=== PATIENT | male | born 1965 | race Caucasian/White ===

== ENCOUNTER → 2017-07-15 06:24 | Outpatient (CLI) | payer BC, SELFPAY ==
[2017-07-15 06:54] LABS: Absolute Neutrophil Count 2.6 X10^3/uL (2.0-7.7); Basophil# 0.06 X10^3/uL; Basophil% 1.2 % (0-1); Eosinophil# 0.58 X10^3/uL; Eosinophils% 11.2 % (0-5); Hematocrit 44.6 % (40-54); Hemoglobin 15.1 g/dl (13.0-16.5); Mean Corp Hgb Conc 33.9 g/gl (32-36); Mean Corpuscular Hgb 27.1 pg (27.0-32.0); Mean Corpuscular Volume 79.9 fL (80-94); Mean Platelet Vol. 9.6 fl (6.2-12.0); Monocyte# 0.53 X10^3/uL; Monocyte% 10.2 % (0-10); Neutrophil # 2.62 X10^3/uL (2.7-7.7); Neutrophil % 50.4 % (47-70); Platelet Count 194 K/mm3 (150-450); RBC Distribution Width CV 13.8 % (11.6-14.6); RBC Distribution Width SD 39.8 fl (35.1-43.9); Red Blood Count 5.58 M/mm3 (4.6-6.2); White Blood Count 5.2 K/mm3 (4.4-11.0)
[2017-07-15 06:55] LABS: POSITIVE COUNT NO; POSITIVE DIFFERENTIAL NO; POSITIVE MORPHOLOGY NO
[2017-07-15 07:54] LABS: ALB/GLOB Ratio 1.2 RATIO (0.9-2.4); AST(SGOT) 24 U/L (15-37); Alanine Aminotransfer ALT/SGPT 38 U/L (16-61); Albumin, Serum 3.9 g/dL (3.2-5.0); Alkaline Phosphatase 97 U/L (45-117); Anion Gap 7 (5-15); BUN 10 mg/dL (7-18); BUN/Creat Ratio 8.8 RATIO (10-20); Calcium,Total 8.3 mg/dL (8.5-10.1); Chloride 108 mmol/L (98-107); Creatinine, Serum 1.14 mg/dL (0.70-1.30); EST Glomerular Filtration Rate 71 mL/min (>60); Est Glom Filt Rate - Afr Amer 86 mL/min (>60); Ferritin 43 ng/mL (26-388); Free T3 2.7 pg/mL (2.18-3.98); Globulin 3.2 g/dL (2.2-4.2); Glucose 106 mg/dL (74-106); Magnesium 2.2 mg/dL (1.6-2.6); Potassium 3.9 mmol/L (3.5-5.1); Prolactin 11.6 ng/mL; Protein, Total 7.1 g/dL (6.4-8.2); Sodium Level 142 mmol/L (136-145); Thyroid Stim Hormone (TSH) 1.74 uIU/mL (0.358-3.74)
[2017-07-15 09:34] LABS: Vitamin B12 372 pg/mL (211-911); Vitamin D,25 Hydroxy 56.9 ng/mL (29.95-100.01)
== END ==
PROVIDERS: Family Provider Family Medicine; PCP Family Medicine
DX: E03.8 Other specified hypothyroidism (principal); D35.2 Benign neoplasm of pituitary gland; E55.9 Vitamin D deficiency, unspecified; E53.9 Vitamin B deficiency, unspecified; R53.83 Other fatigue; E83.42 Hypomagnesemia
CPT/HCPCS: 36415; 80053; 82306; 82607; 82728; 83735; 84146; 84436; 84443; 84481; 85025

== ENCOUNTER → 2017-08-12 06:28 | Outpatient (CLI) | payer BC, SELFPAY ==
[2017-08-12 08:40] LABS: Free T3 2.7 pg/mL (2.18-3.98); T4 Total, Thyroxin 10.5 ug/dL (4.5-12.1); Thyroid Stim Hormone (TSH) 2.33 uIU/mL (0.358-3.74)
== END ==
PROVIDERS: Family Provider Family Medicine; PCP Family Medicine
DX: E03.8 Other specified hypothyroidism (principal)
CPT/HCPCS: 36415; 84436; 84443; 84481

== ENCOUNTER → 2017-08-28 07:00 | Outpatient (CLI) | payer BC, SELFPAY ==
[2017-08-28 08:41] LABS: Estradiol 38.6 pg/mL
[2017-09-01 14:08] LABS: Testosterone, Free 7.08 ng/dL (5.00-21.00)
[2017-09-02 11:12] LABS: Testosterone, % Free 1.46 % (1.50-4.20); Testosterone, Total 485 ng/dL (264-916)
--- OUTSIDE RECORDS SUMMARY | 2017-10-02 16:29 | XMS RPT_ITS ---
:1965 Author Organization [place] Support Name Relationship Address Phone JANETTE GRAY Unavailable [address] + [place] [address] JMSM Unavailable [address] + [place] [address] JANETTE GRAY Unavailable [address] + [place] [address] JMSM Unavailable [address] + [place] [address] JANETTE GRAY Unavailable [address] + [place] [address] JMSM Unavailable [address] + [place] [address] DERRICK GRAYDY Unavailable [address] + [place] [address] JMSM Unavailable [address] + [place] [address] DERRICK GRAYDY Unavailable [address] + [place] [address] JMSM Unavailable [address] + [place] [address] DERRICK GRAYDY Unavailable [address] + [place] [address] JMSM Unavailable [address] + [place] [address] DERRICK GRAYDY Unavailable [address] + [place] [address] JMSM Unavailable [address] + [place] [address] DERRICK GRAYDY Unavailable [address] + [place] [address] JMSM Unavailable [address] + [place] [address] ISAAC, JANETTE Unavailable [address] + [place] [address] JMSM Unavailable [address] + [place] [address] ISAAC, JANETTE Unavailable [address] + [place] [address] JMSM Unavailable [address] + [place] [address] ISAAC, JANETTE Unavailable [address] + [place] [address] JMSM Unavailable [address] + [place] [address] ISAAC, JANETTE Unavailable [address] + [place] [address] JMSM Unavailable [address] + [place] [address] ISAAC, JANETTE Unavailable [address] + [place] [address] JMSM Unavailable [address] + [place] [address] ISAAC, JANETTE Unavailable [address] + [place] [address] JMSM Unavailable [address] + [place] [address] ISAAC, JANETTE Unavailable [address] + [place] [address] JMSM Unavailable [address] + [place] [address] ISAAC, JANETTE Unavailable [address] + [place] [address] JMSM Unavailable [address] + [place] [address] Care Team Providers Name Role Phone ANJEL KIRK Attending Unavailable DAILY MONTERROSO Attending Unavailable ANJEL KIRK Referring Unavailable BRADLEY COUGHLIN Attending Unavailable DAILY MONTERROSO Referring Unavailable DAILY MONTERROSO Attending Unavailable DAILY MONTERROSO Referring Unavailable DAILY MONTERROSO Referring Unavailable DAILY MONTERROSO Referring Unavailable LOC DAILY Parra Referring Unavailable MEGHA PIA (WATER RESOURCE MANAGER) Referring Unavailable LOC, DAILY Parra Attending Unavailable LOC, DAILY Parra Referring Unavailable DAILY MONTERROSO Attending Unavailable ИВАН SANTACRUZ Referring Unavailable SHEWBRIDGE, KEYONA Gallo Referring Unavailable SHEWGENIE, KEYONA Gallo Referring Unavailable Oakes, Earl Attending Unavailable Noam, Иван Primary Care Unavailable Blas Lyn Attending Unavailable Noam, Иван Primary Care Unavailable Sandoval, Amilcar Attending Unavailable Sandoval, Amilcar Primary Care Unavailable Sandoval, Amilcar Primary Care Unavailable Hammad Don Admitting Unavailable Hammad Don Attending Unavailable Terrell David D.O. Consulting Unavailable Maximilianobour, Rob Consulting Unavailable Oakes, Earl Attending Unavailable Sandoval, Amilcar Primary Care Unavailable Sandoval, Amilcar Primary Care Unavailable Hawk Millan Admitting Unavailable Randell Longoria Attending Unavailable Zi Powell Consulting Unavailable Yas, Jonas Consulting Unavailable Sandoval, Amilcar Primary Care Unavailable Surya Diaz Admitting Unavailable Favio Lucia Attending Unavailable Miguel, Rob Consulting Unavailable Jonas Sorenson Attending Unavailable Sandoval, Amilcar Primary Care Unavailable Jonas Sorenson Attending Unavailable Sandoval, Amilcar Primary Care Unavailable Sandoval, Amilcar Attending Unavailable Sandoval, Amilcar Primary Care Unavailable Favio Lucia Attending Unavailable Sandoval, Amilcar Primary Care Unavailable Sandoval, Amilcar Attending Unavailable Sandoval, Amilcar Primary Care Unavailable DEIN MYERS Attending Unavailable DENI MYERS Referring Unavailable Sandoval, Amilcar Primary Care Unavailable DENI MYERS Attending Unavailable DENI MYERS Referring Unavailable Sandoval, Amilcar Primary Care Unavailable DENI MYERS Attending Unavailable DENI MYERS Referring Unavailable Sandoval, Amilcar Primary Care Unavailable BRADLEY GAY Attending Unavailable WIETECHA, BRADLEY Referring Unavailable Sandoval, Amilcar Primary Care Unavailable PROBLEMS PROBLEMS DATE TYPE CONDITION / CODE ATTENDING STATUS SOURCE 10/02/2017 Unknown R53.83 - Other fatigue DENI MYERS Active [place] / R53.83(ICD-10) [facility] Repository 08/12/2017 Unknown E03.8 - Other DENI MYERS Active [place] specified Community hypothyroidism / Hospital E03.8(ICD-10) Repository 07/16/2017 Unknown D35.2 - Benign DENI MYERS Active [place] neoplasm of pituitary Community gland / D35.2(ICD-10) Hospital Repository 07/16/2017 Unknown E55.9 - Vitamin D DENI MYERS Active [place] deficiency, Community unspecified / Hospital E55.9(ICD-10) Repository 07/16/2017 Unknown E83.42 - DENI MYERS Active [place] Hypomagnesemia / Community E83.42(ICD-10) Hospital Repository 07/16/2017 Unknown E53.9 - Vitamin B DENI MYERS Active [place] deficiency, Community unspecified / Hospital E53.9(ICD-10) Repository 04/11/2017 Active Hypothyroidism, NA Active [facility] unspecified / Clinic Main E03.9(ICD-10) [place] Repository 01/20/2017 Unknown PAIN IN RIGHT WRIST / Lori Amilcar Active [place] M25.531(ICD-10) [facility] Repository 12/26/2016 Unknown ANEMIA, UNSPECIFIED / Jopperi, Favio Active [place] D64.9(ICD-10) [facility] Repository 12/10/2016 Active Personal history of NA Active [facility] other venous Clinic Main thrombosis and [place] embolism / Repository Z86.718(ICD-10) 12/03/2016 Unknown ENCNTR FOR GENERAL SandovalAmilcar Active [place] ADULT MEDICAL EXAM W/O Community ABNORMAL FINDINGS / Hospital Z00.00(ICD-10) Repository 11/20/2016 Active Phlebitis and NA Active [facility] thrombophlebitis of Clinic Main superficial vessels of [place] left lower extremity / Repository I80.02(ICD-10) 01/13/2017 Unknown CELLULITIS, Yas, Active [place] UNSPECIFIED / [facility] Community L03.90(ICD-10) Hospital Repository 11/23/2016 Unknown PHLEBITIS AND Jopperi, Favio Active [place] THOMBOPHLB OF [facility] VESSELS OF [facility] / Repository I80.02(ICD-10) 11/23/2016 Unknown OTHER SPECIFIED SOFT Jopperi, Favio Active [place] TISSUE DISORDERS / Community M79.89(ICD-10) Hospital Repository 11/23/2016 Unknown ESSENTIAL (PRIMARY) Jopperi, Favio Active [facility] HYPERTENSION / Community I10(ICD-10) Hospital Repository 11/23/2016 Unknown HYPOTHYROIDISM, Jopperi, Favio Active [facility] UNSPECIFIED / Community E03.9(ICD-10) Hospital Repository 11/23/2016 Unknown OBSTRUCTIVE SLEEP Jopperi, Favio Active [facility] APNEA (ADULT) Community (PEDIATRIC) / Hospital G47.33(ICD-10) Repository 11/23/2016 Unknown RESTLESS LEGS SYNDROME Jopperi, Favio Active [facility] / G25.81(ICD-10) Community Hospital Repository 11/23/2016 Unknown OTHER CERVICAL DISC Jopperi, Favio Active [facility] DISPLACEMENT, UNSP Community CERVICAL REGION / Hospital M50.20(ICD-10) Repository 11/23/2016 Unknown CELLULITIS OF Jopperi, Favio Active [facility] UNSPECIFIED PART OF Community LIMB / L03.119(ICD-10) Hospital Repository 11/23/2016 Unknown METHICILLIN SUSCEP Jopperi, Favio Active [place] STAPH IN[facility]CT CAUSING [facility] B95.61(ICD-10) Repository 11/23/2016 Unknown OTHER FCI Jopperi, Favio Active [place] (CURRENT) DRUG THERAPY Community / Z79.899(ICD-10) Hospital Repository 11/23/2016 Unknown DUODENAL ULCER, UNSP Jopperi, Favio Active [facility] ACUTE OR CHRONIC, Community W/O HEMOR OR PERF / Hospital K26.9(ICD-10) Repository 11/23/2016 Unknown ACUTE EMBOLISM AND Jopperi, Favio Active [facility] THOMBOS OF [facility] VEINS OF R UP EXTREM / Hospital I82.611(ICD-10) Repository 07/16/2017 Unknown A41.9 - Sepsis, Tereletsky, Active [place] unspecified organism / [facility] Community A41.9(ICD-10) Hospital Repository 07/16/2017 Unknown T82.7XXA - Infection Tereletsky, Active [place] and inflammatory [facility] Community reaction due to other Hospital cardiac and vascular Repository devices, implants and grafts, initial encounter / T82.7XXA(ICD-10) 07/16/2017 Unknown A41.01 - Sepsis due to Tereletsky, Active [place] Methicillin [facility] Community susceptible Hospital Staphylococcus aureus Repository / A41.01(ICD-10) 07/16/2017 Unknown B95.61 - Methicillin Tereletsky, Active [place] susceptible [facility] Community Staphylococcus aureus Hospital infection as the cause Repository of diseases classified elsewhere / B95.61(ICD-10) 07/16/2017 Unknown M50.30 - Other Tereletsky, Active [place] cervical disc [facility] Community degeneration, Hospital unspecified cervical Repository region / M50.30(ICD-10) 07/16/2017 Unknown L03.113 - Cellulitis Oakes, Earl Active [place] of right upper limb / Community L03.113(ICD-10) Hospital Repository 07/16/2017 Unknown T82.898A - Other Oakes, Earl Active [place] specified complication Community of vascular prosthetic Hospital devices, implants and Repository grafts, initial encounter / T82.898A(ICD-10) 07/16/2017 Unknown I80.8 - Phlebitis and Oakes, Earl Active [facility] thrombophlebitis of Community other sites / Hospital I80.8(ICD-10) Repository 07/16/2017 Unknown R00.0 - Tachycardia, Oakes, Earl Active [place] unspecified / Community R00.0(ICD-10) Hospital Repository 07/16/2017 Unknown Z87.19 - Personal Oakes, Earl Active [place] history of other Community diseases of the Hospital digestive system / Repository Z87.19(ICD-10) 07/16/2017 Unknown R50.9 - Fever, Oakes, Earl Active [place] unspecified / Community R50.9(ICD-10) Hospital Repository 07/16/2017 Unknown R57.1 - Hypovolemic Hammad Don Active [place] shock / R57.1(ICD-10) Community Hospital Repository 07/16/2017 Unknown K26.0 - Acute duodenal KitHammad patino Active [facility] ulcer with hemorrhage Community / K26.0(ICD-10) Hospital Repository 07/16/2017 Unknown D62 - Acute KitHammad patino Active [place] posthemorrhagic anemia Community / D62(ICD-10) Hospital Repository 07/16/2017 Unknown E03.9 - KitHammad patino Active [place] Hypothyroidism, Community unspecified / Hospital E03.9(ICD-10) Repository 07/16/2017 Unknown Z68.30 - Body mass Hammad Don Active [place] index (BMI) 30.0-30.9, Community adult / Z68.30(ICD-10) Hospital Repository 07/16/2017 Unknown E66.9 - Obesity, Hammad Don Active [place] unspecified / Community E66.9(ICD-10) Hospital Repository 07/16/2017 Unknown T39.395A - Adverse Hammad Don Active [facility] effect of other Community nonsteroidal Hospital anti-inflammatory Repository drugs [NSAID], initial encounter / T39.395A(ICD-10) 07/16/2017 Unknown G25.81 - Restless legs Hammad Don Active [place] syndrome / Community G25.81(ICD-10) Hospital Repository 07/16/2017 Unknown G47.33 - Obstructive Hammad Dno Active [place] sleep apnea (adult) Community (pediatric) / Hospital G47.33(ICD-10) Repository 07/16/2017 Unknown M50.20 - Other Hammad Don Active [place] cervical disc Community displacement, Hospital unspecified cervical Repository region / M50.20(ICD-10) 07/16/2017 Unknown G62.9 - Hammad Don Active [place] Polyneuropathy, Community unspecified / Hospital G62.9(ICD-10) Repository 07/16/2017 Unknown Z79.899 - Other long Hammad Don Active [place] term (current) drug Community therapy / Hospital Z79.899(ICD-10) Repository 10/21/2016 Active Varicose veins of [facility] bilateral lower Clinic Main extremities with other [place] complications / Repository I83.893(ICD-10) 12/15/2016 Unknown CERVICALGIA / Amilcar Sandoval Active [place] M54.2(ICD-10) [facility] Repository 10/18/2016 Active Low back pain / [facility] M54.5(ICD-10) Clinic Other [place] Repository 07/16/2017 Unknown S29.012A - Strain of Oakes, Earl Active [place] muscle and tendon of Community back wall of thorax, Hospital initial encounter / Repository S29.012A(ICD-10) 07/16/2017 Unknown X58.XXXA - Exposure to Oakes, Earl Active [place] other specified Community factors, initial Hospital encounter / Repository X58.XXXA(ICD-10) 07/16/2017 Unknown Y93.9 - Activity, Oakes, Earl Active [place] unspecified / Community Y93.9(ICD-10) Hospital Repository 07/16/2017 Unknown Y92.9 - Unspecified Oakes, Earl Active [facility] place or not Community applicable / Hospital Y92.9(ICD-10) Repository 07/16/2017 Unknown Y99.9 - Unspecified Oakes, Earl Active [place] external cause status Community / Y99.9(ICD-10) Hospital Repository 07/16/2017 Unknown M54.2 - Cervicalgia / Oakes, Earl Active [place] M54.2(ICD-10) [facility] Repository 07/16/2017 Unknown I10 - Essential Oakes, Earl Active [place] (primary) hypertension Community / I10(ICD-10) Hospital Repository 07/16/2017 Unknown M54.9 - Dorsalgia, Oakes, Earl Active [place] unspecified / Community M54.9(ICD-10) Hospital Repository PROCEDURES PROCEDURES No Procedure Records FoundRESULTS RESULTS BRAIN W/WO CONTRAST Observed: 09/18/2017 Status: F Source: [place] 7:37 AM [facility] RE[facility]IT[facility] H[facility]PITALImaging [id number] [place], [place] [address]Ibirn W/WO ContrastMR#: [id number] Acct: [id number]: MARC GRAY Rep #: [id number]: 1965 M 51 From: Joss SilverbPCP: Amilcar Sandoval MD Status: REG CLIStudy: Brain W/WO Contrast Date of Exam: 09/18/17Exam# [id number] Ordering Dr: Tai GayUDY: MRI BRAIN WITH AND WITHOUT CONTRASTREASON FOR EXAM: Male, 51 years old. pituitary mass seen on MRI [id number]. Pt is having increasing H/As.TECHNIQUE: Standardized multiplanar fat and water weighted pulsesequences were obtained. 10 ml of Gadavist contrast material wasadministered intravenously for the contrast portion of the examination.COMPARISON: None. FINDINGS:Normal size of the ventricles and extra-axial spaces for the patient's age.Normal white matter tracts of the supratentorial brain.Normal bilateral basal ganglia. Normal thalami. There is no extra-axialfluid accumulation.Normal flow voids within the major intracranial circulation suggestingpatency by spin echo criteria. Normal venous enhancement. There is noenhancing intra-axial or extra-axial abnormality.Normal midbrain, giorgio and medulla. Normal cerebellum. Normal basalcisterns. Normal bilateral temporal bones. Normal bilateral internalauditory canals.No demonstrated orbital abnormality, within the constraints of a routinebrain study. Normal visualized paranasal sinuses. Normal calvarium andskull base. Normal visualized soft tissue structures. Normal visualizedupper cervical spine. IMPRESSION: Normal unenhanced and enhanced MRI of the brain.Electronically Signed:Joss Soto MD at 8:12 EDTTel , Service support , FAPPP: MRI BRAIN WITH AND WITHOUT CONTRAST (ATTENTION PITUITARY GLAND)REASON FOR EXAM: Male, 51 years old. pituitary mass seen on MRI [id number]. Pt is having increasing H/As.TECHNIQUE: Standardized multiplanar fat and water weighted pulsesequences were obtained. 10 ml of Gadavist contrast material wasadministered intravenously for the contrast portion of the examination.COMPARISON: September 29, 2012 FINDINGS:Again noted is the hypoenhancing focus at the inferior pituitary gland onthe sagittal sequence which is decreased since the prior examinationmeasuring now approximately 1 mmNormal infundibular stalk and suprasellar cistern. Normal optic chiasm andhypothalamus.Normal size of the ventricles and extra-axial spaces for the patient's age.Normal white matter tracts of the supratentorial brain.Normal bilateral basal ganglia. Normal thalami. ORDER #: [id number] MRI/Brain W/WO ContrastIMPRESSION:Decreased possible microadenoma.Electronically Signed:Joss Soto MD at 8:12 EDTTel , Service support , CY: BRADLEY GAY; Amilcar Sandoval MD Cyber Incident Analyst:Signed LUTEINIZING HORMONE Collected: 08/28/2017 Status: F Source: [place] 7:15 AM [facility] REPOSITORY TYPE CODE TESTS RESULT OUT OF RANGE REFERENCE UNITS LAB L3100.5170 Normal mIU/mL LH 9.0 Result Comment: NORMAL REFERENCE RANGES FEMALE FOLLICULAR 1.9 - 26.2 mIU/mL MID-CYCLE PEAK 22.8 - 76.1 mIU/mL LUTEAL 0.6 - 16.6 mIU/ mL POST-MENOPAUSAL ON MHT 1.1 - 52.4 mIU/mL NOT ON MHT 8.6 - 61.8 mIU/mL MALE 1.2 - 10.6 mIU/mLNEW TEST METHOD AND REFERENCE RANGES JULY 14, 2011 Performed By: #### L3100.5170, L3300.1750 ####[facility] [address] [place], [place], [id number] ESTRADIOL Collected: 08/28/2017 Status: F Source: [place] 7:15 AM [facility] REPOSITORY TYPE CODE TESTS RESULT OUT OF RANGE REFERENCE UNITS LAB L3300.1750 Normal pg/mL ESTRADIOL 38.6 Result Comment: NORMAL REFERENCE RANGES FEMALE FOLLICULAR 21.4 - 164.8 pg/mL MID-CYCLE PEAK 49.9 - 367.2 pg/mL LUTEAL 40.2 - 259.0 pg/mL POST-MENOPAUSAL ON MHT <11.0 - 462.1 pg/mL NOT ON MHT <11.0 - 58.3 pg/mL MALE <11.0 - 52.5 pg/mLNOTE:[facility] HAS CONFIRMED THE DRUG FULVETRANT (FASLODEX) MAYCAUSE FALSELY ELEVATED ESTRADIOL RESULTS WHEN USING THISTEST METHOD. IF PATIENT IS TAKING FULVESTRANT AN ALTERNATIVEMETHOD SHOULD BE USED TO DETERMINE ESTRADIOL CONCENTRATION. Performed By: #### L3100.5170, L3300.1750 ####[facility] [address] [place], [place], [address] TESTOSTERONE, TOTAL / Collected: 08/28/2017 Status: F Source: [place] FREE 7:15 AM [facility] REPOSITORY Order Comment: Has Patient had X-rays with Contrast this admission? N TYPE CODE TESTS RESULT OUT OF RANGE REFERENCE UNITS LAB L3100.5320 Normal 264-916 ng/dL 485 TESTOSTER,TO MATT Result Comment: Adult male reference interval is based on a population ofhealthy nonobese males (BMI <30) between 19 and 39 yearsold. ankit Sommers.al. JCEM 2017,102;9954-3427. PMID:[id number]. LAB L3100.5340 Normal 5.00-21.00 ng/dL TESTOSTER,FREE 7.08 LAB L3100.5360 Low 1.50-4.20 % TESTOSTER %FREE 1.46 Result Comment: Performed at: [facility] [id number] Director: Rob Germain PhD, Phone: [phone] at: [facility] [address] [id number] Director: Ramo Dykes MD, Phone: [phone] Performed By: #### L3100.5310 ####[facility] (refer to report for specific site)refer to report for address and phone number FREE T3 Collected: 08/12/2017 Status: F Source: [place] 6:36 AM [facility] REPOSITORY TYPE CODE TESTS RESULT OUT OF RANGE REFERENCE UNITS LAB L501.75685 Normal 2.18-3.98 pg/mL FREE 2.7 T3 Performed By: #### L501.10888, L501.9310, L501.9520 #### [facility] [address] [place], [place], [id number] T4 TOTAL, THYROXIN Collected: 08/12/2017 Status: F Source: [place] 6:36 AM [facility] REPOSITORY TYPE CODE TESTS RESULT OUT OF RANGE REFERENCE UNITS LAB L501.9310 Normal 4.5-12.1 ug/dL T4 10.5 THYROXIN Performed By: #### L501.79477, L501.9310, L501.9520 #### [facility] [address] [place], [place], [id number] THYROID STIM HORMONE Collected: 08/12/2017 Status: F Source: [place] (TSH) 6:36 AM [facility] REPOSITORY TYPE CODE TESTS RESULT OUT OF RANGE REFERENCE UNITS LAB L501.9520 Normal 0.358-3.74 uIU/mL TSH 2.33 Performed By: #### L501.15034, L501.9310, L501.9587 #### [facility] [address] [place], [address] CBC W/DIFF, AUTOMATED Collected: 07/15/2017 Status: F Source: MUSELLA 6:30 AM [facility] REPOSITORY TYPE CODE TESTS RESULT OUT OF RANGE REFERENCE UNITS LAB L100.1000 Normal 4.4-11.0 K/mm3 WBC 5.2 LAB L100.1200 Normal 4.6-6.2 M/mm3 RBC 5.58 LAB L100.1300 Normal 13.0-16.5 g/dl HGB 15.1 LAB L100.1400 Normal 40-54 % HCT 44.6 LAB L100.1500 Low 80-94 fL MCV 79.9 LAB L100.1600 Normal 27.0-32.0 pg MCH 27.1 LAB L100.1700 Normal 32-36 g/gl MCHC 33.9 LAB L100.1810 Normal 11.6-14.6 % RDW 13.8 CV LAB L100.1820 Normal 35.1-43.9 fl RDW 39.8 SD LAB L100.1900 Normal 150-450 K/mm3 PLT 194 LAB L100.2000 Normal 6.2-12.0 fl MPV 9.6 LAB L100.2100 Normal 47-70 % NEUT% 50.4 LAB L100.2200 Normal 19-41 % LY% 27.0 LAB L100.2300 High 0-10 % MONO% 10.2 LAB L100.2400 High 0-5 % EO% 11.2 LAB L100.2500 High 0-1 % BASO% 1.2 LAB L100.2550 Normal 0.0-0.9 % IM 0.000 GRAN % Result Comment: IG% - Immature Granulocytes (promyelocytes, myelocytes andmetamyelocytes) > 1% indicates that a LEFT SHIFT is Present. LAB L100.2620 Normal 2.0-7.7 X10 3/uL Absolute Neut 2.6 LAB L100.2720 Normal 0.83-4.51 X10 3/ul Absolute Lymph 1.40 Performed By: #### L100.0100 ####[facility] [address] [place], [address] COMPREHENSIVE METABOLIC Collected: 07/15/2017 Status: F Source: [place] PROFIL 6:30 AM [facility] REPOSITORY TYPE CODE TESTS RESULT OUT OF RANGE REFERENCE UNITS LAB L501.0100 Normal 74-106 mg/dL GLU 106 Result Comment: Fasting Glucose result from 100 to 125 mg/dLsuggests IMPAIRED HOMEOSTASIS per A.D.A. criteria.Please note revised GLUCOSE reference range arrhvuozm79/02/2018. LAB L501.1000 Normal 7-18 mg/dL BUN 10 LAB L501.1100 Normal 0.70-1.30 mg/dL CREAT,SERUM 1.14 Result Comment: The validity of the calculated GFR AND GFRAA in patients over70 years has not been determined. Clinical correlation isessential. LAB L501.1110 Normal >60 mL/min EST GFR 71 Result Comment: Non- GFR Calc LAB L501.1115 Normal >60 mL/min EST GFR - 86 AA Result Comment: GFR Calc LAB L501.1300 Low 10-20 RATIO BUN/CRE 8.8 LAB L501.1500 Normal 6.4-8.2 g/dL T PROT 7.1 LAB L501.1800 Normal 3.2-5.0 g/dL ALB 3.9 LAB L501.1950 Normal 2.2-4.2 g/dL GLOB 3.2 LAB L501.2000 Normal 0.9-2.4 RATIO A/G 1.2 LAB L501.2200 Low 8.5-10.1 mg/dL CA 8.3 LAB L501.4100 Normal 15-37 U/L AST 24 LAB L501.4305 Normal 45-117 U/L ALK P 97 LAB L501.4405 Normal 16-61 U/L ALT 38 LAB L501.4600 Normal 0.20-1.00 mg/dL T BILI 0.60 LAB L501.5300 Normal 136-145 mmol/L NA 142 LAB L501.5600 Normal 3.5-5.1 mmol/L K 3.9 LAB L501.5900 High 98-107 mmol/L CL 108 LAB L501.6100 Normal 21.0-32.0 mmol/L CO2 27.0 LAB L501.6200 Normal 5-15 GAP 7 Performed By: #### L500.4050, L501.5200, L501.72846, L501.9310, L501.9520, L503.6550, L3100.5420 ####[facility] [address] [place], [place], [id number] MAGNESIUM Collected: 07/15/2017 Status: F Source: [place] 6:30 AM [facility] REPOSITORY TYPE CODE TESTS RESULT OUT OF RANGE REFERENCE UNITS LAB L501.5200 Normal 1.6-2.6 mg/dL MG 2.2 Performed By: #### L500.4050, L501.5200, L501.82255, L501.9310, L501.9520, L503.6550, L3100.5420 ####[facility] [address] [place], [place], [id number] FREE T3 Collected: 07/15/2017 Status: F Source: [place] 6:30 AM [facility] REPOSITORY TYPE CODE TESTS RESULT OUT OF RANGE REFERENCE UNITS LAB L501.80858 Normal 2.18-3.98 pg/mL FREE 2.7 T3 Performed By: #### L500.4050, L501.5200, L501.62507, L501.9310, L501.9520, L503.6550, L3100.5420 ####[facility] [address] [place], [place], [id number] T4 TOTAL, THYROXIN Collected: 07/15/2017 Status: F Source: [place] 6:30 AM [facility] REPOSITORY TYPE CODE TESTS RESULT OUT OF RANGE REFERENCE UNITS LAB L501.9310 Normal 4.5-12.1 ug/dL T4 12.0 THYROXIN Performed By: #### L500.4050, L501.5200, L501.12779, L501.9310, L501.9520, L503.6550, L3100.5420 ####[facility] [address] [place], [place], [id number] THYROID STIM HORMONE Collected: 07/15/2017 Status: F Source: [place] (TSH) 6:30 AM [facility] REPOSITORY TYPE CODE TESTS RESULT OUT OF RANGE REFERENCE UNITS LAB L501.9520 Normal 0.358-3.74 uIU/mL TSH 1.74 Performed By: #### L500.4050, L501.5200, L501.37654, L501.9310, L501.9520, L503.6550, L3100.5420 ####[facility] [address] [facility] [address] FERRITIN Collected: 07/15/2017 Status: F Source: [place] 6:30 AM [facility] REPOSITORY TYPE CODE TESTS RESULT OUT OF RANGE REFERENCE UNITS LAB L503.6550 Normal 26-388 ng/mL FERRITIN 43 Performed By: #### L500.4050, L501.5200, L501.89177, L501.9310, L501.9520, L503.6550, L3100.5420 ####[facility] [address] [place], [place], [address] PROLACTIN Collected: 07/15/2017 Status: F Source: [place] 6:30 AM [facility] REPOSITORY TYPE CODE TESTS RESULT OUT OF RANGE REFERENCE UNITS LAB L3100.5420 Normal ng/mL PROLACTIN 11.6 Result Comment: NORMAL REFERENCE RANGES FEMALE NON- 2.2 - 30.3 ng/mL 8.1 - 347.6 ng/mL POST-MENOPAUSAL 0.7 - 31.5 ng/mL MALE 2.5 - 17.4 ng/mLNEW TEST METHOD AND REFERENCE RANGES JULY 14, 2011 Performed By: #### L500.4050, L501.5200, L501.23585, L501.9310, L501.9520, L503.6550, L3100.5420 ####[facility] [address] [place], [place], [address] VITAMIN B12 Collected: 07/15/2017 Status: F Source: M[place] 6:30 AM [facility] REPOSITORY TYPE CODE TESTS RESULT OUT OF RANGE REFERENCE UNITS LAB L503.0105 Normal 211-911 pg/mL Vitamin 372 B12 Performed By: #### L503.0105, L506.1000 ####[facility] [address] [place], [address] VITAMIN D,25 HYDROXY Collected: 07/15/2017 Status: F Source: MUSELL[place] 6:30 AM [facility] REPOSITORY TYPE CODE TESTS RESULT OUT OF RANGE REFERENCE UNITS LAB L506.1000 Normal 29.95-100.01 ng/mL Vitamin 56.9 D 25-OH Result Comment: Vitamin D 25(OH) Status Range Deficiency <20 ng/mL (50nmol/L) Insuffciency 20 - 30 ng/mL (50 - 75 nmol/L) Sufficiency 30 - 100 ng/mL (75 - 250 nmol/L) Toxicity >100 ng/mL (>250 nmol/L) Performed By: #### L503.0105, L506.1000 ####[facility] [address] [place], [address] FREE T3 Collected: 05/19/2017 Status: F Source: [place] 10:55 AM [facility] REPOSITORY TYPE CODE TESTS RESULT OUT OF RANGE REFERENCE UNITS LAB FREET3 High 2.3-4.1 pg/mL Free 5.2 T3 Performed By: #### FREET3, TSH ####[facility] [place], [place] [phone] TSH Collected: 05/19/2017 Status: F Source: [place] 10:55 AM [facility] REPOSITORY TYPE CODE TESTS RESULT OUT OF RANGE REFERENCE UNITS LAB TSH 0.400-5.500 uU/mL TSH 1.600 Performed By: #### FREET3, TSH ####[facility] [place], [place] [phone] FREE T3 Collected: 04/11/2017 Status: F Source: [place] 8:32 AM [facility] REPOSITORY TYPE CODE TESTS RESULT OUT OF RANGE REFERENCE UNITS LAB FREET3 2.3-4.1 pg/mL Free 4.0 T3 Performed By: #### FREET3, TSH ####[facility] [place], [place] [phone] TSH Collected: 04/11/2017 Status: F Source: [place] 8:32 AM [facility] REPOSITORY TYPE CODE TESTS RESULT OUT OF RANGE REFERENCE UNITS LAB TSH 0.400-5.500 uU/mL TSH 1.720 Performed By: #### FREET3, TSH ####[facility] [address] [place], [place] [phone] HOSP Observed: 03/15/2017 Status: COMPLETED Source: [place] 12:00 AM [facility] REPOSITORY Get Medical Advice (ENDMED) ---------MARC GRAY JR ([id number]) 1965 MDate Time Provider Department03/15/17 KEYONA CHANEY During your visit today, we recorded the following information about you:Missy Short Ma 03/16/2017 8 :28 AM SignedPlease advise, thanks.Keyla Sanabria MA 03/17/2017 12:42 PM SignedMailed lab letter Otf As of Date: 03/15/2017 Noted Allergy ReactionNSAIDS (NON-STEROIDAL ANTI- INFLAM*11/20/2016 15 - Contraindication-Medical Alegre* Comments: Had internal bleeding.PENICILLINS 11/28/2006 Comments: As a baby- unsure of reactionDate Reviewed: 2016Reviewed by: Boo Álvarez RN - Fully AssessedPrimary Visit Diagnosis:Acquired hypothyroidism [E03.9]Order(s):ARMOUR THYROID 30 mg tabletTake 2.5 tablets by mouth once daily.Disp: 75 tabletRfl: 11Prescriptions as of 03/15/2017 Sig: ARMOUR THYROID 30 MG TABLET Take 2.5 tablets by mouth onc* GABAPENTIN 300 MG CAPSULE Take 300 mg by mouth three ti* PANTOPRAZOLE 40 MG TABLET,DEL* Take 40 mg by mouth once julia* FERROUS SULFATE ORAL Take by mouth twice daily. U* CEFTRIAXONE 2 GRAM SOLUTION F* 2 g once daily. Through IV METHYLPREDNISOLONE 4 MG TABLE* Take by mouth. As directed on* Patient not taking: Reported on 11/20/2016Problem List As Of Date 03/15/2017 Noted Resolved Mixed hyperlipidemia [E78.2] INVALID FOR*07/20/2012 Abdominal pain, epigastric [R10.13] INVALID FOR*07/20/2012 Acromioclavicular joint pain [ M25.519] INVALID FOR*07/20/2012 Brachial neuritis or radiculitis NOS [M54.12] INVALID FOR*07/20/2012 Restless legs [G25.81] INVALID FOR* Vitamin D deficiency [E55.9] INVALID FOR* Fatigue [R53.83] INVALID FOR*11/17/2015 MYNOR (obstructive sleep apnea) [G47.33] INVALID FOR* More... History of TIA (transient ischemic attack) [Z86*INVALID FOR* Pituitary abnormality (HCC) [E23.7] INVALID FOR* More... Hypothyroidism [E03.9] INVALID FOR* Obesity [E66.9] INVALID FOR*11/17/2015 Decreased libido [R68.82] INVALID FOR* Anxiety disorder [F41.9] INVALID FOR* Prescriptions ordered this encounter Disp Refills Start End ARMOUR THYROID 30 MG TABLET 75 t* 11 03/16/2017 Route: ORAL Sig: Take 2.5 tablets by mouth once daily.Medications Discontinued During This Encounter levothyroxine (SYNTHROID) 125 mcg ta* 90 t* 3 201603/16/2017 Sig: TAKE 1 TABLET EVERY DAY Disc: Changing Therapy/Dosage FormLetter TextJulissauli Gray JR EndocrinologistKeyona Chaney MD, HKFF404 [facility], [address] [address]Olsarc: [phone]: [phone] 2017Julissauli Gray of : 1965Please obtain the following laboratory tests on Mr. Gray in 04/2017.Tests: TSHFree T3.Diagnosis(es): Hypothyroidism (E03.9) .Please fax result to [phone].Thank you.Keyona Chaney MD(Electronically signed to expedite processing) Status:Closed by KEYONA CHANEY MD on 03/16/17 UPPER EXT JOINT Observed: 01/16/2017 Status: F Source: LISA ONLY(ROUTINE) 3:36 PM [facility] REPOSITORY [facility] [id number] [place] [address]Omqjm Ext Joint Only(Routine)MR#: [id number] Acct: [id number]: MARC GRAY JR Rep #: [id number]: [birth year] M 51 From: Kirill Rivera MDPCP: Amilcar Sandoval MD Status: REG CLIStudy: Upper Ext Joint Only(Routine) Date of Exam: 01/16/17Exam# [id number] Ordering Dr: Amilcar Sandoval MDSTUDY: MRI RIGHT WRIST WITHOUT CONTRASTREASON FOR EXAM: Male, 51 years old. Pain with grasping.TECHNIQUE: Standardized fat and water weighted pulse sequences wereobtained in all 3 orthogonal planes.COMPARISON: None. FINDINGS:Normal visualized distal radius and ulna. Normal distal radioulnarArticulation (DRUJ). Normal triangular fibrocartilaginous complex (TFCC).There are small cystic foci of the carpal bones. There is mild arthriticchange of the carpal articulations. There are ossific signal intensitystructures on the dorsal aspect adjacent to the lunate and capitate, series5 image /36.Normal visualized interosseous scapholunate ligament. Normal visualizeddorsal (extrinsic) ligaments. Normal visualized volar (extrinsic)ligaments.Tendinosis of the extensor carpi ulnaris with enlargement and partialintrasubstance tearing, series 6 images 36 through . There is fluidin the tendon sheath. Normal extensor digitorum tendons. Normal flexortendons. Normal carpal tunnel with a normal median nerve.Normal carpometacarpal articulation of the thumb. Normal second throughfifth carpometacarpal articulations.Normal visualized metacarpal bones.There is no demonstrated soft tissue abnormality. ORDER #: [id number] MRI/Upper Ext Joint Only(Routine)IMPRESSION:Tenosynovitis with partial intrasubstance tear of the extensor carpiulnaris.Arthritic change of the carpal bones. Ossifications on the dorsal aspectwith possible prior avulsion or loose body.Electronically Signed: Kirill Rivera MD at 10:09 ESTTel , Service support [phone], EM: Amilcar Sandoval MD Cyber Incident Analyst:Signed PROGRESS Observed: 01/09/2017 Status: COMPLETED Source: [place] 5:34 PM [facility] REPOSITORY HNO ID: [id number]: Daily Kirbyervice: (none) Author Type: PhysicianType: Progress NotesFiled: 01/09/2017 5:36 PMNote Text:Date of procedure: January 09, 2017Performed by: Daily Monterroso DOAssistants: Fabricio Snyder-procedure diagnosis: Symptomatic venous valvular incompetence withvaricose veins.Post procedure diagnosis: Symptomatic venous valvular incompetence withvaricose veins.Procedure: Stab Phlebectomy - Right LegAnesthesia: alprazolam and local anesthesia.Brief history and indications: The patient is a 51 year old Male withsymptomatic varicose veins and chronic venous valvular insufficiency.Risks and benefits of the procedure were discussed in detail including therisk of bleeding, bruising, numbness, nodularity, skin pigmentation,thermal injury, deep vein thrombosis and pulmonary embolism. Afterreviewing all the above, the patient wished to proceed.Narrative procedure note: The patient was brought to the procedure roomafter consent obtained. The patient's Right leg was prepped withchloraprep solution and draped in the usual sterile fashion.Sites of bulging veins, marked with indelible ink prior to the start ofthe procedure were injected with local anesthesia. Once adequateanesthesia was confirmed, 2-3 mm incisions were made using a number 11blade and veins were avulsed using a varicose vein hook and curvedmosquito forceps. Deep branches were ligated with 4-0 vicryl. Theincisions were closed using 5-0 Nylon. In total, 14 incisions were made.The leg was washed with warm sterile saline. Dry sterile dressings andCoban elastic wrap were then applied. The patient tolerated the procedurewell without complication.Estimate blood loss: Minimal.Specimens removed: Varicose veins CNOV Observed: 01/09/2017 Status: COMPLETED Source: [place] 2:30 PM [facility] REPOSITORY Office Visit (VASSMD) ---------MARC GRAY JR ([id number]) 1965 MDate Time Provider Ccegqqnlgz93/17/17 2:30 PM DAILY MONTERROSO During your visit today, we recorded the following information about you: Pulse Blood pressure 93/minute 118/80Daily Monterroso DO 01/09/2017 5:36 PM SignedDate of procedure: January 09, 2017Performed by: Daily Monterroso DOAssistants: Fabricio Snyder-procedure diagnosis: Symptomatic venous valvular incompetence with varicoseveins.Post procedure diagnosis: Symptomatic venous valvular incompetence withvaricose veins.Procedure: Stab Phlebectomy - Right LegAnesthesia: alprazolam and local anesthesia.Brief history and indications: The patient is a 51 year old Male withsymptomatic varicose veins and chronic venous valvular insufficiency. Risksand benefits of the procedure were discussed in detail including the risk ofbleeding, bruising, numbness, nodularity, skin pigmentation, thermal injury,deep vein thrombosis and pulmonary embolism. After reviewing all the above,the patient wished to proceed.Narrative procedure note: The patient was brought to the procedure room afterconsent obtained. The patient's Right leg was prepped with chloraprep solutionand draped in the usual sterile fashion.Sites of bulging veins, marked with indelible ink prior to the start of theprocedure were injected with local anesthesia. Once adequate anesthesia wasconfirmed, 2-3 mm incisions were made using a number 11 blade and veins wereavulsed using a varicose vein hook and curved mosquito forceps. Deep brancheswere ligated with 4-0 vicryl. The incisions were closed using 5-0 Nylon. Intotal, 14 incisions were made.The leg was washed with warm sterile saline. Dry sterile dressings and Cobanelastic wrap were then applied. The patient tolerated the procedure wellwithout complication.Estimate blood loss: Minimal.Specimens removed: Varicose veinsBoo Álvarez RN 01/09/2017 5:[address] [facility] Stab PhlebectomyMarc Gray January 09, 2019D.O.B. 1965N [id number]:ALLERGIESAllergen Reactions- Nsaids (Non-Steroid* Contraindication-Medical Surgical Had internal bleeding.- Penicillins As a baby- unsure of reactionCurrent Outpatient Prescriptions:levothyroxine (SYNTHROID) 125 mcg tablet TAKE 1 TABLET EVERY DAYgabapentin (NEURONTIN) 300 mg capsule Take 300 mg by mouth three times daily.pantoprazole DR (PROTONIX) 40 mg tablet Take 40 mg by mouth once daily.FERROUS SULFATE ORAL Take by mouth twice daily. Unsure of dosecefTRIAXone (ROCEPHIN) 2 gram injection 2 g once daily. Through IVmethylPREDNISolone (MEDROL, RONALD,) 4 mg Dose-Pack Take by mouth. As directed onpackage (Patient not taking: Reported on 11/20/2016)No current facility-administered medications for this visit.Physician : Daily Monterroso DOAssistants: Jennie Dejesusformed Consent: yesPatient agrees to proceed : yesUNIVERSAL PROTOCOL / SAFETY CHECKLISTProcedure to be performed: Right Leg Stab PhlbectomySign in Communication: CompletedTime Out: Team Confirms the Correct Patient, Correct Procedure, Correct Siteand Site Marking, Correct Position (if applicable). Time: 15: 45Affirmation of Time Out: N/ASign Out Discussion: CompletedLeg: rightHistory and Physical date: 2016Anything changed since History and Physical complete: NoPre-op Assessment: Ambulatory, Calm and OrientedPrep: chloraprepStart Time: 15:49Lido: 1% Lidocaine Plain + 8.4% NaBicarb (5:1 mixture). Total injected: 33ccDressing: Coban and KerlexEnd Time: 17:19Post-op Assessment: ambulatory, alert and oriented, tolerated procedure with noapparent injury, Sutures are clean and dry. and right leg wrapped with kerlexand coban dressingDischarge Instructions: Written Homegoing Instructions given ANDamp; Reviewed.Patient verbalizes understanding.Boo Álvarez RNReferring Provider: ИВАН SANTACRUZ [[id number]]Allergies As of Date: 01/09/2017 Noted Allergy ReactionNSAIDS (NON-STEROIDAL ANTI-INFLAM*11/20/2016 15 - Contraindication-Medical Alegre* Comments: Had internal bleeding.PENICILLINS 11/28/2006 Comments: As a baby - unsure of reactionDate Reviewed: 01/09/2017Reviewed by: Boo Álvarez RN - Fully AssessedReason for Visit: Procedure [88]Primary Visit Diagnosis:Symptomatic varicose veins, bilateral [I83.893]Prescriptions as of 01/09/2017 Sig: LEVOTHYROXINE 125 MCG TABLET TAKE 1 TABLET EVERY DAY GABAPENTIN 300 MG CAPSULE Take 300 mg by mouth three ti* PANTOPRAZOLE 40 MG TABLET,DEL* Take 40 mg by mouth once julia* FERROUS SULFATE ORAL Take by mouth twice daily. U* CEFTRIAXONE 2 GRAM SOLUTION F* 2 g once daily. Through IV METHYLPREDNISOLONE 4 MG TABLE* Take by mouth. As directed on* Patient not taking: Reported on 11/20/2016Problem List As Of Date 01/09/2017 Noted Resolved Mixed hyperlipidemia [E78.2] INVALID FOR*07/20/2012 Abdominal pain, epigastric [R10.13] INVALID FOR*07/20/2012 Acromioclavicular joint pain [ M25.519] INVALID FOR*07/20/2012 Brachial neuritis or radiculitis NOS [M54.12] INVALID FOR*07/20/2012 Restless legs [G25.81] INVALID FOR* Vitamin D deficiency [E55.9] INVALID FOR* Fatigue [R53.83] INVALID FOR*11/17/2015 MYNOR (obstructive sleep apnea) [G47.33] INVALID FOR* More... History of TIA (transient ischemic attack) [Z86*INVALID FOR* Pituitary abnormality (HCC) [E23.7] INVALID FOR* More... Hypothyroidism [E03.9] INVALID FOR* Obesity [E66.9] INVALID FOR*11/17/2015 Decreased libido [R68.82] INVALID FOR* Anxiety disorder [F41.9] INVALID FOR*Visit Notes:& gt;> Boo Álvarez RN ThuJan 09, 2017 5:36 PM Status: [facility]igned[facility] Stab PhlebectomyMarc Gray January 09, 2019D.O.B. 1965N [id number]:ALLERGIESAllergen Reactions- Nsaids (Non-Steroid* Contraindication-Medical Surgical Had internal bleeding.- Penicillins As a baby- unsure of reactionCurrent Outpatient Prescriptions:levothyroxine (SYNTHROID) 125 mcg tablet TAKE 1 TABLET EVERY DAYgabapentin (NEURONTIN) 300 mg capsule Take 300 mg by mouth three timesdaily.pantoprazole DR (PROTONIX) 40 mg tablet Take 40 mg by mouth once daily.FERROUS SULFATE ORAL Take by mouth twice daily. Unsure of dosecefTRIAXone (ROCEPHIN) 2 gram injection 2 g once daily. Through IVmethylPREDNISolone (MEDROL, RONALD,) 4 mg Dose-Pack Take by mouth. Asdirected on package (Patient not taking: Reported on 11/20/2016)No current facility-administered medications for this visit.Physician : Daily Monterroso DOAssistants: Fabricio Sadler RVTInformed Consent: yesPatient agrees to proceed : yesUNIVERSAL PROTOCOL / SAFETY CHECKLISTProcedure to be performed: Right Leg Stab PhlbectomySign in Communication: CompletedTime Out: Team Confirms the Correct Patient, Correct Procedure, CorrectSite and Site Marking, Correct Position (if applicable). Time: 15: 45Affirmation of Time Out: N/ASign Out Discussion: CompletedLeg: rightHistory and Physical date: Anything changed since History and Physical complete: NoPre-op Assessment: Ambulatory, Calm and OrientedPrep: chloraprepStart Time: 15:49Lido: 1% Lidocaine Plain + 8.4% NaBicarb (5:1 mixture). Total injected:33ccDressing: Coban and KerlexEnd Time: 17:19Post-op Assessment: ambulatory, alert and oriented, tolerated procedurewith no apparent injury, Sutures are clean and dry. and right leg wrappedwith kerlex and coban dressingDischarge Instructions: Written Homegoing Instructions given AND Reviewed.Patient verbalizes understanding.Boo Phillip Álvarez RNEncounter Number: [id number] Status:Closed by DAILY MONTERROSO DO on 01/09/17 PROGRESS Observed: 12/29/2016 Status: COMPLETED Source: [place] 9:45 AM [facility] REPOSITORY HNO ID: [id number]: Daily Kirbyervice: (none) Author Type: PhysicianType: Progress NotesFiled: 01/20/2017 4:08 PMNote Text:VASCULAR SURGERY ESTABLISHED PATIENTSERVICE DATE: 12/29/2016SERVICE TIME: 9:45 [facility]: VERA BecerraUBJECTIVEHISTORY OF PRESENT ILLNESS: Patient returns for a follow up after venousreflux testing for symptomatic right greater than left varicose veins. Heis doing well and his phlebitis on left lower extremity is improving.Still has tender right leg varicose veins. PAST MEDICAL/SURGICAL/FAMILY/SOCIAL HISTORYPAST MEDICAL HISTORYDiagnosis Date- Brachial neuritis or radiculitis NOS 02/02/2009- Esophageal reflux history of- Mixed hyperlipidemia 11/28/2006- MYNOR (obstructive sleep apnea) 08/15/2012- Restless legs- TIA (transient ischemic attack) 09/29/2012- Vitamin D deficiency 07/20/2012PAST SURGICAL HISTORYProcedure Laterality Date- COLONS W/REM POLYP HT BX 02/26/2015- EGD W/ O BRSH SPECIMEN W/BX 12/31/07- PAST SURGICAL HISTORY OF LIPOMA X2- PAST SURGICAL HISTORY OF 2000 reversal of vasectomy- PAST SURGICAL HISTORY OF 1990 vasectomy- REPAIR INCIS HERNIA W MESH 08/10/08- REPAIR INCISIONAL HERNIA,REDUCIBLE 08/10/08FAMILY HISTORYProblem Relation Age of Onset- Diabetes Mother- HIATAL HERNIA [Other] [ OTHER] Father- HIATAL HERNIA [Other] [OTHER] Sister- Cancer Father esophageal cancer- Hypertension Mother- Lipids MotherSOCIAL HISTORYSocial History Marital status: Spouse name: Years of education: Number of children:Social History Main Topics Smoking status: Never Smoker Smokeless status: Never Used Alcohol use: No Drug use: NoMEDICATIONS/ALLERGIESCurrent Outpatient Prescriptions:levothyroxine (SYNTHROID) 125 mcg tablet TAKE 1 TABLET EVERY DAY Disp: 90tablet Rfl: 3FERROUS SULFATE ORAL Take by mouth twice daily. Unsure of dose Disp:Rfl:gabapentin (NEURONTIN) 300 mg capsule Take 300 mg by mouth three timesdaily. Disp: Rfl:pantoprazole DR (PROTONIX) 40 mg tablet Take 40 mg by mouth once daily.Disp: Rfl:cefTRIAXone (ROCEPHIN) 2 gram injection 2 g once daily. Through IV Disp:Rfl:methylPREDNISolone (MEDROL, RONALD,) 4 mg Dose-Pack Take by mouth. Asdirected on package (Patient not taking: Reported on 11/20/2016) Disp: 1Package Rfl: 0No current facility-administered medications for this visit.ALLERGIESAllergen Reactions- Nsaids (Non-Steroid* Contraindication-Medical Surgical Had internal bleeding.- Penicillins As a baby- unsure of reactionOBJECTIVEBP 119/78 Pulse 71Gen- no distressExt- bilateral lower extremity varicose veins, thrombosed varicose veinsand greater saphenous vein on the leftASSESSMENTSymptomatic varicose veinsThrombophlebitisPLAN/RECOMMENDATIONSRecommend right leg stab phlebectomy of remaining varicose veins as he hasfailed outpatient treatmentReviewed procedure and he is agreeableSIGNATURE: Daily Monterroso DO PATIENT NAME: Marc Gray DATE: December 29, 2016 : 9:45 AM CNOV Observed: 12/29/2016 Status: COMPLETED Source: [place] 9:00 AM [facility] REPOSITORY Office Visit (VASSWS) ---------ISAACMARC DEGROOT ([id number]) 1965 MDate Time Provider Lkqtmcewfj41/6/17 9:00 AM DAILY MONTERROSO During your visit today, we recorded the following information about you: Pulse Blood pressure 71/minute 119/78Daily Parra Monterroso, DO 01/20/2017 4:08 PM SignedVASCULAR SURGERY ESTABLISHED PATIENTSERVICE DATE: 12/29/2016SERVICE TIME: 9:45 [facility]PRIBAP[facility] PH[facility]IAN: VERA BecerraUBJECTIVEHISTORY OF PRESENT ILLNESS: Patient returns for a follow up after venousreflux testing for symptomatic right greater than left varicose veins. He isdoing well and his phlebitis on left lower extremity is improving. Still hastender right leg varicose veins. PAST MEDICAL/SURGICAL/FAMILY/SOCIAL HISTORYPAST MEDICAL HISTORYDiagnosis Date- Brachial neuritis or radiculitis NOS 02/02/2009- Esophageal reflux history of- Mixed hyperlipidemia 11/28/2006- MYNOR (obstructive sleep apnea) 08/15/2012- Restless legs- TIA (transient ischemic attack) 09/29/2012- Vitamin D deficiency 07/20/2012PAST SURGICAL HISTORYProcedure Laterality Date- COLONS W/REM POLYP HT BX 02/26/2015- EGD W/O BRSH SPECIMEN W/BX 12/31/07- PAST SURGICAL HISTORY OF LIPOMA X2- PAST SURGICAL HISTORY OF 2000 reversal of vasectomy- PAST SURGICAL HISTORY OF 1990 vasectomy- REPAIR INCIS HERNIA W MESH 08/10/08- REPAIR INCISIONAL HERNIA,REDUCIBLE FAMILY HISTORYProblem Relation Age of Onset- Diabetes Mother- HIATAL HERNIA [Other] [OTHER] Father- HIATAL HERNIA [Other] [OTHER] Sister- Cancer Father esophageal cancer- Hypertension Mother- Lipids MotherSOCIAL HISTORYSocial History Marital status: Spouse name: Years of education: Number of children:Social History Main Topics Smoking status: Never Smoker Smokeless status: Never Used Alcohol use: No Drug use: NoMEDICATIONS/ALLERGIESCurrent Outpatient Prescriptions:levothyroxine (SYNTHROID) 125 mcg tablet TAKE 1 TABLET EVERY DAY Disp: 90tablet Rfl: 3FERROUS SULFATE ORAL Take by mouth twice daily. Unsure of dose Disp: Rfl: gabapentin (NEURONTIN) 300 mg capsule Take 300 mg by mouth three times daily.Disp: Rfl:pantoprazole DR (PROTONIX) 40 mg tablet Take 40 mg by mouth once daily. Disp:Rfl:cefTRIAXone (ROCEPHIN) 2 gram injection 2 g once daily. Through IV Disp: Rfl:methylPREDNISolone (MEDROL, RONALD,) 4 mg Dose-Pack Take by mouth. As directed onpackage (Patient not taking: Reported on 11/20/2016) Disp: 1 Package Rfl: 0No current facility-administered medications for this visit.ALLERGIESAllergen Reactions- Nsaids (Non-Steroid* Contraindication-Medical Surgical Had internal bleeding.- Penicillins As a baby- unsure of reactionOBJECTIVEBP 119/78 Pulse 71Gen- no distressExt- bilateral lower extremity varicose veins, thrombosed varicose veins andgreater saphenous vein on the leftASSESSMENTSymptomatic varicose veinsThrombophlebitisPLAN/RECOMMENDATIONSRecommend right leg stab phlebectomy of remaining varicose veins as he hasfailed outpatient treatmentReviewed procedure and he is agreeableSIGNATURE: Daily Monterroso DO PATIENT NAME: Marc Gray JRDATE: December 29, 2016 : 9:45 AMReferring Provider: DAILY MONTERROSO [[id number]]Allergies As of Date: 12/29/2016 Noted Allergy ReactionNSAIDS (NON-STEROIDAL ANTI-INFLAM*11/20/2016 15 - Contraindication- Medical Alegre* Comments: Had internal bleeding.PENICILLINS 11/28/2006 Comments: As a baby- unsure of reactionDate Reviewed: 12/29/2016Reviewed by: Boo Álvarez RN - Fully AssessedReason for Visit: Established Patient [175]Primary Visit Diagnosis: Symptomatic varicose veins of both lower extremities [I83.893]Prescriptions as of 12/29/2016 Sig: LEVOTHYROXINE 125 MCG TABLET TAKE 1 TABLET EVERY DAY FERROUS SULFATE ORAL Take by mouth twice daily. U* GABAPENTIN 300 MG CAPSULE Take 300 mg by mouth three ti* PANTOPRAZOLE 40 MG TABLET,DEL* Take 40 mg by mouth once julia* CEFTRIAXONE 2 GRAM SOLUTION F* 2 g once daily. Through IV METHYLPREDNISOLONE 4 MG TABLE* Take by mouth. As directed on* Patient not taking: Reported on 11/20/2016Medication notes this encounter PANTOPRAZOLE 40 MG TABLET,DELAYED RELEASE >> Boo Álvarez RN 12/29/2016 8:59 AM & gt;> BOO ÁLVAREZ RN Mon Dec 29, 2016 8:59 AM Not takingProblem List As Of Date 2016 Noted Resolved Mixed hyperlipidemia [E78.2] INVALID FOR*07/20/2012 Abdominal pain, epigastric [R10.13] INVALID FOR*07/20/2012 Acromioclavicular joint pain [M25.519] INVALID FOR*07/20/2012 Brachial neuritis or radiculitis NOS [M54.12] INVALID FOR*07/20/2012 Restless legs [G25.81] INVALID FOR* Vitamin D deficiency [E55.9] INVALID FOR* Fatigue [R53.83] INVALID FOR*11/17/2015 MYNOR (obstructive sleep apnea) [G47.33] INVALID FOR* More... History of TIA (transient ischemic attack) [Z86*INVALID FOR* Pituitary abnormality (HCC) [E23.7] INVALID FOR* More... Hypothyroidism [E03.9] INVALID FOR* Obesity [E66.9] INVALID FOR*11/17/2015 Decreased libido [R68.82] INVALID FOR* Anxiety disorder [F41.9] INVALID FOR* Status:Closed by DAILY MONTERROSO DO on 01/20/17 CBC W/DIFF, AUTOMATED Collected: 12/23/2016 Status: F Source: [place] 6:53 AM [facility] REPOSITORY TYPE CODE TESTS RESULT OUT OF RANGE REFERENCE UNITS LAB L100.1000 Normal 4.4-11.0 K/mm3 WBC 4.4 LAB L100.1200 Normal 4.6-6.2 M/mm3 RBC 5.58 LAB L100.1300 Normal 13.0-16.5 g/dl HGB 14.4 LAB L100.1400 Normal 40-54 % HCT 44.7 LAB L100.1500 Normal 80-94 fL MCV 80.1 LAB L100.1600 Low 27.0-32.0 pg MCH 25.8 LAB L100.1700 Normal 32-36 g/gl MCHC 32.2 LAB L100.1810 Normal 11.6-14.6 % RDW 13.6 CV LAB L100.1820 Normal 35.1-43.9 fl RDW 39.5 SD LAB L100.1900 Normal 150-450 K/mm3 PLT 226 LAB L100.2000 Normal 6.2-12.0 fl MPV 9.8 LAB L100.2100 Normal 47-70 % NEUT% 55.9 LAB L100.2200 Normal 19-41 % LY% 29.3 LAB L100.2300 Normal 0-10 % MONO% 9.8 LAB L100.2400 Normal 0-5 % EO% 3.9 LAB L100.2500 High 0-1 % BASO% 1.1 LAB L100.2550 Normal 0.0-0.9 % IM 0.000 GRAN % Result Comment: IG% - Immature Granulocytes (promyelocytes, myelocytes andmetamyelocytes) > 1% indicates that a LEFT SHIFT is Present. LAB L100.2620 Normal 2.0-7.7 X10 3/uL Absolute Neut 2.5 LAB L100.2720 Normal 0.83-4.51 X10 3/ul Absolute Lymph 1.29 Performed By: #### L100.0100 ####[facility] [id number] [place], [address] OBSOLETE Observed: 12/22/2016 Status: COMPLETED Source: [place] 12:00 AM [facility] REPOSITORY Refill (ENDMED) ---------MARC GRAY JR ([id number]) 1965 MDate Time Provider Itrxumkiht61/30/17 KEYONA CHANEY During your visit today, we recorded the following information about you:Missy Short Ma 12/22/2016 8:17 AM SignedPharmacy requesting refills as follows:Pending Prescriptions Disp Refills LEVOTHYROXINE 125 MCG TABLET 90 tablet 3 Sig: TAKE 1 TABLET EVERY DAY MARCOS: Yes Please review and advise.Missy Rasmussen As of Date: 12/22/2016 Noted Allergy ReactionNSAIDS (NON-STEROIDAL ANTI-INFLAM*11/20/2016 15 - Contraindication-Medical Alegre* Comments: Had internal bleeding.PENICILLINS 11/28/2006 Comments: As a baby - unsure of reactionDate Reviewed: 12/16/2016Reviewed by: Pia Askew) Megha - Fully AssessedReason for Visit: Refill Request [94]Order(s):levothyroxine (SYNTHROID) 125 mcg tabletTAKE 1 TABLET EVERY DAYDisp: 90 tabletRfl: 3Prescriptions as of 12/22/2016 Sig: LEVOTHYROXINE 125 MCG TABLET TAKE 1 TABLET EVERY DAY GABAPENTIN 300 MG CAPSULE Take 300 mg by mouth three ti* PANTOPRAZOLE 40 MG TABLET,DEL* Take 40 mg by mouth once julia* FERROUS SULFATE ORAL Take by mouth twice daily. U* CEFTRIAXONE 2 GRAM SOLUTION F* 2 g once daily. Through IV METHYLPREDNISOLONE 4 MG TABLE* Take by mouth. As directed on* Patient not taking: Reported on 11/20/2016Problem List As Of Date 12/22/2016 Noted Resolved Mixed hyperlipidemia [E78.2] INVALID FOR*07/20/2012 Abdominal pain, epigastric [R10.13] INVALID FOR*07/20/2012 Acromioclavicular joint pain [ M25.519] INVALID FOR*07/20/2012 Brachial neuritis or radiculitis NOS [M54.12] INVALID FOR*07/20/2012 Restless legs [G25.81] INVALID FOR* Vitamin D deficiency [E55.9] INVALID FOR* Fatigue [R53.83] INVALID FOR*11/17/2015 MYNOR (obstructive sleep apnea) [G47.33] INVALID FOR* More... History of TIA (transient ischemic attack) [Z86*INVALID FOR* Pituitary abnormality (HCC) [E23.7] INVALID FOR* More... Hypothyroidism [E03.9] INVALID FOR* Obesity [E66.9] INVALID FOR*11/17/2015 Decreased libido [R68.82] INVALID FOR* Anxiety disorder [F41.9] INVALID FOR* Prescriptions ordered this encounter Disp Refills Start End LEVOTHYROXINE 125 MCG TABLET 90 t* 3 12/22/2016 Sig: TAKE 1 TABLET EVERY DAYMedications Discontinued During This Encounter levothyroxine (SYNTHROID) 125 mcg ta* 90 t* 3 11/16/2015 12/22/2016 Route: ORAL Sig: Take 1 tablet by mouth once daily. Disc: Reason for discontinue is not on file. Status:Closed by KEYONA CHANEY MD on XR WRIST 4V Observed: 12/16/2016 Status: F Source: [place] PA/LAT/OBL/SCAPH RT 6:58 PM [facility] * * *Final Report* * *DATE OF EXAM: Dec 16 2016 6:58PM WOX [id number] - XR WRIST 4V PA/LAT/OBL/SCAPH RT / REASON: Pain in right wrist * * * * Physician Interpretation * * * * History: Trauma 5 weeks agoFINDINGS:4 views of the left wrist have been obtained. The bones are well mineralized without evidence of fracture or dislocation. Joint spaces are well maintained. No gross soft tissue abnormalities are seen.Impression:No pathologic process is seen.Cyber Incident Analyst: DENG Transcribe Date/Time: Dec 16 2016 7:09PDictated by : SOPHY BESS MDThipriya examination was interpreted and the report reviewed and electronically signed by: SOPHY BESS MD on Dec 16 2016 7:11PM [id number] PROGRESS Observed: 12/16/2016 Status: COMPLETED Source: [place] 6:54 PM [facility] HNO ID: [id number]: Bg Almeida (Tech): (none)Author Type: TechnicianType: Progress NotesFiled: 12/16/2016 6:58 PMNote Text: Radiology Service Progress NotePATIENT NAME: Marc Gray OF SERVICE: December 16, 2016TIME: 6:54 PMPATIENT IDENTITY VERIFICATION COMPLETED USING TWO (2) METHODS: Patientconfirmed name verbally and Date of .PATIENT GENDER DATA: MalePATIENT RELEVANT IMPLANT DATA REVIEWED: Not ApplicableRADIOLOGY DEPARTMENT: General X-ray: Exam(s) Completed: Upper ExtremityX-Ray(s): Wrist, Right :PERIPHERAL IV DATA: Not applicableSIGNED BY: Mary Ann London2016 6:54 PM PROGRESS Observed: 12/16/2016 Status: COMPLETED Source: [place] 6:44 PM [facility] HNO ID: [id number]: Pia Askew) FulkService: (none) Author Type: Nurse PractitionerType: Progress NotesFiled: 12/16/2016 7:32 PMNote Text:Patient is a 51 year old male presenting with wrist pain. The history isprovided by the patient. No world language teacher was used.Wrist PainPertinent negatives include no chills, fever, headaches, myalgias or rash.HPI Marc Gray JR is a 51 year old male who presents today for CC of wristpain. This started 5 weeks ago from trauma when patient experienced a GIbleed, he past out and caught his wrist on wall. He is also havingdecreased ROM with supination Symptoms are worsened by movement He hastried ice martin wrap and tylenol without relief. Risk factors trauma 5weeks ago PMH GI bleed from NSAID useBP 120/84 Pulse 76 Temp 36.3 ?C (97.3 ?F) ( Tympanic) Resp 16 Wt110.7 kg (244 lb) BMI 29.7 kg/j4THEEFYVYFRzuefhbf Reactions- Nsaids (Non-Steroid* Contraindication-Medical Surgical Had internal bleeding.- Penicillins As a baby- unsure of reactionACTIVE PROBLEM LISTRestless LegsVitamin D DeficiencyOsa (Obstructive Sleep Apnea)History of Tia (Transient Ischemic Attack)Pituitary Abnormality (Hcc)HypothyroidismDecreased LibidoAnxiety DisorderFamily HistoryProblem Relation Age of Onset- Diabetes Mother- HIATAL HERNIA [Other] [OTHER] Father- HIATAL HERNIA [Other] [OTHER] Sister- Cancer Father esophageal cancer- Hypertension Mother- Lipids MotherSocial History Marital status: Spouse name: Years of education: Number of children:Social History Main Topics Smoking status: Never Smoker Smokeless status: Never Used Alcohol use: No Drug use: NoReview of SystemsConstitutional: Negative for chills, fever and malaise/fatigue.Musculoskeletal: Positive for joint pain (right wrist). Negative formyalgias.Skin: Negative for rash.Neurological: Negative for tingling and headaches.Physical ExamConstitutional: He is oriented to person, place, and time andwell-developed, well-nourished, and in no distress. No distress.HENT:Head: Normocephalic and atraumatic.Eyes: Conjunctivae and EOM are normal. Pupils are equal, round, andreactive to light.Neck: Normal range of motion. Neck supple.Cardiovascular:Pulses: Radial pulses are 2+ on the right side, and 2 + on the left side.Pulmonary/Chest: Effort normal.Musculoskeletal: Right wrist: He exhibits decreased range of motion (supination),tenderness and bony tenderness. He exhibits no swelling, no effusion, nocrepitus, no deformity and no laceration.Neurological: He is alert and oriented to person, place, and time. He hasnormal sensation, normal strength and normal reflexes.Skin: Skin is warm and dry.Psychiatric: Affect normal.Nursing note and vitals reviewed.ASSESSMENT/PLAN :1. Right wrist pain - ICD9: 719.43, ICD10: M25.531No Fracture noted- XR WRIST INJURY 4V PA/LAT/OBL/SCAPH RT - interpreted by Sophy Bess MDFINDINGS:4 views of the left wrist have been obtained. ?The bones are wellmineralized without evidence of fracture or dislocation. ?Joint spacesare well maintained. ?No gross soft tissue abnormalities are seen.Impression:No pathologic process is seen.Rest, ice, elevation, MARTIN wrap as neededWrist sprain exercises givenFollow up with ortho if no improvement over the next 1-2 weeksDiagnosis and treatment plan were discussed and questions were answered tothe patient's satisfaction. Pt acknowledged understanding of concepts andfollow up plan.Specific signs and symptoms that would indicate the need for higher levelof care were discussed in detail warranting prompt ER evaluation.Pia Cleveland CNP CNOV Observed: 12/16/2016 Status: COMPLETED Source: [place] 6:30 PM [facility] REPOSITORY Office Visit (WSTR) ---------MARC GRAY JR ([id number]) 1965 [facility] Wyszkdttwt32/24/17 6:30 PM PIA CLEVELAND (CHLOE) WSTR During your visit today, we recorded the following information about you: Temperature Pulse Respiration Blood pressure 97.3 degrees 76/minute 16/minute 120/84 Weight 110.7 kgPia Cleveland CNP 12/16/2016 7:32 PM SignedPatient is a 51 year old male presenting with wrist pain. The history isprovided by the patient. No world language teacher was used.Wrist PainPertinent negatives include no chills, fever, headaches, myalgias or rash.HPI Marc Gray JR is a 51 year old male who presents today for CC of wristpain. This started 5 weeks ago from trauma when patient experienced a GIbleed, he past out and caught his wrist on wall. He is also having decreasedROM with supination Symptoms are worsened by movement He has tried ice acewrap and tylenol without relief. Risk factors trauma 5 weeks ago PMH GI bleedfrom NSAID useBP 120/84 Pulse 76 Temp 36.3 ?C (97.3 ?F) (Tympanic) Resp 16 Wt 110.7kg (244 lb) BMI 29.7 kg/u2DVBXLIENOAjudafdk Reactions- Nsaids (Non-Steroid* Contraindication- Medical Surgical Had internal bleeding.- Penicillins As a baby- unsure of reactionACTIVE PROBLEM LISTRestless LegsVitamin D DeficiencyOsa (Obstructive Sleep Apnea)History of Tia (Transient Ischemic Attack)Pituitary Abnormality (Hcc)HypothyroidismDecreased LibidoAnxiety DisorderFamily HistoryProblem Relation Age of Onset- Diabetes Mother- HIATAL HERNIA [Other] [ OTHER] Father- HIATAL HERNIA [Other] [OTHER] Sister- Cancer Father esophageal cancer- Hypertension Mother- Lipids MotherSocial History Marital status: Spouse name: Years of education: Number of children:Social History Main Topics Smoking status: Never Smoker Smokeless status: Never Used Alcohol use: No Drug use: NoReview of SystemsConstitutional: Negative for chills, fever and malaise/fatigue.Musculoskeletal: Positive for joint pain ( right wrist). Negative for myalgias.Skin: Negative for rash.Neurological: Negative for tingling and headaches.Physical ExamConstitutional: He is oriented to person, place, and time and well- developed,well-nourished, and in no distress. No distress.HENT:Head: Normocephalic and atraumatic.Eyes: Conjunctivae and EOM are normal. Pupils are equal, round, and reactive tolight.Neck: Normal range of motion. Neck supple.Cardiovascular:Pulses: Radial pulses are 2+ on the right side, and 2 + on the left side.Pulmonary/Chest: Effort normal.Musculoskeletal: Right wrist: He exhibits decreased range of motion (supination),tenderness and bony tenderness. He exhibits no swelling , no effusion, nocrepitus, no deformity and no laceration.Neurological: He is alert and oriented to person, place, and time. He hasnormal sensation, normal strength and normal reflexes.Skin: Skin is warm and dry.Psychiatric: Affect normal.Nursing note and vitals reviewed.ASSESSMENT/PLAN :1. Right wrist pain - ICD9: 719.43, ICD10: M25.531No Fracture noted- XR WRIST INJURY 4V PA/LAT/OBL /SCAPH RT - interpreted by JENIFER MartinS:4 views of the left wrist have been obtained. ?The bones are wellmineralized without evidence of fracture or dislocation. ?Joint spacesare well maintained. ?No gross soft tissue abnormalities are seen.Impression:No pathologic process is seen.Rest, ice, elevation, MARTIN wrap as neededWrist sprain exercises givenFollow up with ortho if no improvement over the next 1-2 weeksDiagnosis and treatment plan were discussed and questions were answered to thepatient's satisfaction. Pt acknowledged understanding of concepts and follow upplan.Specific signs and symptoms that would indicate the need for higher level ofcare were discussed in detail warranting prompt ER evaluation.Richard Maurer CNP 12/16/2016 7: 32 PM SignedASSESSMENT/PLAN:1. Right wrist pain - ICD9: 719.43, ICD10: M25.531No Fracture noted- XR WRIST INJURY 4V PA/LAT/OBL/SCAPH RT - interpreted by JENIFER MartinS: 4 views of the left wrist have been obtained. ?The bones are wellmineralized without evidence of fracture or dislocation. ?Joint spacesare well maintained. ?No gross soft tissue abnormalities are seen.Impression:No pathologic process is seen.Rest, ice, elevation, MARTIN wrap as neededWrist sprain exercises givenFollow up with ortho if no improvement over the next 1-2 weeksReferring Provider: SELF [200]Allergies As of Date: 12/16/2016 Noted Allergy ReactionNSAIDS (NON-STEROIDAL ANTI-INFLAM*11/20/2016 15 - Contraindication-Medical Alegre* Comments: Had internal bleeding.PENICILLINS 11/28/2006 Comments: As a baby - unsure of reactionDate Reviewed: 12/16/2016Reviewed by: Pia RodriguezT[facility]) Megha - Fully AssessedReason for Visit: Wrist Pain [1580] Cmt: right wrist x 11/05 after fallPrimary Visit Diagnosis: Right wrist pain [M25.531]Order(s):XR WRIST INJURY 4V PA/LAT/OBL/SCAPH RT [[id number]] Order #: [id number]. #:[id number] as of 12/16/2016 Sig: PANTOPRAZOLE 40 MG TABLET,DEL* Take 40 mg by mouth once julia* FERROUS SULFATE ORAL Take by mouth twice daily. U* LEVOTHYROXINE 125 MCG TABLET Take 1 tablet by mouth once d* GABAPENTIN 300 MG CAPSULE Take 300 mg by mouth three ti* CEFTRIAXONE 2 GRAM SOLUTION F* 2 g once daily. Through IV METHYLPREDNISOLONE 4 MG TABLE* Take by mouth. As directed on* Patient not taking: Reported on 11/20/2016Medication notes this encounter GABAPENTIN 300 MG CAPSULE >> Molly Toribio Ma 12/16/2016 6:37 PM >> MOLLY TORIBIO MA Dec 16, 2016 6:37 PM done CEFTRIAXONE 2 GRAM SOLUTION FOR INJECTION >> Molly Toribio Ma 12/16/2016 6:37 PM >> MOLLY TORIBIO MA Dec 16, 2016 6:37 PM doneProblem List As Of Date 12/16/2016 Noted Resolved Mixed hyperlipidemia [ E78.2] INVALID FOR*07/20/2012 Abdominal pain, epigastric [R10.13] INVALID FOR*07/20/2012 Acromioclavicular joint pain [M25.519] INVALID FOR*07/20/2012 Brachial neuritis or radiculitis NOS [M54.12] INVALID FOR*07/20/2012 Restless legs [G25.81] INVALID FOR* Vitamin D deficiency [E55.9] INVALID FOR* Fatigue [R53.83] INVALID FOR*11/17/2015 MYNOR (obstructive sleep apnea) [ G47.33] INVALID FOR* More... History of TIA (transient ischemic attack) [Z86* INVALID FOR* Pituitary abnormality (HCC) [E23.7] INVALID FOR* More... Hypothyroidism [ E03.9] INVALID FOR* Obesity [E66.9] INVALID FOR*11/17/2015 Decreased libido [R68.82] INVALID FOR* Anxiety disorder [F41.9] INVALID FOR* Other instructions from your clinician: ASSESSMENT /PLAN: 1. Right wrist pain - ICD9: 719.43, ICD10: M25.531 No Fracture noted - XR WRIST INJURY 4V PA/LAT/OBL/SCAPH RT - interpreted by Sophy Bess MD FINDINGS: 4 views of the left wrist have been obtained. ?The bones are well mineralized without evidence of fracture or dislocation. ?Joint spaces are well maintained. ?No gross soft tissue abnormalities are seen. Impression: No pathologic process is seen. Rest, ice, elevation, MARTIN wrap as needed Wrist sprain exercises given Follow up with ortho if no improvement over the next 1-2 weeksEncounter Number: [id number] Status:Closed by PIA CLEVELAND CNP on 12/16/16 HOSP Observed: 12/10/2016 Status: COMPLETED Source: [place] 12:00 AM [facility] Get Medical Advice (VASSMD) ---------MARC GRAY JR ([id number]) 1965 MDate Time Provider Kfzyjjqepb86/18/17 DAILY MONTERROSO VASSMD During your visit today, we recorded the following information about you:Allergies As of Date: 12/10/2016 Noted Allergy ReactionNSAIDS (NON-STEROIDAL ANTI-INFLAM*11/20/2016 15 - Contraindication- Medical Alegre* Comments: Had internal bleeding.PENICILLINS 11/28/2006 Comments: As a baby- unsure of reactionDate Reviewed: 11/20/2016Reviewed by: Shruti Singh Ma - Fully AssessedPrescriptions as of 12/10/2016 Sig: GABAPENTIN 300 MG CAPSULE Take 300 mg by mouth three ti* PANTOPRAZOLE 40 MG TABLET,DEL* Take 40 mg by mouth once julia* FERROUS SULFATE ORAL Take by mouth twice daily. U* CEFTRIAXONE 2 GRAM SOLUTION F* 2 g once daily. Through IV METHYLPREDNISOLONE 4 MG TABLE* Take by mouth. As directed on* Patient not taking: Reported on 11/20/2016 LEVOTHYROXINE 125 MCG TABLET Take 1 tablet by mouth once d*Problem List As Of Date 12/10/2016 Noted Resolved Mixed hyperlipidemia [E78.2] INVALID FOR*07/20/2012 Abdominal pain, epigastric [ R10.13] INVALID FOR*07/20/2012 Acromioclavicular joint pain [M25.519] INVALID FOR*07/20/2012 Brachial neuritis or radiculitis NOS [M54.12] INVALID FOR*07/20/2012 Restless legs [G25.81] INVALID FOR* Vitamin D deficiency [E55.9] INVALID FOR* Fatigue [R53.83] INVALID FOR*11/17/2015 MYNOR ( obstructive sleep apnea) [G47.33] INVALID FOR* More... History of TIA (transient ischemic attack) [Z86*INVALID FOR* Pituitary abnormality (HCC) [E23.7] INVALID FOR * More... Hypothyroidism [E03.9] INVALID FOR* Obesity [E66.9] INVALID FOR*11/17/2015 Decreased libido [R68.82] INVALID FOR* Anxiety disorder [F41.9] INVALID FOR* Status:Closed by DONNIE TREJO on 12/10/16 CBC-COMPLETE BLOOD CNT Collected: 11/29/2016 Status: F Source: LISA NO DIFF 8:43 AM [facility] REPOSITORY TYPE CODE TESTS RESULT OUT OF RANGE REFERENCE UNITS LAB L100.1000 Low 4.4-11.0 K/mm3 WBC 3.6 LAB L100.1200 Normal 4.6-6.2 M/mm3 RBC 4.73 LAB L100.1300 Low 13.0-16.5 g/dl HGB 12.4 LAB L100.1400 Low 40-54 % HCT 39.0 LAB L100.1500 Normal 80-94 fL MCV 82.5 LAB L100.1600 Low 27.0-32.0 pg MCH 26.2 LAB L100.1700 Low 32-36 g/gl MCHC 31.8 LAB L100.1810 Normal 11.6-14.6 % RDW 14.3 CV LAB L100.1820 Normal 35.1-43.9 fl RDW 43.3 SD LAB L100.1900 Normal 150-450 K/mm3 PLT 228 LAB L100.2000 Normal 6.2-12.0 fl MPV 9.1 Performed By: #### L100.0500 ####[facility] [id number] [place], [address] LIPID PROFILE Collected: 11/29/2016 Status: F Source: [place] 8:43 AM [facility] REPOSITORY TYPE CODE TESTS RESULT OUT OF RANGE REFERENCE UNITS LAB L501.4900 Normal 200 mg/dL CHOL 200 Result Comment: <200 mg /dL Desirable 200-240 mg/dL Borderline >240 mg/dL High Risk LAB L501.5000 Normal mg/dL TRIG 91 Result Comment: The drugs N-Acetylcysteine and Metamizole may falselydepress this assay.Serum Triglycerides Reference Interval Normal <150 mg/dL Borderline high 150 - 199 mg/dL High 200 - 499 mg/dL Very High > or = 500 mg/dL LAB L501.6400 Normal mg/dL HDL 48 Result Comment: The drugs N-Acetylcysteine and Metamizole may falselydepress this assay. Reference Range HDL <40 mg/dL Low HDL Cholesterol HDL >or= 60 mg/dL High HDL Cholesterol LAB L501.6500 High 0-130 mg/dL LDL 134 LAB L501.6600 Normal 5-40 mg/dL VLDL 18 Performed By: #### L500.4100 ####[facility] [id number] [place], [place], [address] HOSP Observed: 11/26/2016 Status: COMPLETED Source: [place] 12:00 AM [facility] REPOSITORY Get Medical Advice (VASSMD) ---------MARC GRAY JR ([id number]) 1965 MDate Time Provider Xxoepxkolr90/4/17 DAILY MONTERROSO During your visit today, we recorded the following information about you:Allergies As of Date: 11/26/2016 Noted Allergy ReactionNSAIDS (NON-STEROIDAL ANTI-INFLAM*11/20/2016 15 - Contraindication- Medical Alegre* Comments: Had internal bleeding.PENICILLINS 11/28/2006 Comments: As a baby- unsure of reactionDate Reviewed: 11/20/2016Reviewed by: Shruti Singh Ma - Fully AssessedPrescriptions as of 11/26/2016 Sig: GABAPENTIN 300 MG CAPSULE Take 300 mg by mouth three ti* PANTOPRAZOLE 40 MG TABLET,DEL* Take 40 mg by mouth once julia* FERROUS SULFATE ORAL Take by mouth twice daily. U* CEFTRIAXONE 2 GRAM SOLUTION F* 2 g once daily. Through IV METHYLPREDNISOLONE 4 MG TABLE* Take by mouth. As directed on* Patient not taking: Reported on 11/20/2016 LEVOTHYROXINE 125 MCG TABLET Take 1 tablet by mouth once d*Problem List As Of Date 11/26/2016 Noted Resolved Mixed hyperlipidemia [E78.2] INVALID FOR*07/20/2012 Abdominal pain, epigastric [ R10.13] INVALID FOR*07/20/2012 Acromioclavicular joint pain [M25.519] INVALID FOR*07/20/2012 Brachial neuritis or radiculitis NOS [M54.12] INVALID FOR*07/20/2012 Restless legs [G25.81] INVALID FOR* Vitamin D deficiency [E55.9] INVALID FOR* Fatigue [R53.83] INVALID FOR*11/17/2015 MYNOR ( obstructive sleep apnea) [G47.33] INVALID FOR* More... History of TIA (transient ischemic attack) [Z86*INVALID FOR* Pituitary abnormality (HCC) [E23.7] INVALID FOR * More... Hypothyroidism [E03.9] INVALID FOR* Obesity [E66.9] INVALID FOR*11/17/2015 Decreased libido [R68.82] INVALID FOR* Anxiety disorder [F41.9] INVALID FOR* Status:Closed by CORBIN JOHNSON on 11/26/16 PROGRESS Observed: 11/21/2016 Status: COMPLETED Source: [place] 9:17 AM [facility] REPOSITORY HNO ID: [id number]: Daily Kirbyervice: (none) Author Type: PhysicianType: Progress NotesFiled: 11/21/2016 9:18 AMNote Text:This office note has been dictated.Daily Monterroso DO CNOV Observed: 11/20/2016 Status: COMPLETED Source: [place] 3:15 PM [facility] REPOSITORY Office Visit (VASSMD) ---------MARC GRAY JR ([id number]) 1965 MDate Time Provider Department11/20/16 3:15 PM DAILY MONTERROSO VASSMD During your visit today, we recorded the following information about you: Pulse Blood pressure Weight 90/minute 108/70 112.7 kgShruti Singh Ma 11/20/2016 3: 34 PM SignedPatient presents with:Follow Up: Varicose veins and review testing done 10/21/16 study. Reports Lleg pain in knee area, had prior and now back over the last 2 days.Daily Monterroso DO 11/21/2016 9:18 AM SignedThis office note has been dictated.Akila Gutierrez DO 11/21/2016 9:22 AM SignedAddended by: DAILY MONTERROSO DO on: 11/21/2016 09:22 AM Modules accepted: OrdersReferring Provider: DAILY MONTERROSO [[id number]]Allergies As of Date: Noted Allergy ReactionNSAIDS (NON-STEROIDAL ANTI-INFLAM*11/20/2016 15 - Contraindication-Medical Alegre* Comments: Had internal bleeding.PENICILLINS 11/28/2006 Comments: As a baby- unsure of reactionDate Reviewed: 11/20/2016Reviewed by: Shruti Singh Ma - Fully AssessedReason for Visit: Follow Up [171] Cmt: Varicose veins and review testing done 10/21/16 study. 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 U* CEFTRIAXONE 2 GRAM SOLUTION F* 2 g once daily. Through IV LEVOTHYROXINE 125 MCG TABLET Take 1 tablet by mouth once d* METHYLPREDNISOLONE 4 MG TABLE* Take by mouth. As directed on* Patient not taking: Reported on 11/20/2016Problem List As Of Date 11/20/2016 Noted Resolved Mixed hyperlipidemia [E78.2] INVALID FOR*07/20/2012 Abdominal pain, epigastric [R10.13] INVALID FOR*07/20/2012 Acromioclavicular joint pain [ M25.519] INVALID FOR*07/20/2012 Brachial neuritis or radiculitis NOS [M54.12] INVALID FOR*07/20/2012 Restless legs [G25.81] INVALID FOR* Vitamin D deficiency [E55.9] INVALID FOR* Fatigue [R53.83] INVALID FOR*11/17/2015 MYNOR (obstructive sleep apnea) [G47.33] INVALID FOR* More... History of TIA (transient ischemic attack) [Z86*INVALID FOR* Pituitary abnormality (HCC) [E23.7] INVALID FOR* More... Hypothyroidism [E03.9] INVALID FOR* Obesity [E66.9] INVALID FOR*11/17/2015 Decreased libido [R68.82] INVALID FOR* Anxiety disorder [F41.9] INVALID FOR*Visit Notes:& gt;> Shruti Singh Ma [facility] Nov 20, 2016 3:30 PM Status: SignedPatient presents with: Follow Up: Varicose veins and review testing done 10/21/16 study.Reports L leg pain in knee area , had prior and now back over the last 2days. Status:Closed by DAILY MONTERROSO DO on 11/21/16 PROGRESS Observed: 11/20/2016 Status: COMPLETED Source: [place] 12:00 AM [facility] REPOSITORY HNO ID: [id number]: Daily Kirbyervice: Vascular SurgeryAuthor Type: PhysicianType: Progress NotesFiled: 11/27/2016 2:07 PMNote Text:NAME: MARC GRAY [facility] NO: [id number] OF SERVICE: 11/20/2016MrCaty Gray is here to follow up on symptomatic left lower extremityvaricose veins. Since our last visit, he has been wearing hiscompression stockings and notices significant improvement in his legsymptoms. However, he did develop some bugling disks of his neck and wasundergoing physical therapy in addition to taking a fair amount of NSAIDswith this. He developed a significant GI bleed. States he needed tohave CPR at some point during his hospitalization. Subsequently, becameseptic from thrombophlebitis and currently has a PICC line. This was [facility]. Overall, he is doing much better from the recentadmissions and recovery. However, in the interim developed significantleft leg swelling and tenderness along his veins. He had a venous duplexat [place] that demonstrated thrombophlebitis of his greater saphenous inthe calf.We did review his venous reflux testing that demonstrates bilateral deepvein reflux as well as GSV reflux. He did have a previous ablation onthe right. We got an updated DVT study. He has no evidence of DVT. Hedoes still have some phlebitis of his distal calf.Assessment/Plan: Symptoms varicose veins. Reviewed the findings with Mr. Gray. Wouldrecommend continued wear of his compression stockings, elevation andactivity as tolerated. Prior to the recent events, the symptoms of hisveins were impacting his day-to-day activity. I will see him back in onemonth to assess how he is doing overall and the level of phlebitis thatremains. He will call me sooner with any concerns or worsening symptoms.MENDOZA Pool/089Audio #: [id number] Dictated: 11/21/2016 09:06:39Date Typed: 11/23/2016 09:39:56Date Revised: CBC-COMPLETE BLOOD CNT Collected: 11/17/2016 Status: F Source: LISA NO DIFF 6:25 PM [facility] REPOSITORY TYPE CODE TESTS RESULT OUT OF RANGE REFERENCE UNITS LAB L100.1000 Normal 4.4-11.0 K/mm3 WBC 5.7 LAB L100.1200 Low 4.6-6.2 M/mm3 RBC 4.19 LAB L100.1300 Low 13.0-16.5 g/dl HGB 10.9 LAB L100.1400 Low 40-54 % HCT 34.6 LAB L100.1500 Normal 80-94 fL MCV 82.6 LAB L100.1600 Low 27.0-32.0 pg MCH 26.0 LAB L100.1700 Low 32-36 g/gl MCHC 31.5 LAB L100.1810 Normal 11.6-14.6 % RDW 13.9 CV LAB L100.1820 Normal 35.1-43.9 fl RDW 41.6 SD LAB L100.1900 Normal 150-450 K/mm3 PLT 390 LAB L100.2000 Normal 6.2-12.0 fl MPV 8.6 Performed By: #### L100.0500 ####[facility] [address] [place], [address] BASIC METABOLIC Collected: 11/17/2016 Status: F Source: LISA PROFILE (BMP) 6:25 PM [facility] REPOSITORY TYPE CODE TESTS RESULT OUT OF RANGE REFERENCE UNITS LAB L501.0100 High 70-110 mg/dL GLU 131 Result Comment: Fasting Glucose result greater than or equal to 126 mg/dLsuggests DIABETES MELLITUS per A.D.A. criteria. LAB L501.1000 Normal 7-18 mg/dL BUN 18 LAB L501.1100 Normal 0.70-1.30 mg/dL CREAT,SERUM 1.11 Result Comment: The validity of the calculated GFR AND GFRAA in patients over70 years has not been determined. Clinical correlation isessential. LAB L501.1110 Normal >60 mL/min EST GFR 74 Result Comment: Non- GFR Calc LAB L501.1115 Normal >60 mL/min EST GFR - 89 AA Result Comment: GFR Calc LAB L501.1300 Normal 10-20 RATIO BUN/CRE 16.2 LAB L501.2200 Normal 8.5-10.1 mg/dL CA 8.8 LAB L501.5300 Normal 136-145 mmol/L NA 139 LAB L501.5600 Normal 3.5-5.1 mmol/L K 3.7 LAB L501.5900 Normal 98-107 mmol/L CL 106 LAB L501.6100 Normal 21.0-32.0 mmol/L CO2 25.0 LAB L501.6200 Normal 5-15 GAP 8 Performed By: #### L500.2500 ####[facility] [address] [facility] [address] [place], [place], [address] CBC-COMPLETE BLOOD CNT Collected: 11/17/2016 Status: F Source: LISA NO DIFF 6:25 PM [facility] REPOSITORY TYPE CODE TESTS RESULT OUT OF RANGE REFERENCE UNITS LAB L100.1000 Normal 4.4-11.0 K/mm3 WBC 5.7 LAB L100.1200 Low 4.6-6.2 M/mm3 RBC 4.19 LAB L100.1300 Low 13.0-16.5 g/dl HGB 10.9 LAB L100.1400 Low 40-54 % HCT 34.6 LAB L100.1500 Normal 80-94 fL MCV 82.6 LAB L100.1600 Low 27.0-32.0 pg MCH 26.0 LAB L100.1700 Low 32-36 g/gl MCHC 31.5 LAB L100.1810 Normal 11.6-14.6 % RDW 13.9 CV LAB L100.1820 Normal 35.1-43.9 fl RDW 41.6 SD LAB L100.1900 Normal 150-450 K/mm3 PLT 390 LAB L100.2000 Normal 6.2-12.0 fl MPV 8.6 Performed By: #### L100.0500 ####[facility] [address] [facility] [address] [place], [place], [address] BASIC METABOLIC Collected: 11/17/2016 Status: F Source: LISA PROFILE (BMP) 6:25 PM [facility] REPOSITORY TYPE CODE TESTS RESULT OUT OF RANGE REFERENCE UNITS LAB L501.0100 High 70-110 mg/dL GLU 131 Result Comment: Fasting Glucose result greater than or equal to 126 mg/dLsuggests DIABETES MELLITUS per A.D.A. criteria. LAB L501.1000 Normal 7-18 mg/dL BUN 18 LAB L501.1100 Normal 0.70-1.30 mg/dL CREAT,SERUM 1.11 Result Comment: The validity of the calculated GFR AND GFRAA in patients over70 years has not been determined. Clinical correlation isessential. LAB L501.1110 Normal >60 mL/min EST GFR 74 Result Comment: Non- GFR Calc LAB L501.1115 Normal >60 mL/min EST GFR - 89 AA Result Comment: GFR Calc LAB L501.1300 Normal 10-20 RATIO BUN/CRE 16.2 LAB L501.2200 Normal 8.5-10.1 mg/dL CA 8.8 LAB L501.5300 Normal 136-145 mmol/L NA 139 LAB L501.5600 Normal 3.5-5.1 mmol/L K 3.7 LAB L501.5900 Normal 98-107 mmol/L CL 106 LAB L501.6100 Normal 21.0-32.0 mmol/L CO2 25.0 LAB L501.6200 Normal 5-15 GAP 8 Performed By: #### L500.2500 ####[facility] [address] [facility], [address] VENOUS DUPLEX LOWER Observed: 11/16/2016 Status: F Source: MUSELLA EXTREMITY 6:14 PM [facility] RE[facility]ITORY [facility] [address] [place], [place] [address]Zvbpoy Duplex US, Xteurblqvf22/24/17 1154MR#: [id number] Acct: [id number]: MARC GRAY JR Rep #: [id number]: 1965 51 From: Markus Garcia Dr: Favio Lucia DO Status: DIS INOrdering Dr: Favio Lucia DO Date: 11/16/16Location: MS3 Sex: M CAdmitted: 11/16/16Reason For Study: LLE swellingRIGHT LEFTCFV is compressible, spontaneous, phasic, CFV is compressible, spontaneous, phasic,competent and demonstrates normal competent, and demonstrates normalaugmentation. augmentation.Procedure FV is compressible, spontaneous, phasic,Exam performed portable in patient room. competent and demonstrates normalThe exam was diagnostic. augmentation.A preliminary report was called and/or faxed POP V is compressible, spontaneous,phasic,to MS 3. competent and demonstrates normalaugmentation.T/P Trunk is compressible.PTV is compressible.LT PerV is compressible.GSV is compressible above knee to groin.GSV is DILATED and noncompressible belowtheknee to ankle.Interpretation SummaryDeep veins of the left lower extremity are patent and compressible segmentally. There is noevidence of left lower extremity deep vein thrombosis. Valvular competence appears intactwithinthe proximal deep venous system on the left . Acute superficial thrombophlebitis is noted intheleft great saphenous vein below the knee, from the left knee to the ankle. The left greatsaphenousvein is patent and compressible above the knee. Ordering Physician: Favio LuciaRefharesh Physician: Amilcar SandovalPerformed By: Idalia Ellis, TULIO, RVT 11/16/16 1814Date Markus Thurston MDCC: Favio Lucia DO; Amilcar Sandoval MD Date Dictated: 11/16/16 1154Date Transcribed: 11/16/164Transcriptionist:Signed DISCHARGE SUMMARY Observed: 11/16/2016 Status: F Source: MUSELLA 3:14 PM [facility] REPOSITORY [facility] [id number] [place] [address]Ubvfvpyrk Lkxqicb14/24/17 1316MR#: [id number] Acct: [id number]: MARC GRAY JR Rep #: [id number]: 1965 51 From: Favio Lucia DOPCP: Amilcar Sandoval MD Status: ADM IN YLocation: MS3 [id number] by Favio Lucia DO on 11/16/16 at 1514Pt with great saphenous vein SVT. Had long discussion with his that this requires notreatment and certainly does not require a hypercoagulable workup. May be related withimmobility but also just some generalized systemic inflammation related with his previous SVTand cellulitis. I also again discussed the bleeding and his brought him that this couldbe possibly leukemia and I told her that this is most likely not leukemia given that his otherlab parameters, including his white cells and platelets are normal. That common things beingcommon that this is just likely equilibration from his previous GI bleed. Patient will be onferrous sulfate moving forward. After a long conversation with them and earlier that evenlonger conversation with the nurse they felt satisfied and understood that plan is to follow-upwith GI, have a repeat hemoglobin. Patient may use compression stockings for his leg and usewarm compresses to his leg if needed. Patient is medically stable for discharge.11/16/16 1514 <Electronically signed by Favio Lucia DO>Date Favio Lucia DOcc: Favio Lucia DO; Amilcar Sandoval MD; Rob Rivera *SignedDischarge Date and Diagnosis- Problem ListPatient Problems:Active and Suspected ProblemsAnemia (Acute)Date of Admission: 11/15/16Date of Discharge: 11/16/16- Primary Discharge DiagnosisActive and Suspected ProblemsAnemia (Acute)- Secondary Discharge DiagnosisChronic ProblemsBMI 30.0-30.9,adult (Chronic)Herniated cervical disc (Chronic)Hypertension (Chronic)Hypothyroidism (Chronic)MYNOR (obstructive sleep apnea) (Chronic)RLS (restless legs syndrome) (Chronic)Hospital Course and TreatmentOperations: NoneProcedures: - - Duplex of the lower extremities that showed a superficial venous thrombosis perthe preliminary read. Not a superficial femoral clot.Summary of Care Provided:The patient is a 51 year old Holley Salas for concern for lower extremity edema. Patient and hiswife were concerned given his recent history of superficial facial venous thrombosis of theright upper extremity related with an eye line. Patient was using compressible socks and stillis having edema but the edema would get better when he was laying down and legs are elevated.So but the concern from the emergency room was for the patient's hemoglobin of 9.5 which waslower than what had been previously. Rectal exam was performed in the emergency room and washeme negative. Concern from the emergency room was the patient had anemia that warrantedfurther evaluation. Patient had a hemoglobin that was stable at 9.6. I spoke with Dr. Rivera,gastroenterology, who states that he can follow- up with him for further scopes. Patient didhave a duodenal ulcer on endoscopy earlier in the month that was not bleeding. Patient wastaking copious amounts of NSAIDs apparently. The was concerned because that also was notthe source of the bleeding but I had to tell her that it was not bleeding at that time but itis most certainly could have been bleeding earlier and caused his acute blood loss. They areconcerned that his hemoglobin was going down and it tried to reassure them that it is common tosee the blood counts lagged behind after acute blood loss anemia and with time that would getbetter. She went to have him have a hemoglobin done tomorrow and told him that it is predictedto be much change from today and I recommended at least a week out prior to get anotherhemoglobin. He most certainly does not require transfusion at this time. So the big issue forthem was his lower extremity edema. Patient had an elevated d-dimer which not surprising givenhis known history of superficial venous thrombosis of the right upper extremity and also hiscellulitis. The duplex was performed and the preliminary report per the nursing was thatshowed a superficial clot I clarified to make sure that that did not say superficial venousthrombosis in the setting did not so given that this is a superficial clot that no additionaltreatment is necessary. Unclear how this SVT would be causing bilateral lower extremity edemabut I did note that his abdomen was 3.1 and that he is nutritional status by consuming moreprotein and did recommend in his discharge instructions something such as boost or Ensure.Patient and his did require a lot of reassurance and in regards to his conditions. []Discharge Diet: No RestrictionsDischarge Activity: Return to Normal ActivityCall your doctor if you observe: Fever of 101 or Higher, Shortness of breathHome Medications: Medications to take at DischargeLevothyroxine Sodium 125 mcg PO DAILY 10/18/16Gabapentin [ Neurontin] 300 mg PO Q8H 11/05/16Pantoprazole Sodium [Protonix] 40 mg PO DAILY #90 tablet 11/07/16cetaminophen [Tylenol Tablet] 650 mg PO Q4H PRN PRN tablet 11/12/16Ceftriaxone [Rocephin] 2 gm IV Q24 11/16/16Ferrous Sulfate 325 mg PO BIDCM #28 tablet 11/16/16Following Prescrptions Were Given to Patient:Ferrous Sulfate 325 mg PO BIDCM #28 tabletOther Amb Orders:CBC W/Diff, Automated Time Frame: 1 Week , Location: Determined By PatientPrimary Care Physician:Amilcar Sandoval MD [ Primary Care Provider] - Within 2 WeeksPlease Follow Up With: Ewelina Rivera: call for appointmentDisposition: HomeMinutes spent on discharge:: 40Patient Condition:: GoodMeaningful Use InfoMeaningful Use Diagnoses (Choose all that apply): None uwzsydhwdq87/24/17 1324 <Electronically signed by Favio Lucia DO>Date Favio Lucia DOCosigner Signature (if applicable): Date CC: Favio Lucia DO; Amilcar Sandoval MD; Rob Rivera Signed DISCHARGE INSTRUCTION Observed: 11/16/2016 Status: F Source: MUSELLA 1:16 PM [facility] REPOSITORY [facility] [address] [place] [address]Mhggujldhqet for Home/Discharge Zcuommfvptxf03/24/17 1314MR #: [id number] Acct: [id number]: MARC GRAY Rep #: [id number]: 1965 51 From: Favio Lucia DOPCP: Amilcar Sandoval MD Status: ADM IN- Discharge DiagnosesCurrent Active Problems:Current Active and Chronic ProblemsAnemia (Acute)You will use the following diet at home:: No restrictions - may use supplements (i.e., Ensure,Boost) with mealsYour food should be the consistency of: RegularYour liquids should be the consistency of: Regular/ThinDischarge Activity: Return to Normal ActivityCall your doctor if you observe: Fever of 101 or Higher, Shortness of breathAllergies/ Adverse Reactions:AllergiesPenicillins [PCN] Allergy (Verified 11/08/16 18:43)UnknownMedications to take at DischargeLevothyroxine Sodium 125 mcg PO DAILY 10/18/16Gabapentin [Neurontin] 300 mg PO Q8H 11/05/16Pantoprazole Sodium [ Protonix] 40 mg PO DAILY #90 tablet 11/07/16cetaminophen [Tylenol Tablet] 650 mg PO Q4H PRN PRN tablet 11/12/16Ceftriaxone [Rocephin] 2 gm IV Q24 11/16/16Ferrous Sulfate 325 mg PO BIDCM #28 tablet 11/16/16The following prescriptions were given:Ferrous Sulfate 325 mg PO BIDCM #28 tabletOrders to be completed after discharge:CBC W/Diff, Automated Time Frame: 1 Week, Location: Determined By PatientPrimary Care Physician:Amilcar Sandoval MD [Primary Care Provider] - Within 2 WeeksPlease Follow Up With: Ewelina Rivera: call for appointmentProposed Discharge Date: 11/16/1708/24/17 1316 <Electronically signed by Favio Lucia DO>Date Favio Lucia DOCC: Amilcar Sandoval MD; Rob Rivera D-DIMER QUANTITATIVE Collected: 11/16/2016 Status: F Source: LISA (DVT/PE) 12:10 PM [facility] REPOSITORY Order Comment: CRITICAL VALUE VERIFIED. CALLED TO [id number] [address] [place].RESULTS READ BACK BY ON LICENSE OF [facility] . TYPE CODE TESTS RESULT OUT OF RANGE REFERENCE UNITS LAB L300.8000 High alert 0.27-0.49 FEU/ug/m 3.78 D-DIMER QUANT Result Comment: D-Dimer ELEVATED (>0.49): Additional studies and clinicalassessments are indicated to conclude diagnosis of:Deep Vein Thrombosis (DVT) or Pulmonary Embolism (PE) Performed By: #### L300.8000 ####[facility] [address] [place], [address] Observed: 11/16/2016 Status: F Source: LISA STOOL OCCULT BLOOD 9:35 AM [facility] IFOB REPOSITORY Order Date: 11/16/16 Has pt arrived? Y STOB iFOBOccult Blood Negative Performed By: #### M100.7900 ####[facility] [address] [place], [address] BASIC METABOLIC Collected: 11/16/2016 Status: F Source: LISA PROFILE (BMP) 5:55 AM [facility] REPOSITORY TYPE CODE TESTS RESULT OUT OF RANGE REFERENCE UNITS LAB L501.0100 Normal 70-110 mg/dL GLU 93 LAB L501.1000 Normal 7-18 mg/dL BUN 14 LAB L501.1100 Normal 0.70-1.30 mg/dL 0.97 CREAT,SERUM Result Comment: The validity of the calculated GFR AND GFRAA in patients over70 years has not been determined. Clinical correlation isessential. LAB L501.1110 Normal >60 mL/min EST GFR 86 Result Comment: Non- GFR Calc LAB L501.1115 Normal >60 mL/min EST GFR - 104 AA Result Comment: GFR Calc LAB L501.1255 Normal ml/min Estimated 108.13 CRCL LAB L501.1300 Normal 10-20 RATIO BUN/CRE 14.4 LAB L501.2200 Low 8.5-10 mg/dL CA 8.2 .1 LAB L501.5300 Normal 136-14 mmol/L NA 143 5 LAB L501.5600 Normal 3.5-5. mmol/L K 3.9 1 LAB L501.5900 High 98-107 mmol/L CL 111 LAB L501.6100 Normal 21.0-3 mmol/L CO2 24.0 2.0 LAB L501.6200 Normal 5-15 GAP 8 Performed By: #### L500.2500, L100.0100 ####[facility] [address] [place], [place], [address] CBC W/DIFF, AUTOMATED Collected: 11/16/2016 Status: C Source: MUSELLA 5:55 AM [facility] REPOSITORY TYPE CODE TESTS RESULT OUT OF RANGE REFERENCE UNITS LAB L100.1000 Normal 4.4-11.0 K/mm3 WBC 5.6 LAB L100.1200 Low 4.6-6.2 M/mm3 RBC 3.65 LAB L100.1300 Low 13.0-16.5 g/dl HGB 9.6 LAB L100.1400 Low 40-54 % HCT 30.2 LAB L100.1500 Normal 80-94 fL MCV 82.7 LAB L100.1600 Low 27.0-32.0 pg MCH 26.3 LAB L100.1700 Low 32-36 g/gl MCHC 31.8 LAB L100.1810 Normal 11.6-14.6 % RDW 13.9 CV LAB L100.1820 Normal 35.1-43.9 fl RDW 42.1 SD LAB L100.1900 Normal 150-450 K/mm3 PLT 302 LAB L100.2000 Normal 6.2-12.0 fl MPV 8.2 LAB L100.2100 Normal 47-70 % NEUT% 47.2 LAB L100.2200 Normal 19-41 % LY% 33.3 LAB L100.2300 Normal 0-10 % MONO% 9.3 LAB L100.2400 High 0-5 % EO% 6.4 LAB L100.2500 Normal 0-1 % BASO% 0.9 LAB L100.2550 High 0.0-0.9 % IM 2.900 GRAN % Result Comment: IG% - Immature Granulocytes (promyelocytes, myelocytes andmetamyelocytes) > 1% indicates that a LEFT SHIFT is Present. LAB L100.2620 Normal 2.0-7.7 X10 3/uL Absolute 2.7 Neut LAB L100.2720 Normal 0.83-4.51 X10 3/ul Absolute 1.87 Lymph LAB L100.9900 Normal PATH REV Reviewed Result Comment: AMENDED REPORT 11/17/16 1409 PATH REV previously reported as: June Performed By: #### L500.2500, L100.0100 ####[facility] [address] [place], [address] HISTORY AND PHYSICAL Observed: 11/16/2016 Status: F Source: MUSELLA EXAM 4:42 AM [facility] REPOSITORY [facility] [address] [facility] [place], [place] [address] and Rttwvmrp97/23/17 2351MR#: [id number] Acct: [id number]: MARC GRAY JR Rep #: [id number]: 1965 51 From: Surya Diaz MDPCP: Amilcar Sandoval MD Status: ADM IN YLocation: MS3 [id number] List(1) AnemiaStatus: Acute(2) GI bleed due to NSAIDsStatus: Acute(3) HypertensionStatus: Chronic(4) HypothyroidismStatus: ChronicHistory of Present IllnessDate of Admission: 11/15/16Chief Complaint: FatigueThe patient is a 51 year old male w/ h/o gastric ulcer, MSSA cellulitis and anemia admitted foranemia. He noted that for the past few days his legs have been slightly swollen. Nothingappeared to make them better or worse. No fever. No chill. No pain. His thinks they arewarm but there has been no rash. He was recently admitted for GI bleed earlier this month andhe went bradycardia requiring chest compassions at that time. He had endoscopy which discloseda small gastric ulcer. He was readmitted for sepsis secondary to cellulitis. He has no othersymptoms.Past Medical HistoryPast Medical History (Chronic Problems):Chronic ProblemsBMI 30.0-30.9,adult (Chronic)Herniated cervical disc (Chronic)Hypertension (Chronic)Hypothyroidism (Chronic)MYNOR (obstructive sleep apnea) (Chronic)RLS (restless legs syndrome) (Chronic)AllergiesPenicillins [PCN] Allergy (Verified 11/08/16 18:43)UnknownHome Medications:Ambulatory OrdersMedication Instructions RecordedLevothyroxine Sodium 125 mcg PO DAILY 10/18/16Gabapentin [Neurontin] 300 mg PO Q8H 11/05/16Smoking Status: Never smoker- *Family History PaternalHistory Items: Cancer - Father of throat cancer MaternalHistory Items: High CholesterolReview of SystemsConstitutional : Denies: Chills, Fever, Weight ChangeEyes: Denies: Conjunctivae Inflammation, Double visionHEENT: Denies: Head Aches, Sinus Congestion, Sinus DrainageCardiovascular : Denies: Chest Pain, PalpitationsRespiratory: Denies: Cough, Shortness of breath at rest, Sputum productionGastrointestinal: Denies: Abdominal Pain, Nausea, VomitingGenitourinary: Denies: DysuriaMusculoskeletal: Denies: Joint Pain, Joint TendernessSkin: Denies: Rash, WoundsNeurological: Denies: Numbness, Tingling, Focal weaknessPsychiatric: Denies: Anxiety, Depression, Homicidal Ideations, Suicidal IdeationsHematologic/ Lymphatic: Denies: Easy Bruising, Easy BleedingVTE Information - Inpt OnlyVTE Present on Admission: YesVTE Mechan Device Prophylaxis: SCD' sVTE Pharm Prophylaxis ordered?: YesPatient Problems:Active and Suspected ProblemsAnemia (Acute)- Physical ExamGeneral: Alert, Oriented x3, CooperativeHEENT: Atraumatic , PERRLA, EOMI, NormocephalicNeck: Supple, No JVD, Negative Carotid BruitsLungs: Clear to auscultation, Normal air movementCardiovascular: Regular rate, No murmursAbdomen: Bowel Sounds Present, Soft, Non TenderExtremities: No edema, Capillary Refill Less than 3 SecondsSkin: No rashes, No breakdownMusculoskeletal: No Tenderness to Palpation of Joints or ExtremitiesNeurological: Cranial nerves II-XII grossly intactPsych/Mental Status: Normal Affect, AppropriateVital SignsTemp Pulse Resp BP Pulse Ox98.3 F 90 15 120/92 22:21 11/15/16 22:21 11/15/16 22:21 11/15/16 22:21 11/15/16 22:21Oxygen Delivery Method Room AirWeight: 108.862 kgBody Mass Index (BMI) 29.2Microbiology Past 72 Hours11/15/16 22:20 Stool Occult Blood (BEATRIZ) - FinalStoolLaboratory Tests Past 24 HrsWBC 6.6RBC 3.58 LHgb 9.5 LHct 29.7 LMCV 83.0MCH 26.5 LMCHC 32.0RDW 13.7RDW Differential 41.8Plt Count 302WBCRBCHgb 10.3 LHct 31.6 LMCVMCHMCHCAssessment/PlanActive and Suspected ProblemsAnemia (Acute)51 year old male w/ h/o gastric ulcer, MSSA cellulitis and anemia admitted for anemia.1) Chronic normocytic anemia: H and H have been stable since 11/08/16No acute e/o bleeding.Questionable melena.Hemodynamically stable.Will consider GI for possible colonoscopy inpatient vs outpt.Will follow H and H.If stable, will consider discharge and outpt workup.2) Cellulitis: Pt has PICC line.Will get cultures.C/w ceftriaxone as pt has not finished the antibiotic course.3) Gastric ulcer: Will continue with protonix.4) Prophylaxis: SCD11/16/16 0442 <Electronically signed by Surya Diaz MD>Date Surya Diaz [facility] Signature (if applicable): Date CC: Surya Diaz MD; Amilcar Sandoval MD Signed Observed: 11/16/2016 Status: F Source: LISA CULTURE, URINE 3:25 AM [facility] Urine CultureCulture exhibits no growth. Performed By: #### M100.0650 ####[facility] [address] [place], [address] EMERGENCY DEPARTMENT Observed: 11/16/2016 Status: F Source: LISA SUMMARY 12:59 AM [facility] [address] [address]Yorxwqbzb Department Dczdcdz59/23/17 2319MR#: [id number] Acct: [id number]: MARC GRAY Rep #: [id number]: 1965 51 From: Sav Ma MDPCP: Amilcar Sandoval MD Status: ADM IN- ER Visit SummaryDate of Service: 11/15/16Chief Complaint: Lower extremity swellingHistory of Present Illness: The patient is a 51 M presenting for evaluation secondary to lowerextremity swelling. Patient has had a complicated month that involved a GI bleed earlier thismonth. Patient suffered a vagal episode in the emergency department during that time where hebradycardia down into the 20s and did receive chest compressions. Patient was admitted to theintensive care unit had upper endoscopy that identified only a small gastric ulcer. Patientstates that after discharge he ended up being readmitted secondary to sepsis from cellulitisthat ultimately was due to MSSA. Patient was discharged on and has been receivinginfusions of Rocephin at home. He states that over the course of the last 2 days he has hadbilateral leg swelling , and then his right leg went down and now his left leg seems to begetting worse. Patient states that he has been having low-grade temperatures associated withthis. States that his temperature usually runs in the 97 range and given the fact that histemperature is been 99 he feels that he is febrile at this time. He does endorse some mildpalpitations. Denies any chest pain shortness breath hemoptysis or history of DVT or PE in thepast. Review of systems otherwise negative.Physical Examination: Minimal tachycardia with a rate of 110. Temperature 98.3.Well-nourished male no acute distress. Heart tachycardic and regular no murmurs. Lungs soundsclear to auscultation bilaterally. Abdomen soft nontender. Right upper extremityunremarkable, left upper extremity shows PICC line clean dry and intact no evidence ofsurrounding infection. Lower extremity exam shows 2+ DP and PT pulses that are bilaterallysymmetric. Normal range of motion of the hip knee ankle and foot bilaterally. There is +1edema of the left lower extremity from knee down. There is a minimal amount of warmth and afaint amount of erythema over the medial malleolus without any evidence of pain with range ofmotion of the foot or ankle. No palpable cord. Calves are supple.Test Results: CBC shows anemia 9.5 worse than the patient's discharge at 11.2. Chemistryunremarkable.Emergency Department Course and Treatment: Patient presented with unilateral leg swelling. Idid perform a bedside ultrasound on the patient, which was found to be negative in the femoraland popliteal regions. Patient's lab work was obtained to rule out the possibility ofpancytopenia from antibiotics, or liver or kidney insufficiency. Patient was found to beanemic. I did a rectal exam which was found to be guaiac negative. At this point patient ismore anemic than even was when he was initially admitted with his GI bleed, and as there is notcurrently a source I do believe that he warrants admission. I discussed this with thehospitalist and the patient will be admitted.Disposition: AdmissionImpression:1. Anemia2. Recent GI bleed3. Recent MSSA sepsisED Disposition- Plan for ED Patient:Chief Complaint: Lower Extremity InjuryReferrals:Amilcar Sandoval MD [Primary Care Provider] -What to do if you have ProblemsFor any increased pain, shortness of breath, bleeding, nausea or vomiting, chest pain, or anyunexpected problems, contact your Primary Care Provider. Call [facility] ([phone])or report to the closest Emergency Room.Call 911 if necessary.11/16/16 0059 <Electronically signed by Sav Ma MD> Date Sav Ma MDCosigner Signature (If Indicated): Date ___CC: Amilcar Sandoval MD Observed: 11/16/2016 Status: F Source: LISA CULTURE, BLOOD (WB) 12:24 AM [facility] REPOSITORY BCNo growth in 5 days. Performed By: #### M200.1000 ####[facility] [address] [place], [address] HH, HEMOGLOBIN AND Collected: 11/15/2016 Status: F Source: LISA HEMATOCRIT 11:10 PM [facility] REPOSITORY TYPE CODE TESTS RESULT OUT OF RANGE REFERENCE UNITS LAB L100.1300 Low 13.0-16.5 g/dl HGB 10.3 LAB L100.1400 Low 40-54 % HCT 31.6 Performed By: #### L100.0600 ####[facility] [address] [place], [address] LACTIC ACID Collected: 11/15/2016 Status: F Source: LISA 11:10 PM [facility] REPOSITORY Order Comment: Yes/No query for Sepsis Lactate Rule Y TYPE CODE TESTS RESULT OUT OF RANGE REFERENCE UNITS LAB L503.6005 Normal 0.4-2.0 mmol/L LACTIC 1.0 ACID Performed By: #### L503.6005 ####[facility] [address] [place], [address] Observed: 11/15/2016 Status: F Source: LISA CULTURE, BLOOD (WB) 11:10 PM [facility] REPOSITORY BCNo growth in 5 days. Performed By: #### M200.1000 ####[facility] [address] [place], [address] Observed: 11/15/2016 Status: F Source: LISA STOOL OCCULT BLOOD 10:20 PM [facility] IFOB REPOSITORY Order Date: 11/15/16 STOB iFOBOccult Blood Negative Performed By: #### M100.7900 ####[facility] [address] [place], [address] CBC W/DIFF, AUTOMATED Collected: 11/15/2016 Status: C Source: LISA 8:22 PM [facility] REPOSITORY TYPE CODE TESTS RESULT OUT OF RANGE REFERENCE UNITS LAB L100.1000 Normal 4.4-11.0 K/mm3 WBC 6.6 LAB L100.1200 Low 4.6-6.2 M/mm3 RBC 3.58 LAB L100.1300 Low 13.0-16.5 g/dl HGB 9.5 LAB L100.1400 Low 40-54 % HCT 29.7 LAB L100.1500 Normal 80-94 fL MCV 83.0 LAB L100.1600 Low 27.0-32.0 pg MCH 26.5 LAB L100.1700 Normal 32-36 g/gl MCHC 32.0 LAB L100.1810 Normal 11.6-14.6 % RDW 13.7 CV LAB L100.1820 Normal 35.1-43.9 fl RDW 41.8 SD LAB L100.1900 Normal 150-450 K/mm3 PLT 302 LAB L100.2000 Normal 6.2-12.0 fl MPV 8.1 LAB L100.2100 Normal 47-70 % NEUT% 52.3 LAB L100.2200 Normal 19-41 % LY% 30.4 LAB L100.2300 Normal 0-10 % MONO% 9.3 LAB L100.2400 Normal 0-5 % EO% 4.9 LAB L100.2500 Normal 0-1 % BASO% 0.8 LAB L100.2550 High 0.0-0.9 % IM 2.300 GRAN % Result Comment: IG% - Immature Granulocytes (promyelocytes, myelocytes andmetamyelocytes) > 1% indicates that a LEFT SHIFT is Present. LAB L100.2620 Normal 2.0-7.7 X10 3/uL Absolute 3.5 Neut LAB L100.2720 Normal 0.83-4.51 X10 3/ul Absolute 2.00 Lymph LAB L100.9900 Normal PATH REV Reviewed Result Comment: Normocytic anemia.Clinical correlation necessary.Rosendo Hare M.D. 11/17/16 AMENDED REPORT 11/17/16 1419 PATH REV previously reported as: June kahlil Performed By: #### L100.0100 ####[facility] [address] [place], [address] COMPREHENSIVE METABOLIC Collected: 11/15/2016 Status: F Source: LISA [facility] 8:22 PM [facility] REPOSITORY TYPE CODE TESTS RESULT OUT OF RANGE REFERENCE UNITS LAB L501.0100 Normal 70-110 mg/dL GLU 90 LAB L501.1000 Normal 7-18 mg/dL BUN 16 LAB L501.1100 Normal 0.70-1.30 mg/dL 1.12 CREAT,SERUM Result Comment: The validity of the calculated GFR AND GFRAA in patients over70 years has not been determined. Clinical correlation isessential. LAB L501.1110 Normal >60 mL/min EST GFR 73 Result Comment: Non- GFR Calc LAB L501.1115 Normal >60 mL/min EST GFR - 88 AA Result Comment: GFR Calc LAB L501.1255 Normal ml/min Estimated 93.65 CRCL LAB L501.1300 Normal 10-20 RATIO BUN/CRE 14.3 LAB L501.1500 Normal 6.4-8. g/dL T PROT 6.6 2 LAB L501.1800 Low 3.4-5. g/dL ALB 3.1 0 LAB L501.1950 Normal 2.3-3. g/dL GLOB 3.5 5 LAB L501.2000 Normal 0.9-2. RATIO A/G 0.9 4 LAB L501.2200 Low 8.5-10 mg/dL CA 8.3 .1 LAB L501.4100 Normal 15-37 U/L AST 19 LAB L501.4305 Normal 45-117 U/L ALK P 69 LAB L501.4405 Normal 12-78 U/L ALT 28 LAB L501.4600 Normal 0.20-1 mg/dL T BILI 0.20 .00 LAB L501.5300 Normal 136-14 mmol/L NA 142 5 LAB L501.5600 Normal 3.5-5. mmol/L K 3.9 1 LAB L501.5900 High 98-107 mmol/L CL 110 LAB L501.6100 Normal 21.0-3 mmol/L CO2 26.0 2.0 LAB L501.6200 Normal 5-15 GAP 6 Performed By: #### L500.4050 ####[facility] [address] [place], [address] PROGRESS Observed: 11/14/2016 Status: COMPLETED Source: [place] 2:26 PM [facility] REPOSITORY HNO ID: [id number]: Daily Malloyice: (none) Author Type: PhysicianType: Progress NotesFiled: 11/14/2016 2:31 PMNote Text:VASCULAR SURGERY INITIAL CONSULTSERVICE DATE: 11/14/2016SERVICE TIME: 2:26 [facility] PH[facility]: CAMILA Becerra PROVIDER:Anjel Kirk MD[address] [facility] [address]Febnwsz requested for an opinion regarding the evaluation and treatmentof Symptomatic varicose veins. My final impression and recommendationswill be communicated back to the requesting physician by way of the sharedmedical record or letter via US mail.CHIEF COMPLAINT/HISTORY OF PRESENT ILLNESS:Chief Complaint: Patient presents with:Varicose VeinsHistory of Present Illness:Patient is a 51 year old White male presenting for consultation,evaluation and possible treatment of varicose veins. Patient reportsbilateral aching, throbbing and heaviness. Predisposing factors includefamily history of varicose veins is positive and include(s) father withoutsurgery. No specific history of injury or prior problems. Relievingfactors include support hose, elevation of legs, reduced activity and OTCpain medication with mild improvement in symptoms. Patient denies DVT, phlebitis and treatment with blood thinners. He has had right lowerextremity vein surgery in the pastPain Assessment:PAIN EVALUATION No data found.Duration of Symptoms: Greater Than 1 YearPREVIOUS TESTS:NoneCARDIOVASCULAR RISK FACTORS:Family history PAST MEDICAL/SURGICAL/FAMILY/SOCIAL HISTORYPAST MEDICAL HISTORYDiagnosis Date- Brachial neuritis or radiculitis NOS 02/02/2009- Esophageal reflux history of- Mixed hyperlipidemia 11/28/2006- MYNOR (obstructive sleep apnea) 08/15/2012- Restless legs- TIA (transient ischemic attack) 09/29/2012- Vitamin D deficiency 07/20/2012PAST SURGICAL HISTORYProcedure Laterality Date- COLONS W/REM POLYP HT BX 02/26/2015- EGD W/ O BRSH SPECIMEN W/BX 12/31/07- PAST SURGICAL HISTORY OF LIPOMA X2- PAST SURGICAL HISTORY OF 2000 reversal of vasectomy- PAST SURGICAL HISTORY OF 1990 vasectomy- REPAIR INCIS HERNIA W MESH 08/10/08- REPAIR INCISIONAL HERNIA,REDUCIBLE 08/10/08FAMILY HISTORYProblem Relation Age of Onset- Diabetes Mother- HIATAL HERNIA [Other] [ OTHER] Father- HIATAL HERNIA [Other] [OTHER] Sister- Cancer Father esophageal cancer- Hypertension Mother- Lipids MotherSOCIAL HISTORYSocial History Marital status: Spouse name: Years of education: Number of children:Social History Main Topics Smoking status: Never Smoker Smokeless status: Never Used Alcohol use: No Drug use: NoMEDICATIONS/ALLERGIESCurrent Outpatient Prescriptions:methylPREDNISolone (MEDROL, RONALD,) 4 mg Dose-Pack Take by mouth. Asdirected on package Disp: 1 Package Rfl: 0levothyroxine (SYNTHROID) 125 mcg tablet Take 1 tablet by mouth oncedaily. Disp: 90 tablet Rfl: 3No current facility-administered medications for this visit.ALLERGIESAllergen Reactions- Penicillins As a baby- unsure of reactionREVIEW OF SYSTEMSConstitutional: No weight loss, malaise or fevers.HEENT: Negative for frequent or significant headachesRespiratory: Negative for cough, wheezing, or shortness of breathCardiovascular: Negative for chest pain, leg swelling or palpitationsGatrointestinal: Negative for abdominal discomfort, blood in stools orblack stools or change in bowel habitsGenitourinary: No history of dysuria, frequency, or incontinenceMusculoskeletal: Negative for joint pain or swelling , back pain or musclepainEndocrine: Negative for cold or heat intolerance, polyuria, polydipsia andgoiterHematology/Lymphatic: Negative for prolonged bleeding, bruising easily orswollen nodesNeurologic: No history or headaches, syncope, paralysis, seizures ortremorsIntegumentary: Negative for lesions, rash, and itching.PHYSICAL EXAMVITALS: BP 114/73 Pulse 84 Ht 6' 4 (1.93m) Wt 245 lb (111.1kg) SpO2 96% BMI 29.83 kg/(m2).General: Alert, oriented, cooperative, healthy appearanceIntegumentary: Normal color, no rash, no lesions.Cardiovascular: Pulse regular.Lungs: No chest deformities or chest wall tenderness.Abdomen: Soft, non-tender, no rigidity.Extremities: Varicose veins large lower extremity varicose veinsNeurological: AAOx3. Normal cognition and motor skills.Vascular: Posterior Tibial Right: Normal - Left: NormalDorsalis Pedal Right: Normal - Left: NormalASSESSMENTSymptomatic varicose veinsPLAN/RECOMMENDATIONSReviewed venous pathology with patientRecommend compression stockings, elevation, and exerciseWill get updated venous reflux testing and follow up to discussinterventional options as symptoms impact day to day activities DISCHARGE SUMMARY Observed: 11/12/2016 Status: F Source: MUSELLA 7:22 PM [facility] REPOSITORY [facility] [address] [place], [place] [address]Rtwjdjawr Ghbshnf61/20/17 1916MR#: [id number] Acct: [id number]: ISAACMARC JR Rep #: [id number]: 1965 51 From: Randell Longoria DOPCP: Amilcar Sandoval MD Status: DIS IN YLocation: MS3 [id number] Date and DiagnosisDate of Admission: 11/08/16Date of Discharge: 11/12/16- Primary Discharge Diagnosis# 1 acute sepsis with methicillin sensitive staph aureus from cellulitis of the rightantecubital space#2 cellulitis of the right antecubital space secondary to recent peripheral IV-not thisadmission- Secondary Discharge DiagnosisChronic ProblemsBMI 30.0-30.9,adult (Chronic)Herniated cervical disc (Chronic) Hypertension (Chronic)Hypothyroidism (Chronic)MYNOR (obstructive sleep apnea) (Chronic)RLS ( restless legs syndrome) (Chronic)Hospital Course and TreatmentOperations: NoneProcedures : 2-D EchocardiogramSummary of Care Provided:The patient is a 51 year old M [facility]. Patient had recently been in the hospitalhad an IV site in the right antecubital space where the cellulitis was located. He had beenseen in the emergency room 1 day prior and placed on oral antibiotics but had returned due toworsening symptoms. Workup in the emergency room reveal a normal white blood cell count,creatinine was slightly elevated, hemoglobin was slightly low, chest x- ray was performed whichshowed no active infiltrates. Patient's lactic acid level was normal. Patient met sepsiscriteria and was admitted to [place] [address] for acute sepsis from cellulitis of the rightantecubital space. PCR on the patient's blood culture which [facility] was positive for methicillin sensitive staph aureus. Patient was initiallytreated with vancomycin, subsequent blood cultures were obtained which were also positive formethicillin sensitive staph aureus. Patient was seen in consultation by infectious diseases,antibiotics were eventually changed to Ancef, and echocardiogram was performed which showed noactive valvular vegetation. Infectious diseases recommend placement of the PICC line for atotal of 2 weeks of IV antibiotic treatment, patient's subsequent blood culture obtained theday after admission was also positive for MSSA and this necessitated a final blood culturewhich was ultimately negative for MSSA. On 11/12/16, patient was seen and examined felt instable condition for discharge homeDischarge Activity: Return to Normal ActivityWeight Bearing Status: Full weight bearingHome Medications:Medications to take at DischargeLevothyroxine Sodium 125 mcg PO DAILY 10/18/16Gabapentin [Neurontin] 300 mg PO Q8H 11/05/16Pantoprazole Sodium [ Protonix] 40 mg PO DAILY #90 tablet 11/07/16cetaminophen [Tylenol Tablet] 650 mg PO Q4H PRN PRN tablet 11/12/16Primary Care Physician:Amilcar Sandoval MD [Primary Care Provider] -Please follow up with your Primary Care Physician in: IN 1-2 WEEKSPatient Instructions: Recognizing and Treating Wound Infection, Discharge Instructions forCellulitis, Cellulitis - Causes,Symptoms,TreatingDisposition: Home with Home HealthMinutes spent on discharge:: 36Patient Condition:: StableMeaningful Use InfoMeaningful Use Diagnoses (Choose all that apply): None ymbcswpaiv46/20/171921 <Electronically signed by Randell Longoria DO>Date Randell Longoria DOCosigner Signature (if applicable): Date CC: Randell Longoria DO; Amilcar Sandoval MD Signed HISTORY AND PHYSICAL Observed: 11/12/2016 Status: F Source: MUSELLA EXAM 7:19 PM [facility] REPOSITORY [facility]Medical Records [address] [place] [address]Dflczez and Pwaukutc10/17/17 0024MR#: [id number] Acct: [id number]: MARC GRAY JR Rep #: [id number]: 1965 51 From: Hawk Millan MDPCP: Amilcar Sandoval MD Status: DIS IN YLocation: MS3 [id number] List(1) PhlebitisStatus : Acute(2) CellulitisStatus: AcuteHistory of Present IllnessDate of Admission: 11/09/16Chief Complaint: pain in right armThe patient is a 51 year old Mrecently admitted for gi bleed to the hospital here.he had some drainage from iv site on the right side a little bit of redness after beingdischarged homethen at home had more redness, then the skin turned hardhad earlier ed visit with iv vanc while here and po clinda written for at homeHe was able to take a couple doses of clindamycin at homeStill having fevers 103In the emergency room due to increased redness and the fever1/2 bx were positive for staph aureus on 11/07Denies any other signs or symptoms of infection such as sore throat cough sores diarrheaHas any bowel movement since he left the hospital a few days agoPast Medical HistoryPast Medical History ( Chronic Problems):Chronic ProblemsBMI 30.0-30.9,adult (Chronic)Herniated cervical disc (Chronic)Hypertension (Chronic)Hypothyroidism (Chronic)MYNOR (obstructive sleep apnea) (Chronic)RLS (restless legs syndrome) (Chronic)AllergiesPenicillins [PCN] Allergy (Verified 11/08/16 18:43)UnknownHome Medications:Ambulatory OrdersMedication Instructions RecordedLevothyroxine Sodium 125 mcg PO DAILY Smoking Status: Never smoker- *Family History PaternalHistory Items: Cancer - Father of throat cancer MaternalHistory Items: High CholesterolReview of SystemsConstitutional: Reports: Fever, - - 103Eyes: Denies: Blurred visionHEENT : Denies: Difficulty SwallowingCardiovascular: Denies: Chest Pain, Chest Pressure , Chest TightnessGastrointestinal: Reports: Constipation, - - reports has not had a bm since morningGenitourinary: Denies: DysuriaSkin: Reports: Wounds. Denies: RashNeurological: Denies: Balance problemsEndocrine: Denies: Change in Body HabitusVTE Information - Inpt OnlyVTE Present on Admission: No- Physical ExamGeneral: Alert, Oriented x3, CooperativeHEENT: AtraumaticOral: Moist MucosaNeck: SuppleLungs: No rhonchi, No wheezeCardiovascular: Regular rate, Normal S1, Normal K3Dmgjoos : Non Tender, Non-DistendedExtremities: - - Redness around right antecubital fossa extending around the dotted line wasplaced in the emergency room the day before 1 small almost opening in the skin but no drainageArea around this is slightly hardMusculoskeletal: No Tenderness to Palpation of Joints or ExtremitiesNeurological: Neuro grossly intactPsych/Mental Status: Normal AffectVital SignsTemp Pulse Resp BP Pulse Ox99.1 F 97 18 122/79 23:59 11/08/16 23:59 11/08/16 23:59 11/08/16 23:59 11/08/16 23:59Oxygen Delivery Method Room AirWeight: 245 lb 5.992 ozBody Mass Index (BMI) 29.8Laboratory Tests Past 24 HrsWBC 5.0RBC 3.90 LHgb 10.9 LHct 32.5 LMCV 83.3MCH 27.9MCHC 33.5WBCRBCHgbHctMCVMCHMCHCRDWRDW DifferentialPlt CountMPVImmature Gran % (Auto)Neut % (Auto)Assessment/Czci15-nbsm-tjs recently admitted for GI bleedSwelling and redness in his right antecubital fossa nowEarlier ER to visit where he received IV vancomycin and po Clinda rxand cultures requestedArea was markedAfter this the redness has extended outside of this and it has become hardHe also has fever- 103 at home1 his blood cultures done from the earlier ER visit 1-come back for staph aureusall of this led him to returningWe will admit the patient due to sepsis due to right arm cellulitisAs we complicated by superficial phlebitis and/or IV infiltrationWas on clindamycin at homeHe did receive a dose of Vancomycin yesterday received back in the emergency room last pharmacyto continue to dose vancomycin and treat with p.o. Bactrimrepeat blood cultures have been orderedReview and exam there is no other obvious source of infection2 patient recently had GI bleeddenies any further bleedinghas not had any bowel movements recentlycould be do to recent npowill add stool softners as neededavoid full anticoagualation3 probiotic to be given due to clinda use and cdiff risk4 discussed plan with patient.11/12/161918 <Electronically signed by Hawk Millan MD>Date Hawk Millan [facility] Signature (if applicable): Date CC: Hawk Millan MD; Amilcar Sandoval MD Signed DISCHARGE INSTRUCTION Observed: 11/12/2016 Status: F Source: MUSELLA 10:00 AM [facility] REPOSITORY [facility] [address] [facility] [place], [place] [address]Ofyuhspljauu for Home/Discharge Busiraksbwgk37/20/17 0956MR #: [id number] Acct: [id number]: MARC GRAY JR Rep #: [id number]: 1965 51 From: Randell Longoria DOPCP : Amilcar Sandoval MD Status: ADM IN- Discharge DiagnosesCurrent Active Problems:Current Active and Chronic ProblemsCellulitis (Acute)Phlebitis (Acute) You will use the following diet at home:: No restrictionsYour food should be the consistency of: RegularYour liquids should be the consistency of: Regular/ThinDischarge Activity: Return to Normal ActivityWeight Bearing Status : Full weight bearingAdditional Instructions: CALL DR WEST IF HAVING PROBLEMS( TEMPERATURE ABOVE 100), CALLYOU PRIMARY CARE PHYSICIAN IF HAVING SEVERE DIARRHEA. SOME LOOSE STOOLS MAY OCCUR WITHANTIBIOTICS-YOU CAN TAKE IMMODIUM IF NEEDED.Allergies/Adverse Reactions:AllergiesPenicillins [PCN] Allergy (Verified 11/08/16 18:43)UnknownMedications to take at DischargeLevothyroxine Sodium 125 mcg PO DAILY 10/18/16Gabapentin [Neurontin] 300 mg PO Q8H 11/05/16Pantoprazole Sodium [Protonix] 40 mg PO DAILY #90 tablet 11/07/16cetaminophen [Tylenol Tablet] 650 mg PO Q4H PRN PRN tablet 11/12/16Primary Care Physician:Amilcar Sandoval MD [Primary Care Provider] -Please follow up with your Primary Care Physician in: IN 1-2 WEEKS 1000 <Electronically signed by Randell Longoria DO>Date Randell Longoria DOCC: Amilcar Sandoval MD; Zi Powell MD EMERGENCY DEPARTMENT Observed: 11/10/2016 Status: F Source: MUSELLA SUMMARY 6:30 PM [facility] REPOSITORY [facility] [address] [facility] [place], [place] [address]Nbxzwaxhf Department Qpepmwo61/13/17 0721MR#: [id number] Acct: [id number]: MRAC GRAY JR Rep #: [id number]: 1965 51 From: Lan Garcia MDPCP: Amilcar Sandoval MD Status: DIS IN- ER Visit SummaryDate of Service: 11/05/16Chief Complaint: Blood in stool and syncopeHistory of Present Illness: The patient is a [address] Amilcar Stephens. Patient reportsthat he has degenerative disc disease in his neck and he has been seeing a spine surgeon whohas had him on naproxen, 2 Medrol Dosepaks, and Toradol. He states that yesterday he had ablack formed stool and this morning he had black diarrhea. He denies any abdominal pain.However he reports this morning that he was nauseated and having dry heaves. During thisepisode he became lightheaded and when he stood up he had a syncopal episode. He deniesinjuries from this.Physical Examination:Vitals: 97/58, 77, 17, 99% her marriage is not hypoxic. Afebrile.General: Well-nourished and well-developed.Head: Normocephalic atraumatic.Neck: Supple, no lymphadenopathy. No JVD. Nontender.Cardiovascular: Regular rate and rhythm. No murmurs.Respiratory: No respiratory distress. Clear to auscultation bilaterally.Abdominal: Soft, nontender, nondistended, normal bowel sounds. No guarding, rebound, orperitoneal signs.Back: Nontender.Extremities: Nontender, no edema.Skin: Pallor, no rash.Neurologic: Alert and oriented 3. Cranial nerves II through XII are intact. Normal strengthand sensation.Psych: Normal affect.Test Results: EKG is sinus at 80 with no acute changes. CBC is marked for an H AND H 11.2 34.7,segmented physical 43, monocytes 11, eosinophils 6, basophils of 2. Chem-7 is more forchloride 111 and BUN of 35. Coags are normal.Emergency Department Course and Treatment: While in the emergency department the patient waslaying in bed and became nauseated. He bradycardia down into the 20s and ultimately had aprolonged pause and loss of pulse and consciousness. He received CPR for approximately 1minute. He regained consciousness and has been appropriate throughout the remainder of hisstay. However, when this occurred I did not know for certain what the patient's hemoglobinwas. The patient was given 1 unit of trauma blood. He was also given Protonix and Zofran IV.Treatment Plan: Patient was discussed with Dr. David and Dr. Fernandez. He will be admitted to theICU for further evaluation and treatment.Disposition: Admitted in serious condition.Impression: 1. Upper GI bleed.2. Vasovagal syncope.3. PEA.4. CPI.5. Critical care time 30 minutes.This note was generated with Dragon dictation software. It may contain incorrect words,spelling, and punctuation that were not noted in review of the chart prior to signing.ED Disposition- Plan for ED Patient:Chief Complaint: WeaknessReferrals:Amilcar Sandoval MD [Primary Care Provider] -What to do if you have ProblemsFor any increased pain, shortness of breath, bleeding, nausea or vomiting, chest pain, or anyunexpected problems, contact your Primary Care Provider. Call [facility] ([phone])or report to the closest Emergency Room.Call 911 if necessary.11/10/16 1830 <Electronically signed by Lan Garcia MD&gt ;Date Lan Garcia MDCosigner Signature (If Indicated): Date ___CC: Amilcar Sandoval MD ECHOCARDIOGRAM COMPLETE Observed: 11/10/2016 Status: F Source: MUSELLA 2:17 PM [facility] REPOSITORY [facility]ITAL[facility] [address] [place], [place] [address]Iyfx Gzpudhqr35/18/17 0834MR#: [id number] Acct: [id number]: MARC GRAY JR Rep #: [id number]: 1965 51 From: Samuel Skelton MDAttending Dr: Randell Longoria DO Status: ADM INOrdering Dr: Randell Longoria DO Date: 11/09/16Location : MS3 Sex: M CAdmitted: 11/08/16Reason For Study: EmboliProcedureThis was a 2D Doppler, Color Flow transthoracic echocardiogram. Exam performed portable inpatientroom.Left VentricleNormal LV size. Left ventricular systolic function is normal. The estimated ejection fractionis 65%. No regional wall motion abnormalities noted.Right VentricleNormal RV size. Normal systolic function.AtriaNormal left atrium. Normal right atrium.Mitral ValveMitral valve doming/Hockey Sticking. Trivial eccentric mitral valve insufficiency.Tricuspid ValveNormal tricuspid valve.Aortic ValveThe aortic valve is not well visualized.Pulmonic ValveNormal pulmonic valve.Great VesselsNormal aortic root. The pulmonary artery is normal size. Normal inferior vena cava.Pericardium/PleuralNo pericardial effusion.MMode/2D Measurements AND CalculationsLVIDd: 4.4 cm IVSd: 1.3 cm Ao root diam: 3.3 cmLVIDs: 2.4 cm LVPWd: 1.1 cm LA dimension: 3.9 cmRVDd: 3.8 cm FS: 44.5 % __LAV(MOD-bp): 60.1 ml LA A4 area: 17.3 cm2 RA A4 area: 15.1 cm2LAV(MOD-bp) Indexed: 25.2 ml/m2LAV(MOD-sp2): 51.7 mlLAV(MOD-sp4): 48.8 mlTime MeasurementsMV dec time: 0.19 secDoppler Measurements AND CalculationsMV E max ar: 49.8 cm/sec Lat Peak E' Ar: 5.4 cm/sec Med Peak E' Ar: 7.4 cm/secMV A max ar: 57.6 cm/sec E/E ' lat: 9.3 E/E' med: 6.8MV E/A: 0.87 MV V2 max: 87.2 cm/sec MV P1/2t max ar: 81.3 cm/sec Ao V2 max: 113.2 cm/ secMV max P.0 mmHg MV P1/2t: 55.6 msec Ao max P.1 mmHgMV V2 mean: 54.9 cm/sec MV dec slope: 428.0 cm/sec2 Ao V2 mean: 70.3 cm/secMV mean P.4 mmHg MVA(P1/2t): 4.0 cm2 Ao mean P.3 mmHgMV V2 VTI: 17.2 cm Ao V2 VTI: 18.1 cm ___LV V1 max: 81.9 cm/sec PA V2 max: 118.5 cm/secLV V1 max P.7 mmHgLV V1 mean P.1 mmHgLV V1 mean: 47.4 cm/secLV V1 VTI: 15.5 cmInterpretation SummaryNormal LV size.Left ventricular systolic function is normal.The estimated ejection fraction is 65 %.Trivial eccentric mitral valve insufficiency.Compared to prior study, there is no significant change. Ordering Physician: Anusha Longoria Physician: Amilcar SandovalPerformed By: Joe Roche RCSElectronically signed by: Samuel Skelton MD on 2016 02:16 PM11/10/16 1416Date Samuel Skelton MDCC: Randell Longoria DO; Amilcar Sandoval MD Date Dictated: 11/10/16 0834Date Transcribed: 11/10/16 1416Transcriptionist:Signed CONSULTATION Observed: 11/10/2016 Status: F Source: MUSELLA 11:00 AM [facility] REPOSITORY [facility]ITALMedical Records [address] [address]Jaqblqqomsci55/18/17 1056MR#: [id number] Acct: [id number]: MARC GRAY JR Rep #: [id number]: [birth year] 51 From: Jonas Sorenson MDPCP: Amilcar Sandoval MD Status: ADM IN YLocation: MS3 [id number] for Consult: Fever sepsis and staph aureus bacteremiaHistory of Present Illness:The patient is a 51 year old M []This is a 51-year-old gentleman who was recently hospital last week for GI bleed. Patient wassubsequently stabilized and is discharged home this past Thursday and shortly after dischargedeveloped high fever and chills. Patient was seen in emergency department was given parenteralvancomycin and sent home on oral Clinda. Patient was subsequently admitted back to [facility] with staph aureus bacteremia. He also had a peripheral IV in his rightforearm that developed into a soft tissue cellulitic infection. Suspect also a superficialphlebitis in that vein. Patient states of feeling better over last 24 hours he is currently oncefazolin 2 g IV every 8 hours. No significant cardiopulmonary distress no abdominal pain orgastrointestinal distress. Denies any focal joint pains. No headaches or any focalneurological symptoms. He is otherwise hemodynamically stable.- Medical HistoryPast Medical History (Chronic Problems):Chronic ProblemsBMI 30.0-30.9, adult (Chronic)Herniated cervical disc (Chronic)Hypertension (Chronic)Hypothyroidism (Chronic)MYNOR (obstructive sleep apnea) (Chronic)RLS (restless legs syndrome) (Chronic)Allergies/Adverse Reactions:AllergiesPenicillins [PCN] Allergy ( Verified 11/08/16 18:43)UnknownHome Medications:Ambulatory OrdersMedication Instructions RecordedLevothyroxine Sodium 125 mcg PO DAILY 10/18/16Vital SignsTemp Pulse Resp BP Pulse Ox99.2 F 94 16 116/67 03:37 03:39 11/10/16 03:39 11/10/16 03:37 11/10/16 08:01Oxygen Delivery Method Room AirWeight: 111.6 kgBody Mass Index (BMI) 29.9Microbiology Past 72 Hours11/09/16 03:08 Blood Culture - PreliminaryBlood Culture (Wb) - VenousLaboratory Tests Past 24 HrsS.aureus Protein A PCR POSITIVE HMRSA (PCR) Negative- Other StudiesRadiology: [] Other Studies: []Route of nutrition/ use of supplements: []Nutritional Intake: []IV Site: []Argueta Catheter: []Patient is alert conversive in no acute distress she is alert and oriented 3 lungs are clearheart exam S1-S2 I could not appreciate a murmur abdomen is soft no focal tenderness noperipheral skin lesions noted his right arm there is this area of induration in his right arm.The old IV site there is no purulent drainage at this time. Laboratory studies blood culturedata reviewed.- Assessment/PlanAntibiotics: []Assessment/Plan: []Active and Suspected ProblemsCellulitis (Acute)Phlebitis (Acute)Staph aureus bacteremia MSSA secondary to an infected peripheral IV site. At this point wewill continue cefazolin 2 g IV every 8 hours follow his repeat blood cultures. A 2Dechocardiogram was just performed this morning and will follow the results of theechocardiogram. I did talk to the patient's and discussed with her the clinicalmanagement.11/10/16 1100 <Electronically signed by Jonas Sorenson MD>Date Jonas Sorenson [facility] – OKEMAHosign Signature (if applicable): Date CC: Amilcar Sandoval MD; Zi Powell MD Signed Observed: 11/10/2016 Status: F Source: LISA CULTURE, BLOOD (WB) 7:10 AM [facility] REPOSITORY Has pt arrived? Y BCNo growth in 5 days. Performed By: #### M200.1000 ####[facility] [address] [place], [address] EMERGENCY DEPARTMENT Observed: 11/10/2016 Status: F Source: LISA SUMMARY 12:50 AM [facility] REPOSITORY [facility]ITALMedical Records [address] [place] [address]Ttvedxjuh Department Uquoxfz18/16/17 2349#: [id number] Acct: [id number]: MARC GRAY JR Rep #: [id number]: 1965 51 From: Ayo Alexis MDPCP: Amilcar Sandoval MD Status: ADM IN- ER Visit SummaryDate of Service: 11/08/16Chief Complaint: FeverHistory of Present Illness: The patient is a 51 M recently admitted for a GI bleed which he hada syncopal episode before also. Was placed in the ICU. And just recently discharged. Hereturned to the ER yesterday was diagnosed with right arm phlebitis and cellulitis and wasstarted on clindamycin given a dose of IV vancomycin. He had blood cultures returned that werepositive. And return to the ER tonight because of fever. He denies nausea or vomiting. Nodiarrhea. No chest pain or shortness of breath.Physical Examination: Well-appearing middle-age gentleman. Vital signs are stable we does havea fever 1033 is tachycardic in the 120s. He does not look septic. H EENT exam isunremarkable. Moist mucous membranes. Neck nontender no lymphadenopathy. Lungs clear toauscultation bilaterally. Heart tachycardic no murmur. Abdomen soft nontender. Remediesmoves all 4. Neurovascular intact. His right arm at the elbow on the lateral aspect of thedistal bicep is swollen consistent with a phlebitis is also red and warm consistent with acellulitis. Distally he has normal nutritional health coach strength, sensation and a strong radial pulse.Neurologically is awake and alert with no focal deficits. Other than his right arm there is noother signs of rashes or cellulitis.Test Results: CBC was obtained to white count is 5 it was 8 the other day. His hemoglobin is10.9 which is his baseline. There are no bands. Electrolytes are normal with an anion gap of8 and creatinine 1.33. UA was normal lactic acid was 1.7. Chest x-ray normal read both bymyself and the radiologist.Emergency Department Course and Treatment: Patient be treated with a dose of vancomycin andp.o. clindamycin. I spoke with Dr. Reed and he will be admitted overnight for furtherevaluation.Treatment Plan: IV antibiotics and observation.Disposition: AdmissionImpression: Right elbow phlebitis and cellulitis.FeverBacteremiaRecent GI bleedRecent syncopeRecent admission with discharge from the ICU.ED Disposition - Plan for ED Patient:Chief Complaint: Abd PainReferrals:Amilcar Sandoval MD [Primary Care Provider] -What to do if you have ProblemsFor any increased pain, shortness of breath, bleeding, nausea or vomiting, chest pain, or anyunexpected problems, contact your Primary Care Provider. Call [facility] ([phone])or report to the closest Emergency Room.Call 911 if necessary.11/10/16 0050 < Electronically signed by Ayo Alexis MD>Date Ayo Alexis MDCosigner Signature (If Indicated): Date CC: Amilcar Sandoval MD MRSA WOUND DNA BY Collected: 11/09/2016 Status: F Source: LISA PCR 6:20 AM [facility] REPOSITORY TYPE CODE TESTS RESULT OUT OF RANGE REFERENCE UNITS LAB L8200.1100 Normal Negative MRSA Negative RESULT LAB L8200.1150 High Negative SA POSITIVE RESULT Performed By: #### L8200.1075 ####[facility] [address] [place], [address] CBC-COMPLETE BLOOD CNT Collected: 11/09/2016 Status: F Source: LISA NO DIFF 3:08 AM [facility] REPOSITORY TYPE CODE TESTS RESULT OUT OF RANGE REFERENCE UNITS LAB L100.1000 Normal 4.4-11.0 K/mm3 WBC 4.4 LAB L100.1200 Low 4.6-6.2 M/mm3 RBC 4.00 LAB L100.1300 Low 13.0-16.5 g/dl HGB 11.3 LAB L100.1400 Low 40-54 % HCT 33.8 LAB L100.1500 Normal 80-94 fL MCV 84.5 LAB L100.1600 Normal 27.0-32.0 pg MCH 28.3 LAB L100.1700 Normal 32-36 g/gl MCHC 33.4 LAB L100.1810 Normal 11.6-14.6 % RDW 13.5 CV LAB L100.1820 Normal 35.1-43.9 fl RDW 40.9 SD LAB L100.1900 Low 150-450 K/mm3 PLT 125 LAB L100.2000 Normal 6.2-12.0 fl MPV 9.3 Performed By: #### L100.0500 ####[facility] [address] [place], [address] BASIC METABOLIC Collected: 11/09/2016 Status: F Source: MUSELLA PROFILE (BMP) 3:08 AM [facility] REPOSITORY TYPE CODE TESTS RESULT OUT OF RANGE REFERENCE UNITS LAB L501.0100 High 70-110 mg/dL GLU 137 Result Comment: Fasting Glucose result greater than or equal to 126 mg/dLsuggests DIABETES MELLITUS per A.D.A. criteria. LAB L501.1000 Normal 7-18 mg/dL BUN 10 LAB L501.1100 High 0.70-1.30 mg/dL CREAT,SERUM 1.32 Result Comment: The validity of the calculated GFR AND GFRAA in patients over70 years has not been determined. Clinical correlation isessential. LAB L501.1110 Normal >60 mL/min EST GFR 60 Result Comment: Non- GFR Calc LAB L501.1115 Normal >60 mL/min EST GFR - 73 AA Result Comment: GFR Calc LAB L501.1255 Normal ml/min Estimated 79.46 CRCL LAB L501.1300 Low 10-20 RATIO BUN/CRE 7.6 LAB L501.2200 Low 8.5-10 mg/dL CA 8.0 .1 LAB L501.5300 Normal 136-14 mmol/L NA 140 5 LAB L501.5600 Normal 3.5-5. mmol/L K 3.6 1 LAB L501.5900 Normal 98-107 mmol/L CL 104 LAB L501.6100 Normal 21.0-3 mmol/L CO2 26.0 2.0 LAB L501.6200 Normal 5-15 GAP 10 Performed By: #### L500.2500 ####[facility] [address] [facility] [place], [address] Observed: 11/09/2016 Status: F Source: MUSELLA CULTURE, BLOOD (WB) 3:08 AM [facility] REPOSITORY Has pt arrived? Y BCAEROBIC BOTTLE GRAM STAIN:GRAM POSITIVE COCCI IN CLUSTERS #1- REFER TO [facility]39[facility] #2- Possible skin contamination, further Identification and sensitivity will be performed only by physician's request. ANAEROBIC BOTTLE:NO GROWTH 5 DAYS SOURCE DESCRIPTION: VENOUS DRAW RIGHT HAND RESULTS CALLED TO ELLIS/MS3 11/10/16 0830 Anju Seth. REPORT READ BACK BY . ORGANISM 1: Staphylococcus aureusAmount Growth Growth ORGANISM 2: Coag Negative StaphAmount Growth Growth Performed By: #### M200.1000 ####[facility] [address] [place], [address] EXT NON VASC Observed: 11/09/2016 Status: F Source: LISA LIMITED/SOFT TISS 2:01 AM [facility] REPOSITORY [facility]ITALImaging [address] [facility] [place], [place] [address]Vem Non Vasc Limited/Soft TissMR#: [id number] Acct: [id number]: MARC GRAY JR Rep #: [id number]: [birth year] M 51 From: Francois Haile MDPCP: Amilcar Sandoval MD Status: ADM INStudy: Ext Non Vasc Limited/Soft Tiss Date of Exam: 11/09/16Exam# [id number] Ordering Dr: Hawk Millan MDSTUDY: SUPERFICIAL ULTRASOUND - RIGHT ARM.REASON FOR EXAM: Male, 51 years old. Swelling following IV placement.TECHNIQUE: A superficial ultrasound was performed with real-time andstatic chavarria-scale imaging.COMPARISON: None. FINDINGS:Edematous changes in the antecubital fossa. Low-level echoes are seenwithin the brachial vein at the level of the antecubital fossa.Correlation with venous Doppler examination is recommended. ORDER #: [id number] US/Ext Non Vasc Limited/Soft TissIMPRESSION:Soft tissue edema.Possible clot within the vein in the antecubital fossa. Correlation withDoppler venous study is recommended.Electronically Signed:Francois Haile MD at 12:54 EDTTel [phone], Service support , EP: Hawk Millan MD; Amilcar Sandoval MD Cyber Incident Analyst:Signed URINALYSIS, COMPLETE Collected: 11/08/2016 Status: F Source: LISA 10:10 PM [facility] REPOSITORY Order Comment: How was Urine Obtained? CLEAN CATCH TYPE CODE TESTS RESULT OUT OF RANGE REFERENCE UNITS LAB L400.3000 Normal Yellow COLOR Yellow LAB L400.3050 Normal Clear CLARITY Clear LAB L400.3200 Normal Normal mg/dl GLUCOSE, UR Normal LAB L400.3300 Normal Negative mg/dL BILIRUBIN Negative URINE LAB L400.3400 Normal Negative mg/dl KETONE UR Negative LAB L400.3465 Normal 1.002-1.030 SP.GR. 1.015 DIPSTX LAB L400.3550 Normal 5.0 - 8.0 pH UR 8.0 LAB L400.3600 Normal Negative mg/dl PROT DIPSTX Negative LAB L400.3700 Normal Normal mg/dl UROBILI Normal LAB L400.3750 Normal Negative NITRITE UR Negative LAB L400.3780 High Negative /ul OCCULT 10 BLOOD-UR LAB L400.3800 Normal Negative /ul LEUK Negative ESTERASE LAB L400.4050 Normal 0-5 /hpf WBC 0 SEEN LAB L400.4100 Normal 0-5 /hpf RBC-UA 0-5 SEEN LAB L400.4150 Normal 0-5 /hpf SQUAM EPI 0 SEEN LAB L400.4300 Normal None Seen /hpf BACTERIA 0 SEEN LAB L400.4350 Normal <or=2+ /hpf MUCUS, 0 SEEN URINE Performed By: #### L400.0001 ####[facility] [address] [place], [address] CBC W/DIFF, AUTOMATED Collected: 11/08/2016 Status: F Source: MUSELLA 10:10 PM [facility] REPOSITORY TYPE CODE TESTS RESULT OUT OF RANGE REFERENCE UNITS LAB L100.1000 Normal 4.4-11.0 K/mm3 WBC 5.0 LAB L100.1200 Low 4.6-6.2 M/mm3 RBC 3.90 LAB L100.1300 Low 13.0-16.5 g/dl HGB 10.9 LAB L100.1400 Low 40-54 % HCT 32.5 LAB L100.1500 Normal 80-94 fL MCV 83.3 LAB L100.1600 Normal 27.0-32.0 pg MCH 27.9 LAB L100.1700 Normal 32-36 g/gl MCHC 33.5 LAB L100.1810 Normal 11.6-14.6 % RDW 13.4 CV LAB L100.1820 Normal 35.1-43.9 fl RDW 39.6 SD LAB L100.1900 Low 150-450 K/mm3 PLT 149 LAB L100.2000 Normal 6.2-12.0 fl MPV 9.0 LAB L100.2100 High 47-70 % NEUT% 78.4 LAB L100.2200 Low 19-41 % LY% 13.6 LAB L100.2300 Normal 0-10 % MONO% 7.0 LAB L100.2400 Normal 0-5 % EO% 0.2 LAB L100.2500 Normal 0-1 % BASO% 0.4 LAB L100.2550 Normal 0.0-0.9 % IM 0.400 GRAN % Result Comment: IG% - Immature Granulocytes (promyelocytes, myelocytes andmetamyelocytes) > 1% indicates that a LEFT SHIFT is Present. LAB L100.2620 Normal 2.0-7.7 X10 3/uL Absolute Neut 3.9 LAB L100.2720 Low 0.83-4.51 X10 3/ul Absolute Lymph 0.68 Performed By: #### L100.0100 ####[facility] [address] [place], [place], [address] BASIC METABOLIC Collected: 11/08/2016 Status: F Source: LISA PROFILE (BMP) 9:05 PM [facility] REPOSITORY TYPE CODE TESTS RESULT OUT OF RANGE REFERENCE UNITS LAB L501.0100 Normal 70-110 mg/dL GLU 108 LAB L501.1000 Normal 7-18 mg/dL BUN 11 LAB L501.1100 High 0.70-1.30 mg/dL 1.33 CREAT,SERUM Result Comment: The validity of the calculated GFR AND GFRAA in patients over70 years has not been determined. Clinical correlation isessential. LAB L501.1110 Normal >60 mL/min EST GFR 60 Result Comment: Non- GFR Calc LAB L501.1115 Normal >60 mL/min EST GFR - 72 AA Result Comment: GFR Calc LAB L501.1255 Normal ml/min Estimated 78.86 CRCL LAB L501.1300 Low 10-20 RATIO BUN/CRE 8.3 LAB L501.2200 Low 8.5-10 mg/dL CA 8.4 .1 LAB L501.5300 Normal 136-14 mmol/L NA 136 5 LAB L501.5600 Normal 3.5-5. mmol/L K 4.3 1 LAB L501.5900 Normal 98-107 mmol/L CL 107 LAB L501.6100 Normal 21.0-3 mmol/L CO2 21.0 2.0 LAB L501.6200 Normal 5-15 GAP 8 Performed By: #### L500.2500, L500.3400 ####[facility] [address] [place], [address] LIVER PROFILE Collected: 11/08/2016 Status: F Source: LISA 9:05 PM [facility] REPOSITORY TYPE CODE TESTS RESULT OUT OF RANGE REFERENCE UNITS LAB L501.1500 Normal 6.4-8.2 g/dL T 6.5 PROT LAB L501.1800 Low 3.4-5.0 g/dL ALB 3.3 LAB L501.1950 Normal 2.3-3.5 g/dL GLOB 3.2 LAB L501.4100 Normal 15-37 U/L AST 18 LAB L501.4305 Normal 45-117 U/L ALK P 52 LAB L501.4405 Normal 12-78 U/L ALT 33 LAB L501.4600 Normal 0.20-1.00 mg/dL T 0.50 BILI LAB L501.4700 Normal 0.00-0.30 mg/dL D 0.13 BILI Performed By: #### L500.2500, L500.3400 ####[facility] [address] [facility] [place], [address] LACTIC ACID Collected: 11/08/2016 Status: F Source: MUSELLA 9:05 PM [facility] REPOSITORY Order Comment: Yes/No query for Sepsis Lactate Rule Y TYPE CODE TESTS RESULT OUT OF RANGE REFERENCE UNITS LAB L503.6005 Normal 0.4-2.0 mmol/L LACTIC 1.7 ACID Performed By: #### L503.6005 ####[facility] [address] [place], [address] CHEST 1 VIEW Observed: 11/08/2016 Status: F Source: MUSELLA (PORTABLE) 7:19 PM [facility] REPOSITORY [facility]Im[facility] [address] [place], [place] [address]Fyivx 1 View (Portable)MR#: [id number] Acct: [id number]: MARC GRAY JR Rep #: [id number]: [birth year] M 51 From: Dustin Zaragoza MDPCP: Status: PRE ERStudy: Chest 1 View (Portable) Date of Exam: 11/08/16Exam# [id number] Ordering Dr: Ayo Alexis MDSTUDY: X-RAY CHESTREASON FOR EXAM: Male, 51 years old. FeverTECHNIQUE: Single AP portable view of the chest.COMPARISON: 10/01/2012. FINDINGS:The lungs are clear and expanded. There is no demonstrated pleuralabnormality.Normal size heart. Normal mediastinum and justus. Normal visualizedpulmonary arteries. Normal visualized aortic arch and descending thoracicaorta.Normal visualized thoracic spine. Normal visualized ribs, clavicles, andshoulders.There is no demonstrated abnormality of the visualized soft tissuestructures of the upper abdomen. ORDER #: [id number] RAD/Chest 1 View (Portable)IMPRESSION:Normal x-ray examination of the chest.Electronically Signed:Dustin Zaragoza MD at 19:41 EDTTel , Service support , VS: Ayo Alexis MD Cyber Incident Analyst:Signed EMERGENCY DEPARTMENT Observed: 11/07/2016 Status: F Source: MUSELLA SUMMARY 8:40 PM [facility] REPOSITORY [facility]ITALMedical Records [address] [place], [place] [address]Mfalazztg Department Vcltogl86/15/17 2032MR#: [id number] Acct: [id number]: MARC GRAY Rep #: [id number]: 1965 51 From: Earl Oakes MDPCP: Amilcar Sandoval MD Status: REG ER- ER Visit SummaryDate of Service: 11/07/16Chief Complaint: Fever and rash right upper extremityHistory of Present Illness: The patient is a 51 M discharged today from the ICU. He wasadmitted for GI bleed with hemorrhagic shock and asystole secondary to neurogenic vasovagalevent. He presents because of temperature 101.4 and red rash right antecubital fossa. Patientstates he had an IV in that extremity. He denies history rheumatic fever, murmur, SBE or beingimmune suppressed. He denies any cardiac or respiratory symptoms. He denies nausea, vomitingor diarrhea. He denies any urologic symptoms. He denies myalgias arthralgias.Physical Examination: Vitals are marked for temperature 100.4 and heart rate of 120. Head isatraumatic normocephalic. Pupils are equal round reactive. Extraocular muscles are intact.TMs are pearly white with landmarks noted. Nares patent with no drainage. Posterior pharynxwithout erythema or exudate. Uvula is midline. There is no dysphonia or dysphasia. Tracheais midline. There is no stridor with auscultation of the neck. Heart is regular with a normalS1 and S2. There is no murmur, gallop or rub. Lungs are clear to auscultation with goodmovement of air bilaterally. There is no egophony. Breath sounds are symmetric. Examinationof the right upper extremity reveals cellulitis right antecubital fossa. There is evidence ofphlebitis with a palpable cord. There is no lymphangitis. There is no right axillarylymphadenopathy. He is alert oriented nonfocal neurologic exam.Test Results: White count is normal with 77 segs and no bands. Electric panels unremarkable.Lactate is normal at 1.7.Emergency Department Course and Treatment: Patient received 15 mg/kg vancomycin for strep andstaph coverage.Treatment Plan: Since patient does not have a fever by CMS guidelines for sirs and only haselevated heart rate he does not meet definition for sepsis. Therefore, he will be dischargedwith prescription for 500 mg of cephalexin 4 times a day and Bactrim DS tab 1 twice a day. Hewas instructed to follow-up with his physician on Thursday for wound check.Disposition: Discharge to home with prescription for cephalexin and Bactrim DSImpression:Cellulitis right antecubital fossa with superficial phlebitis, septicSinus tachycardia documented on monitorRecent GI bleedED Disposition- Plan for ED Patient:Disposition: Home or Assisted LivingChief Complaint: FeverInstructions: ED Infec Skin Cellulitis, ED Phlebitis SuperficialPrescriptions:Clindamycin HCl 300 mg PO 4X/DAY #30 capsuleReferrals:Amilcar Sandoval MD [Primary Care Provider] - 2 Days for wound checkWhat to do if you have ProblemsFor any increased pain, shortness of breath , bleeding, nausea or vomiting, chest pain, or anyunexpected problems, contact your Primary Care Provider. Call [facility] ([phone])or report to the closest Emergency Room.Call 911 if necessary.11/07/162039 <Electronically signed by Earl Oakes MD>Date Earl Oakes MDCosigner Signature (If Indicated): Date CC: Amilcar Sandoval MD Observed: 11/07/2016 Status: F Source: MUSELLA CULTURE, BLOOD (WB) 6:37 PM [facility] REPOSITORY BCGRAM STAIN = GRAM POSITIVE COCCI IN CLUSTER IN ANAEROBIC BOTTLE AND AEROBIC BOTTLE RESULTS CALLED AND PRINTED ALEX, RAMIN HILLS TO 0936 Negar Willis. REPORT READ BACK BY SAME. SEE [id number] FOR SENSITIVITY PANEL ORGANISM 1: Staphylococcus aureusAmount Growth Growth Performed By: #### M200.1000 ####[facility] [address] [place], [address] CBC W/DIFF, AUTOMATED Collected: 11/07/2016 Status: F Source: MUSELLA 6:15 PM [facility] REPOSITORY TYPE CODE TESTS RESULT OUT OF RANGE REFERENCE UNITS LAB L100.1000 Normal 4.4-11.0 K/mm3 WBC 8.8 LAB L100.1200 Low 4.6-6.2 M/mm3 RBC 4.33 LAB L100.1300 Low 13.0-16.5 g/dl HGB 11.6 LAB L100.1400 Low 40-54 % HCT 36.1 LAB L100.1500 Normal 80-94 fL MCV 83.4 LAB L100.1600 Low 27.0-32.0 pg MCH 26.8 LAB L100.1700 Normal 32-36 g/gl MCHC 32.1 LAB L100.1810 Normal 11.6-14.6 % RDW 13.7 CV LAB L100.1820 Normal 35.1-43.9 fl RDW 40.3 SD LAB L100.1900 Normal 150-450 K/mm3 PLT 193 LAB L100.2000 Normal 6.2-12.0 fl MPV 9.3 LAB L100.2100 High 47-70 % NEUT% 77.3 LAB L100.2200 Low 19-41 % LY% 12.7 LAB L100.2300 Normal 0-10 % MONO% 6.2 LAB L100.2400 Normal 0-5 % EO% 3.2 LAB L100.2500 Normal 0-1 % BASO% 0.3 LAB L100.2550 Normal 0.0-0.9 % IM 0.300 GRAN % Result Comment: IG% - Immature Granulocytes (promyelocytes, myelocytes andmetamyelocytes) > 1% indicates that a LEFT SHIFT is Present. LAB L100.2620 Normal 2.0-7.7 X10 3/uL Absolute Neut 6.8 LAB L100.2720 Normal 0.83-4.51 X10 3/ul Absolute Lymph 1.12 Performed By: #### L100.0100 ####[facility] [address] [place], [address] BASIC METABOLIC Collected: 11/07/2016 Status: F Source: MUSELLA PROFILE (BMP) 6:15 PM [facility] REPOSITORY TYPE CODE TESTS RESULT OUT OF RANGE REFERENCE UNITS LAB L501.0100 High 70-110 mg/dL GLU 114 Result Comment: Fasting Glucose result from 110 to <126 mg/dLsuggests IMPAIRED HOMEOSTASIS per A.D.A. criteria. LAB L501.1000 Normal 7-18 mg/dL BUN 9 LAB L501.1100 Normal 0.70-1.30 mg/dL CREAT,SERUM 1.17 Result Comment: The validity of the calculated GFR AND GFRAA in patients over70 years has not been determined. Clinical correlation isessential. LAB L501.1110 Normal >60 mL/min EST GFR 69 Result Comment: Non- GFR Calc LAB L501.1115 Normal >60 mL/min EST GFR - 84 AA Result Comment: GFR Calc LAB L501.1255 Normal ml/min Estimated 89.64 CRCL LAB L501.1300 Low 10-20 RATIO BUN/CRE 7.7 LAB L501.2200 Normal 8.5-10 mg/dL CA 8.6 .1 LAB L501.5300 Normal 136-14 mmol/L NA 141 5 LAB L501.5600 Normal 3.5-5. mmol/L K 4.1 1 Result Comment: Slight Hemolysis, Result may be falsely increased. LAB L501.5900 Normal 98-107 mmol/L CL 106 LAB L501.6100 Normal 21.0-32.0 mmol/L CO2 27.0 LAB L501.6200 Normal 5-15 8 GAP Performed By: #### L500.2500 ####[facility] [address] [place], [address] LACTIC ACID Collected: 11/07/2016 Status: F Source: MUSELLA 6:15 PM [facility] REPOSITORY Order Comment: Yes/No query for Sepsis Lactate Rule Y TYPE CODE TESTS RESULT OUT OF RANGE REFERENCE UNITS LAB L503.6005 Normal 0.4-2.0 mmol/L LACTIC 1.7 ACID Performed By: #### L503.6005 ####[facility] [address] [place], [address] Observed: 11/07/2016 Status: F Source: MUSELLA CULTURE, BLOOD (WB) 6:15 PM [facility] REPOSITORY BCGRAM STAIN = GRAM POSITIVE COCCI IN CLUSTERS IN ANAEROBIC BOTTLE AND AEROBIC BOTTLE RESULTS CALLED AND PRINTED TO RAMIN JOHNSON 11/08 0906 Negar Willis. REPORT READ BACK BY SAME. ORGANISM 1: Staphylococcus aureusAmount Growth Growth Staphylococcus aureus: REACTION Cefoxitin *NF - Clindamycin $$ <=0.25 S Inducable Clindamycin Resistan - Erythromycin $ <=0.25 S Gentamicin $ <=0.5 S Levofloxacin $ <=0.12 S Linezolid $$$$ 1 S Moxifloxicin *NF <=0.25 S Oxacillin NF <=0.25 S Tigecycline $$$$ <=0.12 S Rifampin $$ <=0.5 S Tetracycline NF <=1 S Trimethoprim/Sulfametho $ <=10 S Vancomycin $ 1 S(NF) indicates non-formulary drug at [facility]. Approval by Infectious Disease Specialist required before non- formulary drugs may be ordered and/or dispensed. * CLSI guidelines does not recommend testing of cephalosporins. This interpretation is deduced from Beta-lactam/penicillin results. Performed By: #### M200.1000, M100.636 ####[facility] [address] [place], [address] Observed: 11/07/2016 Status: C Source: [facility] GPC ID 6:15 PM [facility] REPOSITORY GPC ID * This is an amended result. * A prior result that was reported as final has been changed. 11/10/16 0752 by ALISE Previously reported as: [] RESULTS CALLED AND PRINTED TO RAMIN JOHNSON 11/08/16 3021 Negar Willis. REPORT READ BACK BY SAME. Staphylococcus sp. Staphylococcus aureusEnterococcus sp. Not DetectedStreptococcus spp. Not DetectedListeria spp Not DetectedvanA/vanB Not DetectedmecA Not DetectedNAAT METHOD Testing was performed using nucleic acid amplification ORGANISM 1: Staphylococcus aureus Performed By: #### M200.1000, M100.636 ####[facility] [address] [place], [address] 12 LEAD ELECTROCARDIOGRAM Observed: 11/07/2016 Status: F Source: MUSELLA 1:27 PM [facility] [address] [place], [place] [address] Lead EKG011/05/16 0541MR#: [id number] Acct: [id number]: MARC GRAY Rep #: [id number]: [birth year] 51 From: Samuel Skelton MDAttending Dr: Hammad Don MD Status: DIS INOrdering Dr: Lan Garcia MD Date: 11/05/16Location: ICU Sex: M CAdmitted: 11/05/16Test Reason : CPBlood Pressure : / mmHGVent. Rate : 080 BPM Atrial Rate : 080 BPMP-R Int : 182 ms QRS Dur : 094 msQT Int : 366 ms P-R-T Axes : 048 046 043 degreesQTc Int : 422 msNormal sinus rhythmNormal ECGConfirmed by SAMUEL SKELTON MD ([id number]), vice president safety JEAN MARIE TURNER ([id number]) on 11/07/2016 1:26:46 PMReferred By: YASMINE Confirmed By:SAMUEL SKELTON MD11/07/16 1326Date Samuel Skelton MDCC: Amilcar Sandoval MD Date Dictated: 11/05/16540Date Transcribed: 11/05/16540Transcriptionist:Signed DISCHARGE SUMMARY Observed: 11/07/2016 Status: F Source: MUSELLA 10:58 AM [facility] REPOSITORY [facility] [address] [address]Ufivghhxt Opdwycb36/15/17 0734MR#: [id number] Acct: [id number]: MARC GRAY JR Rep #: [id number]: 1965 51 From: Hammad Don MDPCP: Amilcar Sandoval MD Status: ADM IN YLocation: ICU [id number] by Hammad Don MD on 11/07/16 at 1058Acute GI bleed secondary to duodenal ulcerAcute duodenal ulcer11/07/16 1058 <Electronically signed by Hammad Don MD>Date Hammad Don MDcc: Hammad Don MD; Amilcar Sandoval MD *SignedDischarge Date and Diagnosis- Problem ListPatient Problems:Active and Suspected ProblemsGI bleed due to NSAIDs (Acute) Hypovolemic shock (Acute)Date of Admission: 11/05/16Date of Discharge: 11/07/16- Primary Discharge DiagnosisActive and Suspected ProblemsGI bleed due to NSAIDs (Acute) Hypovolemic shock (Acute)- Secondary Discharge DiagnosisChronic ProblemsBMI 30.0-30.9,adult (Chronic)Herniated cervical disc (Chronic)Hypothyroidism (Chronic)Hypertension (Chronic)MYNOR (obstructive sleep apnea) (Chronic)RLS (restless legs syndrome) (Chronic)Hospital Course and TreatmentProcedures: EGDSummary of Care Provided: Patient is a 51-year-old gentleman resented with melena and hypotension. He is apparently beenusing nonsteroidal anti-inflammatory medications for herniated cervical disc1. Hypovolemic shock in the context of GI bleed: Patient resuscitated with aggressive IV fluidtransferred to the intensive care unit for subsequent management2. Acute GI bleed do suspect nonsteroidal anti-inflammatory drugs induced GI bleed (gastritisversus peptic ulcer disease.) Patient was started on Protonix drip consultation placed to GIfor endoscopic evaluation and treatment if indicated. Patient underwent endoscopic evaluationon 11/06/[address] Rivera findings included Superficial ulceration of the duodenum. Patientwas discharged home on PPI with instructions to follow-up with Dr. Rivera3. Anemia secondary to acute blood loss anemia. With the patient being symptomatic an orderwas given for patient to be transfused 1 unit PRBC with subsequent posttransfusion H AND H F4. Herniated cervical disc with neuropathy patient is on gabapentin as well as Flexerilpatient is followed by spine surgeon in [place]5. Hypothyroidism-patient is on levothyroxine home dose continued6. BMI of 30.67. DVT prophylaxis avoided the use of chemical prophylaxis in view of his active GI bleedpatient was placed on bilateral CAROLYN hoseDischarge Diet: No RestrictionsDischarge Activity: Return to Normal Activity, May not drive while taking narcotic painmedications.Home Medications:Medications to take at DischargeLevothyroxine Sodium 125 mcg PO DAILY 10/18/16Diazepam [Valium] 5 mg PO BID 11/05/16Gabapentin [Neurontin] 300 mg PO Q8H 11/05/16Hydrocodone Bitart/ Apap 5-325 [[place] 5/325] 1 tablet PO Q4H PRN PRN #20 tablet 11/07/16Pantoprazole Sodium [Protonix] 40 mg PO DAILY #90 tablet 11/07/16Following Prescrptions Were Given to Patient:Hydrocodone Bitart/Apap 5-325 [[place] 5/325] 1 tablet PO Q4H PRN PRN #20 tabletPRN Reason: Moderate-severe pain (4-10/10)Pantoprazole Sodium [Protonix] 40 mg PO DAILY #90 tabletPrimary Care Physician:Amilcar Sandoval MD [Primary Care Provider] -Please follow up with your Primary Care Physician in: in 5-7 daysPlease Follow Up With: Ewelina Rivera: in 1-2 weeksDisposition: HomeMinutes spent on discharge:: 35Patient Condition:: StableMeaningful Use InfoMeaningful Use Diagnoses ( Choose all that apply): None autqtotuuh60/15/17 0801 <Electronically signed by Hammad Don MD>Date Hammad Don [facility] Signature (if applicable): Date CC: Hammad Don MD; Amilcar Sandoval MD Signed DISCHARGE INSTRUCTION Observed: 11/07/2016 Status: F Source: MUSELLA 8:01 AM [facility] REPOSITORY [facility] [address] [place], [place] [address]Xcjgolmearvp for Home/Discharge Mydfqvrfjzsi76/15/17 0733MR #: [id number] Acct: [id number]: MARC GRAY JR Rep #: [id number]: 1965 51 From: Hammad Don MDPCP: Amilcar Sandoval MD Status: ADM IN- Discharge DiagnosesCurrent Active Problems:Current Active and Chronic ProblemsGI bleed due to NSAIDs (Acute) Hypovolemic shock (Acute)BMI 30.0-30.9,adult (Chronic)Herniated cervical disc (Chronic)Hypothyroidism (Chronic)You will use the following diet at home:: RegularDischarge Activity: Return to Normal Activity, May not drive while taking narcotic painmedications.Allergies/Adverse Reactions:AllergiesPenicillins [PCN] Allergy (Verified 11/05/16 05:42)UnknownMedications to take at DischargeLevothyroxine Sodium 125 mcg PO DAILY 10/18/16Diazepam [Valium] 5 mg PO BID Gabapentin [Neurontin] 300 mg PO Q8H 11/05/16Hydrocodone Bitart/Apap 5-325 [[place] 5/325] 1 tablet PO Q4H PRN PRN #20 tablet 11/07/16Pantoprazole Sodium [Protonix] 40 mg PO DAILY #90 tablet 11/07/16The following prescriptions were given:Hydrocodone Bitart/Apap 5-325 [[place] 5/325] 1 tablet PO Q4H PRN PRN #20 tabletPRN Reason: Moderate-severe pain (-12/02)Pantoprazole Sodium [Protonix] 40 mg PO DAILY #90 tabletPrimary Care Physician:Amilcar Sandoval MD [Primary Care Provider] -Please follow up with your Primary Care Physician in: in 5-7 daysPlease Follow Up With: Ewelina Rivera: in 1-2 weeksProposed Discharge Date: 11/07/1708/15/17 0801 <Electronically signed by Hammad Don MD>Date Hammad Don MDCC: Terrell David D.O.; Amilcar Sandoval MD; Rob Rivera CBC-COMPLETE BLOOD CNT Collected: 11/07/2016 Status: F Source: LISA NO DIFF 5:15 AM [facility] REPOSITORY TYPE CODE TESTS RESULT OUT OF RANGE REFERENCE UNITS LAB L100.1000 Normal 4.4-11.0 K/mm3 WBC 6.1 LAB L100.1200 Low 4.6-6.2 M/mm3 RBC 3.93 LAB L100.1300 Low 13.0-16.5 g/dl HGB 10.6 LAB L100.1400 Low 40-54 % HCT 32.7 LAB L100.1500 Normal 80-94 fL MCV 83.2 LAB L100.1600 Normal 27.0-32.0 pg MCH 27.0 LAB L100.1700 Normal 32-36 g/gl MCHC 32.4 LAB L100.1810 Normal 11.6-14.6 % RDW 13.6 CV LAB L100.1820 Normal 35.1-43.9 fl RDW 39.8 SD LAB L100.1900 Normal 150-450 K/mm3 PLT 158 LAB L100.2000 Normal 6.2-12.0 fl MPV 8.9 Performed By: #### L100.0500 ####[facility] [address] [place], [address] BASIC METABOLIC Collected: 11/07/2016 Status: F Source: LISA PROFILE (BMP) 5:15 AM [facility] REPOSITORY TYPE CODE TESTS RESULT OUT OF RANGE REFERENCE UNITS LAB L501.0100 Normal 70-110 mg/dL GLU 85 LAB L501.1000 Normal 7-18 mg/dL BUN 10 LAB L501.1100 Normal 0.70-1.30 mg/dL 1.04 CREAT,SERUM Result Comment: The validity of the calculated GFR AND GFRAA in patients over70 years has not been determined. Clinical correlation isessential. LAB L501.1110 Normal >60 mL/min EST GFR 79 Result Comment: Non- GFR Calc LAB L501.1115 Normal >60 mL/min EST GFR - 96 AA Result Comment: GFR Calc LAB L501.1255 Normal ml/min Estimated 100.85 CRCL LAB L501.1300 Low 10-20 RATIO BUN/CRE 9.6 LAB L501.2200 Low 8.5-10 mg/dL CA 8.0 .1 LAB L501.5300 Normal 136-14 mmol/L NA 143 5 LAB L501.5600 Normal 3.5-5. mmol/L K 4.5 1 Result Comment: Moderate Hemolysis, Result may be falsely increased. LAB L501.5900 High 98-107 mmol/L CL 109 LAB L501.6100 Normal 21.0-32.0 mmol/L CO2 28.0 LAB L501.6200 Normal 5-15 6 GAP Performed By: #### L500.2500 ####[facility] [address] [place], [address] HH, HEMOGLOBIN AND Collected: 11/06/2016 Status: F Source: LISA HEMATOCRIT 3:35 PM [facility] REPOSITORY TYPE CODE TESTS RESULT OUT OF RANGE REFERENCE UNITS LAB L100.1300 Low 13.0-16.5 g/dl HGB 11.1 LAB L100.1400 Low 40-54 % HCT 34.8 Performed By: #### L100.0600 ####[facility] [address] [place], [address] OPERATIVE REPORT Observed: 11/06/2016 Status: F Source: MUSELLA 1:35 PM [facility] REPOSITORY [facility] [address] [place] [address]Svlmcjjtu Ctjrvb90/14/17 1330MR#: [id number] Acct: [id number]: MARC GRAY JR Rep #: [id number]: 1965 51 From: Rob Rivera MDPCP: Amilcar Sandoval MD Status: ADM IN YLocation: ICU [id number] ReportDate of Procedure: 11/06/16Preop diagnosis: Melena acute GI bleedingPostop diagnosis: EGD with biopsy. Superficial ulceration of the duodenum no other the sourceof bleeding identified on the upper endoscopyAnesthesia: Provided MACInstrument: Olympus upper endoscopeInformed consent was taken prior to procedure. The patient was brought to the endoscopysuite[ she] was placed left shoulder down Anesthesia provided the MAC. The scope was passedunder direct visualization down into the esophagus. The proximal and midesophagus was normal Zline was intact about 34 cm from the incisors no evidence of varices in the esophagus. It waseasily insufflated there was bile in the stomach was intubated and the bulbar duodenum was ron small superficial ulceration no evidence of bleeding the sweep of the duodenum was normal.The scope was withdrawn back into the stomach retroflexion was performed cardia was wellvisualized with no evidence of gastric varices. Examination the stomach showed no evidence ofbleeding no source of ulcerations or visible vessels. Biopsy of the antral mucosa was takenfor testing for H. pylori the stomach was decompressed and scope was withdrawn from theesophagus the patient tolerated procedure well.Impression: Melanotic stools patient was taking nonsteroidals the bleeding could be from thesmall intestine possibilities include the colon but the patient is not bleeding at this time ishemodynamically stable with hemoglobin stable.Plan: Continue patient on oral PPI advance his diet will be followed up as an outpatient avoidaspirin and nonsteroidals.11/06/16 1335 <Electronically signed by Rob Rivera MD& gt;Date Rob Rivera [facility]: Terrell David D.O.; Amilcar Sandoval MD; Rob Rivera Signed CBC-COMPLETE BLOOD CNT Collected: 11/06/2016 Status: F Source: LISA NO DIFF 6:05 AM [facility] REPOSITORY TYPE CODE TESTS RESULT OUT OF RANGE REFERENCE UNITS LAB L100.1000 Normal 4.4-11.0 K/mm3 WBC 4.9 LAB L100.1200 Low 4.6-6.2 M/mm3 RBC 3.80 LAB L100.1300 Low 13.0-16.5 g/dl HGB 10.3 LAB L100.1400 Low 40-54 % HCT 31.9 LAB L100.1500 Normal 80-94 fL MCV 83.9 LAB L100.1600 Normal 27.0-32.0 pg MCH 27.1 LAB L100.1700 Normal 32-36 g/gl MCHC 32.3 LAB L100.1810 Normal 11.6-14.6 % RDW 13.9 CV LAB L100.1820 Normal 35.1-43.9 fl RDW 40.7 SD LAB L100.1900 Normal 150-450 K/mm3 PLT 152 LAB L100.2000 Normal 6.2-12.0 fl MPV 9.0 Performed By: #### L100.0500 ####[facility] [address] [place], [address] BASIC METABOLIC Collected: 11/06/2016 Status: F Source: LISA PROFILE (BMP) 6:05 AM [facility] REPOSITORY TYPE CODE TESTS RESULT OUT OF RANGE REFERENCE UNITS LAB L501.0100 Normal 70-110 mg/dL GLU 85 LAB L501.1000 High 7-18 mg/dL BUN 19 LAB L501.1100 Normal 0.70-1.30 mg/dL 1.00 CREAT,SERUM Result Comment: The validity of the calculated GFR AND GFRAA in patients over70 years has not been determined. Clinical correlation isessential. LAB L501.1110 Normal >60 mL/min EST GFR 83 Result Comment: Non- GFR Calc LAB L501.1115 Normal >60 mL/min EST GFR - 101 AA Result Comment: GFR Calc LAB L501.1255 Normal ml/min Estimated 104.88 CRCL LAB L501.1300 Normal 10-20 RATIO BUN/CRE 19.0 LAB L501.2200 Low 8.5-10 mg/dL CA 7.6 .1 LAB L501.5300 Normal 136-14 mmol/L NA 144 5 LAB L501.5600 Normal 3.5-5. mmol/L K 3.7 1 LAB L501.5900 High 98-107 mmol/L CL 112 LAB L501.6100 Normal 21.0-3 mmol/L CO2 25.0 2.0 LAB L501.6200 Normal 5-15 GAP 7 Performed By: #### L500.2500 ####[facility] [address] [facility] [place], [place], [address] HH, HEMOGLOBIN AND Collected: 11/06/2016 Status: F Source: LISA HEMATOCRIT 2:45 AM [facility] REPOSITORY TYPE CODE TESTS RESULT OUT OF RANGE REFERENCE UNITS LAB L100.1300 Low 13.0-16.5 g/dl HGB 10.4 LAB L100.1400 Low 40-54 % HCT 32.0 Performed By: #### L100.0600 ####[facility] [address] [facility] [place], [place], [address] HH, HEMOGLOBIN AND Collected: 11/05/2016 Status: F Source: LISA HEMATOCRIT 8:05 PM [facility] REPOSITORY TYPE CODE TESTS RESULT OUT OF RANGE REFERENCE UNITS LAB L100.1300 Low 13.0-16.5 g/dl HGB 10.9 LAB L100.1400 Low 40-54 % HCT 33.8 Performed By: #### L100.0600 ####[facility] [address] [facility] [place], [address] CONSULTATION Observed: 11/05/2016 Status: F Source: LISA 5:32 PM [facility] REPOSITORY [facility] [address] [place] [address]Wdsnuisgekeu11/13/17 1725#: [id number] Acct: [id number]: MARC GRAY JR Rep #: [id number]: [birth year] 51 From: Rob Rivera MDPCP: Amilcar Sandoval MD Status: ADM IN YLocation: ICU ICU04-1- ConsultDate of Consult: Reason for consultation: Patient with melanotic stool and hypotensionThe patient is a [51] year old [male] who I have been asked to consult. This 51-year-old malepresented with melanotic stools and hypotension he passed a large amount of maroon coloredstool at home prior to coming into the hospital he apparently passed out at home. Patient wasbrought to emergency room apparently there was some hypotension and shock in the emergency roomthe patient was transfused 1 unit of packed red blood cells and aggressively hydrated withintravenous fluids. Patient has remained stable since that time has a herniated disc in thecervical spine taking Naprosyn and steroids. He does have any previous history of peptic ulcerdisease he does not smoke or drink no history of hematemesis. Has been in excellent healthhistory of some hypothyroidism is no other significant medical problems at this time. [employer] is noted with him today in the office no particular complaints.Allergies: Allergic to penicillinsMedications: He was taking Naprosyn and takes levothyroxine dailyPMH : He has hypothyroidism and arthritisPSH: Had a hernia repairSocial: he does not smoke or drinkROS: Cardiovascular symptoms no chest pain or shortness of breath. Pulmonary symptoms nowheezing or asthma GI symptoms no previous history of peptic ulcer disease no gallbladder orliver disease no history of jaundiceVitals:Vital SignsHeight 6 ft 4 inWeight: 113.1 kgPhysical exam: HEENT shows conjunctiva pale was anicteric neck is suppleHeart : Normal rhythm no murmur heardLungs: Clear breath sounds bilaterallyAbdomen soft good bowel sounds no organomegalyExtremities no clubbing or cyanosis no edemaNeurologically: Alert and oriented no gross deficitsImpression: This is a 51-year-old male presenting with melanotic stool and maroon stool withhypotension probably had a hypovolemic shock altered cardiac status resting comfortably thisevening no distress his hemoglobin hematocrit is 30 Cipro and IV PPIPlan: Patient will undergo upper endoscopy tomorrow as clinically indicated genuine IV PPImonitor hemoglobin hematocrit every 12 hours11/05/16 1732 <Electronically signed by Rob Rivera MD>Date Rob Rivera MDCosigner Signature (if applicable): Date CC: Terrell David D.O.; Amilcar Sandoval MD; Rob Rivera Signed HH, HEMOGLOBIN AND Collected: 11/05/2016 Status: F Source: MUSELLA HEMATOCRIT 2:00 PM [facility] REPOSITORY TYPE CODE TESTS RESULT OUT OF RANGE REFERENCE UNITS LAB L100.1300 Low 13.0-16.5 g/dl HGB 10.9 LAB L100.1400 Low 40-54 % HCT 33.0 Performed By: #### L100.0600 ####[facility] [address] [place], [address] CONSULTATION Observed: 11/05/2016 Status: F Source: MUSELLA 12:31 PM [facility] REPOSITORY [facility] [address] [facility] [place], [place] [address]Ysxaoxauhxrg00/13/17 0827#: [id number] Acct: [id number]: MARC GRAY JR Rep #: [id number]: [birth year] From: Terrell David DOPCP: Amilcar Sandoval MD Status: ADM IN YLocation: ICU [id number] for ConsultDate of Consultation: 11/05/16Reason for Consultation: GI Bleed/SyncopeHistory of Present Illness: Patient is a 51-year-old male, with a history as outlined below, who presented to the emergencydepartment on November 05 with complaints of melanotic stools and syncopal episodes. Thepatient reports that for the last 2 days he has had dark, melanotic stools. He awoke overnightwith nausea, which led to the development of dry heaves but no actual emesis. The patienthad walked to the bathroom to be by the toilet when he was experiencing the aforementionedsymptoms. Upon attempting to get up from the floor in the bathroom the patient experienced aprofound coolness, dizziness and lightheadedness and subsequent syncope. He denies a previoushistory of heart related conditions. He has a known history of cervical stenoses, for which heutilizes NSAIDs on a routine basis. Surface echocardiogram completed in September 2012 revealedmild concentric LVH with an ejection fraction of 65%. There was evidence of diastolicdysfunction.On presentation to the emergency department, the patient was noted to be afebrile andhemodynamically stable. He was maintaining appropriate oxygen saturations on room air.Initial laboratory evaluation revealed no evidence of a leukocytosis. The patient had aninitial H AND H of 11.2 and 34.7, respectively. Looking back in time, it does appear that thepatient had a baseline hemoglobin between 2012 and 2014 of approximately 15 g/dL. Chemistryprofile revealed a chloride of 111 and a BUN of 35. The patient was noted to have bloodpressures in the emergency department in the 80s systolic. The patient did receive severalunits of fluid and 1 unit of trauma blood with subsequent improvement in his hemodynamics. Itis notable that while in the emergency department the patient did experience another episode ofvasovagal syncope, during which time he became profoundly bradycardic and per documentationbriefly lost a pulse. He received CPR for approximately 1 minute, after which time, heregained consciousness. The patient was subsequently transferred to the medical intensive careunit for ongoing management.Past Medical HistoryPast Medical History (Chronic Problems):Chronic ProblemsBMI 30.0-30.9,adult (Chronic)Herniated cervical disc (Chronic) Hypothyroidism (Chronic)Hypertension (Chronic)MYNOR (obstructive sleep apnea) (Chronic)RLS ( restless legs syndrome) (Chronic)AllergiesPenicillins [PCN] Allergy (Verified 11/05/16 05:42)UnknownHome Medications:Ambulatory OrdersMedication Instructions RecordedLevothyroxine Sodium 125 mcg PO DAILY 10/18/16Smoking Status: Never smoker- *Family History PaternalHistory Items: Cancer - Father of throat cancer* * MaternalHistory Items: High CholesterolReview of SystemsConstitutional: Denies: Chills, Fever, Night SweatsEyes: Denies: Blurred vision, Double visionHEENT: Denies: Head Aches, Sinus Congestion, Sinus DrainageCardiovascular: Reports: Light Headedness, Syncope. Denies: Chest Pain, Chest PressureRespiratory: Denies: Cough, Shortness of BreathGastrointestinal: Reports: Nausea, Melena. Denies: Abdominal Pain, VomitingGenitourinary: Denies: DysuriaMusculoskeletal: Reports: Neck Pain. Denies: Joint Pain, Joint TendernessSkin: Denies: Rash, WoundsNeurological: Denies: Numbness, Tingling, Focal weaknessPsychiatric: Denies: Anxiety, Depression, Homicidal Ideations, Suicidal IdeationsHematologic/ Lymphatic: Reports: AnemiaPatient Problems:Active and Suspected ProblemsGI bleed due to NSAIDs (Acute) Hypovolemic shock (Acute)Objective:The patient's most recent lab work, culture data and imaging studies have all been personallyreviewed.- Physical ExamGeneral: Alert, Oriented x3, Cooperative, No apparent distressHEENT: Atraumatic, PERRLA, NormocephalicOral: Moist Mucosa, No Gingival or Mucosal Lesions/ UlcerationsNeck: Supple, No JVD, Trachea MidlineLungs: Normal air movement, No rhonchi, No wheeze, No ralesCardiovascular: Regular rate, Regular Rhythm, Normal S1, Normal S2, No murmursAbdomen: Soft, Non Tender, Hypoactive Bowel Sounds, ObeseExtremities: No clubbing, No cyanosis, No edema, Capillary Refill Less than 3 SecondsSkin: No rashes, No breakdownMusculoskeletal: No Tenderness to Palpation of Joints or Extremities, No Muscle WastingLymphatic: No Cervical, Supraclavicular, or Inguinal AdenopathyNeurological: Neuro grossly intactPsych/Mental Status: Alert and oriented to time, place, person, mood and affectVital SignsTemp Pulse Resp BP Pulse Ox36.3 C 78 13 123/61 57457 08:12 11/05/16 08:12 11/05/16 08:12 08:12 11/05/16 08:12Oxygen Flow Rate 4Oxygen Delivery Method Room AirWeight: 113.1 kgBody Mass Index (BMI) 30.3Intake and Output for Last 24 HoursIntake Total 800Balance 800Laboratory Tests Past 24 HrsMRSA (PCR) PendingLabs (Last 48 Hours)WBC 5.7RBC 4.14 LHgb 11.2 LHct 34.7 LWBCRBCHgbHctMCVMCHAssessment/PlanActive and Suspected ProblemsGI bleed due to NSAIDs (Acute)Hypovolemic shock (Acute)RECOMMENDATIONS:1. Maintain appropriate IV access.2. Decreased supplemental IV fluid rate.3. Consultation to be placed to gastroenterology4. Start PPI drip5. Check TSH, free T4 and troponin levels.6. Check orthostatic vital signsIMPRESSIONS:1. Blood loss anemia secondary to presumed gastrointestinal hemorrhage in the setting of NSAIDutilizationPatient to remain n.p.o. for now. Continue supplemental IV fluids. Maintain appropriate IVaccess. Continue PPI drip as ordered. Gastroenterology is planning for tentative upperendoscopy tomorrow. Monitor serial H AND H.2. Chronic neck pain/NSAID dependenceConcern for underlying gastric/duodenal ulcers. Primary management as noted above. AvoidNSAIDs.3. Syncopal events, presumed to be vasovagal in etiologyCheck TSH, free T4 and troponin levels. Continue to monitor on telemetry. Will obtainorthostatic vital signs.4. HypothyroidismContinue home Synthroid dose with plans to check TSH and free T4 levels.This note was generated with [employer] dictation software. It may contain incorrect words,spelling, and punctuation that were not noted in checking the note before signing.11/05/16 1231 <Electronically signed by Terrell David DO>Date Terrell David DOCosigner Signature (if applicable): Date CC: Terrell David D.O.; Amilcar Sandoval MD; Rob Rivera Signed HH, HEMOGLOBIN AND Collected: 11/05/2016 Status: F Source: LISA HEMATOCRIT 8:20 AM [facility] REPOSITORY TYPE CODE TESTS RESULT OUT OF RANGE REFERENCE UNITS LAB L100.1300 Low 13.0-16.5 g/dl HGB 12.0 LAB L100.1400 Low 40-54 % HCT 36.1 Performed By: #### L100.0600 ####[facility] [address] [place], [address] M R STAPH AUREUS Collected: 11/05/2016 Status: F Source: LISA DNA BY PCR 8:17 AM [facility] REPOSITORY TYPE CODE TESTS RESULT OUT OF RANGE REFERENCE UNITS LAB L8200.1100 Normal Negative MRSA Negative RESULT Performed By: #### L8200.1000 ####[facility] [address] [place], [address] HISTORY AND PHYSICAL Observed: 11/05/2016 Status: F Source: LISA EXAM 7:52 AM [facility] REPOSITORY [facility]Medical Records [address] [place], [place] [address]Ezlgmab and Liepaejv58/13/17 0727MR#: [id number] Acct: [id number]: MARC GRAY JR Rep #: [id number]: 1965 51 From: Hammad Don MDPCP: Amilcar Sandoval MD Status: ADM IN YLocation: ICU [id number] List(1) Hypovolemic shockStatus: Acute(2) GI bleed due to NSAIDsStatus: Acute(3) BMI 30.0-30.9,adultStatus: Chronic(4) Herniated cervical discStatus: Chronic(5) HypertensionStatus: Chronic(6) MYNOR (obstructive sleep apnea)Status: Chronic(7) RLS (restless legs syndrome)Status: Chronic(8) HypothyroidismStatus: ChronicHistory of Present IllnessDate of Admission: 11/05/16Chief Complaint: Black tarry stoolsThe patient is a 51 year old M in relatively good health except for C4-C5 herniated disc forwhich she was prescribed NSAIDs as well as a Medrol Dosepak. Patient apparently noted blacktarry stools a day prior to him coming in. He woke up on the morning of his presentationcomplaining of epigastric discomfort as well as nausea. He went to the bathroom and hadbloody-like stools which was watery. He apparently felt lightheaded and passed out. His wifecalled the squad and patient was brought to the emergency department. In the emergencydepartment patient was found to be relatively hypotensive with systolic blood pressure in the80s. He apparently bradycardia down and had to be shocked once. He was resuscitated withaggressive IV fluid did receive 1 unit of trauma blood started on Protonix and decision made toadmit patient to the intensive care unit for subsequent management.Past Medical HistoryPast Medical History (Chronic Problems):Chronic ProblemsBMI 30.0-30.9,adult (Chronic) Herniated cervical disc (Chronic)Hypothyroidism (Chronic)Hypertension (Chronic)MYNOR ( obstructive sleep apnea) (Chronic)RLS (restless legs syndrome) (Chronic) AllergiesPenicillins [PCN] Allergy (Verified 11/05/16 05:42)UnknownHome Medications:Ambulatory OrdersMedication Instructions RecordedSmoking Status: Never smoker- *Family History PaternalHistory Items: Cancer - Father of throat cancer MaternalHistory Items: High CholesterolReview of SystemsConstitutional: Reports : Malaise, Weakness, FatigueHEENT: Reports: Difficulty HearingCardiovascular: Reports: Light HeadednessRespiratory: Denies: Cough, Shortness of breath at rest, Shortness of breath upon exertion,Sputum productionGastrointestinal: Reports: Abdominal Pain , Hematochezia, Nausea, MelenaGenitourinary: Denies: Dysuria, Frequency, Hematuria, UrgencyMusculoskeletal: Reports: Neck Pain. Denies: Joint Pain, Joint TendernessSkin: Denies: RashNeurological: Denies: Focal weakness, Numbness, TinglingPsychiatric: Denies: Homicidal Ideations, Suicidal IdeationsHematologic / Lymphatic: Denies: Easy Bruising, Easy BleedingVTE Information - Inpt OnlyVTE Present on Admission: NoVTE Mechan Device Prophylaxis: Knee High CAROLYN HoseVTE Pharm Prophylaxis ordered?: NoReason prophylaxis not ordered:: Medical ContraindicationPatient Problems:Active and Suspected ProblemsGI bleed due to NSAIDs (Acute)Hypovolemic shock (Acute)Subjective:GENERAL: cooperativeHEENT: Pallor of the conjunctivaNECK; supple, normal thyroid,CHEST: Clear to auscultation bilaterally,HEART: Regular S1 S2, no audible murmursABDOMEN: soft, non-tender , normoactive bowel sounds,RECTAL: deferredEXTREMITIES: No edema, no clubbing, SITE SAFETY MANAGER: Awake, no lateralizing signs.SKIN: No lesions no erythema,- Physical ExamVital SignsTemp Pulse Resp BP Pulse Ox97.8 F 77 17 97/58 06:42 07:14 11/05/16 07:14 11/05/16 07:14 11/05/16 07:14Oxygen Flow Rate 4Oxygen Delivery Method Nasal CannulaWeight: 114.2 kgBody Mass Index (BMI) 30.6Intake and Output for Last 24 HoursIntake Total 0Balance 0Laboratory Tests Past 24 HrsWBC 5.7RBC 4.14 LHgb 11.2 LAssessment/PlanActive and Suspected ProblemsGI bleed due to NSAIDs (Acute)Hypovolemic shock (Acute)It is a 51-year-old gentleman resented with melena and hypotension. He is apparently beenusing nonsteroidal anti-inflammatory medications for herniated cervical disc1. Hypovolemic shock in the context of GI bleed: Patient resuscitated with aggressive IV fluidtransferred to the intensive care unit for subsequent management2. Acute GI bleed do suspect nonsteroidal anti-inflammatory drugs induced GI bleed (gastritisversus peptic ulcer disease. ) Patient was started on Protonix drip consultation placed to GIfor endoscopic evaluation and treatment if indicated3. Anemia secondary to acute blood loss anemia. With the patient being symptomatic an orderwas given for patient to be transfused 1 unit PRBC with subsequent posttransfusion H AND H F4. Herniated cervical disc with neuropathy patient is on gabapentin as well as Flexerilpatient is followed by spine surgeon in [place]5. Hypothyroidism-patient is on levothyroxine home dose continued6. BMI of 30.67. DVT prophylaxis avoided the use of chemical prophylaxis in view of his active GI bleedpatient was placed on bilateral CAROLYN hose11/05/16 0752 <Electronically signed by Hammad Kittoe MD>Date Hammad Don MDCosigner Signature (if applicable): Date CC: Hammad Don MD; Amilcar Sandoval MD Signed LRBC Collected: 11/05/2016 Status: F Source: MUSELLA 5:42 AM [facility] REPOSITORY TYPE CODE TESTS RESULT OUT OF REFERENCE UNITS RANGE LAB U100.0200 [id number] TRANSFUSED PRODUCT: Leuko-Reduced Red Blood Cells COUNT: 1 Performed By: #### U100.0200 ####Non-[facility] - refer to report for specific site CBC W/DIFF, AUTOMATED Collected: 11/05/2016 Status: F Source: MUSELLA 5:42 [facility] REPOSITORY TYPE CODE TESTS RESULT OUT OF RANGE REFERENCE UNITS LAB L100.1000 Normal 4.4-11.0 K/mm3 WBC 5.7 LAB L100.1200 Low 4.6-6.2 M/mm3 RBC 4.14 LAB L100.1300 Low 13.0-16.5 g/dl HGB 11.2 LAB L100.1400 Low 40-54 % HCT 34.7 LAB L100.1500 Normal 80-94 fL MCV 83.8 LAB L100.1600 Normal 27.0-32.0 pg MCH 27.1 LAB L100.1700 Normal 32-36 g/gl MCHC 32.3 LAB L100.1810 Normal 11.6-14.6 % RDW 13.3 CV LAB L100.1820 Normal 35.1-43.9 fl RDW 39.6 SD LAB L100.1900 Normal 150-450 K/mm3 PLT 202 LAB L100.2000 Normal 6.2-12.0 fl MPV 8.9 LAB L100.2100 Low 47-70 % NEUT% 43.1 LAB L100.2200 Normal 19-41 % LY% 37.9 LAB L100.2300 High 0-10 % MONO% 10.7 LAB L100.2400 High 0-5 % EO% 6.3 LAB L100.2500 High 0-1 % BASO% 1.6 LAB L100.2550 Normal 0.0-0.9 % IM 0.400 GRAN % Result Comment: IG% - Immature Granulocytes (promyelocytes, myelocytes andmetamyelocytes) > 1% indicates that a LEFT SHIFT is Present. LAB L100.2620 Normal 2.0-7.7 X10 3/uL Absolute Neut 2.5 LAB L100.2720 Normal 0.83-4.51 X10 3/ul Absolute Lymph 2.15 Performed By: #### L100.0100 ####[facility] [address] [place], [place], [address] BASIC METABOLIC Collected: 11/05/2016 Status: F Source: MUSELLA PROFILE (BMP) 5:42 AM [facility] REPOSITORY TYPE CODE TESTS RESULT OUT OF RANGE REFERENCE UNITS LAB L501.0100 High 70-110 mg/dL GLU 144 Result Comment: Fasting Glucose result greater than or equal to 126 mg/dLsuggests DIABETES MELLITUS per A.D.A. criteria. LAB L501.1000 High 7-18 mg/dL BUN 35 LAB L501.1100 Normal 0.70-1.30 mg/dL CREAT,SERUM 0.95 Result Comment: The validity of the calculated GFR AND GFRAA in patients over70 years has not been determined. Clinical correlation isessential. LAB L501.1110 Normal >60 mL/min EST GFR 88 Result Comment: Non- GFR Calc LAB L501.1115 Normal >60 mL/min EST GFR - 107 AA Result Comment: GFR Calc LAB L501.1255 Normal ml/min Estimated 110.40 CRCL LAB L501.1300 High 10-20 RATIO BUN/CRE 36.9 LAB L501.2200 Low 8.5-10 mg/dL CA 8.0 .1 LAB L501.5300 Normal 136-14 mmol/L NA 145 5 LAB L501.5600 Normal 3.5-5. mmol/L K 4.2 1 LAB L501.5900 High 98-107 mmol/L CL 111 LAB L501.6100 Normal 21.0-3 mmol/L CO2 27.0 2.0 LAB L501.6200 Normal 5-15 GAP 7 Performed By: #### L500.2500 ####[facility] [address] [place], [address] PROTHROMBIN TIME W/INR Collected: 11/05/2016 Status: F Source: MUSELLA 5:42 AM [facility] REPOSITORY TYPE CODE TESTS RESULT OUT OF RANGE REFERENCE UNITS LAB L300.4150 Normal 11.7-14.9 SECONDS PROTIME 13.0 LAB L300.4200 Normal INR 1.0 Performed By: #### L300.3900, L300.4310 ####[facility] [address] [place], [address] PARTIAL THROMBOPLAST Collected: 11/05/2016 Status: F Source: MUSELLA TIME 5:42 AM [facility] REPOSITORY TYPE CODE TESTS RESULT OUT OF REFERENCE UNITS RANGE LAB L300.4310 Low 24.1-36.2 Seconds PTT 23.8 Performed By: #### L300.3900, L300.4310 ####[facility] [address] [place], [address] TYPE AND SCREEN Collected: 11/05/2016 Status: F Source: MUSELLA 5:42 AM [facility] REPOSITORY Order Comment: Reason for Type AND Screen/Red Cells: HEMORRHAGE, GI BLEED TYPE CODE TESTS RESULT OUT OF RANGE REFERENCE UNITS LAB B10.0800 Normal BLOOD B TYPE GEL POSITIVE LAB B100.4000 Normal Antibody NEGATIVE Screen Performed By: #### B101.7450 ####[facility] [address] [place], [address] TROPONIN-I Collected: 11/05/2016 Status: F Source: MUSELLA 5:42 AM [facility] REPOSITORY Order Comment: 'TROP' Serial specimen #1, #2, #3, or #4: 1 TYPE CODE TESTS RESULT OUT OF RANGE REFERENCE UNITS LAB L501.4010 Normal <0.06 ng/mL < TROPONIN-I 0.02 Result Comment: TROPONIN-I EXPECTED VALUES <0.05 NEGATIVE 0.06 - 0.59 AT RISK OF [place] > OR = 0.60 SUGGEST [place] Performed By: #### L501.4010, L501.9520, L506.0400 #### [facility] [address] [place], [address] THYROID STIM HORMONE Collected: 11/05/2016 Status: F Source: LISA (TSH) 5:42 AM [facility] REPOSITORY Order Comment: 'TROP' Serial specimen #1, #2, #3, or #4: 1 TYPE CODE TESTS RESULT OUT OF RANGE REFERENCE UNITS LAB L501.9520 Normal 0.358-3.74 uIU/mL TSH 3.16 Performed By: #### L501.4010, L501.9520, L506.0400 #### [facility] [address] [place], [address] T4 FREE DIRECT Collected: 11/05/2016 Status: F Source: LISA 5:42 AM [facility] REPOSITORY Order Comment: 'TROP' Serial specimen #1, #2, #3, or #4: 1 TYPE CODE TESTS RESULT OUT OF RANGE REFERENCE UNITS LAB L506.0400 Normal 0.76-1.46 ng/dL T4 FREE 0.97 DIRECT Performed By: #### L501.4010, L501.9520, L506.0400 #### [facility] [address] [place], [address] SPINE CERVICAL Observed: 10/20/2016 Status: F Source: LISA (ROUTINE) 6:23 PM [facility] RE[facility]ITORY [facility] [address] [place], [place] [address]Tmyue Cervical (Routine)MR#: [id number] Acct: [id number]: MARC GRAY Rep #: [id number]: [birth year] M 51 From: Ayo Duffy MDPCP: Amilcar Sandoval MD Status: REG CLIStudy: Spine Cervical (Routine) Date of Exam: 10/20/16Exam# [id number] Ordering Dr: Amilcar Sandoval MDSTUDY: MRI CERVICAL SPINE WITHOUT CONTRASTREASON FOR EXAM: Male, 51 years old. Neck pain radiating to leftshoulderTECHNIQUE: Standardized fat and water weighted pulse sequences wereobtained in the sagittal and axial planes.COMPARISON: None FINDINGS:Normal foramen magnum and brainstem-cervical cord junction. Normalcraniovertebral junction. Normal anterior atlantoaxial articulation.Normal odontoid process.Decreased cervical lordosis. Normal vertebral bodies and posterior osseouselements.C2-3: Normal endplates. Normal disc height, signal and morphology.Normal central canal and intervertebral neural foramina.C3-4: Normal endplates. Normal disc height, signal and tiny leftparacentral disc protrusion.. Normal central canal. Mild right neuralforaminal encroachment secondary to disc and bony hypertrophy.C4-5: Normal endplates. Normal disc height, signal and tiny central discprotrusion. Normal central canal and intervertebral neural foramina.C5-6: Normal endplates. Normal disc height, signal and minor bulging ofthe disc with small right posterolateral disc/osteophyte protrusion...Normal central canal. Moderate right neural foraminal encroachmentsecondary to disc and bony hypertrophy.C6-7: Normal endplates. Normal disc height, signal and mild bulging discwith moderate size left posterolateral disc/osteophyte protrusion. Normalcentral canal. Severe left neuroforaminal stenosis secondary to disc andbony hypertrophy. Mild right neural foraminal encroachment secondary tobony hypertrophyC7-T1: Normal endplates. Normal disc height, signal and morphology.Normal central canal and intervertebral neural foramina.Normal cervical cord.Normal visualized soft tissue structures. ORDER #: [id number] MRI/Spine Cervical (Routine)IMPRESSION:Multilevel spinal stenosis secondary to disc disease and bony hypertrophymost severe on the left at C6-7 and on the right at C5-6.Findings as aboveElectronically Signed:Ayo Duffy MD at 19:54 EDTTel , Service support , YL: Amilcar Sandoval MD Cyber Incident Analyst:Signed ED NOTE Observed: 10/18/2016 Status: COMPLETED Source: [facility] 6:20 PM [facility] REPOSITORY HNO ID: [id number]: Corin Johnson) Lincoln Charles: (none)Author Type: Registered NurseType: ED NotesFiled: 10/18/2016 6:21 PMNote Text: Pt discharged to home. Discharge Instructions/ RX x1/ Follow UpInstructions reviewed with patient with teach back method completed. XR THORACIC Observed: 10/18/2016 Status: F Source: [place] AP/LAT/SWIMMERS 5:28 PM [facility] REPOSITORY * * *Final Report* * *DATE OF EXAM: Oct 18 2016 5:28PM MDX 2196 - XR THORACIC AP/LAT/SWIMMERS / REASON : Back pain * * * * Physician Interpretation * * * * EXAMINATION: XR THORACIC AP/LAT/SWIMMERSCLINICAL HISTORY: back pain no known injuryTechnique: XR THORACIC AP/LAT/SWIMMERS --thoracic spine with 2 views on 5 imagesComparison: NoneRESULT :No acute fracture or traumatic subluxation is identified. The intervertebral disc spaces are grossly maintained. The vertebral body heights are maintained. Mild endplate spurring is present at the lower levels of the thoracic spine and included upper lumbar spine. The pedicles are preserved on the frontal view. The included lungs are clear bilaterally.IMPRESSION:No acute osseous abnormality is identified. Mild degenerative changes of the lower thoracic spine and included upper lumbar spine.Cyber Incident Analyst: DENG Transcribe Date/Time: Oct 18 2016 5:54PDictated by : ISRAEL STEVENS MDThis examination was interpreted and the report reviewed and electronically signed by: ISRAEL STEVENS MD on Oct 18 2016 6:00PM EST ED NOTE Observed: 10/18/2016 Status: COMPLETED Source: [place] 5:22 PM [facility] REPOSITORY HNO ID: [id number]: Corin Johnson) Lincoln Charles: (none)Author Type: Registered NurseType: ED NotesFiled: 10/18/2016 5:22 PMNote Text:Patient transported to [facility] with Tech. ED PROV NOTE Observed: 10/18/2016 Status: COMPLETED Source: [place] 5:14 PM [facility] REPOSITORY HNO ID: [id number]: Britney Molina (Pa): (none) Author Type: Physician AssistantType: ED Provider NotesFiled: 10/18/2016 6:12 PMNote Text:ED Provider NotePatient Name: Marc GrayMRN: [id number] DATE: 10/18/16HistoryPatient presents with:Back PainHPI Comments: 51 year old healthy male with a past medical history ofhyperlipidemia, restless leg syndrome, presents to emergency Departmentchief complaint of back pain ?4 days. Patient states that he has been twomultiple ER visits as well as an urgent care in which they prescribed himpain medication, muscle relaxants in which he has been taking without anyrelief. Patient denies any trauma to the back, denies any saddleparesthesia, bowel or urinary incontinence, fevers or chills, history ofIV drug user steroid use. He describes the pain as dull-like pain inupper back. Nothing makes the pain better or worse.History provided by: Patient and medical recordsPAST MEDICAL HISTORYDiagnosis Date- Brachial neuritis or radiculitis NOS 02/02/2009- Esophageal reflux history of- Mixed hyperlipidemia 11/28/2006- MYNOR (obstructive sleep apnea) 08/15/2012- Restless legs- TIA (transient ischemic attack) 09/29/2012- Vitamin D deficiency 07/20/2012PAST SURGICAL HISTORYProcedure Laterality Date- COLONS W/REM POLYP HT BX 02/26/2015- EGD W/ O BRSH SPECIMEN W/BX 12/31/07- PAST SURGICAL HISTORY OF LIPOMA X2- PAST SURGICAL HISTORY OF 2000 reversal of vasectomy- PAST SURGICAL HISTORY OF 1990 vasectomy- REPAIR INCIS HERNIA W MESH 08/10/08- REPAIR INCISIONAL HERNIA,REDUCIBLE 08/10/08FAMILY HISTORYProblem Relation Age of Onset- Diabetes Mother- HIATAL HERNIA [Other] [ OTHER] Father- HIATAL HERNIA [Other] [OTHER] Sister- Cancer Father esophageal cancer- Hypertension Mother- Lipids MotherSocial HistorySocial History Main Topics- Smoking status: Never Smoker- Smokeless tobacco: Never Used- Alcohol use No- Drug use: No- Sexual activity: Not AskedALLERGIESAllergen Reactions- Penicillins As a baby- unsure of reactionReview of SystemsConstitutional: Negative for chills and fever.HENT: Negative for congestion and sore throat.Eyes: Negative for photophobia and visual disturbance.Respiratory: Negative for cough and shortness of breath.Cardiovascular: Negative for chest pain and palpitations.Gastrointestinal: Negative for abdominal pain and blood in stool.Genitourinary: Negative for dysuria and hematuria.Musculoskeletal: Positive for back pain. Negative for neck pain and neckstiffness.Skin: Negative for color change.Neurological: Negative for dizziness and headaches.Psychiatric/Behavioral: Negative for agitation and confusion.Physical ExamBP 119/55 Pulse 67 Temp (Src) 98.3 (Oral) Resp 16 Ht 6' 4 (1.93m) Wt 240 lb (108.9kg) SpO2 96% BMI 29.23 kg/(m2).Physical ExamConstitutional: He appears well-developed.HENT:Head: Normocephalic.Eyes: Conjunctivae are normal.Neck: Normal range of motion.Cardiovascular: Normal rate.Pulmonary/Chest: Effort normal.Abdominal: Soft.Musculoskeletal: He exhibits tenderness. He exhibits no edema ordeformity. Right hip: Normal. Left hip: Normal. Cervical back: Normal. Thoracic back: He exhibits tenderness, pain and spasm. He exhibitsnormal range of motion, no bony tenderness, no swelling, no edema, nodeformity, no laceration and normal pulse. Lumbar back: Normal. Back:Tender palpation on the right paraspinal muscular in lower right thoracicregion. There is no midline tenderness noted on exam. No ecchymosis orbruising. No erythema. Patient able to ambulate without any difficulty.Sensation intact to both lower extremities. Strength 5 out of 5 with bothlower extremities.Neurological: He is alert.Skin: Skin is warm.Psychiatric: He has a normal mood and affect. His behavior is normal.Spine Care PathLocation of Pain: Low Back (BRITNEY DONG at 10/18/2016 5:14 PM)Phase: Acute (< 6 Weeks) (BRITNEY DONG at 10/18/2016 5:14 PM)History of Malignancy: No (BRITNEY DONG at 10/18/2016 5:14 PM)Prolonged Steroid Use: No (BRITNEY DONG at 10/18/2016 5:14 PM)Recent Use of IV Drugs: No (BRITNEY DONG at 10/18/2016 5 :14 PM)Unexplained Fever: No (IKER BRITNEY at 10/18/2016 5:14 PM)Significant Injury to Spine: No (IKER BRITNEY at 10/18/2016 5:14 PM)Recent Urinary Retention; Fecal Incontinence or Saddle Numbness: No(SIMBAMACHELLEAditya BRITNEY at 10/18/2016 5:14 PM)Gait or Balance Disturbance: No (IKER BRITNEY at 10/18/2016 5:14 PM)Progressive Weakness in Arms/Legs: No (SIMBAJOANNA BRITNEY at 10/18/2016 5:14PM)History of Osteoporosis : No (SIMBAJOANNA BRITNEY at 10/18/2016 5:14 PM)Diagnostic TestingED Labs Ordered and Reviewed - No data to displayProceduresMedical Decision Making / ED CourseED CourseThe medical record is reviewed.Triage note is reviewed and incorporated.The nursing note is reviewed and consistent with patient's history andphysical exam findings. The vital signs are : BP 119/55 Pulse 67 Temp36.8 ?C (98.3 ?F) (Oral) Resp 16 Ht 193 cm (6' 4) Wt 108.9 kg (240lb) SpO2 96% BMI 29.21 kg/m2XR directly visualized and independently interpreted by me as well asRadiologist showed: No acute osseous abnormality is identified. ?Milddegenerative changes of the lower thoracic spine and included upper lumbarspine.MDM:This is a well-appearing male with a pmh of restless leg syndrome, HLDwho is, afebrile, hemodynamically stable, in no acute distress patient .Based on patient's pmh, chief complaint and physical exam findings,differential diagnoses include cauda equina vs cord compression, vsepidural abscess, vs strain/sprain vs fracture.Based on patient's physical exam findings , clinical picture, lab resultsand imaging studies that were performed here today in the ED, at thistime, the following differential diagnoses such as cauda equina is lesslikely due to unremarkable exam and history. The following differentialdiagnosis such as epidural abscess is less likely due to unremarkable examand history.The following differential diagnosis such as fx is less likelydue to unremarkable xray .The patient has remained hemodynamically stablethroughout the entire ED visit and is without objective evidence for acuteprocess requiring urgent intervention or hospitalization. The patient isstable for discharge, and pt is instructed to follow up with pcp andeducated to return to ed if sx worsen or any new symptoms. Pt agreeablewith plan.At this time, based on the patient's history, physical exam findings, labresults and clinical picture , the most likely diagnosis is back painPt educated on the most common causes of Back painPt was sent home with prescription of dose pakPt instructed to follow up with PCP in 1-2 daysDischarge care instructions, medications, follow up instructions, andreasons to return to the ED immediately , such as worsening of symptoms orany new symptoms, were provided verbally and in writing to patient(patient guardian / sales representative aircraft), who verbalized understanding.This note was partially generated using [employer] voice recognition system,and there may be some incorrect words, spellings, and punctuation thatwere not noted in checking the note before savingEncounter Diagnosis ICD-10-CM1. Acute right-sided low back pain without sciatica M54.5(M54.5) Acute right-sided low back pain without sciatica (primaryencounter diagnosis)Comment: acutePlan: dc see pcp, rest, ice, heat, dose ronald, home percocet and flexeril,return to ed if sx worsenPlanThe Patient was DISCHARGED: Counseled patient and family regardingradiology results AND suspected diagnosis AND need for follow-up. Dischargedhome with verbal and written instructions. They were instructed to returnas needed for persistent or worsening symptoms or any new concerns.Condition at time of disposition: stableSIGNATURE : Rakel Peacock (Lee) Ymedzqfl87/26/17 1806Andaditya (Lee) Zeysajha97/26/17 1812 ED NOTE Observed: 10/18/2016 Status: COMPLETED Source: [place] 5:04 PM [facility] REPOSITORY O ID: [id number]: Corin (Rn) GONZALES Charleservice: (none)Author Type: Registered NurseType: ED NotesFiled: 10/18/2016 5:04 PMNote Text: Plan of care-Monitor Patient's Vital Signs for changes in condition-Monitor patient for changes in pain-Maintain patient safety and privacy-Provide comfort measures-Call light in placeSiderails up, bed in locked and low position ED NOTE Observed: 10/18/2016 Status: COMPLETED Source: [place] 4:54 PM [facility] OTHER CAMPUS REPOSITORY HNO ID: [id number]: Magaly (Rn) GONZALES Malagonervice: (none)Author Type: Registered NurseType: ED NotesFiled: 10/18/2016 4:56 PMNote Text:Started over week ago with pain left upper back area, [facility], not doing any better, received musclerelaxant injection today DISCHARGE INSTRUCTION Observed: 10/18/2016 Status: F Source: [place] 12:05 PM [facility] REPOSITORY [facility] Records [id number] [place], [place] [address]Dggjoqutu Fznkhwdcsoq53/26/17 1204MR#: [id number] Acct: [id number]: MARC GRAY JR Rep #: [id number]: 1965 51 From: Blas Lyn MDPCP: Иван Santacruz Status: PRE ERED Disposition- Plan for ED Patient:Disposition: Home or Assisted LivingChief Complaint: BackDiagnosis:Trapezius strainInstructions: ED Neck Back Pain GeneralPrescriptions:Cyclobenzaprine [Flexeril] 10 mg PO TID PRN #20 tabletPRN Reason: Muscle SpasmReferrals:Иван Santacruz MD [Primary Care Provider] -What to do if you have ProblemsFor any increased pain, shortness of breath, bleeding, nausea or vomiting, chest pain, or anyunexpected problems, contact your Primary Care Provider. Call [facility] ([phone])or report to the closest Emergency Room.Call 911 if necessary.10/18/16 1208 <Electronically signed by Blas Lyn MD> Date Blas Lyn [facility] OKEMAHosigner Signature (If Indicated): Date CC: Иван Santacruz EMERGENCY DEPARTMENT Observed: 10/18/2016 Status: F Source: [place] SUMMARY 12:04 PM [facility] REPOSITORY [facility]ITALMedical Records [id number] [address]Yxujcwkji Department Wpofvwy27/26/17 1202MR#: [id number] Acct: [id number]: MARC GRAY Rep #: [id number]: 1965 51 From: Blas Lyn MDPCP: Иван Santacruz Status: PRE ER- ER Visit SummaryDate of Service: Chief Complaint: Left upper back painHistory of Present Illness: The patient is a 51 M who returns today because of continued pain.He was seen here yesterday and diagnosed with a trapezius and latissimus strain. He comes backtoday because the pain was worse after his chiropractic appointment today. He thought that thedoctors here where going make his appointment for a massage. He has been taking [place] andnaproxen and he states that helps a little bit but has not been helping this morning. Deniesany numbness or tingling. No loss of function of the arms. No lower back pain.Physical Examination: Vital signs are reviewed. Back exam reveals tenderness in the left upperthoracic area. He is tender over the trapezius and latissimus muscles. His strength sensationand reflexes are normal in his upper extremitiesTest Results : None indicatedEmergency Department Course and Treatment: Norflex intramuscularly hereTreatment Plan: Patient will make his own appointment for a massage. I will send him home withFlexeril he will continue following up with the chiropractorDisposition: DischargeImpression: Trapezius and latissimus strainED Disposition- Plan for ED Patient:Chief Complaint: BackReferrals:Иван Santacruz MD [Primary Care Provider ] -What to do if you have ProblemsFor any increased pain, shortness of breath, bleeding , nausea or vomiting, chest pain, or anyunexpected problems, contact your Primary Care Provider. Call [facility] ([phone])or report to the closest Emergency Room.Call 911 if necessary.10/18/16 1204 <Electronically signed by Blas Lyn MD>Date Blas Lyn MDCosier Signature (If Indicated): Date ___CC: Иван Santacruz EMERGENCY DEPARTMENT Observed: 10/17/2016 Status: F Source: [place] SUMMARY 3:36 PM [facility] REPOSITORY [facility]ITALMedical Records [id number] [address]Aekhjkbps Department Xmsrpus55/25/17 1529MR#: [id number] Acct: [id number]: MARC GRAY JR Rep #: [id number]: 1965 51 From: Earl Oakes MDPCP: Иван Santacruz Status: REG ER- ER Visit SummaryDate of Service: 10/17/16Chief Complaint: Left upper back pain for approximately 4-5 days.History of Present Illness: The patient is a 51 M right-handed male who presents with leftupper back pain. He reports going to a chiropractor twice. He had relief initially. Hereports symptoms are worse today after. He then went to urgent care and was prescribedNaprosyn and gabapentin. He reports no improvement. He denies paresthesia, anesthesia ormotor weakness.He denies fever, chills or night sweats. Denies weight gain or weight loss. He denies anycardiac or respiratory symptoms.Physical Examination: Vital signs remarkable for blood pressure 133/ 82. HEENT is grosslyunremarkable. Axillary, median, radial and ulnar function intact. Biceps, brachial radialisand triceps reflex 1+ and symmetric. Radial pulses palpable and symmetric. Movement of theleft upper extremity exacerbates his pain. He has pain palpation over the left trapeziusregion and upper left latissimus dorsi region. Heart is regular with a normal S1 and S2.There is no murmur, gallop or rub. Lungs are clear to auscultation with good movement of airbilaterally. There is no egophony. Breath sounds are symmetric.Test Results: No tests were obtained, nor were any tests indicatedEmermercy hospital waldroncy Department Course and Treatment: Patient was instructed to stop taking gabapentin.He was prescribed [place].Treatment Plan: Continue Naprosyn, discontinue gabapentin and prescription for [place].Recommended ice the next 2-3 days.Disposition: Patient was discharged to home with prescription for opiate analgesiaImpression: Left trapezius and latissimus dorsi muscle strain/painED Disposition- Plan for ED Patient:Disposition: Home or Assisted LivingChief Complaint: BackInstructions: ED Neck Back Pain GeneralPrescriptions:Hydrocodone Bitart/ Apap 5-325 [[place] 5MG-325MG] 1 tablet PO Q6H PRN PRN #20 tabletPRN Reason: PainReferrals:Иван Santacruz MD [Primary Care Provider] - 3-5 Days if not improvingWhat to do if you have ProblemsFor any increased pain, shortness of breath, bleeding, nausea or vomiting, chest pain, or anyunexpected problems, contact your Primary Care Provider. Call [facility] ([phone])or report to the closest Emergency Room.Call 911 if necessary.10/17/16 1536 <Electronically signed by Earl Oakes MD>Date Earl Oakes MDCosigner Signature (If Indicated): Date CC: Иван Santacruz PROGRESS Observed: 10/16/2016 Status: COMPLETED Source: [place] 12:03 PM [facility] [place] REPOSITORY O ID: [id number]: Bradley Erwin: (none) Author Type: PhysicianType: Progress NotesFiled: 10/16/2016 12:22 PMNote Text:Patient presents with:Neck Pain: x 5 day, no injury to noteHPI:Neck pain: Duration: 5 days, no specific injury Location: Left neck Character: Aching, sharp and tight when getting up in the morning Radiation: Left trapezius and chest Aggravating: Leaning forward and back, not rotation Relieving: Massager, hot shower, leaning to the right with arm overthe head, heating pad, ice Pain relievers: Motrin Associated: Aching down the back of the left arm into the hand Pertinent negatives: Denies numbness, weaknessPAST MEDICAL HISTORYDiagnosis Date- Brachial neuritis or radiculitis NOS 02/02/2009- Esophageal reflux history of- Mixed hyperlipidemia 11/28/2006- MYNOR (obstructive sleep apnea) 08/15/2012- Restless legs- TIA (transient ischemic attack) 09/29/2012- Vitamin D deficiency 07/20/2012MEDICATIONS:levothyroxine (SYNTHROID) 125 mcg tablet Take 1 tablet by mouth oncedaily.ALLERGIES:ALLERGIESAllergen Reactions- Penicillins As a baby- unsure of reactionVITALS:BP 108/70 Pulse 84 Temp 36 ?C (96.8 ?F) (Tympanic) Resp 22 Wt111.1 kg (245 lb) BMI 29.82 kg/v6OYKEHAPS EXAM: GEN: pleasant, no acute distress, alert HEENT: PERRL, EOMI, MMM NECK: supple, no lymphadenopathy , no thyromegaly. No midline orparaspinal tenderness. No pain increase with rotation or lateralextension. HEART: regular rate, regular rhythm, no murmurs LUNGS: clear to auscultation, no wheezes or crackles, no increased WOB EXT: Normal sensation both arms. Normal strength in hand nutritional health coach, pincergrasp, and finger abduction.ASSESSMENT/PLAN:1. Neck pain on left side - ICD9: 723.1, ICD10: M54.2He recalls having neck pain in the past which responded to traction. Hemay add this to his current regimen of treatment modalities.Scheduled- NAPROXEN 500 MG TABLET- GABAPENTIN 300 MG CAPSULE at bed time.MD FILEMON Vadlez Observed: 10/16/2016 Status: COMPLETED Source: [place] 11:45 AM [facility] REPOSITORY Office Visit (WSTR) ---------MARC GRAY JR ([id number]) 1965 [facility] Time Provider Department10/16/16 11:45 AM BRADLEY COUGHLIN UCWSTR During your visit today, we recorded the following information about you: Temperature Pulse Respiration Blood pressure 96.8 degrees 84/minute 22/minute 108/70 Weight 111.1 kgBradley Coughlin MD 10/16/2016 12:22 PM SignedPatient presents with: Neck Pain: x 5 day, no injury to noteHPI:Neck pain: Duration: 5 days, no specific injury Location: Left neck Character: Aching, sharp and tight when getting up in the morning Radiation : Left trapezius and chest Aggravating: Leaning forward and back, not rotation Relieving: Massager, hot shower, leaning to the right with arm over thehead, heating pad, ice Pain relievers: Motrin Associated: Aching down the back of the left arm into the hand Pertinent negatives: Denies numbness, weaknessPAST MEDICAL HISTORYDiagnosis Date- Brachial neuritis or radiculitis NOS 02/02/2009- Esophageal reflux history of- Mixed hyperlipidemia 11/28/2006- MYNOR ( obstructive sleep apnea) 08/15/2012- Restless legs- TIA (transient ischemic attack) 09/29/2012- Vitamin D deficiency 07/20/2012MEDICATIONS:levothyroxine (SYNTHROID) 125 mcg tablet Take 1 tablet by mouth once daily.ALLERGIES:ALLERGIESAllergen Reactions- Penicillins As a baby- unsure of reactionVITALS:BP 108/70 Pulse 84 Temp 36 ?C (96.8 ?F) (Tympanic) Resp 22 Wt 111.1 kg( 245 lb) BMI 29.82 kg/g1DMGNZCVV EXAM: GEN: pleasant, no acute distress, alert HEENT: PERRL, EOMI, MMM NECK: supple, no lymphadenopathy, no thyromegaly. No midline or paraspinaltenderness. No pain increase with rotation or lateral extension. HEART: regular rate, regular rhythm, no murmurs LUNGS: clear to auscultation, no wheezes or crackles, no increased WOB EXT: Normal sensation both arms. Normal strength in hand nutritional health coach, pincergrasp, and finger abduction.ASSESSMENT/ PLAN:1. Neck pain on left side - ICD9: 723.1, ICD10: M54.2He recalls having neck pain in the past which responded to traction. He mayadd this to his current regimen of treatment modalities.Scheduled- NAPROXEN 500 MG TABLET- GABAPENTIN 300 MG CAPSULE at bed time.Bradley Coughlin, MDReferring Provider: SELF [200]Allergies As of Date: 10/16/2016 Noted Allergy ReactionPENICILLINS 11/28/2006 Comments: As a baby- unsure of reactionDate Reviewed: 2016Reviewed by: Macri Ace Ma - Fully AssessedReason for Visit: Neck Pain [135] Cmt: x 5 day, no injury to notePrimary Visit Diagnosis:Neck pain on left side [M54.2]Order(s):naproxen (NAPROSYN) 500 mg tabletTake 1 tablet by mouth twice daily as needed for up to 15 days.Disp: 30 tabletRfl: 0 gabapentin (NEURONTIN) 300 mg capsuleTake 1 capsule by mouth daily at bedtime for 15 days.Disp: 15 capsuleRfl: 0Prescriptions as of 10/16/2016 Sig: LEVOTHYROXINE 125 MCG TABLET Take 1 tablet by mouth once d* NAPROXEN 500 MG TABLET Take 1 tablet by mouth twice * GABAPENTIN 300 MG CAPSULE Take 1 capsule by mouth daily*Problem List As Of Date 10/16/2016 Noted Resolved Mixed hyperlipidemia [E78.2] INVALID FOR*07/20/2012 Abdominal pain, epigastric [R10.13] INVALID FOR* Acromioclavicular joint pain [M25.519] INVALID FOR*07/20/2012 Brachial neuritis or radiculitis NOS [M54.12] INVALID FOR*07/20/2012 Restless legs [G25.81] INVALID FOR* Vitamin D deficiency [E55.9] INVALID FOR* Fatigue [R53.83] INVALID FOR*11/17/2015 MYNOR (obstructive sleep apnea) [ G47.33] INVALID FOR* More... History of TIA (transient ischemic attack) [Z86* INVALID FOR* Pituitary abnormality (HCC) [E23.7] INVALID FOR* More... Hypothyroidism [ E03.9] INVALID FOR* Obesity [E66.9] INVALID FOR*11/17/2015 Decreased libido [R68.82] INVALID FOR* Anxiety disorder [F41.9] INVALID FOR*Prescriptions ordered this encounter Disp Refills Start End NAPROXEN 500 MG TABLET 30 t* 0 10/16/2016 10/31/2016 Route: ORAL Sig: Take 1 tablet by mouth twice daily as needed for up to 15 days. GABAPENTIN 300 MG CAPSULE 15 c* 0 10/16/2016 10/31/2016 Route: ORAL Sig: Take 1 capsule by mouth daily at bedtime for 15 days. Status:Closed by BRADLEY COUGHLIN MD on 10/16/16 CNOV Observed: 10/16/2016 Status: COMPLETED Source: [place] 9:30 AM [facility] REPOSITORY Office Visit (VASSMD) ---------MARC GRAY JR ([id number]) 1965 MDate Time Provider Department10/16/16 9:30 AM DAILY MONTERROSO During your visit today, we recorded the following information about you: Pulse Blood pressure Weight Height 84/minute 114/73 111.1 kg 1.93 mKrisantoni Ace Ma 10/16/2016 9:15 AM SignedPatient presents with:Varicose VeinsPaizzy Pierson , RN, RN 10/16/2016 11:23 AM AddendumVASCULAR SURGERY INITIAL CONSULTSERVICE DATE: 2016SERVICE TIME: 11:16 [facility] PH[facility]IAN: CAMILA Becerra PROVIDER:Anjel Kirk MD[address] [facility]WOOSTPAT[facility] [address]Xhppcht requested for an opinion regarding the evaluation and treatment ofbilateral lower leg pain and tiredness. My final impression andrecommendations will be communicated back to the requesting physician by way ofthe shared medical record or letter via US mail.CHIEF COMPLAINT/HISTORY OF PRESENT ILLNESS:Chief Complaint: Patient presents with:Varicose VeinsHistory of Present Illness:Patient is a 51 year old White male presenting for consultation, evaluation andpossible treatment of varicose veins. Patient reports bilateral aching.Predisposing factors include family history of varicose veins is positive andinclude(s) father without surgery. Patient had varicose veins removed on rightleg 4 years ago. Relieving factors include elevation of legs with mildimprovement in symptoms. Patient denies DVT, phlebitis and treatment with bloodthinners.Pain Assessment:PAIN EVALUATION No data found.Duration of Symptoms: Greater Than 3 MonthsPREVIOUS TESTS:NoneCARDIOVASCULAR RISK FACTORS:Family history PAST MEDICAL/SURGICAL/FAMILY/SOCIAL HISTORYPAST MEDICAL HISTORYDiagnosis Date- Brachial neuritis or radiculitis NOS 02/02/2009- Esophageal reflux history of- Mixed hyperlipidemia 11/28/2006- MYNOR (obstructive sleep apnea) 08/15/2012- Restless legs- TIA (transient ischemic attack) 09/29/2012- Vitamin D deficiency 07/20/2012PAST SURGICAL HISTORYProcedure Laterality Date- COLONS W/REM POLYP HT BX 02/26/2015- EGD W/O BRSH SPECIMEN W/BX 12/31/07- PAST SURGICAL HISTORY OF LIPOMA X2- PAST SURGICAL HISTORY OF 2000 reversal of vasectomy- PAST SURGICAL HISTORY OF 1990 vasectomy- REPAIR INCIS HERNIA W MESH 08/10/08- REPAIR INCISIONAL HERNIA,REDUCIBLE FAMILY HISTORYProblem Relation Age of Onset- Diabetes Mother- HIATAL HERNIA [Other] [OTHER] Father- HIATAL HERNIA [Other] [OTHER] Sister- Cancer Father esophageal cancer- Hypertension Mother- Lipids MotherSOCIAL HISTORYSocial History Marital status: Spouse name: Years of education: Number of children:Social History Main Topics Smoking status: Never Smoker Smokeless status: Never Used Alcohol use: No Drug use: NoMEDICATIONS/ALLERGIESCurrent Outpatient Prescriptions:levothyroxine (SYNTHROID) 125 mcg tablet Take 1 tablet by mouth once daily.Disp: 90 tablet Rfl: 3No current facility-administered medications for this visit.ALLERGIESAllergen Reactions- Penicillins As a baby- unsure of reactionREVIEW OF SYSTEMSConstitutional: No weight loss, malaise or fevers.HEENT: Negative for frequent or significant headachesRespiratory: Negative for cough, wheezing, or shortness of breathCardiovascular: Negative for chest pain, leg swelling or palpitationsGatrointestinal: Negative for abdominal discomfort, blood in stools or blackstools or change in bowel habitsGenitourinary: No history of dysuria, frequency, or incontinenceMusculoskeletal: Negative for joint pain or swelling, back pain or muscle painEndocrine: Negative for cold or heat intolerance, polyuria, polydipsia andgoiterHematology/Lymphatic: Negative for prolonged bleeding, bruising easily orswollen nodesNeurologic: No history or headaches, syncope, paralysis, seizures or tremorsIntegumentary: Negative for lesions, rash, and itching.Daily Monterroso DO 11/14/2016 2:31 PM SignedVASCULAR SURGERY INITIAL CONSULTSERVICE DATE: 11/14/2016SERVICE TIME: 2:26 [facility] PH[facility]IAN: CARRIE BecerraWALKER COUNTY HOSPITALMORGAN PROVIDER:Anjel Kirk MD[address] [facility] [address]Vciudxl requested for an opinion regarding the evaluation and treatment ofSymptomatic varicose veins. My final impression and recommendations will becommunicated back to the requesting physician by way of the shared medicalrecord or letter via US mail.CHIEF COMPLAINT/HISTORY OF PRESENT ILLNESS:Chief Complaint: Patient presents with:Varicose VeinsHistory of Present Illness: Patient is a 51 year old White male presenting for consultation, evaluation andpossible treatment of varicose veins. Patient reports bilateral aching,throbbing and heaviness. Predisposing factors include family history ofvaricose veins is positive and include(s) father without surgery. No specifichistory of injury or prior problems. Relieving factors include support hose,elevation of legs, reduced activity and OTC pain medication with mildimprovement in symptoms. Patient denies DVT, phlebitis and treatment with bloodthinners. He has had right lower extremity vein surgery in the pastPain Assessment:PAIN EVALUATION No data found.Duration of Symptoms: Greater Than 1 YearPREVIOUS TESTS:NoneCARDIOVASCULAR RISK FACTORS:Family history PAST MEDICAL/SURGICAL/FAMILY/SOCIAL HISTORYPAST MEDICAL HISTORYDiagnosis Date- Brachial neuritis or radiculitis NOS 02/02/2009- Esophageal reflux history of- Mixed hyperlipidemia 11/28/2006- MYNOR (obstructive sleep apnea) 08/15/2012- Restless legs- TIA (transient ischemic attack) 09/29/2012- Vitamin D deficiency 07/20/2012PAST SURGICAL HISTORYProcedure Laterality Date- COLONS W/REM POLYP HT BX 02/26/2015- EGD W/O BRSH SPECIMEN W/ BX 12/31/07- PAST SURGICAL HISTORY OF LIPOMA X2- PAST SURGICAL HISTORY OF 2000 reversal of vasectomy- PAST SURGICAL HISTORY OF 1990 vasectomy- REPAIR INCIS HERNIA W MESH 08/10/08- REPAIR INCISIONAL HERNIA,REDUCIBLE 08/10/08FAMILY HISTORYProblem Relation Age of Onset- Diabetes Mother- HIATAL HERNIA [Other] [OTHER] Father- HIATAL HERNIA [Other] [OTHER] Sister- Cancer Father esophageal cancer - Hypertension Mother- Lipids MotherSOCIAL HISTORYSocial History Marital status: Spouse name: Years of education: Number of children:Social History Main Topics Smoking status: Never Smoker Smokeless status: Never Used Alcohol use: No Drug use: NoMEDICATIONS/ALLERGIESCurrent Outpatient Prescriptions:methylPREDNISolone ( MEDROL, ROANLD,) 4 mg Dose-Pack Take by mouth. As directed onpackage Disp: 1 Package Rfl: 0levothyroxine (SYNTHROID) 125 mcg tablet Take 1 tablet by mouth once daily.Disp: 90 tablet Rfl: 3No current facility-administered medications for this visit.ALLERGIESAllergen Reactions- Penicillins As a baby - unsure of reactionREVIEW OF SYSTEMSConstitutional: No weight loss, malaise or fevers.HEENT: Negative for frequent or significant headachesRespiratory: Negative for cough, wheezing, or shortness of breathCardiovascular: Negative for chest pain, leg swelling or palpitationsGatrointestinal: Negative for abdominal discomfort, blood in stools or blackstools or change in bowel habitsGenitourinary: No history of dysuria, frequency, or incontinenceMusculoskeletal: Negative for joint pain or swelling, back pain or muscle painEndocrine: Negative for cold or heat intolerance, polyuria, polydipsia andgoiterHematology/Lymphatic: Negative for prolonged bleeding, bruising easily orswollen nodesNeurologic: No history or headaches, syncope, paralysis, seizures or tremorsIntegumentary: Negative for lesions, rash, and itching.PHYSICAL EXAMVITALS: BP 114/73 Pulse 84 Ht 6' 4ANDquot; (1.93m) Wt 245 lb (111.1kg) SpO2 96% BMI 29.83 kg/(m2).General: Alert, oriented, cooperative, healthy appearanceIntegumentary: Normal color, no rash, no lesions.Cardiovascular: Pulse regular.Lungs: No chest deformities or chest wall tenderness.Abdomen: Soft, non-tender, no rigidity.Extremities: Varicose veins large lower extremity varicose veinsNeurological: AAOx3. Normal cognition and motor skills.Vascular: Posterior Tibial Right: Normal - Left: NormalDorsalis Pedal Right: Normal - Left: NormalASSESSMENTSymptomatic varicose veinsPLAN/RECOMMENDATIONSReviewed venous pathology with patientRecommend compression stockings, elevation, and exerciseWill get updated venous reflux testing and follow up to discuss interventionaloptions as symptoms impact day to day activitiesReferring Provider: ANJEL KIRK [[id number]]Allergies As of Date: 10/16/2016 Noted Allergy ReactionPENICILLINS 11/28/2006 Comments: As a baby- unsure of reactionDate Reviewed: Reviewed by: Marci Ace Ma - Fully AssessedReason for Visit: Varicose Veins [965] Primary Visit Diagnosis:Symptomatic varicose veins, bilateral [I83.893]Order(s):US VENOUS INCOMPETENCY [facility] [[id number]] Order #: [id number] FUTUREPrescriptions as of 2016 Sig: LEVOTHYROXINE 125 MCG TABLET Take 1 tablet by mouth once d*Problem List As Of Date 10/16/2016 Noted Resolved Mixed hyperlipidemia [E78.2] INVALID FOR*07/20/2012 Abdominal pain, epigastric [R10.13] INVALID FOR* Acromioclavicular joint pain [M25.519] INVALID FOR*07/20/2012 Brachial neuritis or radiculitis NOS [M54.12] INVALID FOR*07/20/2012 Restless legs [G25.81] INVALID FOR* Vitamin D deficiency [E55.9] INVALID FOR* Fatigue [R53.83] INVALID FOR*11/17/2015 MYNOR (obstructive sleep apnea) [ G47.33] INVALID FOR* More... History of TIA (transient ischemic attack) [Z86* INVALID FOR* Pituitary abnormality (HCC) [E23.7] INVALID FOR* More... Hypothyroidism [ E03.9] INVALID FOR* Obesity [E66.9] INVALID FOR*11/17/2015 Decreased libido [R68.82] INVALID FOR* Anxiety disorder [F41.9] INVALID FOR*Visit Notes:>> Marci Ace Eddi [facility] Sep 9:14 AM Status: SignedPatient presents with:Varicose Veins>> Madalyn (Rn) CAITIE Pierson [facility] Oct 16, 2016 11:16 AM Status: AddendumVASCULAR SURGERY INITIAL CONSULTSERVICE DATE: 10/16/2016SERVICE TIME: 11:16 [facility] PHYSICIAN: CAMILA Becerra PROVIDER: Anjel Kirk MD[address] [facility] [address]Ztjpjlm requested for an opinion regarding the evaluation and treatmentof bilateral lower leg pain and tiredness. My final impression andrecommendations will be communicated back to the requesting physician byway of the shared medical record or letter via US mail.CHIEF COMPLAINT/HISTORY OF PRESENT ILLNESS:Chief Complaint: Patient presents with:Varicose VeinsHistory of Present Illness:Patient is a 51 year old White male presenting for consultation,evaluation and possible treatment of varicose veins. Patient reportsbilateral aching. Predisposing factors include family history of varicoseveins is positive and include(s) father without surgery. Patient hadvaricose veins removed on right leg 4 years ago. Relieving factors includeelevation of legs with mild improvement in symptoms. Patient denies DVT, phlebitis and treatment with blood thinners.Pain Assessment:PAIN EVALUATION No data found.Duration of Symptoms: Greater Than 3 MonthsPREVIOUS TESTS:NoneCARDIOVASCULAR RISK FACTORS:Family history PAST MEDICAL/SURGICAL/FAMILY/SOCIAL HISTORYPAST MEDICAL HISTORYDiagnosis Date- Brachial neuritis or radiculitis NOS 02/02/2009- Esophageal reflux history of- Mixed hyperlipidemia 11/28/2006- MYNOR (obstructive sleep apnea) 08/15/2012- Restless legs- TIA (transient ischemic attack) 09/29/2012- Vitamin D deficiency 07/20/2012PAST SURGICAL HISTORYProcedure Laterality Date- COLONS W/REM POLYP HT BX 02/26/2015- EGD W/O [facility] SPECIMEN W/BX 12/31/07- PAST SURGICAL HISTORY OF LIPOMA X2- PAST SURGICAL HISTORY OF 2000 reversal of vasectomy- PAST SURGICAL HISTORY OF 1990 vasectomy- REPAIR INCIS HERNIA W MESH 08/10/08- REPAIR INCISIONAL HERNIA,REDUCIBLE FAMILY HISTORYProblem Relation Age of Onset- Diabetes Mother- HIATAL HERNIA [Other] [OTHER] Father- HIATAL HERNIA [Other] [OTHER] Sister- Cancer Father esophageal cancer- Hypertension Mother- Lipids MotherSOCIAL HISTORYSocial History Marital status: Spouse name: Years of education: Number of children:Social History Main Topics Smoking status: Never Smoker Smokeless status: Never Used Alcohol use: No Drug use: NoMEDICATIONS/ALLERGIESCurrent Outpatient Prescriptions:levothyroxine (SYNTHROID) 125 mcg tablet Take 1 tablet by mouth oncedaily. Disp: 90 tablet Rfl: 3No current facility-administered medications for this visit.ALLERGIESAllergen Reactions- Penicillins As a baby- unsure of reactionREVIEW OF SYSTEMSConstitutional: No weight loss, malaise or fevers.HEENT: Negative for frequent or significant headachesRespiratory: Negative for cough, wheezing, or shortness of breathCardiovascular: Negative for chest pain, leg swelling or palpitationsGatrointestinal: Negative for abdominal discomfort, blood in stools orblack stools or change in bowel habitsGenitourinary: No history of dysuria, frequency, or incontinenceMusculoskeletal: Negative for joint pain or swelling, back pain or musclepainEndocrine: Negative for cold or heat intolerance, polyuria, polydipsia andgoiterHematology /Lymphatic: Negative for prolonged bleeding, bruising easily orswollen nodesNeurologic: No history or headaches, syncope, paralysis, seizures ortremorsIntegumentary: Negative for lesions, rash , and itching. Status:Closed by DAILY MONTERROSO DO on 11/14/16 PROGRESS Observed: 10/08/2016 Status: COMPLETED Source: [place] 4:56 PM [facility] [place] REPOSITORY HNO ID: [id number]: Anjel Thomas: (none) Author Type: PhysicianType: Progress NotesFiled: 10/08/2016 5:01 PMNote Text:This note was created using Womensforumter.Mil Gray is a 50 year old male here for bilateral leg pains, legheaviness, and some swelling noted for a few weeks. This was reminiscentof symptoms of varicose veins for which he had vein ablation about 4 yearsago in [place]. He requested referral for this as he had no current PCP.Review of SystemsConstitutional: Negative.Respiratory: Negative.Cardiovascular: Positive for leg swelling.ObjectiveBP 104/70 Pulse 72 Resp 20 Ht 190.5 cm (6' 3) Wt 110.2 kg (243lb) BMI 30.37 kg/r7Tamespaf ExamConstitutional: He appears well- developed and well-nourished.Cardiovascular: Intact distal pulses.Musculoskeletal: He exhibits edema. He exhibits no tenderness ordeformity.Skin:Trace edema. Few large varicose veins in both legs, some with palpablenon tender calcification in the right medial calf.ASSESSMENT/PLAN:1. Varicose veins of both lower extremities with pain - ICD9: 454.8,ICD10: I83.813- CONSULT TO VASCULAR SURGERY- He agreed to referral within the [facility] system. Referral made to .Anjel Kirk MD CNOV Observed: 10/08/2016 Status: COMPLETED Source: [place] 4:00 PM [facility] REPOSITORY Office Visit (INTMWS) ---------MARC GRAY JR ([id number]) 1965 MDate Time Provider Department10/08/16 4:00 PM ANJEL KIRK INTMWS During your visit today, we recorded the following information about you: Pulse Respiration Blood pressure Weight 72/minute 20/minute 104/70 110.2 kg Height 1.905 Sharon Kirk MD 10/08/2016 5:01 PM SignedThis note was created using girnarsoftriter.Mil Gray is a 50 year old male here for bilateral leg pains, legheaviness, and some swelling noted for a few weeks. This was reminiscent ofsymptoms of varicose veins for which he had vein ablation about 4 years ago [place]. He requested referral for this as he had no current PCP.Review of SystemsConstitutional: Negative.Respiratory: Negative.Cardiovascular: Positive for leg swelling.ObjectiveBP 104/70 Pulse 72 Resp 20 Ht 190.5 cm (6' 3ANDquot;) Wt 110.2 kg (243lb) BMI 30.37 kg/j9Cxinetjf ExamConstitutional: He appears well-developed and well-nourished.Cardiovascular: Intact distal pulses.Musculoskeletal: He exhibits edema. He exhibits no tenderness or deformity.Skin:Trace edema. Few large varicose veins in both legs, some with palpable nontender calcification in the right medial calf.ASSESSMENT/PLAN:1. Varicose veins of both lower extremities with pain - ICD9: 454.8, ICD10:I83.813- CONSULT TO VASCULAR SURGERY- He agreed to referral within the [facility] system. Referral made to Dr. Monterroso.Anjel Kirk [facility] Provider: SELF [[id number]] Allergies As of Date: 10/08/2016 Noted Allergy ReactionPENICILLINS 11/28/2006 Comments: As a baby- unsure of reactionDate Reviewed: 10/08/2016Reviewed by: Saloni Aly LPN - Fully AssessedPrimary Visit Diagnosis:Varicose veins of both lower extremities with pain [I83.813]Order(s):CONSULT TO VASCULAR SURGERY [9042] Order #: [id number]: 1Prescriptions as of 10/08/2016 Sig: LEVOTHYROXINE 125 MCG TABLET Take 1 tablet by mouth once d*Medication notes this encounter COMPOUNDED PRESCRIPTION >> Saloni Aly LPN 10/08/2016 4:16 PM >> SALONI ALY LPN ThuOct 08, 2016 4:16 PM No longer usingProblem List As Of Date 10/08/2016 Noted Resolved Mixed hyperlipidemia [E78.2] INVALID FOR*07/20/2012 Abdominal pain, epigastric [R10.13] INVALID FOR*07/20/2012 Acromioclavicular joint pain [M25.519] INVALID FOR* Brachial neuritis or radiculitis NOS [M54.12] INVALID FOR*07/20/2012 Restless legs [ G25.81] INVALID FOR* Vitamin D deficiency [E55.9] INVALID FOR* Fatigue [R53.83] INVALID FOR*11/17/2015 MYNOR ( obstructive sleep apnea) [G47.33] INVALID FOR* More... History of TIA (transient ischemic attack) [Z86*INVALID FOR* Pituitary abnormality (HCC) [E23.7] INVALID FOR* More... Hypothyroidism [E03.9] INVALID FOR* Obesity [E66.9] INVALID FOR*11/17/2015 Decreased libido [R68.82] INVALID FOR* Anxiety disorder [F41.9] INVALID FOR*Medications Discontinued During This Encounter MAGNESIUM ORAL 10/08/2016 Class: Historical Med Route: ORAL Sig: Take by mouth once daily. 600mg daily Disc: Reason for discontinue is not on file. COMPOUNDED PRESCRIPTION 0 201410/08/2016 Class: Med Update Sig: Melatonin 1.5 mg 1/2 pill qhs, magnesium supplement. Disc: Reason for discontinue is not on file. Status:Closed by ANJEL KIRK MD on 10/08/16 ALLERGIES ALLERGIES DATE TYPE / NAME / CODE REACTION SEVERITY SOURCE CODE 11/20/2016 Drug NSAIDS CONTRAINDICA High [facility] Class/4195 (NON-STEROIDAL [place] [address]([facility] ANTI-INFLAMMATORY Repository ED CT) DRUG) 11/08/2016 Drug Penicillins/F0010 Unknown Lisa Allergy/41 39290(RXNORM) [facility] [id number]([facility]) Repository 11/08/2016 Drug Penicillins/F0010 Unknown Unknown Lisa Allergy/41 12100(RXNORM) [facility] [id number]([facility]) Repository 11/28/2006 Drug PENICILLINS [facility] Class/4195 [place] [address]([facility] Repository ED CT) ENCOUNTERS ENCOUNTERS ADMIT/DISCHARGE ACCOUNT ADMITTING ENCOUNTER LOCATION SOURCE NUMBER CLASS 09/18/2017 [id number] Ambulatory General acute hospital ing:MRI Repository 08/28/2017 [id number] [facility] ing:LAB Repository 08/12/2017 [id number] [facility] Repository 07/15/2017 [id number] Amb[facility] ing:LAB Repository 05/19/2017 [id number] Ambulatory [facility] [place] Repository 04/11/2017/04/11/19 [id number] Ambulatory [address] [place] Repository 01/16/2017 [id number] [facility] Repository 01/09/2017 [id number] Ambulatory [facility] [place] Repository 12/29/2016/01/22/20 [id number] Ambulatory [address] [place] Repository 12/23/2016 [id number] Ambulatory [facility] Hospital ing:LAB Repository 12/16/2016/12/17/19 [id number] Ambulatory [address] [place] Repository 12/16/2016/12/17/19 [id number] Ambulatory [address] [place] Repository 12/10/2016 [id number] Ambulatory [facility] [place] Repository 12/03/2016 [id number] [facility] ing:HHLAB Repository 11/29/2016 [id number] [facility] Repository 11/24/2016/11/25/19 [id number] Ambulatory [address] [place] Repository 11/20/2016/11/21/19 [id number] Ambulatory [address] [place] Repository 11/20/2016/11/28/19 [id number] Ambulatory [address] [place] Repository 11/17/2016/11/23/19 [id number] Ambulatory [place] [facility] ing:HHLAB Repository 11/16/2016/11/17/19 [id number] Surya Diaz Inpatient [place] 17 [facility] ing:GW4Snhh: Repository BL537Dqp: 1 11/08/2016/11/13/19 [id number] Hawk Millan Inpatient [place] 17 Encounter [facility] ing:PY9Jfwm: Repository EL505Vrv: 1 11/07/2016/11/08/19 [id number] Emergency [address] ing:ED Repository 11/05/2016/11/08/19 [id number] Hammad Don [place] [address] Encounter [facility] ing:ICURoom: Repository FFD23Xoy: 1 10/21/2016/10/22/19 [id number] Ambulatory [address] Repository 10/20/2016 [id number] Ambulatory General acute hospital ing:MRI Repository 10/18/2016/10/19/19 [id number] Emergency [address] [place] Repository 10/18/2016/10/19/19 [id number] Emergency [address] ing:ED Repository 10/17/2016/10/18/19 [id number] Emergency [address] ing:ED Repository 10/16/2016/10/17/19 [id number] Ambulatory [address] [place] Repository 10/16/2016/11/18/19 [id number] Ambulatory [address] Repository 10/08/2016/10/11/19 [id number] Ambulatory [address] Repository PAYERS PAYERS ENCOUNTER GUARANTOR PAYER SUBSCRIBER SOURCE 09/18/2017 MARC FELIZ8 E Primary MARC WYNNB: [place] Insurance:ANTHEMPolic [id number] Number: [facility] [address]Wsz: 330 [id number] Repository [phone] () Date:[id number] [address]II: 09/18/2017 Secondary NOT GIVENUNK Lisa Insurance:SELF PAY [facility] Number: Effective Repository Date:2017-09-10 08/28/2017 MARC FELIZ8 E Primary [facility] TIANNAB: [place] Insurance:ANTHEMPolic [id number] Number: [facility] [address]Xhw: 330 [id number] Repository [phone] (HP) Date:0971-81-79IS [address], [place] [address]ZU: 08/28/2017 Secondary NOT GIVENUNK Lisa Insurance:SELF PAY [facility] Hospital Number: Effective Repository Date:2017-08-28 08/12/2017 MARC ARMENTA E Primary MARC WYNNB: [place] Insurance:ANTHEMPolic [id number] [place] Hospital [address]Urz: (330) [id number] Repository [phone] (HP) Date:1139-52-38HI [address] [place] [address]XN: 08/12/2017 Secondary NOT GIVENUNK Lisa Insurance:SELF PAY [facility] Hospital Number: Effective Repository Date:2017-08-12 07/15/2017 MARC ARMENTA E Primary MARC GRAYDOB: [place] Insurance:ANTHEMPolic [id number] [facility] Number: [facility] [address]Aey: (330) [id number] Repository [phone] (HP) Date:6885-37-90DL [address] [place] [address]KP: 07/15/2017 Secondary NOT GIVENUNK [place] Insurance:SELF PAY [facility] Number: Effective Repository Date:2017-07-15 01/16/2017 MARC GRAY Primary MARC Gonzalez [id number] [place] Insurance:ANTHEMPolic JRDOB: [facility] [place] Number: [id number] Hospital [address]Eni: (330) [id number] Repository [phone] () Date:5222-52-47DY [address], [place] [address]CK: 12/23/2016 MARC GRAY Primary MARC Gonzalez [id number] [place] Insurance:ANTHEMPolic JRDOB: [place]: [id number] Hospital [address]Qtn: (840) [id number] Repository [phone] (HP) Date:6528-78-69CR [address] [place] [address]PZ: 12/03/2016 MARC GRAY Primary MARC Gonzalez [id number] [place] Insurance:ANTHEMPolic JRDOB: [facility] Number: [id number] Hospital [address]Xoa: (330) [id number] Repository [phone] (HP) Date:9263-51-20QA [address] [place] [address]FQ: 11/29/2016 MARC GRAY Primary MARC Gonzalez [id number] [place] Insurance:ANTHEMPolic JRDOB: [facility] Number: [id number] [id number]: (330) [id number] Repository [phone] () Date:3476-63-50BM[address] [address]QY: 11/17/2016 MARC GRAY Primary MARC Gonzalez [id number] [place] Insurance:ANTHEMPolic JRDOB: [facility] Number: [id number] [place] [id number]: (330) [id number] Repository [phone] () Date:3427-46-57EN[address] [address]TM: 11/16/2016 MARC GRAY Primary MARC Gonzalez [id number] [place] Insurance:ANTHEMPolic JRDOB: [facility] Number: [id number] Hospital [address]Kys: (330) [id number] Repository [phone] () Date:0336-18-68MA [address] [place] [address]ND: 11/08/2016 MARC ARMENTA E Primary MARC GRAYDOB: [place] Insurance:ANTHEMPolic [id number] [place] [facility] Hospital [address]Jbu: (330) [id number] Repository [phone] () Date:1432-11-80KT [address] [place] [address]NZ: 11/08/2016 Secondary NOT GIVENUNK [place] Insurance:SELF PAY [facility] Number: Effective Repository Date:2016-11-08 11/07/2016 MARC GRAY1858 E Primary MARC GRAYDOB: [place] Insurance:ANTHEMPolic [id number] [place] Number: [facility] [address]Uiy: (446) [id number] Repository [phone] () Date:7614-22-21Vb [address] [place] [address]YO: 11/07/2016 Secondary NOT GIVENUNK Lisa Insurance:SELF PAY [facility] Number: Effective Repository Date:2016-11-07 11/05/2016 MARC [id number] E Primary MARC GRAYDOB: [place] Insurance:ANTHEMPolic [id number] [facility] [place] Number: [facility] [address]Dwk: (444) [id number] Repository [phone] () Date:8807-41-31Dq [address] [place] [address]DP: 11/05/2016 Secondary NOT GIVENUNK Lisa Insurance:SELF PAY [facility] Number: Effective Repository Date:2016-11-05 10/20/2016 MARC GRAY Primary MARC GRAY Lisa [id number] [place] Insurance:ANTHEMPolic JRDOB: [place] Number: [id number] [facility] [address]Xzp: (444) [id number] Repository [phone] () Date:6251-13-54LT [address] [place] [address]RY: 10/18/2016 MARC GRAY1858 E Primary MARC GRAYDOB: [place] Insurance:ANTHEMPolic [id number] [place] Number: [facility] [address]Qse: 330 [id number] Repository [phone] () Date:3519-75-21Od [address] [place] [address]GO: 10/18/2016 Secondary NOT GIVENUNK [place] Insurance:SELF PAY [facility] Number: Effective Repository Date:2016-10-18 10/17/2016 MARC FELIZ8 E Primary MARC BUCKLEY: [place] Insurance:ANTHEMPolic [id number] Community ladan CASRTO y Number: [facility] [id number]: 330 [id number] Repository [phone] () Date:8679-24-20Ys [address]ub[place], [place] [address]AU: 10/17/2016 Secondary NOT GIVENUNK [place] Insurance:SELF PAY [facility] Number: Effective Repository Date:2016-10-17
== END ==
PROVIDERS: Family Provider Family Medicine; PCP Family Medicine
DX: R53.83 Other fatigue (principal)
CPT/HCPCS: 36415; 82670; 83002; 84402; 84403

== ENCOUNTER → 2017-09-18 07:04 | Outpatient (CLI) | payer BC, SELFPAY ==
--- NOTE | 2017-09-18 07:37 | MRI_ITS ---
STUDY: MRI BRAIN WITH AND WITHOUT CONTRAST REASON FOR EXAM: Male, 51 years old. 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 Pt is having increasing H/As. TECHNIQUE: Standardized multiplanar fat and water weighted pulse sequences were obtained. 10 ml of Gadavist contrast material was administered intravenously for the contrast portion of the examination. COMPARISON: None. FINDINGS: Normal size of the ventricles and extra-axial spaces for the patient's age. Normal white matter tracts of the supratentorial brain. Normal bilateral basal ganglia. Normal thalami. There is no extra-axial fluid accumulation. Normal flow voids within the major intracranial circulation suggesting patency by spin echo criteria. Normal venous enhancement. There is no enhancing intra-axial or extra-axial abnormality. Normal midbrain, giorgio and medulla. Normal cerebellum. Normal basal cisterns. Normal bilateral temporal bones. Normal bilateral internal auditory canals. No demonstrated orbital abnormality, within the constraints of a routine brain study. Normal visualized paranasal sinuses. Normal calvarium and skull base. Normal visualized soft tissue structures. Normal visualized upper cervical spine. IMPRESSION: Normal unenhanced and enhanced MRI of the brain. Electronically Signed: Joss Soto MD at 8:12 EDT Tel , Service support , STUDY: MRI BRAIN WITH AND WITHOUT CONTRAST (ATTENTION PITUITARY GLAND) REASON FOR EXAM: Male, 51 years old. 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 Pt is having increasing H/As. TECHNIQUE: Standardized multiplanar fat and water weighted pulse sequences were obtained. 10 ml of Gadavist contrast material was administered intravenously for the contrast portion of the examination. COMPARISON: September 29, 2012 FINDINGS: Again noted is the hypoenhancing focus at the inferior pituitary gland on the sagittal sequence which is decreased since the prior examination measuring now approximately 1 mm Normal infundibular stalk and suprasellar cistern. Normal optic chiasm and hypothalamus. Normal size of the ventricles and extra-axial spaces for the patient's age. Normal white matter tracts of the supratentorial brain. Normal bilateral basal ganglia. Normal thalami. 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 Electronically Signed: oJss Soto MD at 8:12 EDT Tel , Service support ,
== END ==
PROVIDERS: Family Provider Family Medicine; PCP Family Medicine; Visit Provider Internal Medicine Endocrinology, Diabetes & Metabolism
DX: D35.2 Benign neoplasm of pituitary gland (principal); R51 Headache
CPT/HCPCS: 70553; A9585

== ENCOUNTER → 2017-10-07 07:35 | Outpatient (CLI) | payer BC, SELFPAY ==
[2017-10-07 09:10] LABS: T4 Free Direct 1.38 ng/dL (0.76-1.46); Thyroid Stim Hormone (TSH) 0.18 uIU/mL (0.358-3.74)
[2017-10-08 10:59] LABS: HCG BETA-SUBUNIT QUANT. < 1 mIU/mL (0-3)
== END ==
PROVIDERS: Family Provider Family Medicine; PCP Family Medicine; Visit Provider Internal Medicine Endocrinology, Diabetes & Metabolism
DX: E03.8 Other specified hypothyroidism (principal); E04.2 Nontoxic multinodular goiter
CPT/HCPCS: 36415; 82105; 84439; 84443; 84702

== ENCOUNTER 2017-10-09 07:15 | Outpatient (RCR) | payer BC, SELFPAY ==
--- NOTE | 2017-10-09 08:21 | HP.PTEVAL ---
Patient's Visit Information MARC GRAY is a 51 year old M referred to Physical Therapy by Amilcar Sandoval with a diagnosis of Right Knee Sprain. Date of Evaluation: 10/09/17 Physical Therapist: Nubia Rodriguez - Visit Plan Plan: Patient does not currently show need for PT- he will continue to monitor s/s at home and follow up as needed in 3 weeks after giving the knee time to heal from impact. Educated on ice/heat, continued movement and possibility of a brace/sleeve for work. - Subjective Subjective: Fell playing basketball -about a week ago. Hit on the lateral spect and then rolled onto his back. Does not feel like its getting better- pain is located in the distal patella on the lateral side and superior patella. Tried to wrap it and it did not feel better. Agg: stairs, squatting Worst: 9/10 Best: 0/10 Eases: nothing. No radiating pain. No N/T. Describes the pain as sharp and shooting. Clicking and popping with walking. No x-ray or MRI. Does not play basketball often but is very active. Exercises in his basement and walks a lot at work. work: Cloudy.fr- standing, sitting and walking throughout the day. Cut a tumor out of the knee- fatty- 7-8 years ago. No other injuries to this knee. PMHx: CVA 3/5 years ago, GI bleed 2016 (required CPR). Meds: Lethothyroxine, magnesium, vit D, vit B12 - Objective Posture: good throughout. Gait: no deviation noted. Stairs: asc/desc recip 8 with no HR-pushes off quickly on the right and does not have good control coming down and reports discomfort. Hr/TR: WNL. SLS: 30 sec without LOB. Squat: able but has mild weight shift to the left and reports discomfort. Palpation: not tender. Observation: abrasion mid patella and laterally distal to the patella. ROM: 0-135 degrees. Strength: 5/5 throughout. Sensation: WNL - Rehabilitation Potential Physical Therapy Diagnosis: Patient presents with increased pain with functional activities- he has normal strength, ROM and muscular endurance. Rehabilitation Potential: Excellent - Anticipated Interventions Thank you for the opportunity to evaluate your patient. For Medicare and Medicare HMO plans, please review the plan of care and approve it. It will need to be FAXED BACK to us at [phone] for Medicare purposes. Please let me know if there are questions or concerns regarding this plan of care. Physician Signature: Date:
--- NOTE | 2017-11-16 16:38 | HP.PT.NRP ---
HP - Discharge Summary (1) - Patient Information MARC GRAY was seen in my office for initial evaluation on 10/09/17. The following Plan of Care was established for this patient: This patient was last seen in our office . Pertinent comments regarding their Physical therapy will appear below: Patient has not attended physical therapy in over 4 weeks and is appropriate for d/c. At this point I will be discontinuing this patient from physical therapy. I would be happy to see this patient again in the future if found appropriate by the physician. Thank you! Nubia Rodriguez
== END 2017-10-09 19:00 | disposition home or self-care (01) ==
LOC: PT 07:15
PROVIDERS: Family Provider Family Medicine; PCP Family Medicine; Visit Provider Family Medicine
DX: S83.91XD Sprain of unspecified site of right knee, subsequent encounter (principal)
CPT/HCPCS: 97035; 97161

== ENCOUNTER → 2017-12-12 10:00 | Outpatient (CLI) | payer BC, SELFPAY ==
[2017-12-12 11:04] LABS: Absolute Lymphocyte Count 1.55 X10^3/ul (0.83-4.51); Absolute Neutrophil Count 1.8 X10^3/uL (2.0-7.7); Basophil# 0.04 X10^3/uL; Eosinophil# 0.11 X10^3/uL; Eosinophils% 2.9 % (0-5); Hematocrit 46.6 % (40-54); Hemoglobin 15.5 g/dl (13.0-16.5); Lymphocyte # 1.55 X10^3/ul (4.0); Lymphocyte % 40.5 % (19-41); Mean Corp Hgb Conc 33.3 g/gl (32-36); Mean Platelet Vol. 9.2 fl (6.2-12.0); Monocyte# 0.34 X10^3/uL; Monocyte% 8.9 % (0-10); Neutrophil # 1.78 X10^3/uL (2.7-7.7); Neutrophil % 46.4 % (47-70); Platelet Count 219 K/mm3 (150-450); RBC Distribution Width CV 13.2 % (11.6-14.6); RBC Distribution Width SD 38.9 fl (35.1-43.9); Red Blood Count 5.75 M/mm3 (4.6-6.2); White Blood Count 3.8 K/mm3 (4.4-11.0)
[2017-12-12 11:05] LABS: POSITIVE COUNT NO; POSITIVE DIFFERENTIAL NO; POSITIVE MORPHOLOGY NO
[2017-12-12 11:47] LABS: ALB/GLOB Ratio 1.2 RATIO (0.9-2.4); AST(SGOT) 23 U/L (15-37); Alanine Aminotransfer ALT/SGPT 32 U/L (16-61); Albumin, Serum 3.8 g/dL (3.2-5.0); Alkaline Phosphatase 94 U/L (45-117); Anion Gap 6 (5-15); BUN 8 mg/dL (7-18); BUN/Creat Ratio 8.5 RATIO (10-20); Calcium,Total 8.6 mg/dL (8.5-10.1); Chloride 109 mmol/L (98-107); Creatinine, Serum 0.94 mg/dL (0.70-1.30); EST Glomerular Filtration Rate 89 mL/min (>60); Est Glom Filt Rate - Afr Amer 108 mL/min (>60); Ferritin 41 ng/mL (26-388); Globulin 3.1 g/dL (2.2-4.2); Glucose 80 mg/dL (74-106); Iron 98 ug/dL (65-175); Iron Binding Capacity,Total 324 ug/dL (250-450); Potassium 4.1 mmol/L (3.5-5.1); Protein, Total 6.9 g/dL (6.4-8.2); Sodium Level 143 mmol/L (136-145)
== END ==
PROVIDERS: Family Provider Family Medicine; PCP Family Medicine; Referring Provider Family Medicine; Visit Provider Family Medicine
DX: G25.81 Restless legs syndrome (principal)
CPT/HCPCS: 36415; 80053; 82728; 83540; 83550; 85025

== ENCOUNTER → 2017-12-19 07:20 | Outpatient (CLI) | payer BC, SELFPAY ==
[2017-12-19 08:38] LABS: Free T3 2.9 pg/mL (2.18-3.98); T4 Free Direct 1.17 ng/dL (0.76-1.46)
== END ==
PROVIDERS: Family Provider Family Medicine; PCP Family Medicine; Referring Provider Internal Medicine Endocrinology, Diabetes & Metabolism; Visit Provider Internal Medicine Endocrinology, Diabetes & Metabolism
DX: E03.8 Other specified hypothyroidism (principal)
CPT/HCPCS: 36415; 84439; 84443; 84481

== ENCOUNTER 2018-03-22 09:24 | Day surgery (SDC) | payer BC, SELFPAY ==
[2018-03-22 09:47] VITALS: BP 117/78; PULSE 73; RESP 18; TEMP 36.7; O2SAT 99; BMI 26.2
--- NOTE | 2018-03-22 10:43 | PCM.HP.STD ---
Problem List (1) Personal history of colonic polyps Status: Acute History of Present Illness Date of Admission: 03/22/18 The patient is a 52 year old M who presents with a personal history of colon polyps. His last colonoscopy was 3 years ago. Past Medical History Past Medical History (Chronic Problems): Chronic Problems Hypothyroidism (Chronic) Herniated cervical disc (Chronic) BMI 30.0-30.9,adult (Chronic) RLS (restless legs syndrome) (Chronic) MYNOR (obstructive sleep apnea) (Chronic) Hypertension (Chronic) Allergies NSAIDS (Non-Steroidal Anti-Inflamma Allergy (Verified 03/18/18 09:26) gi bleed Penicillins [PCN] Allergy (Verified 03/18/18 09:26) Unknown Home Medications: Ambulatory Orders Medication Instructions Recorded Levothyroxine Sodium 125 mcg PO DAILY 10/18/16 Ferrous Sulfate 325 mg PO BIDCM #28 tablet 11/16/16 Cholecalciferol (Vitamin D3) 2,000 unit PO MOWEFR 03/18/18 [Vitamin D3] Cyanocobalamin [Vitamin B12] 500 mcg PO DAILY@0800 03/18/18 Magnesium Oxide [Magnesium] 500 mg PO QHS 03/18/18 Smoking Status: Never smoker Tobacco Use: Non-smoker - *Family History Paternal History Items: Cancer - Father of throat cancer Maternal History Items: High Cholesterol Review of Systems Cardiovascular: Denies: Chest Pain, Chest Pressure, Chest Tightness, Palpitations Respiratory: Denies: Cough, Hemoptysis, Shortness of breath at rest, Shortness of breath upon exertion, Wheezing Gastrointestinal: Denies: Abdominal Pain, Constipation, Diarrhea, Hematemesis, Nausea, Melena, Vomiting VTE Information - Inpt Only VTE Present on Admission: No VTE Mechan Device Prophylaxis: None VTE Pharm Prophylaxis ordered?: No Reason prophylaxis not ordered:: Treatment Not Indicated Patient Problems: Active and Suspected Problems Personal history of colonic polyps (Acute) - Physical Exam General: Alert, Oriented x3 Lungs: Clear to auscultation Cardiovascular: Regular rate, Regular Rhythm, No murmurs Abdomen: Bowel Sounds Present, Soft, Non Tender, Non-Distended Vital Signs Temp Pulse Resp BP Pulse Ox 98.1 F 73 18 117/78 99 03/22/18 09:47 03/22/18 09:47 03/22/18 09:47 03/22/18 09:47 03/22/18 09:47 Oxygen Delivery Method Room Air Weight: 215 lb 2.738 oz Body Mass Index (BMI) 26.2 Assessment/Plan All Active Problems Personal history of colonic polyps (Acute) GI bleed due to NSAIDs (Acute) Hypovolemic shock (Acute) Anemia (Acute) Cellulitis (Acute) Phlebitis (Acute) Our plan will be to perform a colonoscopy. I have discussed with the patient the risk of the procedure including but not limited to: Bleeding, perforation requiring further surgery, inability to complete colonoscopy requiring a barium enema.
[2018-03-22 10:45] VITALS: BP 107/75; BP 117/78; PULSE 81; RESP 15; TEMP 36.2; O2SAT 96
--- NOTE | 2018-03-22 10:49 | OP.ENDO_ITS ---
Patient Name: Je Delcid Procedure Date: 03/22/2018 10:20 AM Date of : 1965 Age: 52 Procedure: Colonoscopy Indications: High risk colon cancer surveillance: Personal history of colonic polyps Providers: Hawk Boogie MD Medicines: See the Anesthesia note for documentation of the administered medications Patient Profile: This is a 52 year old male. Refer to note in patient chart for documentation of history and physical. Last Colonoscopy: 3 years ago. Complications: No immediate complications. Procedure: Pre-Anesthesia Assessment: - Prior to the procedure, a History and Physical was performed, and patient medications and allergies were reviewed. The patient's tolerance of previous anesthesia was also reviewed. The risks and benefits of the procedure and the sedation options and risks were discussed with the patient. All questions were answered, and informed consent was obtained. Prior Anticoagulants: The patient has taken no previous anticoagulant or antiplatelet agents. ASA Grade Assessment: II - A patient with mild systemic disease. After reviewing the risks and benefits, the patient was deemed in satisfactory condition to undergo the procedure. After I obtained informed consent, the scope was passed under direct vision. Throughout the procedure, the patient's blood pressure, pulse, and oxygen saturations were monitored continuously. The Colonoscope was introduced through the anus and advanced to the cecum, identified by appendiceal orifice and ileocecal valve. The colonoscopy was performed without difficulty. The patient tolerated the procedure well. The quality of the bowel preparation was good. Scope In: 10:30:05 AM Scope Withdrawal Time 0 hours 6 minutes 2 seconds Scope Out: 10:40:37 AM Total Procedure Duration Time 0 hours 10 minutes 32 seconds Findings: Multiple small and large-mouthed diverticula were found in the sigmoid colon. No biopsies or other specimens were collected for this exam. Non-bleeding internal hemorrhoids were found during retroflexion. The hemorrhoids were mild and small. The perianal and digital rectal examinations were normal. Pertinent negatives include normal prostate (size, shape, and consistency). Impression: - Diverticulosis in the sigmoid colon. No specimens collected. - Non-bleeding internal hemorrhoids. Recommendation: - Discharge patient to home. - Resume previous diet. - Continue present medications. - Repeat colonoscopy in 10 years for screening purposes. - Return to my office PRN. Procedure Code(s): --- Professional --- 64948, Colonoscopy, flexible; diagnostic, including collection of specimen(s) by brushing or washing, when performed (separate procedure) Diagnosis Code(s): --- Professional --- Z86.010, Personal history of colonic polyps K64.8, Other hemorrhoids K57.30, Diverticulosis of large intestine without perforation or abscess without bleeding CPT copyright 2017 [employer]. All rights reserved. The codes documented in this report are preliminary and upon fruit and vegetable parer review may be revised to meet current compliance requirements. MD Hawk Herring MD 03/22/2018 10:49:21 AM This report has been signed electronically. Number of Addenda: 0 Note Initiated On: 03/22/2018 10:20 AM
[2018-03-22 10:50] VITALS: BP 104/82; BP 117/78; PULSE 81; RESP 16; O2SAT 96
[2018-03-22 10:55] VITALS: BP 117/78; BP 122/83; PULSE 66; RESP 16; O2SAT 94
[2018-03-22 11:00] VITALS: BP 117/78; BP 126/87; PULSE 59; RESP 16; TEMP 36; O2SAT 97
[2018-03-22 11:22] VITALS: BP 117/78
== END 2018-03-22 11:36 | disposition home or self-care (01) ==
LOC: EN 09:24 → AC 09:26
PROVIDERS: Family Provider Family Medicine; PCP Family Medicine; Referring Provider Surgery; Visit Provider Surgery
PROC: 0DJD8ZZ Inspection of Lower Intestinal Tract, Via Natural or Artificial Opening Endoscopic (ICD-10-PCS; CPT 45378; principal; 2018-03-22 10:25)
DX: K57.30 Diverticulosis of large intestine without perforation or abscess without bleeding (principal); K64.8 Other hemorrhoids; Z86.010 Personal history of colon polyps; E03.9 Hypothyroidism, unspecified; G47.33 Obstructive sleep apnea (adult) (pediatric); D64.9 Anemia, unspecified; Z86.73 Personal history of transient ischemic attack (TIA), and cerebral infarction without residual deficits; Z79.899 Other long term (current) drug therapy
CPT/HCPCS: 45378; J7120

== ENCOUNTER → 2018-04-09 08:27 | Outpatient (CLI) | payer BC, SELFPAY ==
[2018-03-22 09:47] VITALS: BMI 26.2
[2018-04-09 10:02] LABS: Vitamin D,25 Hydroxy 40.1 ng/mL (29.95-100.01)
[2018-04-09 10:05] LABS: ALB/GLOB Ratio 1.1 RATIO (0.9-2.4); AST(SGOT) 19 U/L (15-37); Alanine Aminotransfer ALT/SGPT 31 U/L (16-61); Albumin, Serum 3.7 g/dL (3.2-5.0); Alkaline Phosphatase 91 U/L (45-117); Anion Gap 8 (5-15); BUN 7 mg/dL (7-18); BUN/Creat Ratio 7.3 RATIO (10-20); Calcium,Total 8.5 mg/dL (8.5-10.1); Chloride 110 mmol/L (98-107); Creatinine, Serum 0.96 mg/dL (0.70-1.30); EST Glomerular Filtration Rate 86 mL/min (>60); Est Glom Filt Rate - Afr Amer 104 mL/min (>60); Free T3 3.1 pg/mL (2.18-3.98); Globulin 3.3 g/dL (2.2-4.2); Glucose 86 mg/dL (74-106); Potassium 4.1 mmol/L (3.5-5.1); Sodium Level 143 mmol/L (136-145); T4 Free Direct 1.26 ng/dL (0.76-1.46); Thyroid Stim Hormone (TSH) 1.17 uIU/mL (0.358-3.74)
[2018-04-13 20:09] LABS: Thyroid Peroxidase AB 104 IU/mL (0-34)
[2018-04-14 10:44] LABS: Thyroglobulin Antibody 3.6 IU/mL (0.0-0.9)
== END ==
PROVIDERS: Family Provider Family Medicine; PCP Family Medicine; Referring Provider Internal Medicine Endocrinology, Diabetes & Metabolism; Visit Provider Internal Medicine Endocrinology, Diabetes & Metabolism
DX: E03.8 Other specified hypothyroidism (principal); E78.2 Mixed hyperlipidemia; E04.2 Nontoxic multinodular goiter; E55.9 Vitamin D deficiency, unspecified
CPT/HCPCS: 36415; 80053; 82306; 84439; 84443; 84481; 86376; 86800

== ENCOUNTER → 2018-05-10 16:34 | Outpatient (CLI) | payer BC, SELFPAY ==
[2018-05-10 17:32] LABS: Absolute Lymphocyte Count 1.25 X10^3/ul (0.83-4.51); Absolute Neutrophil Count 3.9 X10^3/uL (2.0-7.7); Basophil# 0.04 X10^3/uL; Basophil% 0.7 % (0-1); Eosinophil# 0.18 X10^3/uL; Eosinophils% 3.1 % (0-5); Hematocrit 47.2 % (40-54); Hemoglobin 15.5 g/dl (13.0-16.5); Lymphocyte # 1.25 X10^3/ul (4.0); Lymphocyte % 21.3 % (19-41); Mean Corp Hgb Conc 32.8 g/gl (32-36); Mean Corpuscular Hgb 26.9 pg (27.0-32.0); Mean Corpuscular Volume 81.9 fL (80-94); Monocyte# 0.45 X10^3/uL; Monocyte% 7.7 % (0-10); Neutrophil # 3.94 X10^3/uL (2.7-7.7); Platelet Count 266 K/mm3 (150-450); RBC Distribution Width SD 38.9 fl (35.1-43.9); Red Blood Count 5.76 M/mm3 (4.6-6.2); White Blood Count 5.9 K/mm3 (4.4-11.0)
[2018-05-10 17:33] LABS: POSITIVE COUNT NO; POSITIVE DIFFERENTIAL NO; POSITIVE MORPHOLOGY NO
[2018-05-10 17:50] LABS: Ferritin 69 ng/mL (26-388); Iron 53 ug/dL (65-175); Iron Binding Capacity,Total 315 ug/dL (250-450)
== END ==
PROVIDERS: Family Provider Family Medicine; PCP Family Medicine; Referring Provider Family Medicine; Visit Provider Family Medicine
DX: D64.9 Anemia, unspecified (principal)
CPT/HCPCS: 36415; 82728; 83540; 83550; 85025

== ENCOUNTER → 2018-06-11 | Outpatient (CLI) | payer BC, SELFPAY ==
--- NOTE | 2018-06-11 16:57 | RAD_ITS ---
STUDY: X-RAY - RIGHT KNEE REASON FOR EXAM: Male, 52 years old. Right knee pain TECHNIQUE: 4 view(s) of the knee. COMPARISON: None. FINDINGS: There is a small bony protrusions of the medial femoral condyle likely representing an osteochondroma. Normal visualized proximal tibia and fibula. Normal proximal tibiofibular articulation. Normal medial femorotibial compartment. Normal lateral femorotibial compartment. Normal patellofemoral articulation. There is no demonstrated joint effusion. The soft tissue structures are unremarkable. RAD/Knee 4 or More Views IMPRESSION: Small medial femoral osteochondroma. Otherwise normal. Electronically Signed: Jayden Burger MD at 17:23 EDT , Service support ,
== END | disposition home or self-care (01) ==
LOC: MTRAD 16:56
PROVIDERS: Family Provider Family Medicine; PCP Family Medicine; Referring Provider Family Medicine; Visit Provider Family Medicine
DX: M25.561 Pain in right knee (principal)
CPT/HCPCS: 73564

== ENCOUNTER 2018-08-05 20:18 | Observation (INO) | payer BC, SELFPAY ==
[2018-08-05] VITALS (10 sets, daily range): BP systolic 111–150; BP diastolic 73–94; PULSE 51–68; RESP 14–18; TEMP 36.4–36.7; O2SAT 93–99; BMI 27.3; BMI 27.1
--- NOTE | 2018-08-05 20:24 | EKG12_ITS ---
Test Reason : CP ADMIT Blood Pressure : / mmHG Vent. Rate : 051 BPM Atrial Rate : 051 BPM P-R Int : 214 ms QRS Dur : 102 ms QT Int : 434 ms P-R-T Axes : 054 039 040 degrees QTc Int : 400 ms Sinus bradycardia with 1st degree A-V block Early repolarization Otherwise normal ECG When compared with ECG of 05-AUG-2018 20:24, MANUAL COMPARISON REQUIRED, DATA IS UNCONFIRMED Confirmed by ZACHARY CARDONA ([id number]), research editor RONDA MALDONADO ([id number]) on 08/09/2018 1:37:16 PM Referred By: Amilcar Sandoval Confirmed By:ANTONIA CARDONA
--- NOTE | 2018-08-05 20:24 | RAD_ITS ---
STUDY: X-RAY CHEST REASON FOR EXAM: Male, 52 years old. Chest pain TECHNIQUE: Frontal view of the chest COMPARISON: 11/08/2016 FINDINGS: The lungs are clear. There are no pleural effusions. There is no pneumothorax. The heart is normal in size. The visualized osseous structures are within normal limits. RAD/Chest 1 View (Portable) IMPRESSION: No acute thoracic pathology. Electronically Signed: Jorgito Munoz, at 20:58 EDT Tel , Service support ,
[2018-08-05 20:43] LABS: Absolute Lymphocyte Count 1.73 X10^3/ul (0.83-4.51); Absolute Neutrophil Count 2.3 X10^3/uL (2.0-7.7); Basophil# 0.05 X10^3/uL; Eosinophil# 0.22 X10^3/uL; Eosinophils% 4.5 % (0-5); Hematocrit 48.2 % (40-54); Hemoglobin 16.1 g/dl (13.0-16.5); Lymphocyte # 1.73 X10^3/ul (4.0); Lymphocyte % 35.2 % (19-41); Mean Corp Hgb Conc 33.4 g/gl (32-36); Mean Corpuscular Hgb 27.8 pg (27.0-32.0); Mean Corpuscular Volume 83.1 fL (80-94); Mean Platelet Vol. 8.7 fl (6.2-12.0); Monocyte# 0.65 X10^3/uL; Monocyte% 13.2 % (0-10); Neutrophil # 2.25 X10^3/uL (2.7-7.7); Neutrophil % 45.9 % (47-70); POSITIVE COUNT NO; POSITIVE DIFFERENTIAL NO; POSITIVE MORPHOLOGY NO; Platelet Count 188 K/mm3 (150-450); RBC Distribution Width CV 12.9 % (11.6-14.6); RBC Distribution Width SD 38.7 fl (35.1-43.9); White Blood Count 4.9 K/mm3 (4.4-11.0)
[2018-08-05] MEDS: Ondansetron 4 MG/2 ML Vial IV (20:50)
[2018-08-05] MEDS: Morphine 4 MG/ML Syringe IV (20:50)
[2018-08-05] MEDS: 0.9% Normal Saline 1,000 ML 150 ML IV (20:50)
[2018-08-05 20:55] LABS: Anion Gap 1 (5-15); BUN 9 mg/dL (7-18); BUN/Creat Ratio 9.1 RATIO (10-20); Calcium,Total 8.9 mg/dL (8.5-10.1); Chloride 108 mmol/L (98-107); Creatinine, Serum 0.99 mg/dL (0.70-1.30); EST Glomerular Filtration Rate 84 mL/min (>60); Est Glom Filt Rate - Afr Amer 102 mL/min (>60); Estimated Creatinine Clearance 104.73 ml/min; Glucose 75 mg/dL (74-106); Potassium 4.1 mmol/L (3.5-5.1); Sodium Level 140 mmol/L (136-145)
--- NOTE | 2018-08-05 21:57 | ED.DCSUM_ITS ---
- ER Visit Summary Date of Service: 08/05/18 Chief Complaint: Chest pain History of Present Illness: The patient is a 52 M with chest tightness and pressure that started around 630 tonight. Patient states he developed dizziness last night after he been working outside. He felt okay today. He got chest and jaw pressure this evening. He did not get short of breath or break out in a sweat. He has no known history of cardiac disease. Patient did have hypovolemic shock after a GI bleed in the past requiring CPR. He has never had a stress test or heart cath. Physical Examination: Vital signs remarkable only for heart rate of 55. Patient sitting upright in bed no acute distress. Head and neck examination unremarkable. Heart is regular rate and rhythm. Lung sounds are clear with no reproducible chest wall tenderness. Abdomen is soft and nontender. Extremity examination was no calf tenderness or edema. Test Results: EKG is sinus bradycardia at 56 bpm with no acute ischemia. Portable chest x-ray shows no acute disease. CBC and chemistry studies normal. Troponin less than 0.015. Emergency Department Course and Treatment: Patient refused aspirin secondary to his prior GI bleed. He was given morphine and Zofran. At this time patient be admitted for cycling of cardiac enzymes and probable stress test. Test results were discussed with patient and at bedside. They are in agreement with the plan. Treatment Plan: [] Disposition: Admit Impression: Chest pain This note was generated with [employer] dictation software. It may contain incorrect words, spelling, and punctuation that were not noted in review of the chart prior to signing ED Disposition - Plan for ED Patient: Referrals: Amilcar Sandoval MD [Primary Care Provider] -
--- NOTE | 2018-08-05 22:27 | HP.PCM_ITS ---
Problem List (1) Hypothyroidism Status: Chronic (2) RLS (restless legs syndrome) Status: Chronic History of Present Illness Date of Admission: 08/05/18 Chief Complaint: chest Pain The patient is a 52 year old M with a significant history of MYNOR; hypothyroidism and restless leg syndrome who presented to the emergency department with chest pain that started on the same day of presentation.. He describes his chest pain as a tightness at his upper chest radiating to his bilateral neck; throat; and his bilateral jaw. He describes a feeling of needing to burp but with an inability to burp. He rates his chest pain as 5 out of 10. His chest pain is constant. However his chest pain had disappeared at the time of examination only that he had pain in his bilateral neck and throat. He denies any aggravating or ameliorating factors to the chest pain. He denies any associated diaphoresis; nausea or vomiting. Importantly a day before presenting to the ER with he looked pale; weak and felt lightheaded after a yard work. Per his his blood pressure was about 120/53 and his is low compared to his usual blood pressure. His thinks that his baseline blood pressure is above this range; but she thinks it is appropriate baseline blood pressure. Further, his reports that 2 weeks ago patient felt faint after working in the sun. Patient has a history of GI bleed secondary to NSAIDs use and leading to hypovolemic shock requiring CPR. Because of this history of GI bleed patient does not take NSAIDs. At emergency department he refused aspirin because of his history of GI bleed. Past Medical History Past Medical History (Chronic Problems): Chronic Problems Hypothyroidism (Chronic) Herniated cervical disc (Chronic) BMI 30.0-30.9,adult (Chronic) RLS (restless legs syndrome) (Chronic) MYNOR (obstructive sleep apnea) (Chronic) Hypertension (Chronic) Allergies NSAIDS (Non-Steroidal Anti-Inflamma Allergy (Verified 08/05/18 20:19) gi bleed Penicillins [PCN] Allergy (Verified 08/05/18 20:19) Unknown Home Medications: Ambulatory Orders Medication Instructions Recorded Levothyroxine Sodium 125 mcg PO DAILY 10/18/16 Surgical History: herniorrhaphy, - - Varicose vein surgery; knee surgery; wrist surgery. Lives: With Family Smoking Status: Never smoker Alcohol: None - *Family History Paternal History Items: Cancer - Father of throat cancer Maternal History Items: High Cholesterol, Hypertension, - - His mother had phlebitis. Review of Systems Constitutional: Denies: Chills, Fever, Weight Change HEENT: Denies: Head Aches, Sinus Congestion, Sinus Drainage Cardiovascular: Reports: Chest Tightness, Light Headedness. Denies: Palpitations Respiratory: Denies: Cough, Shortness of breath at rest, Sputum production Gastrointestinal: Denies: Abdominal Pain, Nausea, Vomiting Genitourinary: Denies: Dysuria Musculoskeletal: Reports: Neck Pain. Denies: Joint Pain, Joint Tenderness Skin: Denies: Rash, Wounds Neurological: Denies: Numbness, Tingling, Focal weakness Psychiatric: Denies: Anxiety, Depression, Homicidal Ideations, Suicidal Ideations Hematologic/ Lymphatic: Denies: Easy Bruising, Easy Bleeding VTE Information - Inpt Only VTE Present on Admission: No VTE Mechan Device Prophylaxis: None VTE Pharm Prophylaxis ordered?: Yes - Physical Exam General: Alert, Oriented x3, Cooperative HEENT: Atraumatic, PERRLA, EOMI, Normocephalic Neck: Supple, No JVD, Negative Carotid Bruits Lungs: Clear to auscultation, Normal air movement Cardiovascular: Normal S1, Normal S2, No murmurs, Bradycardic Abdomen: Bowel Sounds Present, Soft, Non Tender Extremities: No edema, Capillary Refill Less than 3 Seconds Skin: No rashes, No breakdown Musculoskeletal: No Tenderness to Palpation of Joints or Extremities Neurological: Cranial nerves II-XII grossly intact Psych/Mental Status: Normal Affect, Appropriate Vital Signs Temp Pulse Resp BP Pulse Ox 98.1 F 59 L 18 116/83 H 98 08/05/18 20:19 08/05/18 21:18 08/05/18 21:18 08/05/18 21:18 08/05/18 21:18 Oxygen Flow Rate (L/min) 2 Oxygen Delivery Method Nasal Cannula Weight: 102 kg Body Mass Index (BMI) 27.3 Laboratory Tests Past 24 Hrs 08/05/18 08/05/18 20:20 20:20 WBC 4.9 RBC 5.80 Hgb 16.1 Hct 48.2 MCV 83.1 MCH 27.8 MCHC 33.4 RDW 12.9 RDW Differential 38.7 Plt Count 188 MPV 8.7 Immature Gran % (Auto) 0.200 Neut % (Auto) 45.9 L Lymph % (Auto) 35.2 Sullivan % (Auto) 13.2 H Eos % (Auto) 4.5 Baso % (Auto) 1.0 Absolute Neuts (auto) 2.3 Absolute Lymphs (auto) 1.73 Total Counted Not Reportable Sodium 140 Potassium 4.1 Chloride 108 H Carbon Dioxide 31.0 Anion Gap 1 L BUN 9 Creatinine 0.99 Estim Creat Clear Calc 104.73 Est GFR (MDRD) Af Amer 102 Est GFR (MDRD) Non-Af 84 BUN/Creatinine Ratio 9.1 L Glucose 75 Calcium 8.9 Troponin I < 0.015 Assessment/Plan All Active Problems Personal history of colonic polyps (Acute) GI bleed due to NSAIDs (Acute) Hypovolemic shock (Acute) Anemia (Acute) Cellulitis (Acute) Phlebitis (Acute) The patient is a 52 year old M with a significant history of MYNOR; hypothyroidism; and restless leg syndrome who presented to the emergency department with chest pain. Chest pain CXR independently reviewed confirms no acute cardiopulmonary process. EKG independently reviewed confirms sinus bradycardia with tall T waves. His ventricular rate was 56. Patient refused aspirin because of history of GI bleed with NSAIDs. SL NTG 0.4 mg prn as needed for chest pain Morphine as needed for pain We will check lipid panel. High intensity statin ordered His first troponin was negative. Serial cardiac enzymes ordered Stat EKG as needed for chest pain Treadmill stress test in the AM if the cardiac enzymes are negative Of note patient denies history of hypertension although hypertension is listed on his problem list in EMR. Hypothyroidism Synthroid continued DVT prophylaxis Subcutaneous Lovenox. Code Visit OBSV E&M: [id number] Initial observation care L3
--- NOTE | 2018-08-05 23:35 | EKG12_ITS ---
Test Reason : CP Blood Pressure : / mmHG Vent. Rate : 056 BPM Atrial Rate : 056 BPM P-R Int : 192 ms QRS Dur : 092 ms QT Int : 396 ms P-R-T Axes : 054 051 053 degrees QTc Int : 382 ms Sinus bradycardia Early repolarization Otherwise normal ECG Confirmed by ZACHARY CARDONA ([id number]), news editor RONDA MALDONADO ([id number]) on 08/09/2018 1:27:16 PM Referred By: ED PHYSICIAN Confirmed By:ANTONIA CARDONA
[2018-08-06 03:05] VITALS: PULSE 61
[2018-08-06 04:12] LABS: Absolute Lymphocyte Count 2.06 X10^3/ul (0.83-4.51); Absolute Neutrophil Count 1.6 X10^3/uL (2.0-7.7); Basophil# 0.05 X10^3/uL; Basophil% 1.1 % (0-1); Eosinophil# 0.23 X10^3/uL; Eosinophils% 5.1 % (0-5); Hematocrit 44.7 % (40-54); Hemoglobin 15.1 g/dl (13.0-16.5); Lymphocyte # 2.06 X10^3/ul (4.0); Lymphocyte % 45.4 % (19-41); Mean Corp Hgb Conc 33.8 g/gl (32-36); Mean Corpuscular Hgb 27.9 pg (27.0-32.0); Mean Corpuscular Volume 82.5 fL (80-94); Mean Platelet Vol. 9.3 fl (6.2-12.0); Monocyte# 0.56 X10^3/uL; Monocyte% 12.3 % (0-10); Neutrophil # 1.64 X10^3/uL (2.7-7.7); Neutrophil % 36.1 % (47-70); Platelet Count 175 K/mm3 (150-450); RBC Distribution Width CV 12.8 % (11.6-14.6); RBC Distribution Width SD 38.4 fl (35.1-43.9); Red Blood Count 5.42 M/mm3 (4.6-6.2); White Blood Count 4.5 K/mm3 (4.4-11.0)
[2018-08-06 04:13] LABS: POSITIVE COUNT NO; POSITIVE DIFFERENTIAL NO; POSITIVE MORPHOLOGY NO
[2018-08-06 04:14] LABS: Cholesterol 165 mg/dL (200); High Density Lipoprotein 31 mg/dL; Triglycerides 264 mg/dL; Very Low Density Lipoprotein 53 mg/dL (5-40)
[2018-08-06 04:16] LABS: Partial Thromboplast Time 30.9 Seconds (24.1-36.2); Prothrombin Time (Protime)PT. 13.3 SECONDS (11.7-14.9)
[2018-08-06 04:19] LABS: Anion Gap 6 (5-15); BUN 8 mg/dL (7-18); BUN/Creat Ratio 9.4 RATIO (10-20); Calcium,Total 8.4 mg/dL (8.5-10.1); Chloride 111 mmol/L (98-107); Creatinine, Serum 0.85 mg/dL (0.70-1.30); EST Glomerular Filtration Rate 100 mL/min (>60); Est Glom Filt Rate - Afr Amer 121 mL/min (>60); Estimated Creatinine Clearance 121.97 ml/min; Glucose 105 mg/dL (74-106); Potassium 3.8 mmol/L (3.5-5.1); Sodium Level 144 mmol/L (136-145)
[2018-08-06 05:22] VITALS: BP 121/69; PULSE 60; RESP 16; TEMP 36.6; O2SAT 98
[2018-08-06] MEDS: Levothyroxine 125 MCG Tablet PO (05:26)
--- NOTE | 2018-08-06 05:55 | EKG12_ITS ---
Test Reason : AM EKG Blood Pressure : / mmHG Vent. Rate : 062 BPM Atrial Rate : 062 BPM P-R Int : 208 ms QRS Dur : 100 ms QT Int : 396 ms P-R-T Axes : 027 036 031 degrees QTc Int : 401 ms Normal sinus rhythm Normal ECG When compared with ECG of 05-AUG-2018 23:40, MANUAL COMPARISON REQUIRED, DATA IS UNCONFIRMED Confirmed by ZACHARY CARDONA ([id number]), medical transcription editor RONDA MALDONADO ([id number]) on 08/09/2018 1:36:24 PM Referred By: DR ORELLANA Confirmed By:ANTONIA CARDONA
[2018-08-06 08:36] VITALS: PULSE 82
[2018-08-06 11:05] VITALS: BP 103/67; PULSE 66; RESP 16; TEMP 36.9; O2SAT 98
--- NOTE | 2018-08-06 11:07 | STRESSREP_ITS ---
Stress Test Report Date: August 06, 2018 Procedure: Exercise tolerance test/imaging study Indications: Chest pain Consent: Per the patient Procedure: The patient exercised on a Julio protocol for 11 minutes achieving a peak heart rate of 179 bpm (107 % predicted maximal heart rate) with a peak blood pressure 172/88 mmHg and a peak MET capacity of 13.4 METs. The baseline ECG demonstrated normal sinus rhythm nonspecific ST-T changes. The peak exercise ECG demonstrated sinus tachycardia with about [address] depression in the lateral leads. EKG during recovery revealed no significant ischemic changes. [There were no cardiac dysrhythmias pretest, during exercise, or recovery]. The functional capacity was considered above average for age. Towards the end of the test patient had some dizziness, tightness in upper chest which was described as mild and shortness of breath. The examination was discontinued secondary to symptoms described above. Impression: 1. Technically adequate (percent predicted maximal heart rate greater than 85%) exercise tolerance test 2. Stress test is negative for exercise-induced EKG changes of ischemia 3. The test test positive for exercise-induced chest pain at peak exertion. 4. Functional capacity is above average for age 5. Nuclear images pending Myocardial perfusion imaging study: Technique: The patient was injected with 14.5 mCi of technetium 99m Cardiolite and subsequently rest SPECT Cardiolite nuclear imaging was obtained in the horizontal long, vertical long, and short axis views. The patient exercised on a Julio protocol. Please see above for details. The patient was injected with 44.8 mCi of technetium 99m Cardiolite and subsequently stress SPECT Cardiolite n uclear imaging was obtained in the horizontal long, vertical long, and short axis views. A gated Cardiolite study at peak stress was obtained. Interpretation: Rest and stress SPECT Cardiolite nuclear imaging status post realignment, normalization, and attenuation correction, demonstrates normal myocardial radioisotope uptake on both the rest and stress images. The gated Cardiolite study demonstrates no regional wall motion abnormalities. The reported LVEF is 69 %. Impression: 1. There is no evidence of significant ischemia or infarction. 2. The gated Cardiolite study reports an LVEF of 69 %. This note was generated with [employer] software. It may contain incorrect words, spelling, and punctuation that were not noted in checking the note before signing.
--- NOTE | 2018-08-06 11:25 | DCINST_ITS ---
You will use the following diet at home:: Regular Your food should be the consistency of: Regular Discharge Activity: Return to Normal Activity Weight Bearing Status: Full weight bearing Call your doctor if you observe: Fever of 101 or Higher, Shortness of breath, Dizziness, Fainting spells, Chest pain, Increased palpitations (irregular heartbeat), Uncontrolled pain Allergies/Adverse Reactions: Allergies NSAIDS (Non-Steroidal Anti-Inflamma Allergy (Verified 08/05/18 20:19) gi bleed Penicillins [PCN] Allergy (Verified 08/05/18 20:19) Unknown Medications to take at Discharge Levothyroxine Sodium 125 mcg PO DAILY@0500 10/18/16 Primary Care Physician: Amilcar Sandoval MD [Primary Care Provider] - Please follow up with your Primary Care Physician in: 2-4 weeks. Test Results: Test results from this visit will be discussed in further detail at your follow- up appointment, if applicable.
--- NOTE | 2018-08-06 11:29 | DS.PCM_ITS ---
Discharge Date and Diagnosis Date of Admission: 08/05/18 Date of Discharge: 08/06/18 - Primary Discharge Diagnosis Atypical chest pain, ACS ruled out. - Secondary Discharge Diagnosis Chronic Problems Hypothyroidism (Chronic) Herniated cervical disc (Chronic) BMI 30.0-30.9,adult (Chronic) RLS (restless legs syndrome) (Chronic) MYNOR (obstructive sleep apnea) (Chronic) Hypertension (Chronic) Hospital Course and Treatment Imaging Results: 08/06/18 05:55 Nuclear Stress Test - Treadmil [NM] AM (NON MEDS) Clinical Impression(s) from Imaging Studies Chest X-Ray 08/05/18 20:24 IMPRESSION: No acute thoracic pathology. Electronically Signed: Jorgito Munoz, at 20:58 EDT Tel , Service support , Operations: None Procedures: EKG, Stress test Summary of Care Provided: Patient seen and examined on the day of discharge and appeared to be stable to be discharged home. Chest discomfort and pain improved and he mentioned that he had some chest tightness during the stress test. His vital signs are stable. The patient is a 52 year old M admitted because of chest pain for evaluation. His mentioned that he has been having intermittent episodes of dizziness lately. His initial EKG revealed normal sinus rhythm, without evidence of acute ischemic changes. Patient had bradycardia and his heart rate was in the high 50s but he was asymptomatic. His troponin was negative x3. Chest x-ray showed no acute findings. Routine blood work was unremarkable. Lipid profile revealed total cholesterol of 165, LDL cholesterol of 81, HDL cholesterol of 31 and his triglyceride was 264. He underwent nuclear stress test that showed no evidence of stress-induced myocardial ischemia with preserved ejection fraction. ACS ruled out. His symptoms is difficult to explain but could be due to musculoskeletal pain. Patient discharged home in a stable medical condition, discharged on his previous home medication without any changes, recommended low- fat diet to reduce his triglycerides, recommended to check his pulse when he gets those dizzy spells, I recommended follow-up with PCP in 2 to 4 weeks. - Physical Exam General: Alert, Oriented x3, Cooperative, No apparent distress HEENT: Atraumatic, PERRLA, EOMI, Normocephalic Oral: Moist Mucosa, No Gingival or Mucosal Lesions/ Ulcerations Neck: Supple, No JVD, Negative Carotid Bruits, Trachea Midline, Thyroid Normal Size and Texture Lungs: Clear to auscultation, Normal air movement, No rhonchi, No wheeze, No rales Cardiovascular: Regular rate, Regular Rhythm, Normal S1, Normal S2, No murmurs Abdomen: Bowel Sounds Present, Soft, Non Tender, Non-Distended, No Hepato- splenomegaly Extremities: No clubbing, No cyanosis, No edema Skin: No rashes, No breakdown Lymphatic: No Cervical, Supraclavicular, or Inguinal Adenopathy Neurological: Cranial nerves II-XII grossly intact, Neuro grossly intact Psych/Mental Status: Normal Affect, Appropriate Vital Signs Temp Pulse Resp BP Pulse Ox 98.5 F 66 16 103/67 98 08/06/18 11:05 08/06/18 11:05 08/06/18 11:05 08/06/18 11:05 08/06/18 11:05 Oxygen Flow Rate (L/min) 2 Oxygen Delivery Method Room Air Weight: 222 lb 14.197 oz Body Mass Index (BMI) 27.1 Intake and Output for Last 24 Hours 08/04/18 08/05/18 08/06/18 23:59 23:59 23:59 Intake Total 240 / 240 Balance 240 / 240 Laboratory Tests Past 24 Hrs 08/05/18 08/05/18 08/06/18 20:20 20:20 00:05 WBC 4.9 RBC 5.80 Hgb 16.1 Hct 48.2 MCV 83.1 MCH 27.8 MCHC 33.4 RDW 12.9 RDW Differential 38.7 Plt Count 188 MPV 8.7 Immature Gran % (Auto) 0.200 Neut % (Auto) 45.9 L Lymph % (Auto) 35.2 [place] % (Auto) 13.2 H Eos % (Auto) 4.5 Baso % (Auto) 1.0 Absolute Neuts (auto) 2.3 Absolute Lymphs (auto) 1.73 Total Counted Not Reportable PT INR APTT Sodium 140 Potassium 4.1 Chloride 108 H Carbon Dioxide 31.0 Anion Gap 1 L BUN 9 Creatinine 0.99 Estim Creat Clear Calc 104.73 Est GFR (MDRD) Af Amer 102 Est GFR (MDRD) Non-Af 84 BUN/Creatinine Ratio 9.1 L Glucose 75 Calcium 8.9 Troponin I < 0.015 < 0.015 Triglycerides Cholesterol LDL Cholesterol VLDL Cholesterol HDL Cholesterol 08/06/18 08/06/18 08/06/18 03:10 03:10 03:10 WBC 4.5 RBC 5.42 Hgb 15.1 Hct 44.7 MCV 82.5 MCH 27.9 MCHC 33.8 RDW 12.8 RDW Differential 38.4 Plt Count 175 MPV 9.3 Immature Gran % (Auto) 0.000 Neut % (Auto) 36.1 L Lymph % (Auto) 45.4 H [place] % (Auto) 12.3 H Eos % (Auto) 5.1 H Baso % (Auto) 1.1 H Absolute Neuts (auto) 1.6 L Absolute Lymphs (auto) 2.06 Total Counted Not Reportable PT 13.3 INR 1.0 APTT 30.9 Sodium Potassium Chloride Carbon Dioxide Anion Gap BUN Creatinine Estim Creat Clear Calc Est GFR (MDRD) Af Amer Est GFR (MDRD) Non-Af BUN/Creatinine Ratio Glucose Calcium Troponin I < 0.015 Triglycerides 264 H Cholesterol 165 LDL Cholesterol 81 VLDL Cholesterol 53 H HDL Cholesterol 31 L 08/06/18 03:10 WBC RBC Hgb Hct MCV MCH MCHC RDW RDW Differential Plt Count MPV Immature Gran % (Auto) Neut % (Auto) Lymph % (Auto) [place] % (Auto) Eos % (Auto) Baso % (Auto) Absolute Neuts (auto) Absolute Lymphs (auto) Total Counted PT INR APTT Sodium 144 Potassium 3.8 Chloride 111 H Carbon Dioxide 27.0 Anion Gap 6 BUN 8 Creatinine 0.85 Estim Creat Clear Calc 121.97 Est GFR (MDRD) Af Amer 121 Est GFR (MDRD) Non-Af 100 BUN/Creatinine Ratio 9.4 L Glucose 105 Calcium 8.4 L Troponin I Triglycerides Cholesterol LDL Cholesterol VLDL Cholesterol HDL Cholesterol Discharge Activity: Return to Normal Activity Weight Bearing Status: Full weight bearing Call your doctor if you observe: Fever of 101 or Higher, Shortness of breath, Dizziness, Fainting spells, Chest pain, Increased palpitations (irregular heartbeat), Uncontrolled pain Home Medications: Medications to take at Discharge Levothyroxine Sodium 125 mcg PO DAILY@0500 10/18/16 Primary Care Physician: Amilcar Sandoval MD [Primary Care Provider] - Please follow up with your Primary Care Physician in: 2-4 weeks. Disposition: Home Minutes spent on discharge:: 23 Patient Condition:: Stable Medical Necessity - Tobacco Use Smoking Status: Never smoker Meaningful Use Info Meaningful Use Diagnoses (Choose all that apply): None applicable Code Visit OBSV E&M: 96386 Observation care discharge
[2018-08-06 11:49] VITALS: BP 103/67; PULSE 66; RESP 16; TEMP 36.9; O2SAT 98
== END 2018-08-06 11:25 | disposition home or self-care (01) ==
LOC: ED 21:06 → PCU 23:05
PROVIDERS: Admitting Provider Hospitalist; Emergency Provider Emergency Medicine; Family Provider Family Medicine; PCP Family Medicine; Visit Provider Hospitalist
DX: R07.89 Other chest pain (principal); R42 Dizziness and giddiness; R00.1 Bradycardia, unspecified; E03.9 Hypothyroidism, unspecified; G25.81 Restless legs syndrome; G47.33 Obstructive sleep apnea (adult) (pediatric); Z79.899 Other long term (current) drug therapy; I10 Essential (primary) hypertension; M50.20 Other cervical disc displacement, unspecified cervical region
CPT/HCPCS: 36415; 71045; 78452; 80048; 80061; 84484; 85025; 85610; 85730; 93005; 93017; 96361; 96374; 96375; 99218; 99285; A9500; J7030; A4216; G0378; J2405

== ENCOUNTER → 2018-08-05 | Outpatient (CLI) | payer BC, SELFPAY ==
[2018-08-05 08:27] LABS: Iron 74 ug/dL (65-175); Magnesium 2.3 mg/dL (1.6-2.6); Thyroid Stim Hormone (TSH) 1.35 uIU/mL (0.358-3.74)
[2018-08-05 15:07] LABS: Vitamin B12 669 pg/mL (211-911)
== END | disposition home or self-care (01) ==
LOC: LAB 06:39
PROVIDERS: Family Provider Family Medicine; PCP Family Medicine; Referring Provider Family Medicine; Visit Provider Family Medicine
DX: G25.81 Restless legs syndrome (principal)
CPT/HCPCS: 36415; 82607; 82746; 83540; 83735; 84443

== ENCOUNTER → 2018-09-24 | Outpatient (CLI) | payer BC, SELFPAY ==
[2018-08-05 23:47] VITALS: BMI 27.1
[2018-09-24 07:45] LABS: ALB/GLOB Ratio 1.2 RATIO (0.9-2.4); AST(SGOT) 18 U/L (15-37); Alanine Aminotransfer ALT/SGPT 30 U/L (16-61); Albumin, Serum 3.8 g/dL (3.2-5.0); Alkaline Phosphatase 84 U/L (45-117); Anion Gap 9 (5-15); BUN 12 mg/dL (7-18); BUN/Creat Ratio 12.6 RATIO (10-20); Calcium,Total 8.5 mg/dL (8.5-10.1); Chloride 110 mmol/L (98-107); Creatinine, Serum 0.95 mg/dL (0.70-1.30); EST Glomerular Filtration Rate 87 mL/min (>60); Est Glom Filt Rate - Afr Amer 106 mL/min (>60); Globulin 3.3 g/dL (2.2-4.2); Glucose 84 mg/dL (74-106); Luteinizing Hormone 9.4 mIU/mL; Prolactin 11.2 ng/mL; Protein, Total 7.1 g/dL (6.4-8.2); Sodium Level 145 mmol/L (136-145); T4 Free Direct 1.22 ng/dL (0.76-1.46)
[2018-09-27 14:31] LABS: Testosterone, Free 15.13 ng/dL (5.00-21.00)
[2018-09-28 17:15] LABS: Testosterone, % Free 2.86 % (1.50-4.20); Testosterone, Total 529 ng/dL (264-916)
== END | disposition home or self-care (01) ==
LOC: LAB.FUTURE 06:04
PROVIDERS: Family Provider Family Medicine; PCP Family Medicine; Referring Provider Internal Medicine Endocrinology, Diabetes & Metabolism; Visit Provider Internal Medicine Endocrinology, Diabetes & Metabolism
DX: E03.8 Other specified hypothyroidism (principal); D35.2 Benign neoplasm of pituitary gland; E29.1 Testicular hypofunction
CPT/HCPCS: 36415; 80053; 83002; 84146; 84402; 84403; 84439; 84443

== ENCOUNTER → 2018-11-06 | Outpatient (CLI) | payer BC, SELFPAY ==
[2018-08-05 23:47] VITALS: BMI 27.1
== END | disposition home or self-care (01) ==
LOC: LAB 07:47
PROVIDERS: Family Provider Family Medicine; PCP Family Medicine; Referring Provider Internal Medicine Endocrinology, Diabetes & Metabolism; Visit Provider Internal Medicine Endocrinology, Diabetes & Metabolism
DX: E03.8 Other specified hypothyroidism (principal)
CPT/HCPCS: 36415; 84443

== ENCOUNTER → 2019-01-03 | Outpatient (CLI) | payer BC, SELFPAY ==
[2018-08-05 23:47] VITALS: BMI 27.1
[2019-01-03 07:47] LABS: Thyroid Stim Hormone (TSH) 0.39 uIU/mL (0.358-3.74)
== END | disposition home or self-care (01) ==
LOC: LAB 06:43
PROVIDERS: Family Provider Family Medicine; PCP Family Medicine; Referring Provider Internal Medicine Endocrinology, Diabetes & Metabolism; Visit Provider Internal Medicine Endocrinology, Diabetes & Metabolism
DX: E03.8 Other specified hypothyroidism (principal)
CPT/HCPCS: 36415; 84443

== ENCOUNTER → 2019-01-27 16:43 | Outpatient (CLI) | payer BC, SELFPAY ==
[2018-08-05 23:47] VITALS: BMI 27.1
[2019-01-27 17:29] LABS: Absolute Lymphocyte Count 1.65 X10^3/uL (0.83-4.51); Absolute Neutrophil Count 2.5 X10^3/uL (2.0-7.7); Basophil# 0.05 X10^3/uL; Eosinophil# 0.14 X10^3/uL; Eosinophils% 2.8 % (0-5); Hemoglobin 15.6 g/dL (13.0-16.5); Lymphocyte # 1.65 X10^3/ul (4.0); Lymphocyte % 33.1 % (19-41); Mean Corp Hgb Conc 33.2 g/dL (32-36); Mean Corpuscular Hgb 27.3 pg (27.0-32.0); Mean Corpuscular Volume 82.2 fL (80-94); Mean Platelet Vol. 9.1 fl (6.2-12.0); Monocyte# 0.63 X10^3/uL; Monocyte% 12.7 % (0-10); NRBC Flagged by Analyzer 0 % (0-5); Neutrophil # 2.49 X10^3/uL (2.7-7.7); Platelet Count 231 K/mm3 (150-450); RBC Distribution Width CV 12.6 % (11.6-14.6); RBC Distribution Width SD 36.7 fl (35.1-43.9); Red Blood Count 5.72 M/mm3 (4.6-6.2)
[2019-01-27 18:12] LABS: Ferritin 62 ng/mL (26-388); Iron 82 ug/dL (65-175); Iron Binding Capacity,Total 293 ug/dL (250-450)
== END ==
PROVIDERS: Family Provider Family Medicine; PCP Family Medicine; Referring Provider Family Medicine; Visit Provider Family Medicine
DX: D64.9 Anemia, unspecified (principal)
CPT/HCPCS: 36415; 82728; 83540; 83550; 85025

== ENCOUNTER → 2019-04-09 | Outpatient (CLI) | payer BC, SELFPAY ==
[2018-08-05 23:47] VITALS: BMI 27.1
[2019-04-09 09:48] LABS: Thyroid Stim Hormone (TSH) 1.12 uIU/mL (0.358-3.74)
== END | disposition home or self-care (01) ==
LOC: LAB 07:52
PROVIDERS: PCP Family Medicine; Referring Provider Internal Medicine Endocrinology, Diabetes & Metabolism; Visit Provider Internal Medicine Endocrinology, Diabetes & Metabolism
DX: E03.8 Other specified hypothyroidism (principal)
CPT/HCPCS: 36415; 84443

== ENCOUNTER → 2019-08-06 07:10 | Outpatient (CLI) | payer BC, SELFPAY ==
[2018-08-05 23:47] VITALS: BMI 27.1
[2019-08-06 08:19] LABS: ALB/GLOB Ratio 1.1 RATIO (0.9-2.4); AST(SGOT) 19 U/L (15-37); Alanine Aminotransfer ALT/SGPT 41 U/L (16-61); Albumin, Serum 3.7 g/dL (3.2-5.0); Alkaline Phosphatase 85 U/L (45-117); Anion Gap 6 (5-15); BUN 10 mg/dL (7-18); BUN/Creat Ratio 10.5 RATIO (10-20); Calcium,Total 8.7 mg/dL (8.5-10.1); Chloride 110 mmol/L (98-107); Creatinine, Serum 0.95 mg/dL (0.70-1.30); EST Glomerular Filtration Rate 87 mL/min (>60); Est Glom Filt Rate - Afr Amer 106 mL/min (>60); Globulin 3.3 g/dL (2.2-4.2); Glucose 97 mg/dL (74-106); Potassium 4.1 mmol/L (3.5-5.1); Sodium Level 143 mmol/L (136-145); Thyroid Stim Hormone (TSH) 0.98 uIU/mL (0.358-3.74)
[2019-08-06 11:05] LABS: Vitamin D,25 Hydroxy 67.9 ng/mL
== END ==
PROVIDERS: PCP Family Medicine; Referring Provider Internal Medicine Endocrinology, Diabetes & Metabolism; Visit Provider Internal Medicine Endocrinology, Diabetes & Metabolism
DX: E03.8 Other specified hypothyroidism (principal); E55.9 Vitamin D deficiency, unspecified
CPT/HCPCS: 36415; 80053; 82306; 84443

== ENCOUNTER → 2020-01-05 07:47 | Outpatient (CLI) | payer BC, SELFPAY ==
[2018-08-05 23:47] VITALS: BMI 27.1
[2020-01-05 10:12] LABS: Absolute Lymphocyte Count 1.36 X10^3/uL (0.83-4.51); Absolute Neutrophil Count 2.5 X10^3/uL (2.0-7.7); Basophil# 0.04 X10^3/uL; Basophil% 0.9 % (0-1); Eosinophil# 0.24 X10^3/uL; Eosinophils% 5.2 % (0-5); Hematocrit 51.4 % (40-54); Hemoglobin 16.2 g/dL (13.0-16.5); Lymphocyte # 1.36 X10^3/ul (4.0); Lymphocyte % 29.4 % (19-41); Mean Corp Hgb Conc 31.5 g/dL (32-36); Mean Corpuscular Hgb 26.8 pg (27.0-32.0); Mean Platelet Vol. 8.8 fl (6.2-12.0); Monocyte# 0.52 X10^3/uL; Monocyte% 11.2 % (0-10); NRBC Flagged by Analyzer 0 % (0-5); Neutrophil # 2.46 X10^3/uL (2.7-7.7); Neutrophil % 53.1 % (47-70); Platelet Count 241 K/mm3 (150-450); RBC Distribution Width CV 12.7 % (11.6-14.6); RBC Distribution Width SD 39.1 fl (35.1-43.9); Red Blood Count 6.05 M/mm3 (4.6-6.2); White Blood Count 4.6 K/mm3 (4.4-11.0)
[2020-01-05 10:50] LABS: Vitamin D,25 Hydroxy 57.6 ng/mL
[2020-01-05 11:16] LABS: Anion Gap 4 (5-15); BUN 9 mg/dL (7-18); BUN/Creat Ratio 8.7 RATIO (10-20); Calcium,Total 8.9 mg/dL (8.5-10.1); Chloride 107 mmol/L (98-107); Creatinine, Serum 1.04 mg/dL (0.70-1.30); EST Glomerular Filtration Rate 79 mL/min (>60); Est Glom Filt Rate - Afr Amer 95 mL/min (>60); Ferritin 82 ng/mL (26-388); Glucose 86 mg/dL (74-106); Potassium 3.9 mmol/L (3.5-5.1); Sodium Level 140 mmol/L (136-145); Thyroid Stim Hormone (TSH) 0.67 uIU/mL (0.358-3.74)
== END ==
PROVIDERS: PCP Family Medicine; Referring Provider Family Medicine; Visit Provider Family Medicine
DX: E03.9 Hypothyroidism, unspecified (principal); E55.9 Vitamin D deficiency, unspecified; G25.81 Restless legs syndrome
CPT/HCPCS: 36415; 80048; 82306; 82728; 84443; 85025

== ENCOUNTER → 2020-03-09 07:57 | Outpatient (CLI) | payer BC, SELFPAY ==
[2018-08-05 23:47] VITALS: BMI 27.1
[2020-03-09 10:16] LABS: ALB/GLOB Ratio 1.2 RATIO (0.9-2.4); AST(SGOT) 17 U/L (15-37); Alanine Aminotransfer ALT/SGPT 39 U/L (16-61); Albumin, Serum 3.7 g/dL (3.2-5.0); Alkaline Phosphatase 79 U/L (45-117); Anion Gap 4 (5-15); BUN 12 mg/dL (7-18); BUN/Creat Ratio 10.6 RATIO (10-20); Calcium,Total 8.3 mg/dL (8.5-10.1); Chloride 107 mmol/L (98-107); Creatinine, Serum 1.13 mg/dL (0.70-1.30); EST Glomerular Filtration Rate 71 mL/min (>60); Est Glom Filt Rate - Afr Amer 86 mL/min (>60); Glucose 150 mg/dL (74-106); Potassium 4.1 mmol/L (3.5-5.1); Protein, Total 6.7 g/dL (6.4-8.2); Sodium Level 140 mmol/L (136-145); Thyroid Stim Hormone (TSH) 0.34 uIU/mL (0.358-3.74)
== END ==
PROVIDERS: PCP Family Medicine; Referring Provider Internal Medicine Endocrinology, Diabetes & Metabolism; Visit Provider Internal Medicine Endocrinology, Diabetes & Metabolism
DX: E03.8 Other specified hypothyroidism (principal)
CPT/HCPCS: 36415; 80053; 84443

== ENCOUNTER → 2020-05-04 13:57 | Outpatient (CLI) | payer BC, SELFPAY ==
[2018-08-05 23:47] VITALS: BMI 27.1
--- NOTE | 2020-05-04 14:06 | EKG12_ITS ---
Test Reason : PRE OP Blood Pressure : / mmHG Vent. Rate : 075 BPM Atrial Rate : 075 BPM P-R Int : 186 ms QRS Dur : 090 ms QT Int : 354 ms P-R-T Axes : 028 022 025 degrees QTc Int : 395 ms Normal sinus rhythm Normal ECG Confirmed by BRENDAN CARTER, ZACHARY ([id number]), business editor LISE BUTLER ([id number]) on 05/07/2020 9:30:29 AM Referred By: Jorgito Way Confirmed By:ANTONIA CARDONA MD
== END ==
PROVIDERS: PCP Family Medicine; Referring Provider Specialist; Visit Provider Specialist
DX: Z01.818 Encounter for other preprocedural examination (principal); Z11.52 Encounter for screening for COVID-19
CPT/HCPCS: 87635; 93005; C9803; U0002

== ENCOUNTER → 2020-05-05 08:01 | Outpatient (CLI) | payer BC, SELFPAY ==
[2018-08-05 23:47] VITALS: BMI 27.1
[2020-05-05 09:45] LABS: Hematocrit 48.8 % (40-54); Mean Corp Hgb Conc 32.8 g/dL (32-36); Mean Corpuscular Hgb 27.4 pg (27.0-32.0); Mean Corpuscular Volume 83.4 fL (80-94); Mean Platelet Vol. 9.2 fl (6.2-12.0); Platelet Count 212 K/mm3 (150-450); RBC Distribution Width CV 12.7 % (11.6-14.6); RBC Distribution Width SD 37.9 fl (35.1-43.9); Red Blood Count 5.85 M/mm3 (4.6-6.2); White Blood Count 4.3 K/mm3 (4.4-11.0)
[2020-05-05 10:12] LABS: Anion Gap 5 (5-15); BUN 14 mg/dL (7-18); BUN/Creat Ratio 14.2 RATIO (10-20); Calcium,Total 8.7 mg/dL (8.5-10.1); Chloride 106 mmol/L (98-107); Creatinine, Serum 0.99 mg/dL (0.70-1.30); EST Glomerular Filtration Rate 83 mL/min (>60); Est Glom Filt Rate - Afr Amer 101 mL/min (>60); Glucose 83 mg/dL (74-106); Potassium 3.8 mmol/L (3.5-5.1); Sodium Level 139 mmol/L (136-145)
== END ==
PROVIDERS: PCP Family Medicine; Referring Provider Specialist; Visit Provider Specialist
DX: Z01.818 Encounter for other preprocedural examination (principal)
CPT/HCPCS: 36415; 80048; 85027

== ENCOUNTER → 2020-10-12 07:16 | Outpatient (CLI) | payer BC, SELFPAY ==
[2020-10-12 09:38] LABS: Thyroid Stim Hormone (TSH) 0.62 uIU/mL (0.358-3.74)
== END ==
PROVIDERS: PCP Family Medicine; Visit Provider Internal Medicine Endocrinology, Diabetes & Metabolism
DX: E03.8 Other specified hypothyroidism (principal)
CPT/HCPCS: 36415; 84443

== ENCOUNTER 2020-11-15 20:23 | Emergency (ER) | payer BC, SELFPAY ==
[2020-11-15 20:24] VITALS: BP 115/69; PULSE 89; RESP 18; TEMP 37.6; O2SAT 95; BMI 27.2
--- NOTE | 2020-11-15 20:33 | EDS_ITS ---
HPI History of Present Illness Chief Complaint: Fever Detail of Chief Complaint: Covid positive Informant: patient Onset/Context/Timing Onset: Days (Onset of symptoms November 06) Context: Sudden Onset Timing: Continuous Quality: Upper respiratory and generalized Location: Generalized Current Severity: Mild Maximum Severity: Moderate Worsened by: Myalgias, upper respiratory, dyspnea on exertion Relieved by: Nothing Associated Symptoms Associated Symptoms: Symptoms consistent with Covid Narrative Narrative: Patient is a 55-year-old male with history of hypothyroidism, restless leg syndrome who presents with fever since onset of illness, headache, mild nasal congestion and runny nose, sore throat, cough that is essentially nonproductive. He does report dyspnea dyspnea on exertion. He has remote history of DVT after trauma. He denies leg pain, swelling or discoloration. He denies black or maroon-colored stool. He does have loose stools at times. Had nausea without vomiting. His Covid test was positive on November 07. Prior similar symptoms: Yes Recent Illness/Hospitalization: Yes PFSH PFSH Home Medications Synthroid 137 mg PO/SL DAILY 11/15/20 [History Last Taken Unknown] Allergy/AdvReac Type Severity Reaction Status Date / Time NSAIDS (Non-Steroidal Allergy gi bleed Verified 11/15/20 20:23 Anti-Inflamma Penicillins [PCN] Allergy Unknown Verified 11/15/20 20:23 Social History (Updated 11/15/20 @ 20:[address] Earl Oakes MD) household members: spouse Smoking Status: Never smoker alcohol intake: former substance use type: does not use ROS ROS ED Constitutional Constitutional ED: Reports chills, fever(s) and sweats; Denies subjective or weight loss Eyes Eyes: Denies blurry vision, change in vision or diplopia ENT ENT ED: Reports rhinorrhea and sore throat; Denies ear pain Cardiovascular Cardiovascular: Reports chest pain; Denies orthopnea, palpitations, paroxysmal nocturnal dyspnea or racing heartbeat Respiratory/Chest Respiratory/Chest: Reports cough, dyspnea, dyspnea on exertion and sputum; Denies orthopnea or paroxysmal nocturnal dyspnea Gastrointestinal Gastrointestinal: Reports diarrhea and nausea; Denies abdominal pain, constipation or vomiting Genitourinary Genitourinary ED: Denies dysuria, hematuria or urinary frequency Musculoskeletal Musculoskeletal: Denies arthralgias, back pain, myalgias or neck pain Integumentary Denies Abrasions or rash Neurologic Neurologic: Reports headache(s), weakness and other Details: Lightheadedness with standing ; Denies paresthesias Hematologic/Lymphatic Hematologic/Lymphatic: Denies easy bleeding, easy bruising or lymphadenopathy Allergic/Immunologic Allergic/Immunologic ED: Denies mouth swelling or urticaria EXAM Physical Exam Const Vital Signs: 11/15/20 20:24 11/15/20 20:31 11/15/20 20:37 Temperature 99.6 F H 99.6 F H Temperature Source Temporal Temporal Pulse Rate 89 82 Respiratory Rate 18 20 H Respiratory Effort Respiratory Depth Respiratory Pattern Blood Pressure 115/69 118/68 Blood Pressure Mean 84 84 Pulse Ox 95 93 Oxygen Delivery Method Room Air Room Air Room Air 11/15/20 21:10 Temperature Temperature Source Pulse Rate Respiratory Rate Respiratory Effort Non-Labored Short of Breath Respiratory Depth Normal Respiratory Pattern Hyperpnea Blood Pressure Blood Pressure Mean Pulse Ox Oxygen Delivery Method Room Air Positive well nourished and well developed General Appearance ED: well developed and other Patient appears ill but not toxic ; Negative for NAD HEENT Reports TM's clear and moist mucous membranes HEENT Narrative: Head is atraumatic normocephalic. Tympanic Membrane ED: Yes TM's clear Eyes PERRL and EOMs intact bilaterally General Eye ED: Negative for pale conjunctiva or scleral icterus Neck no lymphadenopathy, supple and no JVD Chest Wall inspection of chest normal Resp normal respiratory effort and No clear to auscultation bilaterally Auscultation: rales bilateral lower and diminished lung sounds; Negative for wheezes Cardio regular rate, regular rhythm, S1 normal heart sound, S2 normal heart sound and no murmurs GI normal to inspection, nondistended, normoactive bowel sounds and non-tender Palpation: soft Back/Spine no CVA tenderness Cervical Spine: Negative for cervical spine tenderness Thoracic Spine / Upper Back: Negative for thoracic spinal tenderness Extremity normal to inspection General Extremety ED: Negative for edema or tenderness General Extremity: Negative for edema Neuro oriented x3, CN's II-XII intact bilaterally and no sensory deficits noted Sensorium / Orientation: alert Motor Exam: strength 5/5 throughout Psych mental status grossly normal Skin no rashes or lesions noted and no wounds MDM MDM MDM Narrative Medical decision making narrative: Clinically patient has bilateral pneumonia due to Covid. In light of his constellation of symptoms CBC was obtained to assess white count H&H. Electrolyte panel was obtained to assess anion gap, electrolytes and specifically potassium and renal function. He did receive 500 cc bolus of normal saline. Lab Data Attestation: I reviewed the patient's lab results. Lab results narrative: CBC is remarkable for neutropenia, consistent with Covid. Comprehensive metabolic panel is unremarkable. Lactate is normal. Labs: Laboratory Results - last 24 hr 11/15/20 11/15/20 11/15/20 Unknown Unknown Unknown WBC 2.7 L RBC 5.43 Hgb 14.4 Hct 44.7 MCV 82.3 MCH 26.5 L MCHC 32.2 RDW Std Deviation 37.1 RDW Coeff of Chante 12.3 Plt Count 147 L MPV 9.2 Immature Gran % (Auto) 0.400 Neut % (Auto) 81.3 H Lymph % (Auto) 12.3 L [place] % (Auto) 5.6 Eos % (Auto) 0.0 Baso % (Auto) 0.4 Absolute Neuts (auto) 2.2 Absolute Lymphs (auto) 0.33 L Nucleated RBC % 0 Differential Comment SEE COMMENT Diff Path Review May foll Platelet Estimate ADEQUATE RBC Morphology N CHROM Sodium 137 Potassium 3.6 Chloride 107 Carbon Dioxide 24.0 Anion Gap 6 BUN 9 Creatinine 1.04 Estim Creat Clear Calc 96.21 Est GFR (MDRD) Af Amer 95 Est GFR (MDRD) Non-Af 78 BUN/Creatinine Ratio 8.7 L Glucose 161 H Lactic Acid 1.4 Calcium 7.8 L Total Bilirubin 0.40 AST 40 H ALT 28 Alkaline Phosphatase 55 Total Protein 6.8 Albumin 3.0 L Globulin 3.8 Albumin/Globulin Ratio 0.8 L Radiography Chest X-Ray - ED: 1 View, Read by ED Physician (Bilateral interstitial pneumonia consistent with Covid. Cardiac silhouette and size normal. Mediastinum normal. Osseous structures unremarkable. X-rays interpreted by me at 2136), Right Infiltrate and Left Infiltrate Diagnostic Testing: Radiology Impression Chest X-Ray 11/15/20 21:30 IMPRESSION: Airspace consolidation in the left midlung concerning for infection. Electronically Signed: Huey Bo MD at 21:51 EDT Tel , Service support , Discharge Plan Triage Chief Complaint: Fever ED Provider: Earl Oakes Dx/Rx/DC Orders Clinical Impression: Pneumonia due to 2019-nCoV, Diarrhea, Dehydration, mild Instructions: Coronavirus Disease 2019 (COVID-19): Caring for Yourself or Others Prescriptions: No Action Synthroid 137 mg PO/SL DAILY RF: 0 Other Ambulatory Orders: COVID Outpatient Monoclonal Antibody Referral (Routine) Timeframe: 1 Day Facility: [facility] - Location: [facility] Ordered By: Dr. Earl Oakes Primary Care Provider: Amilcar Sandoval Referrals: Amilcar Sandoval MD [Primary Care Provider] - 10-14 Days if not better Disposition Disposition: Home, Self Care
[2020-11-15 20:37] VITALS: BP 118/68; PULSE 82; RESP 20; TEMP 37.6; O2SAT 93
[2020-11-15 21:02] LABS: Absolute Lymphocyte Count 0.33 X10^3/uL (0.83-4.51); Absolute Neutrophil Count 2.2 X10^3/uL (2.0-7.7); Basophil# 0.01 X10^3/uL; Basophil% 0.4 % (0-1); Hematocrit 44.7 % (40-54); Hemoglobin 14.4 g/dL (13.0-16.5); Lymphocyte # 0.33 X10^3/ul (0.83-4.51); Lymphocyte % 12.3 % (19-41); Mean Corp Hgb Conc 32.2 g/dL (32-36); Mean Corpuscular Hgb 26.5 pg (27.0-32.0); Mean Corpuscular Volume 82.3 fL (80-94); Mean Platelet Vol. 9.2 fl (6.2-12.0); Monocyte# 0.15 X10^3/uL; Monocyte% 5.6 % (0-10); NRBC Flagged by Analyzer 0 % (0-5); Neutrophil # 2.19 X10^3/uL (2.7-7.7); Neutrophil % 81.3 % (47-70); POSITIVE DIFFERENTIAL YES; Platelet Count 147 K/mm3 (150-450); RBC Distribution Width CV 12.3 % (11.6-14.6); RBC Distribution Width SD 37.1 fl (35.1-43.9); Red Blood Count 5.43 M/mm3 (4.6-6.2); White Blood Count 2.7 K/mm3 (4.4-11.0)
[2020-11-15 21:03] LABS: Differential Indicated SCAN CRITERIA MET
[2020-11-15] MEDS: Ondansetron 4 MG/2 ML Vial IV (21:06)
[2020-11-15 21:10] VITALS: O2SAT 94
--- NOTE | 2020-11-15 21:14 | NURSING ---
1000mL bag was used
--- NOTE | 2020-11-15 21:30 | RAD_ITS ---
INDICATION: cough EXAMINATION/TECHNIQUE: X-RAY - XR Chest 1 View COMPARISON: None. FINDINGS: Airspace consolidation in the left midlung. The cardiomediastinal silhouette is unremarkable. No pleural effusion or pneumothorax. No acute osseous abnormalities. RAD/Chest 1 View (Portable) IMPRESSION: Airspace consolidation in the left midlung concerning for infection. Electronically Signed: Huey Bo MD at 21:51 EDT Tel , Service support ,
[2020-11-15 21:37] LABS: Platelet Estimate ADEQUATE (ADEQ); Red Cell Morphology N CHROM NORMAL (NORM C&C)
[2020-11-15 21:38] LABS: ALB/GLOB Ratio 0.8 RATIO (0.9-2.4); AST(SGOT) 40 U/L (15-37); Alanine Aminotransfer ALT/SGPT 28 U/L (16-61); Alkaline Phosphatase 55 U/L (45-117); Anion Gap 6 (5-15); BUN 9 mg/dL (7-18); BUN/Creat Ratio 8.7 RATIO (10-20); Calcium,Total 7.8 mg/dL (8.5-10.1); Chloride 107 mmol/L (98-107); Creatinine, Serum 1.04 mg/dL (0.70-1.30); EST Glomerular Filtration Rate 78 mL/min (>60); Est Glom Filt Rate - Afr Amer 95 mL/min (>60); Estimated Creatinine Clearance 96.21 ml/min; Globulin 3.8 g/dL (2.2-4.2); Glucose 161 mg/dL (74-106); Potassium 3.6 mmol/L (3.5-5.1); Protein, Total 6.8 g/dL (6.4-8.2); Sodium Level 137 mmol/L (136-145)
[2020-11-15 21:39] LABS: Lactic Acid 1.4 mmol/L (0.4-1.9)
[2020-11-15 22:07] VITALS: BP 117/85; PULSE 75; RESP 22; TEMP 37.1; O2SAT 95
[2020-11-16 13:26] LABS: Pathologist Review Reviewed
== END 2020-11-15 22:13 | disposition home or self-care (01) ==
PROVIDERS: Emergency Provider Emergency Medicine; PCP Family Medicine
DX: U07.1 COVID-19 (principal); J12.82 Pneumonia due to coronavirus disease 2019; E86.0 Dehydration; R19.7 Diarrhea, unspecified; E03.9 Hypothyroidism, unspecified; Z79.899 Other long term (current) drug therapy
CPT/HCPCS: 71045; 80053; 83605; 85025; 96361; 96374; 99284; J7030; A4216; J2405

== ENCOUNTER 2020-11-16 22:15 | Emergency (ER) | payer BC, SELFPAY ==
[2020-11-16 22:16] VITALS: BP 116/68; PULSE 74; RESP 18; TEMP 37.3; O2SAT 95; BMI 27.7
--- NOTE | 2020-11-16 22:47 | CT_ITS ---
EXAM: CT Angiography Chest Without and With Intravenous Contrast CLINICAL INDICATION: 55 years old, Male; covid, hemoptysis TECHNIQUE: Helically acquired angiography images were obtained of the chest without and with intravenous contrast. This CT exam was performed using one or more of the following dose reduction techniques: automated exposure control, adjustment of the mA and/or kV according to patient size, and/or use of iterative reconstruction technique. This report was created using [employer] report generation technology. MIP reconstructed images were created and reviewed. CONTRAST: IV 100mL Isovue-300 COMPARISON: None. FINDINGS: Pulmonary arteries: Unremarkable. Normal in caliber. No pulmonary embolism. Aorta: Unremarkable. Normal in caliber. No evidence of dissection. Great vessels of aortic arch: Unremarkable. Normal in caliber. No evidence of dissection. Lungs and pleural spaces: Consolidative infiltrates throughout both lungs consistent with pneumonia. No mass. No pleural effusion or thickening. Heart: Unremarkable. Heart size is normal. No pericardial effusion. No signs of right heart strain, ratio of right ventricle to left ventricle measures less than 1. Mediastinum: Unremarkable. No mediastinal or hilar adenopathy. Esophagus is unremarkable. No hiatal hernia. Thyroid: Unremarkable. No thyroid lesions. Bones/joints: Unremarkable. No suspicious lytic or blastic abnormality. CT/CTA Chest W/WO Contrast IMPRESSION: 1. No pulmonary embolism. 2. Consolidative infiltrates throughout both lungs consistent with pneumonia. Consider COVID-19 pneumonia. ASSESSMENT: ABNORMAL report - There are abnormal findings in this report which may be related or unrelated to the reason for the exam. Electronically Signed: Je Crabtree MD at 0:16 EDT Tel , Service support ,
--- NOTE | 2020-11-16 22:49 | EDS_ITS ---
HPI History of Present Illness Chief Complaint: Cough Detail of Chief Complaint: hemoptysis Informant: patient Onset/Context/Timing Onset: Today (JPTA) Context: sudden (w/ cough) Timing: Intermittent (occured once) Quality: Positive for Dyspnea on exertion Current Severity: Moderate Maximum Severity: Moderate Worsened by: Exertion and Coughing Relieved by: Rest Associated Symptoms cough Chest Pain: Positive for None Narrative Narrative: Patient is on day #11 with COVID-19, he has been short of breath for about 4 days, he was seen here in the emergency department diagnosed with Covid pneumonitis, he has been watching his pulse oximetry at home, and it has been good despite his dyspnea with very little exertion. His doctor has him on prednisone. Tonight he had been proning off and on, felt like he needed to have a good cough and he did, coughed something up and then spotted into the sink and it was a singular blood clot. This is the only amount of blood he has coughed up, but this is new. No history of pulmonary embolus but he did have a DVT 4 years ago or so. He states this was in context of getting treatment for a peptic ulcer that was bleeding. He is no longer on anticoagulants, and he does not take any antiplatelet medications. He had blood work 1-2 days ago that showed a platelet count of 147 and normal renal function. [facility] Medical History (Updated 11/17/20 @ 00:[address] Kirill Grant MD) Anemia Anxiety Herniated cervical disc Hypertension Hypothyroidism MYNOR (obstructive sleep apnea) RLS (restless legs syndrome) Home Medications Synthroid 137 mg PO/SL DAILY 11/15/20 [History Last Taken Unknown] lorazepam [Ativan] 0.5 mg PO TID PRN #10 tab 11/15/20 [Rx Last Taken Unknown] hydroxyzine pamoate 50 mg PO TID PRN PRN #30 capsule 11/17/20 [Rx Last Taken U nknown] Allergy/AdvReac Type Severity Reaction Status Date / Time NSAIDS (Non-Steroidal Allergy gi bleed Verified 11/15/20 20:23 Anti-Inflamma Penicillins [PCN] Allergy Unknown Verified 11/15/20 20:23 Social History household members: spouse Smoking Status: Never smoker alcohol intake: former substance use type: does not use ROS ROS ED Constitutional Constitutional ED: Reports body ache(s), chills, fatigue, fever(s), headache(s) and malaise Eyes Eyes: Denies change in vision or diplopia ENT ENT ED: Denies rhinorrhea or sore throat Cardiovascular Cardiovascular: Denies chest pain or palpitations Respiratory/Chest Respiratory/Chest: Reports cough, dyspnea, dyspnea on exertion and hemoptysis Gastrointestinal Gastrointestinal: Reports diarrhea; Denies abdominal pain, nausea or vomiting Genitourinary Genitourinary ED: Denies dysuria or hematuria Musculoskeletal Musculoskeletal: Denies back pain or neck pain Integumentary Denies abscess or rash Neurologic Neurologic: Reports headache(s); Denies paresthesias or weakness Psychiatric Psychiatric: Denies anxiety or suicidal thoughts EXAM Physical Exam Const Vital Signs: 11/16/20 22:16 11/16/20 23:30 Temperature 99.2 F H Temperature Source Temporal Pulse Rate 74 Respiratory Rate 18 Respiratory Effort Short of Breath Blood Pressure 116/68 Blood Pressure Mean 84 Pulse Ox 95 Oxygen Delivery Method Room Air Positive well nourished and well developed Constitutional Narrative: Well-appearing, no distress. Conversing in full sentences without difficulty at rest. General Appearance ED: well developed and NAD HEENT Reports moist mucous membranes normocephalic and atraumatic Eyes PERRL and EOMs intact bilaterally Neck full ROM and supple Resp clear to auscultation bilaterally Resp Narrative: Few high-pitched rhonchi bibasilar, more consistent with a telectasis, otherwise clear to auscultation throughout. Cardio regular rate, regular rhythm and no murmurs Rate: Negative for tachycardic GI non-tender and non-distended Auscultation: normoactive bowel sounds Palpation: soft Back/Spine no CVA tenderness General Back: other FROM Extremity normal to inspection and no calf tenderness General Extremety ED: Negative for edema, pulses abnormal or tenderness General Extremity: Negative for edema or pulses abnormal Neuro oriented x3, CN's II-XII intact bilaterally and no sensory deficits noted Sensorium / Orientation: awake and alert Motor Exam: strength 5/5 throughout Skin no rashes or lesions noted and no wounds MDM MDM MDM Narrative Medical decision making narrative: Patient had labs done on around 24 hours ago, so I do not think they needed to be repeated. CT angiography was performed along with IV fluids to flush the contrast. As below, no pulmonary embolism is seen. There is evidence of Covid pneumonitis which is previously known. His oxygenation remained excellent, 95% or above, despite feeling dyspneic at rest. He states he has anxiety and it is flaring up, and he asked for something. We will give him some Vistaril and a prescription for it that he can fill if it helps. He is comfortable with that plan and will continue watching his oxygen levels, we discussed reasons to return to the ER, he has albuterol MDI at home, he was offered an aerosol here but declined because it does not seem like it is helping much anyway but he will try it when he gets home, and I reassured him that I suspect the minor hemoptysis which did not recur while he was in the emergency department, is probably due to a minor mucosal tear since he has been coughing a lot. Radiography Diagnostic Testing: Radiology Impression Chest CTA 11/16/20 22:47 IMPRESSION: 1. No pulmonary embolism. 2. Consolidative infiltrates throughout both lungs consistent with pneumonia. Consider COVID-19 pneumonia. ASSESSMENT: ABNORMAL report - There are abnormal findings in this report which may be related or unrelated to the reason for the exam. Electronically Signed: Je Crabtree MD at 0:16 EDT Tel , Service support , Discharge Plan Triage Chief Complaint: Cough ED Provider: Kirill Grant Dx/Rx/DC Orders Clinical Impression: Pneumonia due to COVID-19 virus, Cough with hemoptysis Instructions: Coronavirus Disease 2019 (COVID-19): Caring for Yourself or Other s, ED Hemoptysis Prescriptions: New hydroxyzine pamoate [hydroxyzine pamoate] 25 MG capsule 50 mg PO TID PRN PRN (Reason: Anxiety) Qty: 30 RF: 0 No Action Synthroid 137 mg PO/SL DAILY RF: 0 lorazepam [Ativan] 0.5 mg tablet 0.5 mg PO TID PRN (Reason: anxiety) Qty: 10 RF: 0 Primary Care Provider: Amilcar Sandoval Referrals: Amilcar Sandoval MD [Primary Care Provider] - As Needed Activity Restrictions/Additional Instructions: Watch your oxygen levels with your pulse oximeter; if you stay below 90% for more than a minute or so, and/or you are feeling like your breathing is getting worse, return to the emergency department for further evaluation. Disposition Disposition: Home, Self Care
[2020-11-16] MEDS: 0.9% Normal Saline 1,000 ML 999 ML IV (23:28)
[2020-11-17] MEDS: hydrOXYzine PAM 25 MG Capsule 75 MG PO (00:50)
[2020-11-17 00:52] VITALS: BP 132/60; PULSE 68; RESP 18; O2SAT 96
== END 2020-11-17 00:54 | disposition home or self-care (01) ==
PROVIDERS: Emergency Provider Emergency Medicine; PCP Family Medicine
DX: R04.2 Hemoptysis (principal); U07.1 COVID-19; J12.82 Pneumonia due to coronavirus disease 2019; F41.9 Anxiety disorder, unspecified; I10 Essential (primary) hypertension; E03.9 Hypothyroidism, unspecified; Z79.899 Other long term (current) drug therapy; Z79.52 Long term (current) use of systemic steroids
CPT/HCPCS: 71275; 96360; 99284; J7030; Q9967; A4216

== ENCOUNTER 2020-11-18 05:14 | Inpatient (IN) | payer BC, SELFPAY ==
[2020-11-18] VITALS (17 sets, daily range): BP systolic 103–130; BP diastolic 59–75; PULSE 67–90; RESP 20–33; TEMP 36.6–39.4; O2SAT 88–95; BMI 27.3
--- NOTE | 2020-11-18 05:26 | EKG12_ITS ---
Test Reason : FEVER Blood Pressure : / mmHG Vent. Rate : 086 BPM Atrial Rate : 086 BPM P-R Int : 172 ms QRS Dur : 084 ms QT Int : 342 ms P-R-T Axes : 023 036 015 degrees QTc Int : 409 ms Normal sinus rhythm Normal ECG Confirmed by OPAL CARTER, JACKIE ([id number]), staff editor LISE BUTLER ([id number]) on 11/19/2020 1:32:35 PM Referred By: ASA Confirmed By:JACKIE JOSEPH MD
--- NOTE | 2020-11-18 05:27 | EDS_ITS ---
HPI History of Present Illness Chief Complaint: Fever Informant: patient Narrative Narrative: 55-year-old male presents the emergency room with fever. Patient states that he is on day 13 of his Covid illness. This is his third emergency department visit in the same amount of days. Yesterday he had a CTA of his chest that was negative. His blood work did not before. He has been having difficulty breathing. Has been trying pronating and incentive spirometry. He notes some hemoptysis which is what prompted yesterday's CTA and ED visit. No pulmonary embolisms were seen. He states that his fever has been quite high today and has not been able to get it down with Tylenol and Motrin. He was noted to be hypoxic ambulating back from triage at 88%. He has been on prednisone through his primary care doctor [facility] Medical History Anemia Anxiety Herniated cervical disc Hypertension Hypothyroidism MYNOR (obstructive sleep apnea) RLS (restless legs syndrome) Home Medications Synthroid 137 mg PO/SL DAILY 11/15/20 [History Last Taken Unknown] lorazepam [Ativan] 0.5 mg PO TID PRN #10 tab 11/15/20 [Rx Last Taken Unknown] hydroxyzine pamoate 50 mg PO TID PRN PRN #30 capsule 11/17/20 [Rx Last Taken Unknown] Allergy/AdvReac Type Severity Reaction Status Date / Time Penicillins [PCN] Allergy Unknown Verified 11/18/20 05:49 NSAIDS (Non-Steroidal AdvReac gi bleed Verified 11/18/20 06:04 Anti-Inflamma Social History household members: spouse Smoking Status: Never smoker alcohol intake: former substance use type: does not use ROS ROS ED Constitutional Constitutional ED: Reports chills, fever(s) and sweats; Denies weight loss Eyes Eyes: Denies change in vision or diplopia ENT ENT ED: Reports rhinorrhea and sore throat; Denies ear pain Cardiovascular Cardiovascular: Denies chest pain, orthopnea, palpitations or racing heartbeat Respiratory/Chest Respiratory/Chest: Reports cough, dyspnea, dyspnea on exertion and sputum; Denies orthopnea Gastrointestinal Gastrointestinal: Reports diarrhea and nausea; Denies abdominal pain or vomiting Genitourinary Genitourinary ED: Denies dysuria, hematuria or urinary frequency Musculoskeletal Musculoskeletal: Reports myalgias; Denies arthralgias Integumentary Denies abscess or rash Neurologic Neurologic: Reports headache(s); Denies weakness Psychiatric Psychiatric: Denies anxiety, depression, suicidal ideation or suicidal thoughts Endocrine Endocrinology: Denies polydipsia, polyphagia or polyuria Allergic/Immunologic Allergic/Immunologic ED: Denies mouth swelling, tongue swelling or urticaria EXAM Physical Exam Narrative Exam Narrative: Patient appears ill and tachypneic. Const Vital Signs: 11/18/20 05:14 11/18/20 05:18 11/18/20 05:36 Temperature 102.9 F H Temperature Source Oral Pulse Rate 90 Respiratory Rate 20 H Blood Pressure 129/72 H Blood Pressure Mean 91 Pulse Ox 88 93 94 Oxygen Delivery Method Room Air Room Air Nasal Cannula Oxygen Flow Rate (L/min) 2 11/18/20 06:06 Temperature 97.8 F Temperature Source Oral Pulse Rate 80 Respiratory Rate 30 H Blood Pressure 109/60 Blood Pressure Mean 76 Pulse Ox 93 Oxygen Delivery Method Nasal Cannula Oxygen Flow Rate (L/min) 1.5 Positive well nourished and well developed General Appearance ED: well developed HEENT Reports normocephalic, head/scalp atraumatic and moist mucous membranes Eyes PERRL and EOMs intact bilaterally Neck no lymphadenopathy, supple and no JVD Resp clear to auscultation bilaterally Resp Narrative: Patient is tachypneic Cardio regular rate, regular rhythm and no murmurs GI normal to inspection, nondistended, normoactive bowel sounds and non-tender Palpation: soft Back/Spine no CVA tenderness and normal ROM Extremity normal to inspection General Extremety ED: Negative for edema General Extremity: Negative for edema Neuro oriented x3 and CN's II-XII intact bilaterally Sensorium / Orientation: alert Motor Exam: strength 5/5 throughout Psych Mood & Affect: anxious and tearful; Negative for depressed Skin no rashes or lesions noted and no wounds MDM MDM MDM Narrative Medical decision making narrative: My interpretation of the chest x-ray is worsening pneumonia. White count 4. Fibrinogen elevated 661. Procalcitonin 0.08. Lactic acid 2.5. Patient received Toradol Tylenol and 500 cc fluid bolus. I do not think we need to repeat the CTA as that was just performed around 24 hours ago. Lab Data Attestation: I reviewed the patient's lab results. Labs: Laboratory Results - last 24 hr 11/18/20 11/18/20 11/18/20 05:29 05:29 05:29 WBC 4.0 L RBC 5.31 Hgb 14.4 Hct 43.6 MCV 82.1 MCH 27.1 MCHC 33.0 RDW Std Deviation 37.8 RDW Coeff of Chante 12.4 Plt Count 231 MPV 9.4 Immature Gran % (Auto) 0.700 Neut % (Auto) 82.5 H Lymph % (Auto) 12.[address] [place] [place] % (Auto) 3.7 Eos % (Auto) 0.0 Baso % (Auto) 0.2 Absolute Neuts (auto) 3.3 Absolute Lymphs (auto) 0.52 L Nucleated RBC % 0 Fibrinogen 661 H Sodium 139 Potassium 4.2 Chloride 106 Carbon Dioxide 26.0 Anion Gap 7 BUN 10 Creatinine 1.08 Estim Creat Clear Calc 92.65 Est GFR (MDRD) Af Amer 91 Est GFR (MDRD) Non-Af 75 BUN/Creatinine Ratio 9.3 L Glucose 141 H Lactic Acid Calcium 7.6 L Total Bilirubin 0.30 AST 47 H ALT 31 Alkaline Phosphatase 46 Troponin I High Sens 11 Total Protein 6.3 L Albumin 2.5 L Globulin 3.8 Albumin/Globulin Ratio 0.7 L Procalcitonin 11/18/20 11/18/20 05:29 05:29 WBC RBC Hgb Hct MCV MCH MCHC RDW Std Deviation RDW Coeff of Chante Plt Count MPV Immature Gran % (Auto) Neut % (Auto) Lymph % (Auto) [place] % (Auto) Eos % (Auto) Baso % (Auto) Absolute Neuts (auto) Absolute Lymphs (auto) Nucleated RBC % Fibrinogen Sodium Potassium Chloride Carbon Dioxide Anion Gap BUN Creatinine Estim Creat Clear Calc Est GFR (MDRD) Af Amer Est GFR (MDRD) Non-Af BUN/Creatinine Ratio Glucose Lactic Acid 2.5 H* Calcium Total Bilirubin AST ALT Alkaline Phosphatase Troponin I High Sens Total Protein Albumin Globulin Albumin/Globulin Ratio Procalcitonin 0.08 Radiography Diagnostic Testing: Radiology Impression Chest X-Ray 11/18/20 05:34 IMPRESSION: Worsening multifocal pneumonia. A pattern of which is most consistent with covid pneumonia. Electronically Signed: Negar Harrison MD at 6:22 EDT Tel , Service support , Discharge Plan Dx/Rx/DC Orders Clinical Impression: COVID-19, Pneumonia due to 2019-nCoV, Sepsis, Acute hypoxemic respiratory failure due to COVID-19 Disposition Disposition: Acute Care [facility]
--- NOTE | 2020-11-18 05:34 | RAD_ITS ---
STUDY: X-RAY CHEST REASON FOR EXAM: Male, 55 years old. Cough TECHNIQUE: Single AP portable view of the chest. COMPARISON: November 15, 2020 chest x-ray FINDINGS: There is worsening multifocal patchy opacities throughout the lungs. There is no demonstrated pleural abnormality. Normal size heart. Normal mediastinum and justus. Normal visualized pulmonary arteries. Normal visualized aortic arch and descending thoracic aorta. Normal visualized thoracic spine. Normal visualized ribs, clavicles, and shoulders. There is no demonstrated abnormality of the visualized soft tissue structures of the upper abdomen. RAD/Chest 1 View (Portable) IMPRESSION: Worsening multifocal pneumonia. A pattern of which is most consistent with covid pneumonia. Electronically Signed: Negar Harrison MD at 6:22 EDT Tel , Service support ,
[2020-11-18 05:44] LABS: Absolute Lymphocyte Count 0.52 X10^3/uL (0.83-4.51); Absolute Neutrophil Count 3.3 X10^3/uL (2.0-7.7); Basophil# 0.01 X10^3/uL; Basophil% 0.2 % (0-1); Hematocrit 43.6 % (40-54); Hemoglobin 14.4 g/dL (13.0-16.5); Lymphocyte # 0.52 X10^3/ul (0.83-4.51); Lymphocyte % 12.9 % (19-41); Mean Corpuscular Hgb 27.1 pg (27.0-32.0); Mean Corpuscular Volume 82.1 fL (80-94); Mean Platelet Vol. 9.4 fl (6.2-12.0); Monocyte# 0.15 X10^3/uL; Monocyte% 3.7 % (0-10); NRBC Flagged by Analyzer 0 % (0-5); Neutrophil # 3.33 X10^3/uL (2.7-7.7); Neutrophil % 82.5 % (47-70); POSITIVE DIFFERENTIAL YES; POSITIVE MORPHOLOGY YES; Platelet Count 231 K/mm3 (150-450); RBC Distribution Width CV 12.4 % (11.6-14.6); RBC Distribution Width SD 37.8 fl (35.1-43.9); Red Blood Count 5.31 M/mm3 (4.6-6.2)
[2020-11-18 05:46] LABS: Differential Indicated SCAN CRITERIA MET
[2020-11-18 05:55] LABS: Fibrinogen 661 mg/dl (203-444)
[2020-11-18] MEDS: Acetaminophen 500 MG Tablet 1000 MG PO (05:56)
[2020-11-18 06:06] LABS: ALB/GLOB Ratio 0.7 RATIO (0.9-2.4); AST(SGOT) 47 U/L (15-37); Alanine Aminotransfer ALT/SGPT 31 U/L (16-61); Albumin, Serum 2.5 g/dL (3.2-5.0); Alkaline Phosphatase 46 U/L (45-117); Anion Gap 7 (5-15); BUN 10 mg/dL (7-18); BUN/Creat Ratio 9.3 RATIO (10-20); Calcium,Total 7.6 mg/dL (8.5-10.1); Chloride 106 mmol/L (98-107); Creatinine, Serum 1.08 mg/dL (0.70-1.30); EST Glomerular Filtration Rate 75 mL/min (>60); Est Glom Filt Rate - Afr Amer 91 mL/min (>60); Estimated Creatinine Clearance 92.65 ml/min; Globulin 3.8 g/dL (2.2-4.2); Glucose 141 mg/dL (74-106); Potassium 4.2 mmol/L (3.5-5.1); Protein, Total 6.3 g/dL (6.4-8.2); Sodium Level 139 mmol/L (136-145); Troponin-I HS 11 pg/mL (3.0-78.0)
[2020-11-18 06:10] LABS: Procalcitonin 0.08 ng/mL (0.00-0.09)
[2020-11-18 06:27] LABS: Lactic Acid 2.5 mmol/L (0.4-1.9)
--- NOTE | 2020-11-18 06:36 | PCM.HP.STD ---
HPI - General General Date of Admission: 11/18/20 Date of Service: 11/18/20 Chief Complaint: Worsening COVID sxs, unable to decrease Fever HPI Narrative The patient is a 55 y/o M w/ PMHx: Anxiety and Depression, RLS, Chronic anemia, HTN, Hypothyroidism, MYNOR, Hx GI bleed who presents to the [facility] ED on 11/18/20 with history of initial onset of COVID sxs 13 days prior with 3 ED evaluations over the last 72 hours with outpatient prednisone therapy initiation per his PCP with episode of hemoptysis the day prior with CTPA ~ 24 hours prior to current presentation with BL PNA without PE evidence with worsening dyspnea and hypoxia. Patient Covid symptoms including fever, chills, headache, mild nasal congestion, rhinorrhea, sore throat, dry cough, dyspnea, nausea without emesis, loose stools, body aches. Patient originally tested positive for Covid on 11/07/2020. And, his and his 16-year-old daughter are all currently ill with Covid. They are all unvaccinated. Work-up in the ED included T102.9, heart rate 90, BP 129/72, respiratory rate 20-30, 88% on room air at rest and with exertion in the room patient was noted to be 86%, CBC with WBC 4, hemoglobin 14.4, platelet 231 with lymphopenia, fibrinogen 661, CMP with glucose 141, lactic acid 2.5, AST/ALT 47/31, procalcitonin 0.08, chest x-ray with worsening multifocal pneumonia, blood culture x2 pending per ED. In the ED patient ministered 1 L normal saline, Toradol 30 mg IV x1, Decadron 6 mg p.o. x1 as well as Tylenol 1000 mg p.o. x1. [facility] Medical History (Updated 11/18/20 @ 06:[address] Hawk Mcleod, DO) Anemia Anxiety Herniated cervical disc Hypertension Hypothyroidism MYNOR (obstructive sleep apnea) RLS (restless legs syndrome) Medical History no medical history Home Medications Synthroid 137 mg PO/SL DAILY 11/15/20 [History Last Taken Unknown] lorazepam [Ativan] 0.5 mg PO TID PRN #10 tab 11/15/20 [Rx Last Taken Unknown] hydroxyzine pamoate 50 mg PO TID PRN PRN #30 capsule 11/17/20 [Rx Last Taken Unknown] azithromycin 250 mg 11/18/20 [History Last Taken Unknown] budesonide-formoterol [Symbicort] INHALATION 11/18/20 [History Last Taken Unknown] Allergy/AdvReac Type Severity Reaction Status Date / Time Penicillins [PCN] Allergy Unknown Verified 11/18/20 05:49 NSAIDS (Non-Steroidal AdvReac gi bleed Verified 11/18/20 06:04 Anti-Inflamma Family History (Updated 11/18/20 @ 07:[address] April Rust MD) Mother Hypertension Family History other other (Patient does not know his paternal family history.) Surgical History (Updated 11/18/20 @ 07:[address] April Rust MD) H/O arthroscopy of left knee Hx of umbilical hernia repair Social History household members: spouse Smoking Status: Never smoker alcohol intake: former substance use type: does not use ROS ROS Narrative Admission Review of Systems: CONSTITUTIONAL: No weight loss, + fever, chills, weakness or fatigue. HEENT: + ALICEA, sore throat, congestion, rhinorrhea. Eyes: No visual loss, blurred vision, double vision or yellow sclerae. Ears, Nose, Throat: No hearing loss, sneezing. SKIN: No rash or itching, lesions, wounds. CARDIOVASCULAR: No chest pain, chest pressure or chest discomfort, palpitations, edema, orthopnea, syncopal events. RESPIRATORY: + shortness of breath, cough without marked sputum, hemoptysis, No wheezing. GASTROINTESTINAL: + anorexia, nausea, vomiting, diarrhea, No abdominal pain, melena, BRBPR. GENITOURINARY: No dysuria, frequency, urgency or retention. NEUROLOGICAL: + headache, No dizziness, syncope, paralysis, ataxia, numbness or tingling in the extremities, focal weakness, change in bowel or bladder control, seizure. MUSCULOSKELETAL: + muscle, back pain, joint pain or stiffness. HEMATOLOGIC: No anemia, bleeding or bruising. LYMPHATICS: No enlarged nodes. No history of splenectomy. PSYCHIATRIC: No history of depression or anxiety. ENDOCRINOLOGIC: No reports of sweating, cold or heat intolerance. No polyuria or polydipsia. ALLERGIES: No history of asthma, hives, eczema or rhinitis. Vital Signs Vital Signs Vital Signs: 11/18/20 05:14 11/18/20 05:18 11/18/20 05:36 Temperature 102.9 F H Temperature Source Oral Pulse Rate 90 Respiratory Rate 20 H Blood Pressure 129/72 H Blood Pressure Mean 91 Pulse Ox 88 93 94 Oxygen Delivery Method Room Air Room Air Nasal Cannula Oxygen Flow Rate (L/min) 2 11/18/20 06:06 Temperature 97.8 F Temperature Source Oral Pulse Rate 80 Respiratory Rate 30 H Blood Pressure 109/60 Blood Pressure Mean 76 Pulse Ox 93 Oxygen Delivery Method Nasal Cannula Oxygen Flow Rate (L/min) 1.5 Weight Weight: 224 lb 13.944 oz Body Mass Index (BMI) 27.3 Physical Exam Narrative Physical Examination: General: Awake, alert, oriented x 3 and cooperative, seated upright in the ED bed, fatigued and ill-appearing. Skin: Normal color, normal turgor, no icterus, no cyanosis. HEENT: AT/NC, EOMI, PERRLA, moderately dry MM, no carotid bruits or JVD noted. Lungs: Diffusely diminished, greater bases, coughing elicited with attempted increased inspiratory effort, increased respiratory rate noted, no rales, ronchi or wheezing. Heart: Regular rate and rhythm; no gallop, rub audible. Abdomen: Soft, NTTP, ND, distant mildly hyperactive BS, no obvious evidence of HSM. Extremities: No cyanosis, clubbing, or edema. Neurological: Patient awake, alert, oriented as noted, cognitive function intact; pupils equally reactive to light and accommodation, cranial nerves II-XII grossly normal, moving all 4 extremities, no focal deficits, strength severely global decrease secondary to acute presentation. Psychiatric: Affect appears fatigued, ill-appearing, no acute evidence of depressive or anxiety feelings. Results Lab / Micro Data Result Diagrams: 11/18/20 05:29 11/18/20 05:29 Labs: Laboratory Results - last 24 hr 11/18/20 05:29: WBC 4.0 L, RBC 5.31, Hgb 14.4, Hct 43.6, MCV 82.1, MCH 27.1, MCHC 33.0, RDW Std Deviation 37.8, RDW Coeff of Chante 12.4, Plt Count 231, MPV 9.4, Immature Gran % (Auto) 0.700, Neut % (Auto) 82.5 H, Lymph % (Auto) 12.9 L, [place] % (Auto) 3.7, Eos % (Auto) 0.0, Baso % (Auto) 0.2, Absolute Neuts (auto) 3.3, Absolute Lymphs (auto) 0.52 L, Nucleated RBC % 0 11/18/20 05:29: Fibrinogen 661 H 11/18/20 05:29: Sodium 139, Potassium 4.2, Chloride 106, Carbon Dioxide 26.0, Anion Gap 7, BUN 10, Creatinine 1.08, Estim Creat Clear Calc 92.65, Est GFR (MDRD) Af Amer 91, Est GFR (MDRD) Non-Af 75, BUN/Creatinine Ratio 9.3 L, Glucose 141 H, Calcium 7.6 L, Total Bilirubin 0.30, AST 47 H, ALT 31, Alkaline Phosphatase 46, Troponin I High Sens 11, Total Protein 6.3 L, Albumin 2.5 L, Globulin 3.8, Albumin/Globulin Ratio 0.7 L 11/18/20 05:29: Lactic Acid 2.5 H* 11/18/20 05:29: Procalcitonin 0.08 Radiology Impression Chest X-Ray 11/18/20 05:34 IMPRESSION: Worsening multifocal pneumonia. A pattern of which is most consistent with covid pneumonia. Electronically Signed: Negar Harrison MD at 6:22 EDT Tel , Service support , Assessment & Plan Assessment/Plan (1) Pneumonia due to COVID-19 virus: PLAN: The patient is a 55 y/o M w/ PMHx: Anxiety and Depression, RLS, Chronic anemia, HTN, Hypothyroidism, MYNOR, Hx GI bleed who presents to the [facility] ED on 11/18/20 with history of initial onset of COVID sxs 13 days prior with 3 ED evaluations over the last 72 hours with outpatient prednisone therapy initiation per his PCP with episode of hemoptysis the day prior with CTPA ~ 24 hours prior to current presentation with BL PNA without PE evidence with worsening dyspnea and hypoxia. 1. Acute Hypoxia secondary to Acute Bilateral Pneumonia secondary to Acute Viral Syndrome, COVID-19: We will admit to medical surgical floor on telemetry, maintain on Covid precautions, given hypoxia will require 20-day quarantine timeline, will maintain on oxygen with wean as tolerated to room air, PRN albuterol, HOB, IS parameters w/ pending sputum cultures, respiratory viral panel and urine antigens, will obtain D-dimer, procalcitonin, CRP, CPK, Ferritin, LDH, trop and BNP, continue supportive care including q 2 hour turning including prone given no prone bed availability and judicious hydration, closely monitor for worsening status for ARDS and multiorgan failure, will initiate and continue IV decadron x 10 doses, given greater than 10 days since onset of symptoms will not be able to administer remdesivir. 2. Hyperglycemia: Admission glucose 141, recently on steroids, likely associated, trend CMP and if further elevated may obtain A1c. 3. Restless leg syndrome: Not on regimen, if significant symptoms may consider Mirapex addition. 4. Hypothyroidism: Continue home synthroid regimen. 5. Hypertension: Per current list not on regimen, BP low normal, monitor and if necessary may add oral regimen, as needed IV hydralazine in interim. 6. Anxiety: We will continue patient hydroxyzine and low-dose Ativan as needed regimen; however, will need to hold for heightened sedation or any concerns for respiratory compromise. 7. MYNOR: Patient is noncompliant with any CPAP/BiPAP machine. 8. DVT prophylaxis: SCDs, Lovenox cautiously given recent reported ED visit prior with hemoptysis. 9. CODE status: Patient does not have healthcare peritoneal living will in place. Discussed CODE status at length including difference between FULL code, DNR-CCA and DNR-CC status. Following discussions about the differences in these status, requested Full Code status. Patient amenable to airvo and BIPAP if necessary. Advanced Care Planning Face to Face Time: 16 minutes. Charges/Coding Visit Charges Inpatient E&M: 42263 Init Hosp L3 Procedures Hospitalists Procedures: 16816 Advncd Care Plan 30 Min
[2020-11-18] MEDS: dexAMETHasone 4 MG Tablet 6 MG PO (06:54)
--- NOTE | 2020-11-18 07:09 | ED.RN ---
wants hospitalist to know she is requesting treatment with ivermectin. Dr Mcleod is aware.
[2020-11-18 08:02] LABS: Ferritin 580 ng/mL (26-388); LDH 460 U/L (87-241)
[2020-11-18 08:20] LABS: BNP,B-Type NATRIURETIC PEPTIDE 150.5 pg/mL (0-100); D-Dimer Quantitative (DVT/PE) 2.04 FEU/ug/m (0.27-0.49)
--- NOTE | 2020-11-18 08:31 | CT_ITS ---
STUDY: CTA CHEST REASON FOR EXAM: Male, 55 years old. Elevated D-dimer RADIATION DOSAGE (If Supplied By Facility): CTDIvol = ( 12.57 ) mGy, DLP = ( 560.41 ) mGycm TECHNIQUE: The examination was performed with the intravenous administration of IV 100mL Isovue-370. Post-processing of the angiographic images was performed, with multiplanar reformation and 3D reconstruction. Individualized dose optimization techniques were used for this CT. COMPARISON: Chest x-ray earlier today, CT 11/16/2020 FINDINGS: Normal enhancement of the main pulmonary artery and right and left pulmonary arteries. Normal enhancement of the bilateral peripheral pulmonary arteries. There is no demonstrated pulmonary embolism. Normal thoracic aorta and visualized great vessels. There is no demonstrated aortic dissection. Normal heart and pericardium. Normal mediastinum. Normal hilar regions. Normal visualized trachea and bronchi. The lungs are well expanded. Bilateral patchy peripheral ground glass opacities consistent with subsegmental atelectasis or pneumonitis. Normal pleura. Normal chest wall structures. Normal osseous structures. Normal visualized upper abdomen. CT/CTA Chest W/WO Contrast IMPRESSION: 1. No CT evidence of pulmonary embolism. 2. Bilateral subsegmental atelectasis or pneumonitis. Commonly reported imaging features of Covid 19 pneumonia are present. Other processes such as influenza pneumonia and organizing pneumonia as can be seen from drug toxicity or connective tissue disease can cause a similar imaging pattern. Electronically Signed: Nsaeem Yi MD at 9:39 EDT Tel , Service support ,
[2020-11-18] MEDS: Ondansetron 4 MG/2 ML Vial IV ×2 (08:34→21:09)
[2020-11-18 09:37] LABS: Reflex Lactate? Y
--- NOTE | 2020-11-18 09:56 | NURSING ---
Addendum entered by Michaela Meneses 11/18/20 10:10: Ewelina inquires about visiting hours: informed her current policy no visitors for + COVID patients. Original Note: female phoned in states she is pt spouse Ewelina. She states i want my spouse to receive Z-pack that he started yesterday ( 2 tabs day one and then 1 tab day 2-5) and also symbicort inhaler 2 puffs by mouth BID. I also want him to receive the Ivermectin infusion, I.S., and absolutely NO remdesivir, I know they told me in ER that he has to make that decision but I am telling you this. This is the treatment [facility] is using and I want him on it. Listened, informed of POC as per MD order, inquired if she spoke with ER MD about her IVERMECTIN request, Ewelina states no informed Ewelina that is not an approved course of treatment and is not utilized at this time at [facility], Ewelina states well i was told it was. informed it is not. Ewelina states I know Dr. Adler isn't a fan of the antibiotics and symbicort but I have friends in [facility] who are nurses and that is what they are using and I want him on it. informed will pass that information on the hospitalist Dr. Palencia who will be seeing pt on ms3.
[2020-11-18 10:27] LABS: Lactic Acid 1.3 mmol/L (0.4-1.9)
[2020-11-18] MEDS: 0.9% Saline Lock 10 ML Syringe IV ×2 (11:35→21:09)
[2020-11-18] MEDS: 0.9% Normal Saline 1,000 ML 100 ML IV (11:37)
[2020-11-18] MEDS: Enoxaparin 30 MG/0.3 ML Syringe SC ×2 (11:38→21:05)
[2020-11-18] MEDS: Famotidine 20 MG Tablet PO ×2 (11:39→21:05)
--- NOTE | 2020-11-18 14:29 | PCS.PANDOC ---
PANDEMIC DOCUMENTATION INITIATED: Date: 10/08/2020 Time: 190
[2020-11-18] MEDS: Azithromycin 250 MG Tablet PO (15:05)
[2020-11-18] MEDS: Albuterol 2.5 MG/3 ML VIAL.NEB. INHALATION (20:02)
[2020-11-18] MEDS: LORazepam 0.5 MG Tablet PO (21:08)
[2020-11-18] MEDS: BENZOCAINE/MENTHOL 1 LOZENGE MUCOUS MEM (21:09)
[2020-11-18] MEDS: guaiFENesin 10 ML UDC (200MG/10ML) 20 ML PO (21:09)
[2020-11-19] VITALS (13 sets, daily range): BP systolic 101–144; BP diastolic 57–73; PULSE 57–92; RESP 18–24; TEMP 36.6–37.7; O2SAT 90–98
--- NOTE | 2020-11-19 02:59 | NURSING ---
Gave Pt and update on .
[2020-11-19] MEDS: Levothyroxine 137 MCG Tablet PO (05:26)
[2020-11-19 05:53] LABS: Absolute Lymphocyte Count 0.45 X10^3/uL (0.83-4.51); Absolute Neutrophil Count 4.1 X10^3/uL (2.0-7.7); Basophil# 0.01 X10^3/uL; Basophil% 0.2 % (0-1); Hemoglobin 14.1 g/dL (13.0-16.5); Lymphocyte # 0.45 X10^3/ul (0.83-4.51); Lymphocyte % 9.2 % (19-41); Mean Corpuscular Hgb 26.6 pg (27.0-32.0); Mean Corpuscular Volume 82.9 fL (80-94); Mean Platelet Vol. 9.1 fl (6.2-12.0); Monocyte# 0.34 X10^3/uL; Monocyte% 6.9 % (0-10); NRBC Flagged by Analyzer 0 % (0-5); Neutrophil # 4.05 X10^3/uL (2.7-7.7); Neutrophil % 82.5 % (47-70); POSITIVE DIFFERENTIAL YES; POSITIVE MORPHOLOGY YES; Platelet Count 247 K/mm3 (150-450); RBC Distribution Width CV 12.4 % (11.6-14.6); RBC Distribution Width SD 37.6 fl (35.1-43.9); Red Blood Count 5.31 M/mm3 (4.6-6.2); White Blood Count 4.9 K/mm3 (4.4-11.0)
[2020-11-19 06:39] LABS: ALB/GLOB Ratio 0.5 RATIO (0.9-2.4); AST(SGOT) 41 U/L (15-37); Alanine Aminotransfer ALT/SGPT 31 U/L (16-61); Albumin, Serum 2.2 g/dL (3.2-5.0); Alkaline Phosphatase 41 U/L (45-117); Anion Gap 9 (5-15); BUN 13 mg/dL (7-18); BUN/Creat Ratio 13.6 RATIO (10-20); Calcium,Total 8.1 mg/dL (8.5-10.1); Chloride 107 mmol/L (98-107); Creatinine, Serum 0.96 mg/dL (0.70-1.30); EST Glomerular Filtration Rate 86 mL/min (>60); Est Glom Filt Rate - Afr Amer 104 mL/min (>60); Estimated Creatinine Clearance 104.23 ml/min; Globulin 4.1 g/dL (2.2-4.2); Glucose 132 mg/dL (74-106); Potassium 4.3 mmol/L (3.5-5.1); Protein, Total 6.3 g/dL (6.4-8.2); Sodium Level 141 mmol/L (136-145)
[2020-11-19 06:55] LABS: Differential Indicated SCAN CRITERIA MET
[2020-11-19] MEDS: Azithromycin 250 MG Tablet PO (09:20)
[2020-11-19] MEDS: Famotidine 20 MG Tablet PO ×2 (09:20→20:33)
[2020-11-19] MEDS: Enoxaparin 30 MG/0.3 ML Syringe SC ×2 (09:20→20:33)
[2020-11-19] MEDS: dexAMETHasone 4 MG/ML Vial 6 MG IV (09:21)
[2020-11-19] MEDS: 0.9% Saline Lock 10 ML Syringe IV (09:21)
--- NOTE | 2020-11-19 13:30 | CASEMGMT ---
CAITIE MARTIN Assessment: Face to Face with pt for initial transition planning/care coordination assessment. CAITIE MARTIN introduced self and role at [facility], pt voices understanding and consents to assessment. Pt is A/O x4 and answers all questions appropriately at this time. Pt lying in bed with O2 on in no distress. Care providers, pharmacy, and demographics verified/updated. Admitting Dx: Hypoxia, COVID PNA PCP: Lori Specialists:Pt denies. Preferred Pharmacy: [facility] Lisa Insurance: [place] Prescription Benefit: yes LW/HPOA: Pt denies having a LW/DPOA and the need for info regarding AD. LNOK: Leti Delcid, Living Arrangements: Pt lives with and dtr in a two story house with two steps to enter. Pt reports being I in ADL's prior to hospitalization and denies concerns at home. Transportation: Pt drives self and denies concerns with transportation. DME/HHC/SNF: Pt has crutches at home but does not use. Pt has had HHC in the past but is unsure of who. Pt denies any SNF stays. Pt reports he was first tested at [facility] in [place]. Pt is also positive. She is quarantining. They have family who can provide them with groceries and supplies. Pt provided with a list of local in network DME providers, pt chose [facility] should he need O2 on dc. Pt works clinical study manager. Denies use of alcohol, cigarette use, street drug or illegal drug use. Pt states no concerns with going home at time of dc. Pt states no further concerns/needs. CM to follow. Advised pt to ask CM if any further question/concerns/needs arise, voices understanding. Pt Goal: Home Plan: Home
[2020-11-19 14:23] LABS: Pathologist Review Reviewed
--- NOTE | 2020-11-19 17:19 | PN.HOSP_ITS ---
Subjective Subjective Feeling better. Oxygen able to be weaned down to 8 L from 10. Having paroxysms of cough. Had a bout of hemoptysis where he coughed up dime sized clots of blood. Objective Data Objective Data Vital Signs: Vital Signs Temp Pulse Resp BP Pulse Ox 37.1 C 69 18 129/73 H 91 11/19/20 12:37 11/19/20 15:41 11/19/20 12:37 11/19/20 12:37 11/19/20 15:41 Oxygen Flow Rate (L/min) 8 Oxygen Delivery Method Nasal Cannula Weight: 102.1 kg Body Mass Index (BMI) 27.3 Intake & Output: Intake and Output for Last 24 Hours 11/17/20 11/18/20 11/19/20 23:59 23:59 23:59 Intake Total 2140 / 2140 1550 / 1550 Output Total 500 / 500 600 / 600 Balance 1640 / 1640 950 / 950 Lab / Micro Data Result Diagrams: 11/19/20 05:25 11/19/20 05:25 Labs: Laboratory Results - last 24 hr 11/18/20 05:29: Diff Path Review Reviewed 11/19/20 05:25: WBC 4.9, RBC 5.31, Hgb 14.1, Hct 44.0, MCV 82.9, MCH 26.6 L, MCHC 32.0, RDW Std Deviation 37.6, RDW Coeff of Chante 12.4, Plt Count 247, MPV 9.1, Immature Gran % (Auto) 1.200 H, Neut % (Auto) 82.5 H, Lymph % (Auto) 9.2 L, [place] % (Auto) 6.9, Eos % (Auto) 0.0, Baso % (Auto) 0.2, Absolute Neuts (auto) 4.1, Absolute Lymphs (auto) 0.45 L, Nucleated RBC % 0 11/19/20 05:25: Sodium 141, Potassium 4.3, Chloride 107, Carbon Dioxide 25.0, Anion Gap 9, BUN 13, Creatinine 0.96, Estim Creat Clear Calc 104.23, Est GFR (MDRD) Af Amer 104, Est GFR (MDRD) Non-Af 86, BUN/Creatinine Ratio 13.6, Glucose 132 H, Calcium 8.1 L, Total Bilirubin 0.30, AST 41 H, ALT 31, Alkaline Phosphatase 41 L, Total Protein 6.3 L, Albumin 2.2 L, Globulin 4.1, Albumin/Globulin Ratio 0.5 L Micro: Microbiology 11/18/20 16:35 Sputum, Expectorated/Coughed Gram Stain - Final 11/18/20 16:35 Sputum, Expectorated/Coughed Respiratory Culture - Preliminary Appears to be normal respiratory [place]. Further studies to follow. 11/18/20 14:00 Mucosa - Nose Respiratory Panel (PCR) - Final 11/18/20 12:00 Urine, Clean Catch Legionella Antigen - Final 11/18/20 12:00 Urine, Clean Catch Streptococcus pneumoniae Antigen (M - Final Physical Exam Const alert Neck no lymphadenopathy Resp normal respiratory effort, no retractions and no use of accessory muscles Cardio regular rate and regular rhythm Cardio Narrative: bibasilar crackles GI normal to inspection, nondistended, normoactive bowel sounds, soft to palpation, non-tender and non-distended Assessment & Plan Assessment/Plan (1) Acute hypoxemic respiratory failure due to COVID-19: (2) Pneumonia due to COVID-19 virus: (3) Hemoptysis: PLAN: The patient is a 55 y/o M w/ PMHx: Anxiety and Depression, RLS, C hronic anemia, HTN, Hypothyroidism, MYNOR, Hx GI bleed who presents to the [facility] ED on 11/18/20 with history of initial onset of COVID sxs 13 days prior with 3 ED evaluations over the last 72 hours with outpatient prednisone therapy initiation per his PCP with episode of hemoptysis the day prior with CTPA ~ 24 hours prior to current presentation with BL PNA without PE evidence with worsening dyspnea and hypoxia. 1. Acute hypoxic respiratory failure * secondary COVID-19 pneumonia: * slightly improved * continue to wean oxygen as able * pt very motivated and willing to help himself. Continue IS * On infectious work-up has been negative * add guaifenesin/codeine for coughing fits. 2. Acute COVID 19 pneumonia * will initiate and continue IV decadron x 10 doses, * given greater than 10 days since onset of symptoms will not be able to administer remdesivir. * not a candidate for baricitinib at this time * onset 11/05, quarantine though 11/25 3. Hemoptysis * ongoing, but scant amounts * monitor for now, but if persists, or worsening, consider pulm consult and dc enoxaparin 4. Hyperglycemia: * Admission glucose 141, recently on steroids, likely associated, trend CMP and if further elevated may obtain A1c. 5. Restless leg syndrome: Not on regimen, if significant symptoms may consider Mirapex addition. 6. Hypothyroidism: Continue home synthroid regimen. 7. Hypertension: Per current list not on regimen, BP low normal, monitor and if necessary may add oral regimen, as needed IV hydralazine in interim. 8. Anxiety: We will continue patient hydroxyzine and low-dose Ativan as needed regimen; however, will need to hold for heightened sedation or any concerns for respiratory compromise. 9. MYNOR: Patient is noncompliant with any CPAP/BiPAP machine. 10. DVT prophylaxis: SCDs, Lovenox cautiously given recent reported ED visit prior with hemoptysis. 11. CODE status: Patient does not have healthcare peritoneal living will in place. Discussed CODE status at length including difference between FULL code, DNR-CCA and DNR-CC status. Following discussions about the differences in these status, requested Full Code status. Patient amenable to airvo and BIPAP if necessary. Advanced Care Planning Face to Face Time: 16 minutes. Charges/Coding Visit Charges Inpatient E&M: 41648 Subs Hosp L2
[2020-11-19] MEDS: guaiFENesin/Codeine 5 ML UDC 10 ML PO (18:56)
[2020-11-19] MEDS: BENZOCAINE/MENTHOL 1 LOZENGE MUCOUS MEM (18:56)
[2020-11-19] MEDS: Albuterol 2.5 MG/3 ML VIAL.NEB. INHALATION (19:39)
[2020-11-19] MEDS: LORazepam 0.5 MG Tablet PO (20:33)
[2020-11-20] VITALS (11 sets, daily range): BP systolic 109–129; BP diastolic 50–70; PULSE 54–78; RESP 19–24; TEMP 36.8–37.4; O2SAT 6–98
[2020-11-20] MEDS: Levothyroxine 137 MCG Tablet PO (05:29)
[2020-11-20] MEDS: guaiFENesin 10 ML UDC (200MG/10ML) 20 ML PO (06:23)
[2020-11-20 06:38] LABS: Absolute Neutrophil Count 5.4 X10^3/uL (2.0-7.7); Basophil# 0.02 X10^3/uL; Basophil% 0.3 % (0-1); Hemoglobin 14.2 g/dL (13.0-16.5); Lymphocyte % 9.2 % (19-41); Mean Corp Hgb Conc 32.3 g/dL (32-36); Mean Corpuscular Hgb 26.8 pg (27.0-32.0); Mean Platelet Vol. 8.9 fl (6.2-12.0); Monocyte# 0.38 X10^3/uL; Monocyte% 5.9 % (0-10); NRBC Flagged by Analyzer 0 % (0-5); Neutrophil % 83.2 % (47-70); POSITIVE DIFFERENTIAL YES; POSITIVE MORPHOLOGY YES; Platelet Count 317 K/mm3 (150-450); RBC Distribution Width CV 12.3 % (11.6-14.6); RBC Distribution Width SD 37.4 fl (35.1-43.9); White Blood Count 6.5 K/mm3 (4.4-11.0)
[2020-11-20 06:59] LABS: Differential Indicated SCAN CRITERIA MET
[2020-11-20 07:06] LABS: ALB/GLOB Ratio 0.5 RATIO (0.9-2.4); AST(SGOT) 46 U/L (15-37); Alanine Aminotransfer ALT/SGPT 46 U/L (16-61); Albumin, Serum 2.2 g/dL (3.2-5.0); Alkaline Phosphatase 41 U/L (45-117); Anion Gap 8 (5-15); BUN 15 mg/dL (7-18); BUN/Creat Ratio 15.1 RATIO (10-20); Calcium,Total 8.1 mg/dL (8.5-10.1); Chloride 107 mmol/L (98-107); Creatinine, Serum 0.99 mg/dL (0.70-1.30); EST Glomerular Filtration Rate 83 mL/min (>60); Est Glom Filt Rate - Afr Amer 100 mL/min (>60); Estimated Creatinine Clearance 101.07 ml/min; Globulin 4.1 g/dL (2.2-4.2); Glucose 107 mg/dL (74-106); Potassium 4.4 mmol/L (3.5-5.1); Protein, Total 6.3 g/dL (6.4-8.2); Sodium Level 139 mmol/L (136-145)
[2020-11-20] MEDS: Enoxaparin 30 MG/0.3 ML Syringe SC ×2 (09:08→20:24)
[2020-11-20] MEDS: Famotidine 20 MG Tablet PO ×2 (09:08→20:24)
[2020-11-20] MEDS: Azithromycin 250 MG Tablet PO (09:08)
[2020-11-20] MEDS: 0.9% Saline Lock 10 ML Syringe IV (09:08)
[2020-11-20] MEDS: dexAMETHasone 4 MG/ML Vial 6 MG IV (09:08)
[2020-11-20] MEDS: guaiFENesin/Codeine 5 ML UDC 10 ML PO ×2 (12:15→20:24)
[2020-11-20] MEDS: Acetaminophen 325 MG Tablet 650 MG PO ×2 (12:22→19:59)
--- NOTE | 2020-11-20 14:12 | CASEMGMT ---
RN MARIO called pt in room to request his positive COVID result. Provided him with CM's email address to forward it to. Pt states he will do this today.
--- NOTE | 2020-11-20 14:32 | PN.HOSP_ITS ---
Subjective Subjective tolerating 8liters/m Objective Data Objective Data Vital Signs: Vital Signs Temp Pulse Resp BP Pulse Ox 37.4 C H 72 20 H 113/70 92 11/20/20 12:18 11/20/20 12:18 11/20/20 12:18 11/20/20 12:18 11/20/20 12:18 Oxygen Flow Rate (L/min) 8 Oxygen Delivery Method Nasal Cannula Weight: 101.5 kg Body Mass Index (BMI) 27.3 Intake & Output: Intake and Output for Last 24 Hours 11/18/20 11/19/20 11/20/20 23:59 23:59 23:59 Intake Total 2140 / 2140 1550 / 1550 Output Total 500 / 500 600 / 600 Balance 1640 / 1640 950 / 950 Lab / Micro Data Result Diagrams: 11/20/20 Unknown 11/20/20 Unknown Labs: Laboratory Results - last 24 hr 11/20/20 : WBC 6.5, RBC 5.30, Hgb 14.2, Hct 44.0, MCV 83.0, MCH 26.8 L, MCHC 32.3, RDW Std Deviation 37.4, RDW Coeff of Chante 12.3, Plt Count 317, MPV 8.9, Immature Gran % (Auto) 1.400 H, Neut % (Auto) 83.2 H, Lymph % (Auto) 9.2 L, [place] % (Auto) 5.9, Eos % (Auto) 0.0, Baso % (Auto) 0.3, Absolute Neuts (auto) 5.4, Absolute Lymphs (auto) 0.60 L, Nucleated RBC % 0 11/20/20 : Sodium 139, Potassium 4.4, Chloride 107, Carbon Dioxide 24.0, Anion Gap 8, BUN 15, Creatinine 0.99, Estim Creat Clear Calc 101.07, Est GFR (MDRD) Af Amer 100, Est GFR (MDRD) Non-Af 83, BUN/Creatinine Ratio 15.1, Glucose 107 H, Calcium 8.1 L, Total Bilirubin 0.50, AST 46 H, ALT 46, Alkaline Phosphatase 41 L , Total Protein 6.3 L, Albumin 2.2 L, Globulin 4.1, Albumin/Globulin Ratio 0.5 L Micro: Microbiology 11/18/20 06:28 Blood Culture (Wb) - Anticubital Left Blood Culture - Preliminary No growth in 48 hours. 11/18/20 05:29 Blood Culture (Wb) - Anticubital Right Blood Culture - Preliminary No growth in 48 hours. 11/18/20 16:35 Sputum, Expectorated/Coughed Gram Stain - Final 11/18/20 16:35 Sputum, Expectorated/Coughed Respiratory Culture - Preliminary Appears to be normal respiratory [place]. Further studies to follow. 11/18/20 14:00 Mucosa - Nose Respiratory Panel (PCR) - Final 11/18/20 12:00 Urine, Clean Catch Legionella Antigen - Final 11/18/20 12:00 Urine, Clean Catch Streptococcus pneumoniae Antigen (M - Final Physical Exam Const alert HEENT Head and Scalp: normocephalic Resp normal respiratory effort and no retractions Resp Narrative: bilateral crackles Cardio regular rate, regular rhythm, S1 normal heart sound and S2 normal heart sound GI normal to inspection, nondistended, normoactive bowel sounds, soft to palpation, non-tender and non-distended Extremity normal to inspection Assessment & Plan Assessment/Plan (1) Acute hypoxemic respiratory failure due to COVID-19: (2) Pneumonia due to COVID-19 virus: (3) Hemoptysis: PLAN: The patient is a 55 y/o M w/ PMHx: Anxiety and Depression, RLS, Chronic anemia, HTN, Hypothyroidism, MYNOR, Hx GI bleed who presents to the [facility] ED on 11/18/20 with history of initial onset of COVID sxs 13 days prior with 3 ED evaluations over the last 72 hours with outpatient prednisone therapy initiation per his PCP with episode of hemoptysis the day prior with CTPA ~ 24 hours prior to current presentation with BL PNA without PE evidence with worsening dyspnea and hypoxia. 1. Acute hypoxic respiratory failure * secondary COVID-19 pneumonia: * slightly improved * continue to wean oxygen as able * pt very motivated and willing to help himself. Continue IS * On infectious work-up has been negative * add guaifenesin/codeine for coughing fits. 2. Acute COVID 19 pneumonia * will initiate and continue IV decadron x 10 doses, * given greater than 10 days since onset of symptoms will not be able to administer remdesivir. * not a candidate for baricitinib at this time * onset 11/05, quarantine though 11/25 3. Hemoptysis * ongoing, but scant amounts * monitor for now, but if persists, or worsening, consider pulm consult and dc enoxaparin 4. Hyperglycemia: * Admission glucose 141, recently on steroids, likely associated, trend CMP and if further elevated may obtain A1c. 5. Restless leg syndrome: Not on regimen, if significant symptoms may consider Mirapex addition. 6. Hypothyroidism: Continue home synthroid regimen. 7. Hypertension: Per current list not on regimen, BP low normal, monitor and if necessary may add oral regimen, as needed IV hydralazine in interim. 8. Anxiety: We will continue patient hydroxyzine and low-dose Ativan as needed regimen; however, will need to hold for heightened sedation or any concerns for respiratory compromise. 9. MYNOR: Patient is noncompliant with any CPAP/BiPAP machine. 10. DVT prophylaxis: SCDs, Lovenox cautiously given recent reported ED visit prior with hemoptysis. 11. CODE status: Patient does not have healthcare peritoneal living will in place. Discussed CODE status at length including difference between FULL code, DNR-CCA and DNR-CC status. Following discussions about the differences in these status, requested Full Code status. Patient amenable to airvo and BIPAP if necessary. Advanced Care Planning Face to Face Time: 16 minutes. Charges/Coding Visit Charges Inpatient E&M: 76570 Subs Hosp L2
[2020-11-20] MEDS: Albuterol 2.5 MG/3 ML VIAL.NEB. INHALATION (19:13)
[2020-11-21] VITALS (10 sets, daily range): BP systolic 85–130; BP diastolic 46–73; PULSE 43–86; RESP 18–20; TEMP 36.9–37.4; O2SAT 91–99
[2020-11-21] MEDS: Levothyroxine 137 MCG Tablet PO (05:31)
[2020-11-21 07:29] LABS: Absolute Lymphocyte Count 0.64 X10^3/uL (0.83-4.51); Basophil# 0.02 X10^3/uL; Basophil% 0.3 % (0-1); Hematocrit 45.3 % (40-54); Hemoglobin 14.6 g/dL (13.0-16.5); Lymphocyte # 0.64 X10^3/ul (0.83-4.51); Lymphocyte % 10.5 % (19-41); Mean Corp Hgb Conc 32.2 g/dL (32-36); Mean Corpuscular Hgb 26.7 pg (27.0-32.0); Mean Platelet Vol. 9.3 fl (6.2-12.0); Monocyte% 4.9 % (0-10); NRBC Flagged by Analyzer 0 % (0-5); Neutrophil # 5.01 X10^3/uL (2.7-7.7); POSITIVE MORPHOLOGY YES; Platelet Count 358 K/mm3 (150-450); RBC Distribution Width CV 12.5 % (11.6-14.6); RBC Distribution Width SD 37.6 fl (35.1-43.9); Red Blood Count 5.46 M/mm3 (4.6-6.2); White Blood Count 6.1 K/mm3 (4.4-11.0)
[2020-11-21 07:39] LABS: Differential Indicated SCAN CRITERIA MET
[2020-11-21 08:09] LABS: ALB/GLOB Ratio 0.5 RATIO (0.9-2.4); AST(SGOT) 40 U/L (15-37); Alanine Aminotransfer ALT/SGPT 47 U/L (16-61); Albumin, Serum 2.3 g/dL (3.2-5.0); Alkaline Phosphatase 43 U/L (45-117); Anion Gap 7 (5-15); BUN 18 mg/dL (7-18); BUN/Creat Ratio 19.1 RATIO (10-20); Calcium,Total 8.3 mg/dL (8.5-10.1); Chloride 105 mmol/L (98-107); Creatinine, Serum 0.94 mg/dL (0.70-1.30); EST Glomerular Filtration Rate 88 mL/min (>60); Est Glom Filt Rate - Afr Amer 106 mL/min (>60); Estimated Creatinine Clearance 106.45 ml/min; Globulin 4.2 g/dL (2.2-4.2); Glucose 112 mg/dL (74-106); Potassium 4.3 mmol/L (3.5-5.1); Protein, Total 6.5 g/dL (6.4-8.2); Sodium Level 140 mmol/L (136-145)
[2020-11-21 08:27] LABS: Reactive Lymphocyte RARE
[2020-11-21] MEDS: Acetaminophen 325 MG Tablet 650 MG PO ×2 (10:01→21:51)
[2020-11-21] MEDS: dexAMETHasone 4 MG/ML Vial 6 MG IV (10:01)
[2020-11-21] MEDS: Enoxaparin 30 MG/0.3 ML Syringe SC ×2 (10:02→21:51)
[2020-11-21] MEDS: Azithromycin 250 MG Tablet PO (10:02)
[2020-11-21] MEDS: Famotidine 20 MG Tablet PO ×2 (10:02→21:51)
[2020-11-21] MEDS: 0.9% Saline Lock 10 ML Syringe IV (10:03)
--- NOTE | 2020-11-21 12:16 | NURSING ---
called in, updated on vital signs.
[2020-11-21] MEDS: Albuterol 2.5 MG/3 ML VIAL.NEB. INHALATION ×2 (14:11→19:15)
--- NOTE | 2020-11-21 14:12 | PN.HOSP_ITS ---
Subjective Subjective Tolerating gradual wean of oxygen. Had low BPs this AM, so furosemide was held. Objective Data Objective Data Vital Signs: Vital Signs Temp Pulse Resp BP Pulse Ox 37.1 C 57 L 18 109/55 L 94 11/21/20 13:15 11/21/20 13:15 11/21/20 13:15 11/21/20 13:15 11/21/20 13:15 Oxygen Flow Rate (L/min) 6 Oxygen Delivery Method Nasal Cannula Weight: 101 kg Body Mass Index (BMI) 27.3 Intake & Output: Intake and Output for Last 24 Hours 11/19/20 11/20/20 11/21/20 23:59 23:59 23:59 Intake Total 1550 / 1550 Output Total 600 / 600 Balance 950 / 950 Lab / Micro Data Result Diagrams: 11/21/20 06:12 11/21/20 06:12 Labs: Laboratory Results - last 24 hr 11/21/20 06:12: WBC 6.1, RBC 5.46, Hgb 14.6, Hct 45.3, MCV 83.0, MCH 26.7 L, MCHC 32.2, RDW Std Deviation 37.6, RDW Coeff of Chante 12.5, Plt Count 358, MPV 9.3, Immature Gran % (Auto) 2.300 H, Neut % (Auto) 82.0 H, Lymph % (Auto) 10.5 L , [place] % (Auto) 4.9, Eos % (Auto) 0.0, Baso % (Auto) 0.3, Absolute Neuts (auto) 5.0, Absolute Lymphs (auto) 0.64 L, Nucleated RBC % 0, Reactive Lymphocytes RARE 11/21/20 06:12: Sodium 140, Potassium 4.3, Chloride 105, Carbon Dioxide 28.0, Anion Gap 7, BUN 18, Creatinine 0.94, Estim Creat Clear Calc 106.45, Est GFR (MDRD) Af Amer 106, Est GFR (MDRD) Non-Af 88, BUN/Creatinine Ratio 19.1, Glucose 112 H, Calcium 8.3 L, Total Bilirubin 0.50, AST 40 H, ALT 47, Alkaline Phosphatase 43 L, Total Protein 6.5, Albumin 2.3 L, Globulin 4.2, Albumin/Globul in Ratio 0.5 L Micro: Microbiology 11/18/20 16:35 Sputum, Expectorated/Coughed Gram Stain - Final 11/18/20 16:35 Sputum, Expectorated/Coughed Respiratory Culture - Final Presumptive C albicans Mixed Michelle 11/18/20 06:28 Blood Culture (Wb) - Anticubital Left Blood Culture - Preliminary No growth in 48 hours. 11/18/20 05:29 Blood Culture (Wb) - Anticubital Right Blood Culture - Preliminary No growth in 48 hours. 11/18/20 14:00 Mucosa - Nose Respiratory Panel (PCR) - Final 11/18/20 12:00 Urine, Clean Catch Legionella Antigen - Final 11/18/20 12:00 Urine, Clean Catch Streptococcus pneumoniae Antigen (M - Final Physical Exam Const alert Resp normal respiratory effort, no retractions and no use of accessory muscles Resp Narrative: faint diffuse crackles. Cardio regular rate, regular rhythm, S1 normal heart sound and S2 normal heart sound GI normal to inspection, nondistended, normoactive bowel sounds, soft to palpation, non-tender and non-distended Extremity normal to inspection Skin no rashes or lesions noted Neuro Sensorium / Orientation: awake Assessment & Plan Assessment/Plan (1) Acute hypoxemic respiratory failure due to COVID-19: (2) Pneumonia due to COVID-19 virus: (3) Hemoptysis: PLAN: The patient is a 55 y/o M w/ PMHx: Anxiety and Depression, RLS, Chronic anemia, HTN, Hypothyroidism, MYNOR, Hx GI bleed who presents to the [facility] ED on 11/18/20 with history of initial onset of COVID sxs 13 days prior with 3 ED evaluations over the last 72 hours with outpatient prednisone therapy initiation per his PCP with episode of hemoptysis the day prior with CTPA ~ 24 hours prior to current presentation with BL PNA without PE evidence with worsening dyspnea and hypoxia. 1. Acute hypoxic respiratory failure * secondary COVID-19 pneumonia: * slightly improved * continue to wean oxygen as able * pt very motivated and willing to help himself. Continue IS * On infectious work-up has been negative * continue guaifenesin/codeine for coughing fits. 2. Acute COVID 19 pneumonia * will initiate and continue IV decadron x 10 doses, * given greater than 10 days since onset of symptoms will not be able to administer remdesivir. * not a candidate for baricitinib at this time * onset 11/05, quarantine though 10/3 3. Hemoptysis * resolved * monitor for now, but if persists, or worsening, consider pulm consult and dc enoxaparin 4. Hyperglycemia: * Admission glucose 141, recently on steroids, likely associated, trend CMP and if further elevated may obtain A1c. 5. Restless leg syndrome: Not on regimen, if significant symptoms may consider Mirapex addition. 6. Hypothyroidism: Continue home synthroid regimen. 7. Hypertension: Per current list not on regimen, BP low normal, monitor and if necessary may add oral regimen, as needed IV hydralazine in interim. 8. Anxiety: We will continue patient hydroxyzine and low-dose Ativan as needed regimen; however, will need to hold for heightened sedation or any concerns for respiratory compromise. 9. MYNOR: Patient is noncompliant with any CPAP/BiPAP machine. 10. DVT prophylaxis: SCDs, Lovenox cautiously given recent reported ED visit prior with hemoptysis. 11. CODE status: Patient does not have healthcare peritoneal living will in place. Discussed CODE status at length including difference between FULL code, DNR-CCA and DNR-CC status. Following discussions about the differences in these status, requested Full Code status. Patient amenable to airvo and BIPAP if necessary. Advanced Care Planning Face to Face Time: 16 minutes. Charges/Coding Visit Charges Inpatient E&M: 12962 Subs Hosp L2
[2020-11-21] MEDS: guaiFENesin/Codeine 5 ML UDC 10 ML PO (21:51)
[2020-11-22] VITALS (14 sets, daily range): BP systolic 114–129; BP diastolic 57–72; PULSE 53–88; RESP 18–20; TEMP 36.7–37; O2SAT 82–98
[2020-11-22] MEDS: Levothyroxine 137 MCG Tablet PO (06:06)
[2020-11-22] MEDS: guaiFENesin/Codeine 5 ML UDC 10 ML PO ×2 (06:06→21:35)
[2020-11-22] MEDS: Acetaminophen 325 MG Tablet 650 MG PO ×3 (06:06→20:17)
--- NOTE | 2020-11-22 06:16 | NURSING ---
Pt's called in to check on pt.
[2020-11-22 07:21] LABS: Absolute Lymphocyte Count 0.99 X10^3/uL (0.83-4.51); Absolute Neutrophil Count 4.9 X10^3/uL (2.0-7.7); Basophil# 0.03 X10^3/uL; Basophil% 0.4 % (0-1); Eosinophil# 0.03 X10^3/uL; Eosinophils% 0.4 % (0-5); Hemoglobin 15.1 g/dL (13.0-16.5); Lymphocyte # 0.99 X10^3/ul (0.83-4.51); Lymphocyte % 14.8 % (19-41); Mean Corp Hgb Conc 32.1 g/dL (32-36); Mean Corpuscular Hgb 26.6 pg (27.0-32.0); Mean Corpuscular Volume 82.9 fL (80-94); Mean Platelet Vol. 9.3 fl (6.2-12.0); NRBC Flagged by Analyzer 0 % (0-5); Neutrophil # 4.89 X10^3/uL (2.7-7.7); Neutrophil % 73.5 % (47-70); POSITIVE MORPHOLOGY YES; Platelet Count 378 K/mm3 (150-450); RBC Distribution Width CV 12.3 % (11.6-14.6); RBC Distribution Width SD 37.5 fl (35.1-43.9); Red Blood Count 5.67 M/mm3 (4.6-6.2); White Blood Count 6.7 K/mm3 (4.4-11.0)
[2020-11-22 07:28] LABS: Differential Indicated SCAN CRITERIA MET
[2020-11-22 08:03] LABS: ALB/GLOB Ratio 0.6 RATIO (0.9-2.4); AST(SGOT) 38 U/L (15-37); Alanine Aminotransfer ALT/SGPT 58 U/L (16-61); Albumin, Serum 2.5 g/dL (3.2-5.0); Alkaline Phosphatase 46 U/L (45-117); Anion Gap 6 (5-15); BUN 19 mg/dL (7-18); BUN/Creat Ratio 21.5 RATIO (10-20); Calcium,Total 8.5 mg/dL (8.5-10.1); Chloride 107 mmol/L (98-107); Creatinine, Serum 0.88 mg/dL (0.70-1.30); EST Glomerular Filtration Rate 95 mL/min (>60); Est Glom Filt Rate - Afr Amer 115 mL/min (>60); Estimated Creatinine Clearance 113.71 ml/min; Globulin 4.2 g/dL (2.2-4.2); Glucose 84 mg/dL (74-106); Potassium 4.3 mmol/L (3.5-5.1); Protein, Total 6.7 g/dL (6.4-8.2); Sodium Level 141 mmol/L (136-145)
[2020-11-22 08:36] LABS: Reactive Lymphocyte 1+
[2020-11-22 08:37] LABS: Differential Comment SCANNED
[2020-11-22] MEDS: Furosemide 40 MG/4 ML Vial IV (09:51)
[2020-11-22] MEDS: Enoxaparin 30 MG/0.3 ML Syringe SC ×2 (09:52→21:34)
[2020-11-22] MEDS: Azithromycin 250 MG Tablet PO (09:52)
[2020-11-22] MEDS: Famotidine 20 MG Tablet PO ×2 (09:53→21:34)
[2020-11-22] MEDS: dexAMETHasone 4 MG/ML Vial 6 MG IV (09:53)
[2020-11-22] MEDS: 0.9% Saline Lock 10 ML Syringe IV ×2 (09:55→21:33)
[2020-11-22] MEDS: Albuterol 2.5 MG/3 ML VIAL.NEB. INHALATION (14:13)
--- NOTE | 2020-11-22 14:46 | PN.HOSP_ITS ---
Subjective Subjective No new events. Ambulated, but required 10l to maintain sats of 92%. Objective Data Objective Data Vital Signs: Vital Signs Temp Pulse Resp BP Pulse Ox 36.7 C 86 20 H 126/72 H 94 11/22/20 10:00 11/22/20 14:13 11/22/20 14:13 11/22/20 13:34 11/22/20 14:13 Oxygen Flow Rate (L/min) [ 10 AMBULATING with Oxygen #2] Oxygen Flow Rate (L/min) [ 5 AMBULATING with Oxygen #1] Oxygen Flow Rate (L/min) [At 5 REST with Oxygen] Oxygen Flow Rate (L/min) 6 Oxygen Delivery Method Nasal Cannula Weight: 101.8 kg Body Mass Index (BMI) 27.3 Intake & Output: Intake and Output for Last 24 Hours 11/20/20 11/21/20 11/22/20 23:59 23:59 23:59 Intake Total 100 / 100 Balance 100 / 100 Lab / Micro Data Result Diagrams: 11/22/20 06:29 11/22/20 06:29 Labs: Laboratory Results - last 24 hr 11/22/20 06:29: WBC 6.7, RBC 5.67, Hgb 15.1, Hct 47.0, MCV 82.9, MCH 26.6 L, MCHC 32.1, RDW Std Deviation 37.5, RDW Coeff of Chante 12.3, Plt Count 378, MPV 9.3, Immature Gran % (Auto) 4.900 H, Neut % (Auto) 73.5 H, Lymph % (Auto) 14.8 L , [place] % (Auto) 6.0, Eos % (Auto) 0.4, Baso % (Auto) 0.4, Absolute Neuts (auto) 4.9, Absolute Lymphs (auto) 0.99, Nucleated RBC % 0, Differential Comment SCA NNED, Reactive Lymphocytes 1+ 11/22/20 06:29: Sodium 141, Potassium 4.3, Chloride 107, Carbon Dioxide 28.0, Anion Gap 6, BUN 19 H, Creatinine 0.88, Estim Creat Clear Calc 113.71, Est GFR (MDRD) Af Amer 115, Est GFR (MDRD) Non-Af 95, BUN/Creatinine Ratio 21.5 H, Glucose 84, Calcium 8.5, Total Bilirubin 0.60, AST 38 H, ALT 58, Alkaline Phosphatase 46, Total Protein 6.7, Albumin 2.5 L, Globulin 4.2, Albumin/Globulin Ratio 0.6 L Micro: Microbiology 11/18/20 16:35 Sputum, Expectorated/Coughed Gram Stain - Final 11/18/20 16:35 Sputum, Expectorated/Coughed Respiratory Culture - Final Presumptive C albicans Mixed Michelle 11/18/20 06:28 Blood Culture (Wb) - Anticubital Left Blood Culture - Preliminary No growth in 48 hours. 11/18/20 05:29 Blood Culture (Wb) - Anticubital Right Blood Culture - Prel iminary No growth in 48 hours. 11/18/20 14:00 Mucosa - Nose Respiratory Panel (PCR) - Final 11/18/20 12:00 Urine, Clean Catch Legionella Antigen - Final 11/18/20 12:00 Urine, Clean Catch Streptococcus pneumoniae Antigen (M - Final Physical Exam Const alert Resp normal respiratory effort, no retractions, no use of accessory muscles and clear to auscultation bilaterally Cardio regular rate, regular rhythm, S1 normal heart sound and S2 normal heart sound GI normal to inspection, nondistended, normoactive bowel sounds, soft to palpation, non-tender and non-distended Extremity normal to inspection Neuro Sensorium / Orientation: awake and alert Assessment & Plan Assessment/Plan (1) Acute hypoxemic respiratory failure due to COVID-19: (2) Pneumonia due to COVID-19 virus: (3) Hemoptysis: PLAN: The patient is a 55 y/o M w/ PMHx: Anxiety and Depression, RLS, C hronic anemia, HTN, Hypothyroidism, MYNOR, Hx GI bleed who presents to the [facility] ED on 11/18/20 with history of initial onset of COVID sxs 13 days prior with 3 ED evaluations over the last 72 hours with outpatient prednisone therapy initiation per his PCP with episode of hemoptysis the day prior with CTPA ~ 24 hours prior to current presentation with BL PNA without PE evidence with worsening dyspnea and hypoxia. 1. Acute hypoxic respiratory failure * secondary COVID-19 pneumonia: * slightly improved * continue to wean oxygen as able * pt very motivated and willing to help himself. Continue IS * infectious work-up has been negative * continue guaifenesin/codeine for coughing fits. 2. Acute COVID 19 pneumonia * dexamethasone through 11/28 * given greater than 10 days since onset of symptoms will not be able to administer remdesivir. * not a candidate for baricitinib at this time * onset 11/05, quarantine though 11/25 3. Hemoptysis * resolved * monitor for now, but if persists, or worsening, consider pulm consult and dc enoxaparin 4. Hyperglycemia: * Admission glucose 141, recently on steroids, likely associated, trend CMP and if further elevated may obtain A1c. 5. Restless leg syndrome: Not on regimen, if significant symptoms may consider Mirapex addition. 6. Hypothyroidism: Continue home synthroid regimen. 7. Hypertension: Per current list not on regimen, BP low normal, monitor and if necessary may add oral regimen, as needed IV hydralazine in interim. 8. Anxiety: We will continue patient hydroxyzine and low-dose Ativan as needed regimen; however, will need to hold for heightened sedation or any concerns for respiratory compromise. 9. MYNOR: Patient is noncompliant with any CPAP/BiPAP machine. 10. DVT prophylaxis: SCDs, Lovenox cautiously given recent reported ED visit prior with hemoptysis. 11. CODE status: Patient does not have healthcare peritoneal living will in place. Discussed CODE status at length including difference between FULL code, DNR-CCA and DNR-CC status. Following discussions about the differences in these status, requested Full Code status. Patient amenable to airvo and BIPAP if necessary. Advanced Care Planning Face to Face Time: 16 minutes. Charges/Coding Visit Charges Inpatient E&M: 43352 Subs Hosp L2
--- NOTE | 2020-11-22 21:20 | NURSING ---
Update given to .
[2020-11-22] MEDS: MELATONIN 3 MG TABLET PO (21:34)
[2020-11-23] VITALS (14 sets, daily range): BP systolic 96–124; BP diastolic 59–70; PULSE 53–88; RESP 14–18; TEMP 36.6–37.2; O2SAT 86–97
[2020-11-23] MEDS: Levothyroxine 137 MCG Tablet PO (06:27)
[2020-11-23] MEDS: Acetaminophen 325 MG Tablet 650 MG PO (06:29)
[2020-11-23] MEDS: Albuterol 2.5 MG/3 ML VIAL.NEB. INHALATION (07:04)
[2020-11-23] MEDS: Enoxaparin 30 MG/0.3 ML Syringe SC (09:54)
[2020-11-23] MEDS: Azithromycin 250 MG Tablet PO (09:54)
[2020-11-23] MEDS: Famotidine 20 MG Tablet PO (09:54)
[2020-11-23] MEDS: 0.9% Saline Lock 10 ML Syringe IV (09:55)
[2020-11-23] MEDS: dexAMETHasone 4 MG/ML Vial 6 MG IV (09:55)
[2020-11-23] MEDS: Furosemide 40 MG/4 ML Vial IV (09:55)
--- NOTE | 2020-11-23 11:02 | NURSING ---
Home 02 qualification completed at this time. At rest patient was between 90 and 92% on RA. With ambulation he dropped to 87%. Patient sat in bed and rested. 3L 02 was applied. With ambulation his pulse ox was dropped to 88%. Patient rested, 02 up to 5L. Ambulated in room and pulse ox was between 90-91%.
--- NOTE | 2020-11-23 11:45 | NURSING ---
Patient's updated at this time.
--- NOTE | 2020-11-23 12:12 | PCM.DC ---
Discharge Instructions Diet Discharge Diet: No restrictions Activity Discharge Activity: Return to Normal Activity (ease back into normal routine. ) Dressing / Incision Call your doctor if you observe: Fever of 101 or Higher and Shortness of breath Additional Dressing/Incision Instructions:: Self isolate for at least 20 days since symptoms began (11/05-11/25/2020) AND at least one day (24 hours) have passed since resolution of fever without the use of fever-reducing agents AND improvement of symptoms (e.g., cough, shortness of breath) When around people in the same room, wear a face mask. Individuals also in the room should wear a mask. If possible, use a different bathroom and bedroom. Perform adequate hand hygiene. Avoid sharing dishes, glasses, etc. Follow Up Care Test Results: Test results from this visit will be discussed in further detail at your follow-up appointment, if applicable. Discharge Plan Admission Admit Date/Time: 11/18/20 06:45 Primary Reason for Your Visit: COVID 19 Attending Provider: Favio Lucia Primary Care Provider: Amilcar Sandoval Discharge Orders/Prescriptions Prescriptions: New sodium chloride [Deep Sea Nasal] 0.65 % Aerosol,[place] 2 spray NASAL TID PRN PRN (Reason: NASAL DRYNESS) Qty: 15 RF: 0 dexamethasone 6 mg tablet 6 mg PO DAILY Qty: 5 RF: 0 Continued Synthroid 137 mg PO/SL DAILY RF: 0 lorazepam [Ativan] 0.5 mg tablet 0.5 mg PO TID PRN (Reason: anxiety) Qty: 10 RF: 0 hydroxyzine pamoate 25 MG capsule 50 mg PO TID PRN PRN (Reason: Anxiety) Qty: 30 RF: 0 cholecalciferol (vitamin D3) [Vitamin D3] 10 mcg (400 unit) Tablet 10 mcg PO DAILY RF: 0 Held budesonide-formoterol [Symbicort] 160-4.5 mcg/actuation HFA aerosol inhaler 1 puff INHALATION BID RF: 0 Hold Instructions: Resume on 11/29/20. Discontinued azithromycin 250 mg tablet 250 mg PO DAILY RF: 0 Referrals / Follow Up: Amilcar Sandoval MD [Primary Care Provider] - Within 2 Weeks Disposition Disposition (needs filled in before D/C Order can be placed): Home, Self Care
--- NOTE | 2020-11-23 12:17 | PCM.DC.SUM ---
Providers Date of Admission: 11/18/20 Primary Care Physician: Dr. Amilcar Sandoval MD Reason For Visit: HYPOXIA, COVID PNA Diagnosis Discharge Diagnosis (1) Acute hypoxemic respiratory failure due to COVID-19: Status: Acute Code(s): U07.1 - COVID-19; J96.01 - Acute respiratory failure with hypoxia (2) Pneumonia due to COVID-19 virus: Status: Acute Code(s): U07.1 - COVID-19; J12.82 - Pneumonia due to coronavirus disease 2019 (3) Hemoptysis: Status: Acute Code(s): R04.2 - Hemoptysis Medications at Discharge Home Medications Synthroid 137 mg PO/SL DAILY 11/15/20 lorazepam [Ativan] 0.5 mg PO TID PRN #10 tab 11/15/20 hydroxyzine pamoate 50 mg PO TID PRN PRN #30 capsule 11/17/20 budesonide-formoterol [Symbicort] 1 puff INHALATION BID 11/18/20 cholecalciferol (vitamin D3) [Vitamin D3] 10 mcg PO DAILY 11/22/20 dexamethasone 6 mg PO DAILY #5 tab 11/23/20 sodium chloride [Deep Sea Nasal] 2 spray NASAL TID PRN PRN #15 ml 11/23/20 Hospital Course Operations None Procedures None Summary of Care Provided Minutes Spent on Discharge: 32 Hospital Course: Is a 55-year-old male presents with shortness of breath. Patient found to have COVID-19. Patient was treated with dexamethasone. Patient was out of the window for remdesivir. Patient was also treated with furosemide and his respiratory status is much improved. 1. Acute hypoxic respiratory failure secondary COVID-19 pneumonia: slightly improved continue to wean oxygen as able pt very motivated and willing to help himself. Continue IS infectious work-up has been negative continue guaifenesin/codeine for coughing fits. Pt will not require oxygen at rest, but will require 5L/m with activity. Patient advised of warning signs of secondary bacterial pneumonias including increasing shortness of breath and fever. Advised if he has any other symptoms to notify his primary care doctor or come back to the emergency room. 2. Acute COVID 19 pneumonia dexamethasone through 11/28 given greater than 10 days since onset of symptoms will not be able to administer remdesivir. not a candidate for baricitinib at this time onset 11/05, quarantine though 11/25 3. Hemoptysis resolved monitor for now, but if persists, or worsening, consider pulm consult and dc enoxaparin Physical Exam Const alert HEENT normocephalic Skin no rashes or lesions noted Neuro Sensorium / Orientation: awake and alert Psych affect normal Weight / BMI Weight Weight: 98.5 kg Body Mass Index (BMI) 27.3 ABG / Lab / Microbiology Data Result Diagrams: 11/22/20 06:29 11/22/20 06:29 Microbiology: Microbiology 11/18/20 06:28 Blood Culture (Wb) - Anticubital Left Blood Culture - Final No growth in 5 days. 11/18/20 05:29 Blood Culture (Wb) - Anticubital Right Blood Culture - Final No growth in 5 days. 11/18/20 16:35 Sputum, Expectorated/Coughed Gram Stain - Final 11/18/20 16:35 Sputum, Expectorated/Coughed Respiratory Culture - Final Presumptive C albicans Mixed Michelle 11/18/20 14:00 Mucosa - Nose Respiratory Panel (PCR) - Final 11/18/20 12:00 Urine, Clean Catch Legionella Antigen - Final 11/18/20 12:00 Urine, Clean Catch Streptococcus pneumoniae Antigen (M - Final D/C Instructions Discharge Diet: No restrictions Call your doctor if you observe: Fever of 101 or Higher and Shortness of breath Additional Dressing/Incision Instructions: Self isolate for at least 20 days since symptoms began (11/05-11/25/2020) AND at least one day (24 hours) have passed since resolution of fever without the use of fever-reducing agents AND improvement of symptoms (e.g., cough, shortness of breath) When around people in the same room, wear a face mask. Individuals also in the room should wear a mask. If possible, use a different bathroom and bedroom. Perform adequate hand hygiene. Avoid sharing dishes, glasses, etc. Meaningful Use Info Meaningful Use Diagnoses (Choose all that apply): None applicable Discharge Plan Admission Admit Date/Time: 11/18/20 06:45 Primary Reason for Your Visit: COVID 19 Attending Provider: Favio Lucia Primary Care Provider: Amilcar Sandoval Discharge Orders/Prescriptions Prescriptions: New sodium chloride [Deep Sea Nasal] 0.65 % Aerosol,[place] 2 spray NASAL TID PRN PRN (Reason: NASAL DRYNESS) Qty: 15 RF: 0 dexamethasone 6 mg tablet 6 mg PO DAILY Qty: 5 RF: 0 Continued Synthroid 137 mg PO/SL DAILY RF: 0 lorazepam [Ativan] 0.5 mg tablet 0.5 mg PO TID PRN (Reason: anxiety) Qty: 10 RF: 0 hydroxyzine pamoate 25 MG capsule 50 mg PO TID PRN PRN (Reason: Anxiety) Qty: 30 RF: 0 cholecalciferol (vitamin D3) [Vitamin D3] 10 mcg (400 unit) Tablet 10 mcg PO DAILY RF: 0 Held budesonide-formoterol [Symbicort] 160-4.5 mcg/actuation HFA aerosol inhaler 1 puff INHALATION BID RF: 0 Hold Instructions: Resume on 11/29/20. Discontinued azithromycin 250 mg tablet 250 mg PO DAILY RF: 0 Referrals / Follow Up: Amilcar Sandoval MD [Primary Care Provider] - Within 2 Weeks Disposition Disposition (needs filled in before D/C Order can be placed): Home, Self Care Charges/Coding Visit Charges Inpatient E&M: 25089 Disch Hosp
--- NOTE | 2020-11-23 13:51 | CASEMGMT ---
Pt qualifies for home O2. TC to [facility], spoke with [facility], they do have supply to provide pt. Referral faxed at this time.
--- NOTE | 2020-11-26 13:56 | CASEMGMT ---
ETHEL DC F/u Call DC Date: 11/23/20 DC Diagnosis: Covid DC Disposition: Home with Home O2-[facility] DC Lace/Strata: 10/25 Called patient listed cell phone, no answer and female voice on VM-non identifying. No VM left. Cell phone is match to patient 's cell phone number on demographic, however d/t non-identifying name on recorded VM- no VM was left by this flex o writer operator. Aleja Abrams RNCM
== END 2020-11-23 16:58 | disposition home or self-care (01) | DRG 177 ==
LOC: ED 06:31 → MS3 07:18
PROVIDERS: Admitting Provider Family Medicine; Emergency Provider Emergency Medicine; PCP Family Medicine
DX: U07.1 COVID-19 (principal); J12.82 Pneumonia due to coronavirus disease 2019; J96.01 Acute respiratory failure with hypoxia; R04.2 Hemoptysis; D64.9 Anemia, unspecified; R73.9 Hyperglycemia, unspecified; T38.0X5A Adverse effect of glucocorticoids and synthetic analogues, initial encounter; Y92.9 Unspecified place or not applicable; I10 Essential (primary) hypertension; G47.33 Obstructive sleep apnea (adult) (pediatric); G25.81 Restless legs syndrome; E03.9 Hypothyroidism, unspecified; F41.9 Anxiety disorder, unspecified; Z87.19 Personal history of other diseases of the digestive system; Z79.899 Other long term (current) drug therapy
CPT/HCPCS: 36415; 71045; 71275; 80053; 82728; 83605; 83615; 83880; 84145; 84484; 85025; 85379; 85384; 86140; 87040; 87070; 87205; 87449; 87633; 93005; 94640; 94762; 97802; 97803; 99251; 99285; J7030; J7040; Q9967; A4216; G0463; J1940; J2405

== ENCOUNTER 2020-12-02 16:58 | Emergency (ER) | payer BC, SELFPAY ==
[2020-12-02 16:59] VITALS: BP 113/78; PULSE 108; RESP 16; TEMP 36.8; O2SAT 95; BMI 27.3
--- NOTE | 2020-12-02 17:46 | EX.ED.UPPERE ---
HPI History of Present Illness Chief Complaint: Upper Extremity Injury Narrative Narrative: 55-year-old male presenting with pain and swelling in the right AC extending up into the axilla. He states this is been present since he was recently hospitalized for COVID-19. He states he is out of quarantine. He feels otherwise well. No history of DVT/PE. He does not have any chest pain or shortness of breath currently. He is not anticoagulated. He denies paresthesias. He denies any trauma otherwise. Denies fever or chills. PFSH PFS Medical History Anemia Anxiety Herniated cervical disc Hypothyroidism MYNOR (obstructive sleep apnea) RLS (restless legs syndrome) Home Medications Synthroid 137 mg PO/SL DAILY 11/15/20 [History Last Taken Unknown] lorazepam [Ativan] 0.5 mg PO TID PRN #10 tab 11/15/20 [Rx Last Taken Unknown] hydroxyzine pamoate 50 mg PO TID PRN PRN #30 capsule 11/17/20 [Rx Last Taken Unknown] budesonide-formoterol [Symbicort] 1 puff INHALATION BID 11/18/20 [History Last Taken 11/17/20 18:00] cholecalciferol (vitamin D3) [Vitamin D3] 10 mcg PO DAILY 11/22/20 [History Last Taken Unknown] dexamethasone 6 mg PO DAILY #5 tab 11/23/20 [Rx Last Taken Unknown] sodium chloride [Deep Sea Nasal] 2 spray NASAL TID PRN PRN #15 ml 11/23/20 [Rx Last Taken Unknown] Allergy/AdvReac Type Severity Reaction Status Date / Time Penicillins [PCN] Allergy Unknown Verified 12/02/20 17:01 NSAIDS (Non-Steroidal AdvReac gi bleed Verified 12/02/20 17:01 Anti-Inflamma Family History Mother Hypertension Surgical History H/O arthroscopy of left knee Hx of umbilical hernia repair Social History household members: spouse Smoking Status: Never smoker alcohol intake: former substance use type: does not use ROS ROS ED Constitutional Constitutional ED: Denies chills or fever(s) Eyes Eyes: Denies blurry vision or change in vision ENT ENT ED: Denies rhinorrhea or sore throat Cardiovascular Cardiovascular: Denies chest pain or palpitations Respiratory/Chest Respiratory/Chest: Denies cough or dyspnea Gastrointestinal Gastrointestinal: Denies abdominal pain, nausea or vomiting Genitourinary Genitourinary ED: Denies dysuria or hematuria Musculoskeletal Musculoskeletal: Reports other Details: Right arm pain Integumentary Denies abscess or rash Neurologic Neurologic: Denies headache(s) or paresthesias EXAM Physical Exam Const Vital Signs: 12/02/20 16:59 Temperature 98.2 F Temperature Source Temporal Pulse Rate 108 H Respiratory Rate 16 Blood Pressure 113/78 Blood Pressure Mean 89 Pulse Ox 95 Oxygen Delivery Method Room Air Positive well nourished HEENT normocephalic and atraumatic Resp normal respiratory effort Cardio regular rate and regular rhythm Extremity Extremity Narrative: Tenderness to palpation in the right AC and swelling that extends into the medial aspect of the bicep of into the axilla. Right arm is neurovascular intact brisk cap refill all 5 fingers. Abel's test normal on the right. No cellulitic changes noted. Neuro oriented x3 Sensorium / Orientation: alert Skin Rashes: no rashes MDM MDM MDM Narrative Medical decision making narrative: Patient presenting with swelling which is concerning for possible blood clot. Patient has not had this before but he is status post COVID-19 and is not anticoagulated and was previously hospitalized prior to his visit today. Due to the time of day we do not have the ability to test for DVT in the upper extremity. Patient will be given a dose of weight-based Lovenox and given a follow-up appointment for duplex tomorrow. Patient is amenable to this. Patient stable for discharge at this time. Impression: 1. Right arm swelling Discharge Plan Triage Chief Complaint: Upper Extremity Injury ED Provider: Andry Villalta Dx/Rx/DC Orders Prescriptions: No Action Synthroid 137 mg PO/SL DAILY RF: 0 lorazepam [Ativan] 0.5 mg tablet 0.5 mg PO TID PRN (Reason: anxiety) Qty: 10 RF: 0 hydroxyzine pamoate 25 MG capsule 50 mg PO TID PRN PRN (Reason: Anxiety) Qty: 30 RF: 0 budesonide-formoterol [Symbicort] 160-4.5 mcg/actuation HFA aerosol inhaler 1 puff INHALATION BID RF: 0 Hold Instructions: Resume on 11/29/20. cholecalciferol (vitamin D3) [Vitamin D3] 10 mcg (400 unit) Tablet 10 mcg PO DAILY RF: 0 sodium chloride [Deep Sea Nasal] 0.65 % Aerosol,[place] 2 spray NASAL TID PRN PRN (Reason: NASAL DRYNESS) Qty: 15 RF: 0 dexamethasone 6 mg tablet 6 mg PO DAILY Qty: 5 RF: 0 Primary Care Provider: Amilcar Sandoval
[2020-12-02] MEDS: Enoxaparin 100 MG/ML Syringe SC (18:08)
[2020-12-02 19:23] VITALS: RESP 16
== END 2020-12-02 19:24 | disposition home or self-care (01) ==
PROVIDERS: Emergency Provider Student in an Organized Health Care Education/Training Program; PCP Family Medicine
DX: M79.89 Other specified soft tissue disorders (principal); F41.9 Anxiety disorder, unspecified; E03.9 Hypothyroidism, unspecified; Z79.899 Other long term (current) drug therapy
CPT/HCPCS: 96372; 99282

== ENCOUNTER → 2020-12-03 13:58 | Outpatient (CLI) | payer BC, SELFPAY ==
--- NOTE | 2020-12-03 14:00 | VDUE_ITS ---
Reason For Study: Rt arm pain Right Proximal Right jugular vein is spontaneous, widely patent, phasic, with no intraluminal echogenicity noted. Right subclavian vein is spontaneous, widely patent, phasic, with no intraluminal echogenicity noted. Right Lower Arm Right radial vein is compressible. Right ulnar vein is compressible. Right Arm Acute deep vein thrombosis is noted in the right Axillay vein. Acute superficial vein thrombosis is noted in the right Basilic vein and Median cubital vein. Right brachial vein is compressible. Right cephalic vein is compressible. Patient Safety Pt seen in ED 12/02/2020, PCP: Lori. Prelim to Emy BLOOD. VL/Venous Duplex US, Unilateral Interpretation Summary Acute deep venous thrombosis right axillary vein Superficial thrombophlebitis right basilic and median cubital vein Ordering Physician: Andry Villalta Referring Physician: Amilcar Sandoval Performed By: Harriet Jimenez RVT ?
== END ==
PROVIDERS: PCP Family Medicine; Visit Provider Student in an Organized Health Care Education/Training Program
DX: M79.601 Pain in right arm (principal)
CPT/HCPCS: 93971

== ENCOUNTER → 2021-08-22 | Outpatient (CLI) | payer BC, SELFPAY ==
--- NOTE | 2021-08-22 14:01 | VDLE_ITS ---
Reason For Study: pain Procedure LEFT This is a venous duplex using B-mode, color GSV is normal. flow and spectral Doppler. CFV is compressible, spontaneous, phasic, Exam performed in department. competent, and demonstrates normal The exam was abbreviated due to the COVID 19 augmentation. protocol. FV is compressible, spontaneous, phasic, The exam was diagnostic. competent and demonstrates normal A preliminary report was called and/or faxed augmentation. to Dr. Sandoval. POP V is compressible, spontaneous, phasic, competent and demonstrates normal augmentation. T/P Trunk is compressible. PTV is compressible. LT PerV is compressible. VL/Venous Duplex US, Unilateral Interpretation Summary Deep veins of the left lower extremity are patent and compressible segmentally. There is no evidence of left lower extremity deep vein thrombosis. Valvular competence appears intac t within the proximal deep venous system on the left . The left great saphenous vein appears patent a nd compressible segmentally. Ordering Physician: Amilcar Sandoval Performed By: Alonzo Zimmerman RVT
== END | disposition home or self-care (01) ==
LOC: CVS 13:45
PROVIDERS: PCP Family Medicine; Referring Provider Family Medicine; Visit Provider Family Medicine
DX: M79.606 Pain in leg, unspecified (principal)
CPT/HCPCS: 93971

== ENCOUNTER → 2021-08-29 | Outpatient (CLI) | payer BC, SELFPAY ==
[2021-08-29 09:33] LABS: Thyroid Stim Hormone (TSH) 1.15 uIU/mL (0.358-3.74)
== END | disposition home or self-care (01) ==
LOC: LAB 07:47
PROVIDERS: PCP Family Medicine; Visit Provider Internal Medicine Endocrinology, Diabetes & Metabolism
DX: E04.1 Nontoxic single thyroid nodule (principal); E03.8 Other specified hypothyroidism
CPT/HCPCS: 36415; 84443

== ENCOUNTER → 2021-09-09 | Outpatient (CLI) | payer BC, SELFPAY ==
--- NOTE | 2021-09-09 16:45 | RAD_ITS ---
STUDY: X-RAY - LEFT KNEE REASON FOR EXAM: Male, 55 years old. Pain. TECHNIQUE: 4 view(s) of the knee. COMPARISON: None. FINDINGS: Normal visualized distal femur. Normal visualized proximal tibia and fibula. Normal proximal tibiofibular articulation. Stable mild medial compartmental arthrosis. Mild arthrosis of the lateral compartment. Normal patellofemoral articulation. The soft tissue structures are unremarkable. RAD/Knee 4 or More Views IMPRESSION: Mild medial and lateral compartmental arthrosis. No other abnormality. Electronically Signed: Denton Puri MD at 9:40 EDT ,
== END | disposition home or self-care (01) ==
LOC: MTRAD 16:44
PROVIDERS: PCP Family Medicine; Referring Provider Family Medicine; Visit Provider Family Medicine
DX: M25.562 Pain in left knee (principal)
CPT/HCPCS: 73564

== ENCOUNTER → 2021-10-11 | Outpatient (CLI) | payer BC, SELFPAY ==
[2021-10-11 09:07] LABS: Vitamin D,25 Hydroxy 40.9 ng/mL
[2021-10-11 09:19] LABS: Cholesterol 224 mg/dL (200); High Density Lipoprotein 49 mg/dL; Thyroid Stim Hormone (TSH) 0.69 uIU/mL (0.358-3.74); Triglycerides 215 mg/dL; Very Low Density Lipoprotein 43 mg/dL (5-40)
== END | disposition home or self-care (01) ==
LOC: LAB 07:52
PROVIDERS: PCP Family Medicine; Referring Provider Internal Medicine Endocrinology, Diabetes & Metabolism; Visit Provider Internal Medicine Endocrinology, Diabetes & Metabolism
DX: E03.8 Other specified hypothyroidism (principal); E78.2 Mixed hyperlipidemia; E55.9 Vitamin D deficiency, unspecified
CPT/HCPCS: 36415; 80061; 82306; 84443

== ENCOUNTER → 2022-04-10 | Outpatient (CLI) | payer BC, SELFPAY ==
[2022-04-10 07:56] LABS: Hematocrit 50.4 % (40-54); Hemoglobin 16.1 g/dL (13.0-16.5); Mean Corp Hgb Conc 31.9 g/dL (32-36); Mean Corpuscular Hgb 26.5 pg (27.0-32.0); Mean Corpuscular Volume 82.9 fL (80-94); Mean Platelet Vol. 8.7 fl (6.2-12.0); Platelet Count 256 K/mm3 (150-450); RBC Distribution Width CV 13.2 % (11.6-14.6); RBC Distribution Width SD 39.4 fl (35.1-43.9); Red Blood Count 6.08 M/mm3 (4.6-6.2); White Blood Count 5.1 K/mm3 (4.4-11.0)
[2022-04-10 08:33] LABS: Anion Gap 6 (5-15); BUN 14 mg/dL (7-18); BUN/Creat Ratio 10.9 RATIO (10-20); Calcium,Total 8.8 mg/dL (8.5-10.1); Chloride 110 mmol/L (98-107); Creatinine, Serum 1.29 mg/dL (0.70-1.30); EST Glomerular Filtration Rate 61 mL/min (>60); Est Glom Filt Rate - Afr Amer 73 mL/min (>60); Glucose 178 mg/dL (74-106); Sodium Level 141 mmol/L (136-145)
== END | disposition home or self-care (01) ==
PROVIDERS: PCP Family Medicine; Visit Provider Physician Assistant Surgical
DX: Z01.810 Encounter for preprocedural cardiovascular examination (principal); Z01.818 Encounter for other preprocedural examination
CPT/HCPCS: 36415; 80048; 85027; 93005

== ENCOUNTER → 2022-05-06 | Outpatient (CLI) | payer BC, SELFPAY ==
[2022-05-06 08:42] LABS: Vitamin D,25 Hydroxy 36.2 ng/mL
[2022-05-06 08:51] LABS: Anion Gap 5 (5-15); BUN 12 mg/dL (7-18); BUN/Creat Ratio 10.2 RATIO (10-20); Calcium,Total 8.5 mg/dL (8.5-10.1); Chloride 105 mmol/L (98-107); Cholesterol 183 mg/dL (200); Creatinine, Serum 1.18 mg/dL (0.70-1.30); EST Glomerular Filtration Rate 67 mL/min (>60); Est Glom Filt Rate - Afr Amer 81 mL/min (>60); Ferritin 71 ng/mL (26-388); Glucose 154 mg/dL (74-106); High Density Lipoprotein 37 mg/dL; PSA,Total - Annual Screen 0.87 ng/mL (0.00-4.00); Potassium 3.9 mmol/L (3.5-5.1); Sodium Level 138 mmol/L (136-145); Thyroid Stim Hormone (TSH) 1.21 uIU/mL (0.358-3.74); Triglycerides 264 mg/dL; Very Low Density Lipoprotein 53 mg/dL (5-40)
== END | disposition home or self-care (01) ==
LOC: LAB 07:30
PROVIDERS: PCP Family Medicine; Referring Provider Family Medicine; Visit Provider Family Medicine
DX: Z00.00 Encounter for general adult medical examination without abnormal findings (principal)
CPT/HCPCS: 36415; 80048; 80061; 82306; 82728; 84153; 84443; G0103

== ENCOUNTER → 2022-07-22 | Outpatient (CLI) | payer BC, SELFPAY ==
[2022-07-22 08:38] LABS: Absolute Lymphocyte Count 1.47 X10^3/uL (0.83-4.51); Absolute Neutrophil Count 1.5 X10^3/uL (2.0-7.7); Basophil# 0.06 X10^3/uL; Basophil% 1.6 % (0-1); Eosinophil# 0.15 X10^3/uL; Eosinophils% 4.1 % (0-5); Hematocrit 47.2 % (40-54); Hemoglobin 15.6 g/dL (13.0-16.5); Lymphocyte # 1.47 X10^3/ul (0.83-4.51); Lymphocyte % 40.4 % (19-41); Mean Corp Hgb Conc 33.1 g/dL (32-36); Mean Corpuscular Hgb 26.9 pg (27.0-32.0); Mean Corpuscular Volume 81.5 fL (80-94); Mean Platelet Vol. 9.2 fl (6.2-12.0); Monocyte% 13.7 % (0-10); NRBC Flagged by Analyzer 0 % (0-5); Neutrophil # 1.46 X10^3/uL (2.7-7.7); Neutrophil % 40.2 % (47-70); Platelet Count 220 K/mm3 (150-450); RBC Distribution Width CV 12.9 % (11.6-14.6); RBC Distribution Width SD 37.9 fl (35.1-43.9); Red Blood Count 5.79 M/mm3 (4.6-6.2); White Blood Count 3.6 K/mm3 (4.4-11.0)
[2022-07-22 09:07] LABS: Vitamin D,25 Hydroxy 48.9 ng/mL
[2022-07-22 09:16] LABS: Ferritin 75 ng/mL (26-388); Iron Binding Capacity,Total 309 ug/dL (250-450); Thyroid Stim Hormone (TSH) 0.82 uIU/mL (0.358-3.74)
== END | disposition home or self-care (01) ==
LOC: LAB 07:42
PROVIDERS: PCP Family Medicine; Visit Provider Family Medicine
DX: E03.9 Hypothyroidism, unspecified (principal); R53.83 Other fatigue; E55.9 Vitamin D deficiency, unspecified
CPT/HCPCS: 36415; 82306; 82728; 83550; 84443; 85025

== ENCOUNTER 2022-08-12 09:08 | Emergency (ER) | payer BC, SELFPAY ==
[2022-08-12 09:14] VITALS: BP 134/89; PULSE 98; RESP 16; TEMP 36.6; O2SAT 99; BMI 29.5
[2022-08-12 09:48] LABS: Bacteria 0 SEEN /hpf (None Seen); Mucous, Urine 0 SEEN /hpf (<or=2+); Red Blood Cells-Urine 0 SEEN /hpf (0-5); Squamous Epithelial Cells - UA 0 SEEN /hpf (0-5); White Blood Cells 0 SEEN /hpf (0-5)
[2022-08-12] MEDS: Ondansetron 4 MG/2 ML Vial IV (09:50)
[2022-08-12 09:57] LABS: Absolute Lymphocyte Count 0.57 X10^3/uL (0.83-4.51); Absolute Neutrophil Count 6.4 X10^3/uL (2.0-7.7); Basophil# 0.04 X10^3/uL; Basophil% 0.5 % (0-1); Eosinophil# 0.12 X10^3/uL; Eosinophils% 1.6 % (0-5); Hematocrit 49.8 % (40-54); Hemoglobin 16.6 g/dL (13.0-16.5); Lymphocyte # 0.57 X10^3/ul (0.83-4.51); Lymphocyte % 7.5 % (19-41); Mean Corp Hgb Conc 33.3 g/dL (32-36); Mean Corpuscular Hgb 27.3 pg (27.0-32.0); Mean Platelet Vol. 8.9 fl (6.2-12.0); Monocyte# 0.53 X10^3/uL; Monocyte% 6.9 % (0-10); NRBC Flagged by Analyzer 0 % (0-5); Neutrophil # 6.36 X10^3/uL (2.7-7.7); Neutrophil % 83.1 % (47-70); POSITIVE DIFFERENTIAL YES; Platelet Count 207 K/mm3 (150-450); RBC Distribution Width CV 12.5 % (11.6-14.6); RBC Distribution Width SD 37.4 fl (35.1-43.9); Red Blood Count 6.07 M/mm3 (4.6-6.2); White Blood Count 7.7 K/mm3 (4.4-11.0)
[2022-08-12 09:58] LABS: Differential Indicated SCAN CRITERIA MET
[2022-08-12 10:08] LABS: Color, Urine Yellow (Yellow); Glucose, Dipstick Normal (Normal); Ketone-Dipstick Negative (Negative); Leukocyte Esterase-Dipstick Negative /ul (Negative); Nitrite-Dipstick Negative (Negative); Occult Blood-Urine Negative /ul (Negative); Protein-Dipstick 15 mg/dl (Negative); Specific Gravity, Urine 1.005 (1.002-1.030); Urine Bilirubin Dipstick Negative (Negative); Urine Clarity Clear (Clear); Urine Urobilinogen Normal (Normal)
--- NOTE | 2022-08-12 10:15 | CT_ITS ---
HISTORY: LLQ abdominal pain. TECHNIQUE: Helically acquired images were obtained of the abdomen and pelvis after the intravenous administration of 100mL Isovue-370. A radiation dose optimization technique was used for this scan. 467 images. COMPARISON: None. FINDINGS: LOWER CHEST: Lung bases unremarkable. BOWEL: Bowel nondilated. Long segment of small bowel wall thickening in the lower abdomen with trace mesenteric edema. No focal periappendiceal or pericolonic inflammatory change observed. PERITONEUM: No significant ascites. LIVER: Fatty infiltration. GALLBLADDER/BILIARY TREE: Gallbladder present. SPLEEN/PANCREAS/ADRENAL GLANDS: Homogeneous and nonenlarged. KIDNEYS: No hydronephrosis. Normal enhancement. VESSELS: No abdominal aortic aneurysm. PELVIC ORGANS: Unremarkable. ABDOMINAL WALL: Fat-containing inguinal hernias. BONES: Mild degenerative change. CT/Abdomen/Pelvis W IV Cont ONLY IMPRESSION: Long segment of mild small bowel wall thickening in the lower abdomen, compatible with mild enteritis. Hepatic steatosis. Electronically Signed: Nicole Hanks MD at 11:13 EDT ,
--- NOTE | 2022-08-12 10:22 | ED.VIS.BACK ---
HPI History of Present Illness Chief Complaint: Back Narrative Narrative: 56-year-old male presenting with back pain. He said it is in his left flank. At times it feels like it is sharp and at other times it feels like it is pressure. He states he did a 40-hour fast from water just to see if he could do it. He then followed this with a lot of oral fluids and was tolerating them well for the symptoms started. He is now developed diarrhea and has had 2 episodes. No black or bloody stools. He does note he had a fever of 100.8 at home and took Tylenol. No history of kidney stones. No dysuria or hematuria. No history of diverticulitis. No recent antibiotic use. Patient also states he feels nauseous. He states all of his symptoms are better if he sits still. [facility] Medical History Anemia Anxiety Herniated cervical disc Hypothyroidism MYNOR (obstructive sleep apnea) RLS (restless legs syndrome) Home Medications Synthroid 137 mg PO/SL DAILY 11/15/20 [History Last Taken Unknown] lorazepam 0.5 mg tablet (Ativan) 0.5 mg PO TID PRN anxiety #10 tabs 11/15/20 [Rx Last Taken Unknown] hydroxyzine pamoate 25 mg capsule 50 mg PO TID PRN PRN Anxiety #30 CAPSULES 11/17/20 [Rx Last Taken Unknown] budesonide-formoterol HFA 160 mcg-4.5 mcg/actuation aerosol inhaler (Symbicort) 1 puff inhalation BID resp issues 11/18/20 [History Last Taken 11/17/20 18:00] cholecalciferol (vitamin D3) 10 mcg (400 unit) tablet (Vitamin D3) 10 mcg PO DAILY general health 11/22/20 [History Last Taken Unknown] dexamethasone 6 mg tablet 6 mg PO DAILY #5 tabs 11/23/20 [Rx Last Taken Unknown] sodium chloride 0.65 % nasal spray aerosol (Deep Sea Nasal) 2 spray NASAL TID PRN PRN NASAL DRYNESS #15 mL 11/23/20 [Rx Last Taken Unknown] ondansetron 4 mg disintegrating tablet 4 mg PO Q8H PRN PRN Nausea #14 tabs 08/12/22 [Rx Last Taken Unknown] Allergy/AdvReac Type Severity Reaction Status Date / Time Penicillins [PCN] Allergy Unknown Verified 08/12/22 09:17 NSAIDS (Non-Steroidal AdvReac gi bleed Verified 08/12/22 09:17 Anti-Inflamma Family History Mother Hypertension Surgical History H/O arthroscopy of left knee Hx of umbilical hernia repair Social History household members: spouse Smoking Status: Never smoker alcohol intake: former substance use type: does not use ROS ROS ED Constitutional Constitutional ED: Denies chills, fever(s) or sweats Eyes Eyes: Denies blurry vision or change in vision ENT ENT ED: Denies ear pain or sore throat Cardiovascular Cardiovascular: Denies chest pain, palpitations or racing heartbeat Respiratory/Chest Respiratory/Chest: Denies cough, dyspnea or sputum Gastrointestinal Gastrointestinal: Reports abdominal pain and nausea; Denies constipation, diarrhea or vomiting Genitourinary Genitourinary ED: Denies dysuria, hematuria or urinary frequency Musculoskeletal Musculoskeletal: Reports back pain; Denies arthralgias, myalgias or neck pain Integumentary Denies abscess, Abrasions or rash Neurologic Neurologic: Denies headache(s), paresthesias or weakness Psychiatric Psychiatric: Denies anxiety, depression, suicidal ideation or suicidal thoughts Endocrine Endocrinology: Denies polydipsia or polyuria EXAM Physical Exam Const Vital Signs: 08/12/22 09:14 08/12/22 11:17 Temperature 98 F Temperature Source Temporal Pulse Rate 98 72 Respiratory Rate 16 16 Blood Pressure 134/89 H 127/72 H Blood Pressure Mean 104 90 Pulse Ox 99 98 Oxygen Delivery Method Room Air Room Air Positive well nourished General Appearance ED: NAD HEENT Reports moist mucous membranes Eyes PERRL and EOMs intact bilaterally Resp normal respiratory effort and clear to auscultation bilaterally Cardio regular rate and regular rhythm GI GI Narrative: Tenderness to palpation left upper quadrant. Back/Spine General Back: Negative for CVA tenderness Extremity normal to inspection Neuro oriented x3 Motor Exam: strength 5/5 throughout Psych mental status grossly normal Skin no rashes or lesions noted MDM MDM MDM Narrative Medical decision making narrative: Patient presenting with left flank pain left upper quadrant pain. Had a fever of 100.8 but took Tylenol. Does not have any CVA tenderness on examination. Does have some tenderness in the left upper quadrant. Differential includes UTI, pyelonephritis, kidney stone, colitis, diverticulitis, bowel obstruction. CBC to assess white blood cell count, hemoglobin, platelets. BMP to assess renal function, electrolytes. Urinalysis to assess for UTI or occult blood. Patient declines analgesia. He does request some Zofran which was given. CBC shows no significant leukocytosis. Hemoglobin stable. Platelets normal. Urinalysis no evidence of infection. We will obtain a CT of the abdomen pelvis with IV contrast to rule out diverticulitis. Renal function appears normal. LFTs are normal. Lipase negative. CT of the abdomen pelvis shows some mild enteritis. No diverticulitis. Patient counseled on findings. He will be given Zofran for home. He did Tylenol for fevers. He is to drink plenty of fluids. Return precautions discussed. Impression: 1. Nausea 2. Diarrhea 3. Abdominal pain Lab Data Attestation: I reviewed the patient's lab results. Labs: Laboratory Results - last 24 hr 08/12/22 08/12/22 08/12/22 09:47 09:50 09:50 WBC 7.7 RBC 6.07 Hgb 16.6 H Hct 49.8 MCV 82.0 MCH 27.3 MCHC 33.3 RDW Std Deviation 37.4 RDW Coeff of [place] 12.5 Plt Count 207 MPV 8.9 Immature Gran % (Auto) 0.400 Neut % (Auto) 83.1 H Lymph % (Auto) 7.5 L [place] % (Auto) 6.9 Eos % (Auto) 1.6 Baso % (Auto) 0.5 Absolute Neuts (auto) 6.4 Absolute Lymphs (auto) 0.57 L Nucleated RBC % 0 Sodium 139 Potassium 4.3 Chloride 111 H Carbon Dioxide 22.0 Anion Gap 6 BUN 11 Creatinine 1.09 Estim Creat Clear Calc 90.69 Est GFR (MDRD) Af Amer 89 Est GFR (MDRD) Non-Af 74 BUN/Creatinine Ratio 10.1 Glucose 105 Calcium 8.9 Total Bilirubin 0.70 AST 26 ALT 36 Alkaline Phosphatase 73 Total Protein 7.1 Albumin 3.9 Globulin 3.2 Albumin/Globulin Ratio 1.2 Lipase 39 Urine Color Yellow Urine Clarity Clear Urine pH 7.0 Ur Specific [place] 1.005 Urine Protein 15 H Urine Glucose (UA) Normal Urine Ketones Negative Urine Occult Blood Negative Urine Nitrite Negative Urine Bilirubin Negative Urine Urobilinogen Normal Ur Leukocyte Esterase Negative Urine RBC 0 SEEN Urine WBC 0 SEEN Ur Squamous Epith Cells 0 SEEN Urine Bacteria 0 SEEN Urine Mucus 0 SEEN Radiography Diagnostic Testing: Clinical Impression(s) from Imaging Studies Abdomen/Pelvis CT 08/12/22 10:15 IMPRESSION: Long segment of mild small bowel wall thickening in the lower abdomen, compatible with mild enteritis. Hepatic steatosis. Electronically Signed: Nicole Hanks MD at 11:13 EDT , Discharge Plan Triage Chief Complaint: Back ED Provider: Andry Villalta Dx/Rx/DC Orders Instructions: ED Gastroenteritis, Viral (Adult) Prescriptions: New ondansetron 4 mg tablet,disintegrating 4 mg PO Q8H PRN PRN (Reason: Nausea) Qty: 14 0RF No Action Synthroid 137 mg PO/SL DAILY lorazepam [Ativan] 0.5 mg tablet 0.5 mg PO TID PRN (Reason: anxiety) Qty: 10 0RF hydroxyzine pamoate 25 MG capsule 50 mg PO TID PRN PRN (Reason: Anxiety) Qty: 30 0RF budesonide-formoterol [Symbicort] 160-4.5 mcg/actuation HFA aerosol inhaler 1 puff INHALATION BID Hold Instructions: Resume on 11/29/20. cholecalciferol (vitamin D3) [Vitamin D3] 10 mcg (400 unit) Tablet 10 mcg PO DAILY sodium chloride [Deep Sea Nasal] 0.65 % Aerosol,[place] 2 spray NASAL TID PRN PRN (Reason: NASAL DRYNESS) Qty: 15 0RF dexamethasone 6 mg tablet 6 mg PO DAILY Qty: 5 0RF Primary Care Provider: Amilcar Sandoval Referrals: Amilcar Sandoval MD [Primary Care Provider] - Disposition Disposition: Home, Self Care
[2022-08-12 10:23] LABS: Albumin, Serum 3.9 g/dL (3.2-5.0); BUN 11 mg/dL (7-18); BUN/Creat Ratio 10.1 RATIO (10-20); Creatinine, Serum 1.09 mg/dL (0.70-1.30); EST Glomerular Filtration Rate 74 mL/min (>60); Est Glom Filt Rate - Afr Amer 89 mL/min (>60); Estimated Creatinine Clearance 90.69 ml/min; Glucose 105 mg/dL (74-106); Protein, Total 7.1 g/dL (6.4-8.2)
[2022-08-12 10:24] LABS: ALB/GLOB Ratio 1.2 RATIO (0.9-2.4); AST(SGOT) 26 U/L (15-37); Alanine Aminotransfer ALT/SGPT 36 U/L (16-61); Alkaline Phosphatase 73 U/L (45-117); Anion Gap 6 (5-15); Calcium,Total 8.9 mg/dL (8.5-10.1); Chloride 111 mmol/L (98-107); Globulin 3.2 g/dL (2.2-4.2); Lipase 39 U/L (13-75); Potassium 4.3 mmol/L (3.5-5.1); Sodium Level 139 mmol/L (136-145)
[2022-08-12 11:17] VITALS: BP 127/72; PULSE 72; RESP 16; O2SAT 98
== END 2022-08-12 12:04 | disposition home or self-care (01) ==
PROVIDERS: Emergency Provider Student in an Organized Health Care Education/Training Program; PCP Family Medicine; Visit Provider Student in an Organized Health Care Education/Training Program
DX: K52.9 Noninfective gastroenteritis and colitis, unspecified (principal); M54.9 Dorsalgia, unspecified
CPT/HCPCS: 74177; 80053; 81001; 83690; 85025; 96374; 99283; Q9967; A4216; J2405

== ENCOUNTER 2022-08-14 06:42 | Emergency (ER) | payer BC, SELFPAY ==
[2022-08-14 06:43] VITALS: BP 117/78; PULSE 61; RESP 17; TEMP 36.4; O2SAT 96; BMI 63.8
--- NOTE | 2022-08-14 07:18 | ED.RN ---
IV attempt unsuccessful x 2
--- NOTE | 2022-08-14 07:27 | ED.VIS.GI ---
HPI HPI - GI History of Present Illness Chief Complaint: Flank Pain Narrative Narrative: 56-year-old male with left flank pain. Patient seen 2 days ago and had lab work and a CT of the abdomen pelvis with IV contrast and his work-up ultimately showed a mild enteritis. Patient had diarrhea at that time but is now resolved. He has had a fever which is low-grade for a couple of days but he feels it broke last night while he was in bed. Tmax 100.8. No urinary symptoms. Patient states that at times he has no pain is able to get up and walk around and everything is fine, and then he will get sharp stabbing pains intermittently in the left flank. No history of kidney stones. No urinary complaints. Patient is no longer having diarrhea. Patient was seen by his PCP in follow-up to give him some muscle relaxers which did not help his pain. Did read help him rest however. [facility] Medical History Anemia Anxiety Herniated cervical disc Hypothyroidism MYNOR (obstructive sleep apnea) RLS (restless legs syndrome) Home Medications Synthroid 137 mg PO/SL DAILY 11/15/20 [History Last Taken Unknown] lorazepam 0.5 mg tablet (Ativan) 0.5 mg PO TID PRN anxiety #10 tabs 11/15/20 [Rx Last Taken Unknown] hydroxyzine pamoate 25 mg capsule 50 mg PO TID PRN PRN Anxiety #30 CAPSULES 11/17/20 [Rx Last Taken Unknown] budesonide-formoterol HFA 160 mcg-4.5 mcg/actuation aerosol inhaler (Symbicort) 1 puff inhalation BID resp issues 11/18/20 [History Last Taken 11/17/20 18:00] cholecalciferol (vitamin D3) 10 mcg (400 unit) tablet (Vitamin D3) 10 mcg PO DAILY general health 11/22/20 [History Last Taken Unknown] dexamethasone 6 mg tablet 6 mg PO DAILY #5 tabs 11/23/20 [Rx Last Taken Unknown] sodium chloride 0.65 % nasal spray aerosol (Deep Sea Nasal) 2 spray NASAL TID PRN PRN NASAL DRYNESS #15 mL 11/23/20 [Rx Last Taken Unknown] ondansetron 4 mg disintegrating tablet 4 mg PO Q8H PRN PRN Nausea #14 tabs 08/12/22 [Rx Last Taken Unknown] hydrocodone-acetaminophen 5-325mg 5mg-325mg 1 tab PO Q6H PRN PRN Pain 3 days #10 TABLETS 08/14/22 [Rx Last Taken Unknown] Allergy/AdvReac Type Severity Reaction Status Date / Time Penicillins [PCN] Allergy Unknown Verified 08/14/22 06:46 NSAIDS (Non-Steroidal AdvReac gi bleed Verified 08/14/22 06:46 Anti-Inflamma Family History Mother Hypertension Surgical History H/O arthroscopy of left knee Hx of umbilical hernia repair Social History household members: spouse Smoking Status: Never smoker alcohol intake: former substance use type: does not use ROS ROS ED Constitutional Constitutional ED: Reports fever(s) and sweats; Denies chills Eyes Eyes: Denies blurry vision or change in vision ENT ENT ED: Denies ear pain or sore throat Cardiovascular Cardiovascular: Denies chest pain, palpitations or racing heartbeat Respiratory/Chest Respiratory/Chest: Denies cough, dyspnea or sputum Gastrointestinal Gastrointestinal: Reports abdominal pain, diarrhea and nausea; Denies constipation or vomiting Genitourinary Genitourinary ED: Denies dysuria, hematuria or urinary frequency Musculoskeletal Musculoskeletal: Denies arthralgias, myalgias or neck pain Integumentary Denies abscess, Abrasions or rash Neurologic Neurologic: Denies headache(s), paresthesias or weakness Psychiatric Psychiatric: Denies anxiety, depression, suicidal ideation or suicidal thoughts Endocrine Endocrinology: Denies polydipsia or polyuria EXAM Physical Exam Const Vital Signs: 08/14/22 06:43 Temperature 97.5 F L Temperature Source Temporal Pulse Rate 61 Respiratory Rate 17 Blood Pressure 117/78 Blood Pressure Mean 91 Pulse Ox 96 Oxygen Delivery Method Room Air Positive well nourished General Appearance ED: NAD; Negative for pallor HEENT Reports moist mucous membranes normocephalic and atraumatic Eyes PERRL and EOMs intact bilaterally Resp normal respiratory effort and clear to auscultation bilaterally Auscultation: Negative for rales, rhonchi or wheezes Cardio regular rate and regular rhythm GI GI Narrative: Left upper quadrant Back/Spine General Back: CVA tenderness left Neuro CN's II-XII intact bilaterally Sensorium / Orientation: alert Motor Exam: strength 5/5 throughout Psych mental status grossly normal Skin General Skin Exam: Negative for jaundice or pallor MDM MDM MDM Narrative Medical decision making narrative: Patient with left flank pain. Seen 2 days ago for similar complaints. He had lab work and a CT scan which were negative. Urinalysis was negative. Differential includes diverticulitis, colitis, enteritis, pancreatitis, UTI, pyelonephritis, ureteral calculi, renal calculi, musculoskeletal pain. CBC to assess white blood cell count, hemoglobin, platelets, differential. CMP to assess liver function, renal function, glucose, electrolytes. Urinalysis to assess for UTI. Lipase to assess for pancreatitis. Patient given Toradol 15 mg IV as well as a liter normal saline. CBC shows improvement of the leukocytosis at 4.4. Hemoglobin 16.1. Platelets normal at 183. Creatinine normal. Electrolytes are normal. Glucose 110. LFTs are normal. Lipase normal. Urinalysis with 10 occult blood however otherwise normal. Counseled patient on findings. Recommended pain control. Patient does state that he has not had a bowel movement in 3 days and this could possibly be constipation. I do not believe he needs a repeat CT scan. Reviewed the CT with general surgery to ensure there is no acute findings and there is not. Impression: 1. Left flank pain Lab Data Attestation: I reviewed the patient's lab results. Labs: Laboratory Results - last 24 hr 08/14/22 08/14/22 08/14/22 07:35 07:35 07:50 WBC 4.4 RBC 5.96 Hgb 16.1 Hct 49.0 MCV 82.2 MCH 27.0 MCHC 32.9 RDW Std Deviation 37.5 RDW Coeff of Chante 12.5 Plt Count 183 MPV 8.7 Immature Gran % (Auto) 0.200 Neut % (Auto) 47.7 Lymph % (Auto) 30.1 [place] % (Auto) 17.0 H Eos % (Auto) 4.1 Baso % (Auto) 0.9 Absolute Neuts (auto) 2.1 Absolute Lymphs (auto) 1.31 Nucleated RBC % 0 Sodium 141 Potassium 4.0 Chloride 108 H Carbon Dioxide 26.0 Anion Gap 7 BUN 8 Creatinine 0.99 Estim Creat Clear Calc 99.85 Est GFR (MDRD) Af Amer 99 Est GFR (MDRD) Non-Af 82 BUN/Creatinine Ratio 8.0 L Glucose 110 H Calcium 8.9 Total Bilirubin 0.50 AST 20 ALT 29 Alkaline Phosphatase 61 Total Protein 7.2 Albumin 3.6 Globulin 3.6 Albumin/Globulin Ratio 1.0 Lipase 39 Urine Color Yellow Urine Clarity Clear Urine pH 7.0 Ur Specific [place] 1.010 Urine Protein Negative Urine Glucose (UA) Normal Urine Ketones Negative Urine Occult Blood 10 H Urine Nitrite Negative Urine Bilirubin Negative Urine Urobilinogen Normal Ur Leukocyte Esterase Negative Urine RBC 0 SEEN Urine WBC 0 SEEN Ur Squamous Epith Cells 0 SEEN Urine Bacteria 0 SEEN Urine Mucus 0 SEEN Discharge Plan Triage Chief Complaint: Flank Pain ED Provider: Andry Villalta Dx/Rx/DC Orders Instructions: ED Flank Pain, Uncertain Cause Prescriptions: New hydrocodone-acetaminophen 5-325 mg tablet 1 tab PO Q6H PRN PRN (Reason: Pain) 3 Days Qty: 10 0RF No Action Synthroid 137 mg PO/SL DAILY lorazepam [Ativan] 0.5 mg tablet 0.5 mg PO TID PRN (Reason: anxiety) Qty: 10 0RF hydroxyzine pamoate 25 MG capsule 50 mg PO TID PRN PRN (Reason: Anxiety) Qty: 30 0RF budesonide-formoterol [Symbicort] 160-4.5 mcg/actuation HFA aerosol inhaler 1 puff INHALATION BID Hold Instructions: Resume on 11/29/20. cholecalciferol (vitamin D3) [Vitamin D3] 10 mcg (400 unit) Tablet 10 mcg PO DAILY Deep Sea Nasal 0.65 % Aerosol,[place] 2 spray NASAL TID PRN PRN (Reason: NASAL DRYNESS) Qty: 15 0RF dexamethasone 6 mg tablet 6 mg PO DAILY Qty: 5 0RF ondansetron 4 mg tablet,disintegrating 4 mg PO Q8H PRN PRN (Reason: Nausea) Qty: 14 0RF Primary Care Provider: Amilcar Sandoval Referrals: Amilcar Sandoval MD [Primary Care Provider] - Disposition Disposition: Home, Self Care
[2022-08-14] MEDS: 0.9% Normal Saline 1,000 ML 1000 ML IV (07:37)
[2022-08-14 07:42] LABS: Absolute Lymphocyte Count 1.31 X10^3/uL (0.83-4.51); Absolute Neutrophil Count 2.1 X10^3/uL (2.0-7.7); Basophil# 0.04 X10^3/uL; Basophil% 0.9 % (0-1); Eosinophil# 0.18 X10^3/uL; Eosinophils% 4.1 % (0-5); Hemoglobin 16.1 g/dL (13.0-16.5); Lymphocyte # 1.31 X10^3/ul (0.83-4.51); Lymphocyte % 30.1 % (19-41); Mean Corp Hgb Conc 32.9 g/dL (32-36); Mean Corpuscular Volume 82.2 fL (80-94); Mean Platelet Vol. 8.7 fl (6.2-12.0); Monocyte# 0.74 X10^3/uL; NRBC Flagged by Analyzer 0 % (0-5); Neutrophil # 2.07 X10^3/uL (2.7-7.7); Neutrophil % 47.7 % (47-70); Platelet Count 183 K/mm3 (150-450); RBC Distribution Width CV 12.5 % (11.6-14.6); RBC Distribution Width SD 37.5 fl (35.1-43.9); Red Blood Count 5.96 M/mm3 (4.6-6.2); White Blood Count 4.4 K/mm3 (4.4-11.0)
[2022-08-14 07:58] LABS: AST(SGOT) 20 U/L (15-37); Alanine Aminotransfer ALT/SGPT 29 U/L (16-61); Albumin, Serum 3.6 g/dL (3.2-5.0); Alkaline Phosphatase 61 U/L (45-117); Anion Gap 7 (5-15); BUN 8 mg/dL (7-18); Calcium,Total 8.9 mg/dL (8.5-10.1); Chloride 108 mmol/L (98-107); Creatinine, Serum 0.99 mg/dL (0.70-1.30); EST Glomerular Filtration Rate 82 mL/min (>60); Est Glom Filt Rate - Afr Amer 99 mL/min (>60); Estimated Creatinine Clearance 99.85 ml/min; Globulin 3.6 g/dL (2.2-4.2); Glucose 110 mg/dL (74-106); Lipase 39 U/L (13-75); Protein, Total 7.2 g/dL (6.4-8.2); Sodium Level 141 mmol/L (136-145)
[2022-08-14 08:00] LABS: Bacteria 0 SEEN /hpf (None Seen); Mucous, Urine 0 SEEN /hpf (<or=2+); Red Blood Cells-Urine 0 SEEN /hpf (0-5); Squamous Epithelial Cells - UA 0 SEEN /hpf (0-5); White Blood Cells 0 SEEN /hpf (0-5)
[2022-08-14 08:04] LABS: Color, Urine Yellow (Yellow); Glucose, Dipstick Normal (Normal); Ketone-Dipstick Negative (Negative); Leukocyte Esterase-Dipstick Negative /ul (Negative); Nitrite-Dipstick Negative (Negative); Occult Blood-Urine 10 /ul (Negative); Protein-Dipstick Negative (Negative); Urine Bilirubin Dipstick Negative (Negative); Urine Clarity Clear (Clear); Urine Urobilinogen Normal (Normal)
[2022-08-14 10:03] VITALS: BP 130/79; PULSE 67; RESP 17; O2SAT 97
== END 2022-08-14 10:05 | disposition home or self-care (01) ==
PROVIDERS: Emergency Provider Student in an Organized Health Care Education/Training Program; PCP Family Medicine; Visit Provider Student in an Organized Health Care Education/Training Program
DX: R10.9 Unspecified abdominal pain (principal)
CPT/HCPCS: 80053; 81001; 83690; 85025; 96360; 99283; J7030; A4216

== ENCOUNTER → 2022-08-18 | Outpatient (CLI) | payer BC, SELFPAY ==
--- NOTE | 2022-08-18 11:32 | RAD_ITS ---
STUDY: X-RAY - ACUTE ABDOMINAL SERIES REASON FOR EXAM: Male, 56 years old. Acute abdominal pain. TECHNIQUE: Single view of the chest. Supine, and erect view(s) of the abdomen were obtained. COMPARISON: Chest dated October 2020. FINDINGS: The lungs are clear and expanded. Opacities on the prior study have resolved Normal size heart. Normal mediastinum and justus. Normal visualized pulmonary arteries. Normal visualized aortic arch and descending thoracic aorta. Mild dilatation of small bowel in the upper abdomen with a paucity of gas distally. Small air-fluid levels on the upright study. Normal visualized osseous structures. RAD/Acute Abdomen Inc Chest IMPRESSION: Nonspecific bowel gas pattern with mild dilatation of small bowel with air-fluid levels as described. No acute abnormality. Electronically Signed: Denton Puri MD at 11:59 EDT ,
== END | disposition home or self-care (01) ==
PROVIDERS: PCP Family Medicine; Referring Provider Family Medicine; Visit Provider Family Medicine
DX: R10.9 Unspecified abdominal pain (principal)
CPT/HCPCS: 74022

== ENCOUNTER → 2022-12-23 | Outpatient (CLI) | payer BC, SELFPAY ==
--- NOTE | 2022-12-23 15:54 | RAD_ITS ---
STUDY: X-RAY - CERVICAL SPINE REASON FOR EXAM: Male, 57 years old. RADICULOPATHY TECHNIQUE: Flexion-extension 7 view(s) of the cervical spine were obtained. COMPARISON: MR cervical spine October 20, 2016 FINDINGS: Normal anterior atlantoaxial articulation. Normal odontoid process. Limited range of motion. No evidence of instability. Normal cervical lordosis. There is multi-level endplate spondylosis. Normal disc space heights. Narrowed neural foramina in the lower cervical spine, left greater than right. The soft tissue structures are unremarkable. RAD/Cerv Spine Obl/Flex/Ext Comp IMPRESSION: Narrowed neural foramina left greater than right due to uncinate spondylosis. Limited range of motion. No evidence of instability. Electronically Signed: Bradley Rodriguez MD at 0:10 EDT ,
== END | disposition home or self-care (01) ==
LOC: MTRAD 15:51
PROVIDERS: PCP Family Medicine; Referring Provider Family Medicine; Visit Provider Family Medicine
DX: M54.12 Radiculopathy, cervical region (principal)
CPT/HCPCS: 72052

== ENCOUNTER 2023-01-07 07:30 | Outpatient (RCR) | payer BC, SELFPAY ==
--- NOTE | 2022-12-25 18:58 | HP.PTEVAL_ITS ---
Patient's Visit Information Visit Information Visit Information: MARC GRAY Jr. is a 57 year old M referred to Physical Therapy by Mary Redd MD with a diagnosis of Neck pain. Date of Evaluation: 12/25/22 Physical Therapist: Rahul Orellana, PT, ATC Visit Plan Frequency: 2-3x /Week Duration: 4-6 Weeks Plan: Postural edu, RRIS, DTR, man ther and mobs, MH, scap strengthening, and cervical traction Subjective Subjective: Pt reports he has had an intermittent neck problem for several years. Pt notes he has had multiple x-rays and MRI's in the past which has shown bulging discs in the past. Pt notes he has had career development specialist in the past, and PT in the past which has helped. Pt also notes there have been times that it didn't help and he had to go the ER in order to relieve his pain. Pt reports he has intermittent L UE radiculopathy that exists on the hypothenar eminence of the L hand, and also radiates to his neck. Pt reports sig sleep difficulty at this time secondary to pain. Pt reports driving will increase his sx's. Pt reports correcting his posture helps to decrease his pain. 4/10 pain at rest, 8/10 pain at worst Pain Neck pain: Pain Intensity (Out of 10): 4 Pain Intensity Range: 8 Objective Objective: Neuro: B UE sensation is WNL to light touch. B bicipital reflex= 2/3 Palpation: sig muscle guarding throughout cervical spine MMT: B UE's are grossly 5/5 throughout ROM: Pt is minimally limited with retraction, ext, and L SB. All other motions are WNL. Repeated movements: RPIS 10x3 peripheralised sx's in L UE. RRIS 10x3 produced central spine pain. Special testing: Pos distraction and compression tests Balance/Special Test Scores Oswestry Neck Score: 26 Goals Goal 1:: Decrease neck pain x 50% to aid with sleep Goal Time Frame: 4-6 Weeks Goal 2:: Decrease L UE radiculopathy x 100 percent to aid with IADL's Goal Time Frame: 4-6 Weeks Goal 3:: Increase neck ROM to WNL in [place] to aid with driving Goal Time Frame: 4-6 Weeks Goal 4:: I with HEP Goal Time Frame: 4-6 Weeks Rehabilitation Potential Physical Therapy Diagnosis: Pt has neck pain, limited ROM, and L UE radiculopathy secondary to c/s spine disc derangement Rehabilitation Potential: Good Anticipated Interventions Patient/Client Instruction: Educate patient on: Condition and Plan of Care For the Purpose of:: To improve self management Therapeutic Exercise to Include: Strength training, Postural training, Active ROM, Martita Exercises and Scapular Strength/Stabilization For the Purpose of:: To decrease pain, To increase ROM and To improve muscle performance and motor function Manual Therapy Techniques to Include: Mobilization and Soft tissue mobilization For the Purpose of:: To decrease pain and To increase ROM Text: Thank you for the opportunity to evaluate your patient. For Medicare and Medicare HMO plans, please review the plan of care and approve it. It will need to be FAXED BACK to us at [phone] for Medicare purposes. For Medicare only, by signing this I certify the plan of care. Please let me know if there are questions or concerns regarding this plan of care. Physician Signature: Date:
--- NOTE | 2023-06-01 14:22 | HP.PT.NRP ---
Patient Information Patient Information: MARC GRAY Jr. was seen in my office for initial evaluation on 12/25/22. The following Plan of Care was established for this patient: POC Established Initial Frequency: 2-3x /Week Initial Duration: 4-6 Weeks Anticipated Interventions Patient/Client Instruction: Educate patient on: Condition and Plan of Care For the Purpose of:: To improve self management Therapeutic Exercise to Include: Strength training, Postural training, Active ROM, aMrtita Exercises and Scapular Strength/Stabilization For the Purpose of:: To decrease pain, To increase ROM and To improve muscle performance and motor function Manual Therapy Techniques to Include: Mobilization and Soft tissue mobilization For the Purpose of:: To decrease pain and To increase ROM Last Seen Last Seen: This patient was last seen in our office . Pertinent comments regarding their Physical therapy will appear below: Pt was treated for 6 PT visits for neck pain through the date of 01/07/23. Pt has not returned through todays date and is discontinued at this time. At this point I will be discontinuing this patient from physical therapy. I would be happy to see this patient again in the future if found appropriate by the physician. Thank you! Rahul Orellana, PT, ATC Balance/Gait/Functional tests Balance/Special Test Scores Oswestry Neck Score: 26
== END 2023-01-07 19:00 | disposition home or self-care (01) ==
LOC: PT 07:30
PROVIDERS: PCP Family Medicine; Referring Provider Family Medicine; Visit Provider Family Medicine
DX: M54.12 Radiculopathy, cervical region (principal)
CPT/HCPCS: 97012; 97110; 97140; 97161; 97530

== ENCOUNTER → 2023-06-22 | Outpatient (CLI) | payer BC, SELFPAY ==
[2023-06-22 10:59] LABS: Free T3 2.9 pg/mL (2.18-3.98); Thyroid Stim Hormone (TSH) 1.36 uIU/mL (0.358-3.74)
== END | disposition home or self-care (01) ==
PROVIDERS: PCP Family Medicine; Referring Provider Family Medicine; Visit Provider Family Medicine
DX: E03.9 Hypothyroidism, unspecified (principal)
CPT/HCPCS: 36415; 84439; 84443; 84481

== ENCOUNTER → 2023-11-11 | Outpatient (CLI) | payer BC, SELFPAY ==
[2023-11-11 18:01] LABS: ALB/GLOB Ratio 1.2 RATIO (0.9-2.4); AST(SGOT) 27 U/L (15-37); Alanine Aminotransfer ALT/SGPT 41 U/L (16-61); Alkaline Phosphatase 72 U/L (45-117); Anion Gap 7 (5-15); BUN 20 mg/dL (7-18); Calcium,Total 9.4 mg/dL (8.5-10.1); Chloride 107 mmol/L (98-107); Creatinine, Serum 1.33 mg/dL (0.70-1.30); EST Glomerular Filtration Rate 58 mL/min (>60); Est Glom Filt Rate - Afr Amer 71 mL/min (>60); Globulin 3.2 g/dL (2.2-4.2); Glucose 97 mg/dL (74-106); Magnesium 2.3 mg/dL (1.6-2.6); Potassium 3.6 mmol/L (3.5-5.1); Protein, Total 7.2 g/dL (6.4-8.2); Sodium Level 140 mmol/L (136-145); Thyroid Stim Hormone (TSH) 0.443 uIU/mL (0.358-3.740)
== END | disposition home or self-care (01) ==
LOC: MTLAB 15:14
PROVIDERS: PCP Family Medicine; Referring Provider Family Medicine; Visit Provider Family Medicine
DX: E03.9 Hypothyroidism, unspecified (principal); M62.838 Other muscle spasm
CPT/HCPCS: 36415; 80053; 83735; 84443

== ENCOUNTER 2024-01-26 22:51 | Emergency (ER) | payer BC, SELFPAY ==
[2024-01-26 22:51] VITALS: BP 113/86; PULSE 83; RESP 19; TEMP 36.4; O2SAT 100
--- NOTE | 2024-01-26 23:15 | EDS_ITS ---
HPI History of Present Illness Chief Complaint: Upper Extremity Injury Informant: patient and spouse/S.O. Narrative Narrative: 58-year-old male presenting to the emergency room with a chief complaint of right little finger redness/swelling. Patient has been undergoing treatment for mallet finger with Dr. Torrez at [facility]. He had worn a splint and they will begin physical therapy. They noticed an increase in the deformity and he went back into the splint. But a week ago he started noticing some redness and swelling that has worsened. He notes that he is a diabetic or immunosuppressed. No recent steroid use. Patient took photos sent to the on- call physician this evening. They are unable to get to the 24-hour pharmacy and so was recommended that the patient come to the emergency department and per the specifically out of concern for developing felon. Patient notes no fever. He notes that where the tape/padding for the splint was the skin was becoming irritated recently and noticed some skin excoriation. [facility] Medical History Anxiety Anemia Hypothyroidism Herniated cervical disc RLS (restless legs syndrome) MYNOR (obstructive sleep apnea) Home Medications ?Medication ?Instructions ?Recorded ?Last Taken ?Type Synthroid 137 mg PO/SL DAILY 11/15/20 Unknown History lorazepam 0.5 mg tablet (Ativan) 0.5 mg PO TID PRN anxiety #10 tabs 11/15/20 Unknown Rx hydroxyzine pamoate 25 mg capsule 50 mg (2 x 25 mg) PO TID PRN PRN 11/17/20 U nknown Rx Anxiety #30 CAPSULES budesonide-formoterol HFA 160 1 puff inhalation BID resp issues 11/18/20 11/17/20 18:00 History mcg-4.5 mcg/actuation aerosol inhaler (Symbicort) cholecalciferol (vitamin D3) 10 10 mcg PO DAILY general health 11/22/20 Unknown History mcg (400 unit) tablet (Vitamin D3) dexamethasone 6 mg tablet 6 mg PO DAILY #5 tabs 11/23/20 Unknown Rx sodium chloride 0.65 % nasal spray 2 spray NASAL TID PRN PRN NASAL 11/23/20 Unknown Rx aerosol (Deep Sea Nasal) DRYNESS #15 mL ondansetron 4 mg disintegrating 4 mg PO Q8H PRN PRN Nausea #14 tabs 08/12/22 Unknown Rx tablet hydrocodone-acetaminophen 5-325mg 1 tab PO Q6H PRN PRN Pain 3 days 08/14/22 Unknown Rx 5mg-325mg #10 TABLETS Allergy/AdvReac Type Severity Reaction Status Date / Time Penicillins (PCN) Allergy Unknown Verified 01/26/24 22:52 Family History Mother Hypertension Surgical History H/O arthroscopy of left knee Hx of umbilical hernia repair Social History household members: spouse Smoking Status: Never smoker alcohol intake: former substance use type: does not use ROS ROS ED Constitutional Constitutional ED: Denies chills, fever(s) or weight loss Eyes Eyes: Denies change in vision or diplopia ENT ENT ED: Denies ear pain, rhinorrhea or sore throat Cardiovascular Cardiovascular: Denies chest pain, orthopnea, palpitations or racing heartbeat Respiratory/Chest Respiratory/Chest: Denies cough, dyspnea or orthopnea Gastrointestinal Gastrointestinal: Denies abdominal pain, diarrhea, nausea or vomiting Genitourinary Genitourinary ED: Denies dysuria, hematuria or urinary frequency Musculoskeletal Musculoskeletal: Reports other Details: see HPI ; Denies arthralgias or myalgias Integumentary Reports Abrasions; Denies abscess or rash Neurologic Neurologic: Denies headache(s) or weakness Psychiatric Psychiatric: Denies anxiety, depression, suicidal ideation or suicidal thoughts Endocrine Endocrinology: Denies polydipsia, polyphagia or polyuria Allergic/Immunologic Allergic/Immunologic ED: Denies mouth swelling, tongue swelling or urticaria EXAM Physical Exam Const Vital Signs: 01/26/24 22:51 Temperature 97.6 F L Temperature Source Oral Pulse Rate 83 Respiratory Rate 19 H Blood Pressure 113/86 H Blood Pressure Mean 95 Pulse Ox 100 Oxygen Delivery Method Room Air Positive well nourished and well developed General Appearance ED: well developed HEENT Reports normocephalic, head/scalp atraumatic and moist mucous membranes Eyes PERRL and EOMs intact bilaterally Neck full ROM, no lymphadenopathy, supple and no JVD Resp normal respiratory effort and clear to auscultation bilaterally Cardio regular rate, regular rhythm and no murmurs GI normal to inspection, nondistended, normoactive bowel sounds and non-tender Palpation: soft Back/Spine no CVA tenderness and normal ROM Extremity Extremity Narrative: Right little finger demonstrates erythema up to the level of the middle of the proximal phalanx. There is swelling and increased warmth. I do not appreciate any paronychia. The fat pad is soft and nontender. There is no lymphangitic streaking. I would not characterize his finger as sausage like. I do not appreciate an obvious abscess. There is a mallet deformity noted. Neuro oriented x3 and CN's II-XII intact bilaterally Sensorium / Orientation: alert Motor Exam: strength 5/5 throughout Psych mental status grossly normal Mood & Affect: Negative for depressed or tearful Skin no rashes or lesions noted and no wounds MDM MDM MDM Narrative Medical decision making narrative: Differential diagnosis includes but not limited to cellulitis tenosynovitis abscess felon septic arthritis herpetic donnell Patient's white count is 5. Blood cultures obtained. My independent inter pretation of the 3 view finger x-ray is prior avulsion fracture no obvious free air soft tissue swelling noted. Please see radiologist read for full details. Patient received a dose of Keflex. Will be starting him on 4 times daily dosing and route request and follow-up in 48 hours. History & Record Review Discussion w/independent historian: Patient and Significant other Discharge Plan Triage Chief Complaint: Upper Extremity Injury ED Provider: Hawk Mcleod Dx/Rx/DC Orders Prescriptions: No Action Synthroid 137 mg PO/SL DAILY lorazepam [Ativan] 0.5 mg tablet 0.5 mg PO TID PRN (Reason: anxiety) Qty: 10 0RF hydroxyzine pamoate 25 MG capsule 50 mg PO TID PRN PRN (Reason: Anxiety) Qty: 30 0RF budesonide-formoterol [Symbicort] 160-4.5 mcg/actuation HFA aerosol inhaler 1 puff INHALATION BID cholecalciferol (vitamin D3) [Vitamin D3] 10 mcg (400 unit) Tablet 10 mcg PO DAILY Deep Sea Nasal 0.65 % Aerosol,[place] 2 spray NASAL TID PRN PRN (Reason: NASAL DRYNESS) Qty: 15 0RF dexamethasone 6 mg tablet 6 mg PO DAILY Qty: 5 0RF ondansetron 4 mg tablet,disintegrating 4 mg PO Q8H PRN PRN (Reason: Nausea) Qty: 14 0RF hydrocodone-acetaminophen 5-325 mg tablet 1 tab PO Q6H PRN PRN (Reason: Pain) 3 Days Qty: 10 0RF Primary Care Provider: Amilcar Sandoval Referrals: Amilcar Sandoval MD [Primary Care Provider] - Print Language: Bur[place]ian
[2024-01-26] MEDS: Cephalexin 250 MG Capsule 500 MG PO (23:22)
--- NOTE | 2024-01-26 23:30 | RAD_ITS ---
EXAM: XR RIGHT FINGERS, 2 OR MORE VIEWS CLINICAL INDICATION: infection TECHNIQUE: Frontal, lateral and oblique views of the fingers of the right hand. COMPARISON: No relevant prior studies available. FINDINGS: BONES/JOINTS: Suspect periarticular erosions of the distal interphalangeal joint of the fifth digit with subtle lucencies identified. Soft tissue calcification dorsal to the head of the middle phalanx, fifth digit is nonspecific, perhaps secondary to remote injury. No acute fracture. No subluxation. Normal alignment. SOFT TISSUES: Soft tissue swelling of the fifth digit. No radiopaque foreign body. RAD/Finger(s) Min 2 Views IMPRESSION: 1. Soft tissue swelling of the fifth digit. 2. Suspect periarticular erosions of the distal interphalangeal joint of the fifth digit with subtle lucencies identified. This may be indicative of an erosive arthritis or infection. 3. Soft tissue calcification dorsal to the head of the middle phalanx, fifth digit is nonspecific, perhaps secondary to remote injury. No acute fracture or dislocation is otherwise identified. Electronically Signed: Larry Phillip DO at 23:45 EST ,
[2024-01-26 23:35] LABS: Absolute Lymphocyte Count 2.01 X10^3/uL (0.83-4.51); Absolute Neutrophil Count 2.5 X10^3/uL (2.0-7.7); Basophil# 0.06 X10^3/uL; Basophil% 1.1 % (0-1); Eosinophil# 0.28 X10^3/uL; Eosinophils% 5.2 % (0-5); Hematocrit 45.2 % (40-54); Hemoglobin 14.7 g/dL (13.0-16.5); Lymphocyte # 2.01 X10^3/ul (0.83-4.51); Lymphocyte % 37.2 % (19-41); Mean Corp Hgb Conc 32.5 g/dL (32-36); Mean Corpuscular Hgb 27.2 pg (27.0-32.0); Mean Corpuscular Volume 83.5 fL (80-94); Mean Platelet Vol. 9.3 fl (6.2-12.0); Monocyte# 0.53 X10^3/uL; Monocyte% 9.8 % (0-10); NRBC Flagged by Analyzer 0 % (0-5); Neutrophil % 46.3 % (47-70); Platelet Count 216 K/mm3 (150-450); RBC Distribution Width CV 13.2 % (11.6-14.6); RBC Distribution Width SD 40.2 fl (35.1-43.9); Red Blood Count 5.41 M/mm3 (4.6-6.2); White Blood Count 5.4 K/mm3 (4.4-11.0)
== END 2024-01-27 00:06 | disposition home or self-care (01) ==
PROVIDERS: Emergency Provider Emergency Medicine; PCP Family Medicine; Visit Provider Emergency Medicine
DX: M79.89 Other specified soft tissue disorders (principal); M20.011 Mallet finger of right finger(s)
CPT/HCPCS: 73140; 85025; 87040; 99282

== ENCOUNTER 2024-05-31 13:08 | Emergency (ER) | payer BC, SELFPAY ==
[2024-05-31 13:09] VITALS: BP 129/90; PULSE 64; RESP 18; TEMP 36.3; O2SAT 96; BMI 30.3
--- NOTE | 2024-05-31 14:00 | EKG12_ITS ---
Test Reason : NEURO Blood Pressure : */* mmHG Vent. Rate : 62 BPM Atrial Rate : 62 BPM P-R Int : 212 ms QRS Dur : 90 ms QT Int : 394 ms P-R-T Axes : 30 12 17 degrees QTcB Int : 399 ms Sinus rhythm with 1st degree A-V block Otherwise normal ECG Confirmed by KERRIE CARTER, TRAVIS ([id number]), map editor LISE BUTLER ([id number]) on 06/02/2024 8:29:31 AM Referred By: Confirmed By: TRAVIS SY MD
[2024-05-31 14:01] LABS: Absolute Lymphocyte Count 1.83 X10^3/uL (0.83-4.51); Absolute Neutrophil Count 2.3 X10^3/uL (2.0-7.7); Basophil# 0.06 X10^3/uL; Basophil% 1.3 % (0-1); Eosinophil# 0.11 X10^3/uL; Eosinophils% 2.3 % (0-5); Lymphocyte # 1.83 X10^3/ul (0.83-4.51); Lymphocyte % 38.6 % (19-41); Mean Corp Hgb Conc 32.7 g/dL (32-36); Mean Corpuscular Hgb 26.8 pg (27.0-32.0); Mean Corpuscular Volume 82.1 fL (80-94); Monocyte# 0.44 X10^3/uL; Monocyte% 9.3 % (0-10); NRBC Flagged by Analyzer 0 % (0-5); Neutrophil # 2.29 X10^3/uL (2.7-7.7); Neutrophil % 48.3 % (47-70); Platelet Count 229 K/mm3 (150-450); RBC Distribution Width SD 38.4 fl (35.1-43.9); Red Blood Count 5.97 M/mm3 (4.6-6.2); White Blood Count 4.7 K/mm3 (4.4-11.0)
[2024-05-31] MEDS: Aspirin 81 MG TAB.CHEW 324 MG PO (14:17)
--- NOTE | 2024-05-31 14:20 | RAD_ITS ---
PROCEDURE: CHEST 1 VIEW (PORTABLE) 05/31/2024 REASON FOR EXAM: 58-year-old male, CHEST PAIN TECHNIQUE: Frontal view of the chest. COMPARISON: None. FINDINGS: Hardware: None. Heart: The heart size is normal. Lungs: No focal consolidation, pleural effusion or pneumothorax. Bones: Degenerative changes are identified within the thoracic spine. RAD/Chest 1 View (Portable) IMPRESSION: Negative Chest. Reading Location: [id number]
--- NOTE | 2024-05-31 14:22 | EDS_ITS ---
HPI History of Present Illness Chief Complaint: Numb/Ting Informant: patient Onset/Context/Timing Onset: Weeks (1.5) Context: Sudden Onset Timing: Intermittent Quality: Heavy and weighty Location: Bilateral arms Worsened by: Nothing Relieved by: Nothing Narrative Narrative: Patient presents with numbness and tingling to his arms that has been intermittent over the past 1-1/2 weeks. Patient states it comes on suddenly. Patient states it happened today while he was at work. Patient states he was just standing at work when this began. Patient states his arms feel heavy and weighty. Patient states nothing makes it better and nothing makes it worse. Patient states he feels dizzy. Patient admits to some shortness of breath but denies any nausea or vomiting. Patient denies any diaphoresis. [facility] Medical History Anxiety Anemia Hypothyroidism Herniated cervical disc RLS (restless legs syndrome) MYNOR (obstructive sleep apnea) Home Medications ?Medication ?Instructions ?Recorded ?Last Taken ?Type Synthroid 137 mg PO/SL DAILY 11/15/20 Unknown History lorazepam 0.5 mg tablet (Ativan) 0.5 mg PO TID PRN anx iety #10 tabs 11/15/20 Unknown Rx hydroxyzine pamoate 25 mg capsule 50 mg (2 x 25 mg) PO TID PRN PRN 11/17/20 Unknown Rx Anxiety #30 CAPSULES budesonide-formoterol HFA 160 1 puff inhalation BID re sp issues 11/18/20 11/17/20 18:00 History mcg-4.5 mcg/actuation aerosol inhaler (Symbicort) Held on 11/23/20. Instructions: Resume on 11/29/20. cholecalciferol (vitamin D3) 10 10 mcg PO DAILY genera l health 11/22/20 Unknown History mcg (400 unit) tablet (Vitamin D3) dexamethasone 6 mg tablet 6 mg PO DAILY #5 tabs Unknown Rx sodium chloride 0.65 % nasal spray 2 spray NASAL TID P RN PRN NASAL 11/23/20 Unknown Rx aerosol (Deep Sea Nasal) DRYNESS #15 mL ondansetron 4 mg disintegrating 4 mg PO Q8H PRN PRN Na usea #14 tabs 08/12/22 Unknown Rx tablet hydrocodone-acetaminophen 5-325mg 1 tab PO Q6H PRN PRN Pain 3 days 08/14/22 Unknown Rx 5mg-325mg #10 TABLETS cephalexin 500 mg capsule 500 mg PO Q6 7 days #28 CAPS ULES 01/26/24 Unknown Rx Allergy/AdvReac Type Severity Reaction Status Date / Time Penicillins (PCN) Allergy Unknown Verified 05/31/24 13:12 Family History Mother Hypertension Surgical History H/O arthroscopy of left knee Hx of umbilical hernia repair Social History household members: spouse Smoking Status: Never smoker alcohol intake: former substance use type: does not use ROS ROS ED Constitutional Constitutional ED: Denies chills or fever(s) Eyes Eyes: Denies blurry vision or change in vision ENT ENT ED: Denies rhinorrhea or sore throat Cardiovascular Cardiovascular: Denies chest pain or palpitations Respiratory/Chest Respiratory/Chest: Reports dyspnea and dyspnea on exertion; Denies cough Gastrointestinal Gastrointestinal: Denies nausea or vomiting Genitourinary Genitourinary ED: Denies dysuria or hematuria Musculoskeletal Musculoskeletal: Denies back pain or neck pain Integumentary Denies abscess or rash Neurologic Neurologic: Denies headache(s) or weakness Allergic/Immunologic Allergic/Immunologic ED: Denies mouth swelling or urticaria EXAM Physical Exam Const Vital Signs: 05/31/24 13:09 05/31/24 14:12 05/31/24 14:14 Temperature 97.4 F L Temperature Source Oral Pulse Rate 64 Respiratory Rate 18 Respiratory Effort Normal Non-Labored Respiratory Pattern Normal Blood Pressure 129/90 H Blood Pressure Mean 103 Pulse Ox 96 Oxygen Delivery Method Room Air Room Air 05/31/24 15:11 Temperature Temperature Source Pulse Rate 58 L Respiratory Rate 15 Respiratory Effort Respiratory Pattern Blood Pressure 119/76 Blood Pressure Mean 90 Pulse Ox 96 Oxygen Delivery Method Room Air Positive well nourished and well developed General Appearance ED: well developed and NAD HEENT Reports moist mucous membranes Neck supple and no JVD Resp normal respiratory effort and clear to auscultation bilaterally Cardio regular rate and regular rhythm GI non-tender and non-distended Palpation: soft Extremity normal to inspection General Extremety ED: Negative for edema or tenderness General Extremity: Negative for edema Neuro oriented x3, CN's II-XII intact bilaterally and no sensory deficits noted Sensorium / Orientation: alert Motor Exam: strength 5/5 throughout Psych mental status grossly normal MDM MDM MDM Narrative Medical decision making narrative: Differential diagnosis includes cardiac dysrhythmia, cardiac ischemia, pneumonia, electrolyte abnormality, cervical radiculopathy, cervical myelopathy, and anxiety. EKG will be obtained to assess for cardiac dysrhythmia and cardiac ischemia. Chest x-ray will be obtained to assess for pneumonia and pneumothorax. CBC will be obtained to assess for leukocytosis and anemia. Basic metabolic profile will be obtained to assess for electrolyte abnormality and renal function. High-sensitivity troponin will be obtained to assess for cardiac ischemia. 2-hour repeat high-sensitivity troponin will be obtained to assess for ongoing cardiac ischemia. Lab Data Attestation: I reviewed the patient's lab results. Lab results narrative: CBC was reviewed and was within normal limits. Basic metabolic profile was reviewed and was within normal limits. Initial high-sensitivity troponin was reviewed and was normal at 6. 2-hour repeat high-sensitivity troponin was reviewed and was normal at 7. Labs: Laboratory Results - last 24 hr 05/31/24 05/31/24 13:25 15:25 WBC 4.7 RBC 5.97 Hgb 16.0 Hct 49.0 MCV 82.1 MCH 26.8 L MCHC 32.7 RDW Std Deviation 38.4 RDW Coeff of Chante 13.0 Plt Count 229 MPV 9.0 Immature Gran % (Auto) 0.200 Neut % (Auto) 48.3 Lymph % (Auto) 38.6 [place] % (Auto) 9.3 Eos % (Auto) 2.3 Baso % (Auto) 1.3 H Absolute Neuts (auto) 2.3 Absolute Lymphs (auto) 1.83 Nucleated RBC % 0 Sodium 140 Potassium 4.2 Chloride 105 Carbon Dioxide 24.1 Anion Gap 11 BUN 14 Creatinine 0.99 Estim Creat Clear Calc 109.22 Est GFR (MDRD) Non-Af 88 BUN/Creatinine Ratio 13.8 Glucose 92 Calcium 9.3 Troponin T High Sens 6 Troponin T Hi Sens 2 Hr 7 Radiography Diagnostic Testing: Clinical Impression(s) from Imaging Studies Chest X-Ray 05/31/24 14:20 IMPRESSION: Negative Chest. Reading Location: [facility] EKG Initial EKG: Attestation: I personally reviewed and interpreted this EKG as follows: Interpretation: Sinus Rhythm (62), No Acute Injury Pattern and AV Block (First-degree) Comments: EKG was obtained. On my independent interpretation, it showed a normal sinus rhythm with a first-degree AV block with a rate of 62. [place] interval was prolonged at 212 ms. QRS interval was normal at 90 ms. QTc interval was normal at 399 ms. [place] was normal. There are no acute ST or T wave changes. Prior EKG tracings: available for review Prior: Unchanged (04/10/2022) Treatment and Re-Evaluation :: Patient was given aspirin. Patient was advised of his findings. Patient has a HEART score of 1. Patient was advised that this is low risk for acute cardiac event. Patient was instructed to follow-up with his primary care physician for further evaluation. Patient understood and was agreeable with the plan. All questions were answered. Discharge Plan Triage Chief Complaint: Numb/Ting Other Complaint: Weakness ED Provider: Favio Lee Dx/Rx/DC Orders Clinical Impression: Bilateral arm weakness, Elevated blood pressure reading without diagnosis of hypertension Instructions: ED Weakness Uncertain Cause Prescriptions: No Action Synthroid 137 mg PO/SL DAILY lorazepam [Ativan] 0.5 mg tablet 0.5 mg PO TID PRN (Reason: anxiety) Qty: 10 0RF hydroxyzine pamoate 25 MG capsule 50 mg PO TID PRN PRN (Reason: Anxiety) Qty: 30 0RF budesonide-formoterol [Symbicort] 160-4.5 mcg/actuation HFA aerosol inhaler 1 puff INHALATION BID cholecalciferol (vitamin D3) [Vitamin D3] 10 mcg (400 unit) Tablet 10 mcg PO DAILY Deep Sea Nasal 0.65 % Aerosol,[place] 2 spray NASAL TID PRN PRN (Reason: NASAL DRYNESS) Qty: 15 0RF dexamethasone 6 mg tablet 6 mg PO DAILY Qty: 5 0RF ondansetron 4 mg tablet,disintegrating 4 mg PO Q8H PRN PRN (Reason: Nausea) Qty: 14 0RF hydrocodone-acetaminophen 5-325 mg tablet 1 tab PO Q6H PRN PRN (Reason: Pain) 3 Days Qty: 10 0RF cephalexin 500 mg capsule 500 mg PO Q6 7 Days Qty: 28 0RF Primary Care Provider: Amilcar Sandoval Referrals: Amilcar Sandoval MD [Primary Care Provider] - 5-7 Days Print Language: Khmer Disposition Disposition: Home, Self Care
[2024-05-31 14:53] LABS: Anion Gap 11 (5-15); BUN 14 mg/dL (4-19); BUN/Creat Ratio 13.8 RATIO (10-20); Calcium,Total 9.3 mg/dL (7.6-11.0); Carbon Dioxide 24.1 mmol/L (21.0-32.0); Chloride 105 mmol/L (98-108); Creatinine, Serum 0.99 mg/dL (0.70-1.20); EST Glomerular Filtration Rate 88 (>60); Estimated Creatinine Clearance 109.22 ml/min (50-250); Glucose 92 mg/dL (70-99); Potassium 4.2 mmol/L (3.3-5.1); Sodium Level 140 mmol/L (133-145); Troponin T High Sensitivity 6 ng/L (<=22)
[2024-05-31 15:11] VITALS: BP 119/76; PULSE 58; RESP 15; O2SAT 96
[2024-05-31 16:09] LABS: Troponin T High Sens 2 HR 7 ng/L (<=22)
[2024-05-31 16:44] VITALS: BP 120/81; PULSE 64; RESP 18; TEMP 36.6; O2SAT 94
== END 2024-05-31 16:48 | disposition home or self-care (01) ==
PROVIDERS: Emergency Provider Emergency Medicine; PCP Family Medicine; Visit Provider Emergency Medicine
DX: R29.898 Other symptoms and signs involving the musculoskeletal system (principal); R53.1 Weakness; R03.0 Elevated blood-pressure reading, without diagnosis of hypertension; R20.0 Anesthesia of skin; R20.2 Paresthesia of skin; R06.09 Other forms of dyspnea
CPT/HCPCS: 71045; 80048; 84484; 85025; 93005; 99284; A4216

== ENCOUNTER 2024-12-01 15:53 | Emergency (ER) | payer OTHER, SELFPAY ==
[2024-12-01 15:53] VITALS: BP 131/78; PULSE 82; RESP 16; TEMP 36.7; O2SAT 98; BMI 32.1
== END 2024-12-01 16:15 | disposition left against medical advice (07) ==
LOC: ED 16:16
PROVIDERS: PCP Family Medicine
DX: Z53.21 Procedure and treatment not carried out due to patient leaving prior to being seen by health care provider (principal)